=== PATIENT | male | born 1945 | race Caucasian/White ===

== ENCOUNTER → 2018-07-02 09:37 | Outpatient (CLI) | payer MEDICARE, SELFPAY | PROVIDERS: PCP Internal Medicine; Visit Provider Student in an Organized Health Care Education/Training Program | DX: M81.0 Age-related osteoporosis without current pathological fracture (principal); E21.3 Hyperparathyroidism, unspecified | CPT/HCPCS: 77080; 77081 ==

== ENCOUNTER → 2019-06-20 09:11 | Outpatient (CLI) | payer MEDICARE, SELFPAY ==
[2019-06-20 09:49] LABS: Hemoglobin A1C% w Est Avg Glu 5.9 % (4.0-6.0)
[2019-06-20 10:08] LABS: Aspartate Aminotransferase 33 IU/L (17-59); BUN Creatinine Ratio 22.5 (6-22); Blood Urea Nitrogen 18 mg/dL (9-20); Carbon Dioxide 30 mmol/L (22-32); Chloride 104 mmol/L (98-107); Cholesterol 100 mg/dL (140-199); Estimated Glomerular Filt Rate > 60.0 mL/min (>60); Glucose 160 mg/dL (80-110); HDL Cholesterol 45 mg/dL (40-60); HEMOLYSIS < 15 (0-50); LDL Cholesterol Calculated 38 mg/dL (<100); Potassium 4.4 mmol/L (3.4-5.1); Sodium 141 mmol/L (137-145); Triglycerides 86 mg/dL (35-150)
== END ==
PROVIDERS: PCP Internal Medicine; Visit Provider Internal Medicine
DX: I10 Essential (primary) hypertension (principal); E78.2 Mixed hyperlipidemia; R73.01 Impaired fasting glucose
CPT/HCPCS: 36415; 80048; 80061; 83036; 84450

== ENCOUNTER → 2019-06-25 09:39 | Outpatient (CLI) | payer MEDICARE, SELFPAY | PROVIDERS: PCP Internal Medicine; Visit Provider Student in an Organized Health Care Education/Training Program | DX: M81.0 Age-related osteoporosis without current pathological fracture (principal); E83.52 Hypercalcemia | CPT/HCPCS: 77080; 77081 ==

== ENCOUNTER → 2020-06-18 14:56 | Outpatient (CLI) | payer MEDICARE, SELFPAY | PROVIDERS: PCP Internal Medicine; Referring Provider Student in an Organized Health Care Education/Training Program; Visit Provider Student in an Organized Health Care Education/Training Program | DX: M81.0 Age-related osteoporosis without current pathological fracture (principal) | CPT/HCPCS: 77080 ==

== ENCOUNTER → 2020-08-10 19:37 | Outpatient (ROUT) | payer MEDICARE, SELFPAY ==
[2020-08-10 20:25] LABS: Hemoglobin A1C% w Est Avg Glu 7.1 % (4.0-6.0)
[2020-08-10 20:31] LABS: Aspartate Aminotransferase 33 IU/L (17-59); BUN Creatinine Ratio 34.8 (6-22); Blood Urea Nitrogen 24 mg/dL (9-20); Calcium 9.1 mg/dL (8.4-10.2); Carbon Dioxide 29 mmol/L (22-32); Chloride 104 mmol/L (98-107); Cholesterol 108 mg/dL (140-199); Estimated Glomerular Filt Rate > 60.0 mL/min (>60); Glucose 108 mg/dL (80-110); HDL Cholesterol 46 mg/dL (40-60); HEMOLYSIS < 15 (0-50); LDL Cholesterol Calculated 31 mg/dL (<100); Potassium 4.3 mmol/L (3.4-5.1); Sodium 138 mmol/L (137-145); Triglycerides 153 mg/dL (35-150)
[2020-08-12 06:39] LABS: Parathyroid Hormone Int 45 pg/mL (15-65)
== END ==
PROVIDERS: PCP Internal Medicine; Visit Provider Internal Medicine
DX: I10 Essential (primary) hypertension (principal); E78.2 Mixed hyperlipidemia; E21.3 Hyperparathyroidism, unspecified; R73.01 Impaired fasting glucose
CPT/HCPCS: 80048; 80061; 83036; 83970; 84450

== ENCOUNTER → 2020-11-11 14:55 | Outpatient (ROUT) | payer MEDICARE, SELFPAY | PROVIDERS: PCP Internal Medicine; Visit Provider Internal Medicine | DX: N41.0 Acute prostatitis (principal) | CPT/HCPCS: 87086 ==

== ENCOUNTER 2020-11-12 10:36 | Emergency (ER) | payer MEDICARE, SELFPAY ==
[2020-11-12 11:33] VITALS: BP 141/83; PULSE 64; RESP 18; TEMP 36.9; O2SAT 100; BMI 26.6
--- NOTE | 2020-11-12 13:58 | DI.RAD.S_ITS ---
PROCEDURE: XR ABDOMEN 1V INDICATIONS: Constipation TECHNIQUE: One view of the abdomen acquired. COMPARISON: None. FINDINGS: Surgical changes and devices: None. Bowel: Bowel gas pattern is normal. Moderate colonic stool. No obstruction. Soft tissues: No suspicious abdominal calcifications. Visualized solid organ contours appear normal in size. Bones: No suspicious bony lesions. IMPRESSION: Moderate colonic stool. Dictated by: Jennifer Bustos M.D. on 11/12/2020 at 13:20 Approved by: Jennifer Bustos M.D. on 11/12/2020 at 13:21
--- NOTE | 2020-11-12 13:58 | ED_ITS ---
HPI - Back Pain/Injury General Chief Complaint: Back Pain/Injury Stated Complaint: HAVEN'T SLEPT FOR 3 NIGHTS, CONSTIPATION Time Seen by Provider: 11/12/20 13:17 Source: patient Mode of arrival: Ambulatory Limitations: no limitations History of Present Illness HPI Narrative: 75-year-old male here for evaluation of constipation and back pain and difficulty sleeping at night because of the discomfort. He was recent ly put on Bactrim for prostatitis by his primary doctor. He does state that he has had some problems urinating recently. He has not had any fevers. Has not fallen. He was concerned that potentially the antibiotic was reacting to some of his other medicines. He was also placed on calcium and vitamin D because of osteoporosis. He was concerned that potentially this was causing his constipation. Related Data Home Medications Medication Instructions Recorded Confirmed lisinopril 5 mg PO QDAY #0 07/17/11 omeprazole 20 mg PO QDAY #0 07/17/11 Previous Rx's Medication Instructions Recorded sulfamethoxazole-trimethoprim 1 tab PO BID #12 tab 04/07/17 Allergies Allergy/AdvReac Type Severity Reaction Status Date / Time No Known Drug Allergies Allergy Verified 11/12/20 11:40 Review of Systems Constitutional Constitutional: Denies fever(s) and Denies headache(s) Eyes Eyes: Denies blurry vision ENT Ears, Nose, Mouth, and Throat: Denies headache(s) and Denies sore throat Cardiovascular Cardiovascular: Denies chest pain and Denies dyspnea Respiratory Respiratory: Denies dyspnea Gastrointestinal Gastrointestinal: Reports abdominal pain, Reports constipation, Denies nausea and Denies vomiting Genitourinary Comments: Decreased urine output Musculoskeletal Musculoskeletal: Reports back pain Integumentary/Breasts Skin/Breast: Denies lesions and Denies rash Neurologic Neurologic: Denies behavioral changes and Denies headache(s) Psychiatric Psychiatric: Denies behavioral changes Hematologic/Lymphatic On Anticoagulants: No Allergic/Immunologic Allergic/Immunologic: Denies urticaria Patient History Medical History Osteoporosis Prostatitis Social History Smoking Status: Never smoker Smoking Status: Never smoker alcohol intake frequency: 0-2 drinks per day Substance Use Type: does not use Exam Initial Vital Signs Initial Vital Signs: Vital Signs Temperature 98.4 F 11/12/20 11:33 Pulse Rate 64 11/12/20 11:33 Respiratory Rate 18 11/12/20 11:33 Blood Pressure 141/83 H 11/12/20 11:33 Pulse Oximetry 100 11/12/20 11:33 Const General: cooperative and comfortable Limitations: mental status not altered HENMT Head: normal to inspection and normocephalic Eyes General: appearance normal, both eyes and all related structures Resp Effort & Inspection: normal respiratory effort Cardio Rate: regular rate GI Inspection: non-distended Palpation: soft and tender (Lower abdomen) Back/Spine/Pelvis Back: No CVA tenderness Skin Lesions: no lesions Rashes: no rashes Neuro General: patient alert, patient awake and patient oriented x3 Cognition: normal cognition Speech: speech normal Extrem General: normal to inspection and capillary refill normal Psych Appearance: grossly normal and well kempt Course Orders Ordered: ED Orders 11/12/20 13:58 XR abdomen 1V Stat 11/12/20 14:20 Urinalysis and Microscopic Stat Vital Signs Vital signs: Vital Signs - 8 hr 11/12/20 11:33 Temperature 98.4 F Pulse Rate 64 Respiratory Rate 18 Blood Pressure 141/83 H Pulse Oximetry 100 MDM - Back Pain/Injury Lab Data Attestation: I reviewed the patient's lab results. Labs: Lab Results 11/12/20 Range/Units 14:20 Urine Color Yellow Urine Appearance Clear Urine pH 5.5 (4.5-8.0) Ur Specific [place] 1.025 (1.000-1.035) Urine Protein Negative (Negative) Urine Glucose (UA) Trace H (Negative) g/dL Urine Ketones Negative (NEGATIVE) Urine Occult Blood 3+ H (Negative) Urine Nitrate Negative (Negative) Urine Bilirubin Negative (NEGATIVE) Urine Urobilinogen 0.2 (0.2) E.U./dL Ur Leukocyte Esterase Negative (NEGATIVE) Urine RBC 5-10/hpf H (0-5/HPF) Urine WBC None seen (0-5/HPF) Urine Bacteria None seen (None) Ur Culture Indicated? Cult not indicated MDM Narrative Medical decision making narrative: Bladder scan showed 800 cc of urine. I suspect that this is secondary to a baseline BPH in now with inflammation secondary to the prostatitis. He is currently on antibiotics for this prostatitis. After placement of the catheter his back pain and abdominal pain resolved. Plan to be is to leave the catheter in place. He will continue with his antibiotics in the rest of his medications. He will contact his primary doctor for follow-up. He expressed understanding and agreement. Discharge Plan Departure Patient Disposition: Home Clinical Impression: Acute urinary retention Instructions: How to Care for Your Sommers Catheter -- Male, DI for Urinary Retention in Men Activity Restrictions/Additional Instructions: I recommend that you contact your primary doctor's office for follow-up. Also recommend that you continue with the antibiotics. Return to the emergency department for any new or worsening symptoms Prescriptions: No Action omeprazole 20 MG capsule,delayed release(DR/EC) 20 mg PO QDAY Qty: 0 RF: 0 lisinopril 5 MG tablet 5 mg PO QDAY Qty: 0 RF: 0 sulfamethoxazole-trimethoprim 800 MG/160 MG tablet 1 tab PO BID Qty: 12 RF: 0 Referrals: Cristi Schulz MD [Physician] - Maco Schafer MD [Primary Care Provider] -
[2020-11-12 14:27] LABS: Appearance Urine UA CLEAR; Bacteria Urine None Seen; Bilirubin Urine UA NEGATIVE (NEGATIVE); Color Urine UA YELLOW; Glucose Urine UA TRACE g/dL (Negative); Ketones Urine UA NEGATIVE (NEGATIVE); Leukocyte Esterase Urine UA NEGATIVE (NEGATIVE); Nitrite Urine UA NEGATIVE (Negative); Occult Blood Urine UA 3+ (Negative); Protein Urine UA NEGATIVE (Negative); Specific Gravity Urine UA 1.025 (1.000-1.035); Urobilinogen Urine UA 0.2 E.U./dL (0.2); WBC Urine None Seen (0-5/HPF); pH Urine UA 5.5 (4.5-8.0)
[2020-11-12 14:34] LABS: Culture Indicated Urine Cult Not Indicated; RBC Urine 5-10/HPF (0-5/HPF)
--- NOTE | 2020-11-12 15:37 | PC.NURSE ---
Teaching done for catheter, leg bag applied. I worked with the individual to teach him proper catheter care.
[2020-11-12 15:42] VITALS: BP 128/78; PULSE 68; RESP 17; O2SAT 99
== END 2020-11-12 15:45 | disposition home or self-care (01) ==
PROVIDERS: Emergency Provider Emergency Medicine; PCP Internal Medicine
DX: R33.8 Other retention of urine (principal); R10.9 Unspecified abdominal pain; M54.9 Dorsalgia, unspecified
CPT/HCPCS: 51701; 51798; 74018; 81001; 99284

== ENCOUNTER 2020-11-14 15:12 | Emergency (ER) | payer MEDICARE, SELFPAY ==
[2020-11-14 15:24] VITALS: BP 125/71; PULSE 72; RESP 18; TEMP 36.5; O2SAT 97; BMI 26.6
[2020-11-14 19:27] LABS: Bacteria Urine None Seen; WBC Urine None Seen (0-5/HPF)
[2020-11-14 19:46] LABS: Appearance Urine UA CLOUDY; Bilirubin Urine UA NEGATIVE (NEGATIVE); Color Urine UA RED; Glucose Urine UA NEGATIVE (Negative); Ketones Urine UA TRACE (NEGATIVE); Leukocyte Esterase Urine UA NEGATIVE (NEGATIVE); Nitrite Urine UA NEGATIVE (Negative); Occult Blood Urine UA 3+ (Negative); Protein Urine UA 3+ (Negative); Urobilinogen Urine UA 0.2 E.U./dL (0.2); pH Urine UA 6.5 (4.5-8.0)
[2020-11-14 19:53] LABS: Culture Indicated Urine Cult Not Indicated; RBC Urine >100/HPF (0-5/HPF)
--- NOTE | 2020-11-14 20:29 | ED.MALEGU ---
HPI - Male Genitourinary General Chief complaint: Urogenital-Male Stated complaint: catheter in, sees blood in urine now Time Seen by Provider: 11/14/20 15:24 Source: patient Mode of arrival: Family Vehicle Limitations: no limitations History of Present Illness HPI Narrative: Patient is a 75-year-old male who has indwelling Sommers catheter concerned urine. He developed urinary retention and probable prostatitis November 12. He was on Bactrim from his primary care provider for prostatitis and developed urinary retention and came to the ER at which point Sommers catheter was placed 11/12/2020. This evening he and his noticed that his urine was quite dark and there was some sediment in the toilet. He has not had any fever or chills. At no time was there gross blood in the Sommers catheter and urine is not pink. Related Data Home Medications Medication Instructions Recorded Confirmed lisinopril 5 mg PO QDAY #0 07/17/11 omeprazole 20 mg PO QDAY #0 07/17/11 Previous Rx's Medication Instructions Recorded sulfamethoxazole-trimethoprim 1 tab PO BID #12 tab 04/07/17 Allergies Allergy/AdvReac Type Severity Reaction Status Date / Time No Known Drug Allergies Allergy Verified 11/14/20 15:29 Review of Systems Review of Systems Narrative: GENERAL: Denies chills,fever HEENT: Denies throat pain RESPIRATORY: Denies dyspnea, cough, wheezing CARDIOVASCULAR: Denies chest pain, palpitations GASTROINTESTINAL: Denies nausea, vomiting : See HPI MUSCULOSKELETAL: Denies extremity pain, injury SKIN: No rash, no laceration, no pruritus NEUROLOGIC: Denies weakness, dizziness, headache, numbness 8 point review of systems is negative except for those stated above and HPI Patient History Medical History Osteoporosis Prostatitis Social History Smoking Status: Never smoker Smoking Status: Never smoker alcohol intake frequency: 0-2 drinks per day Substance Use Type: does not use Exam Initial Vital Signs Initial Vital Signs: Vital Signs Temperature 97.7 F 11/14/20 15:24 Pulse Rate 72 11/14/20 15:24 Respiratory Rate 18 11/14/20 15:24 Blood Pressure 125/71 11/14/20 15:24 Pulse Oximetry 97 11/14/20 15:24 GENERAL: Well-appearing 75-year-old male CARDIOVASCULAR: peripheral pulses in tact, cap refill <2 sec RESPIRATORY: No respiratory distress, speaks in full sentences without difficulty ABDOMEN: Soft, nontender, no guarding or rebound : Sommers catheter in place and working urine is yellow and clear EXTREMITIES: Normal range of motion, no clubbing or edema. Neurovascularly intact NEUROLOGICAL: Cranial nerves II through XII grossly intact. Normal gait and speech. SKIN: Warm, dry, no petechiae, no rashes or lesions. Course Orders Ordered: ED Orders 11/14/20 19:15 Urinalysis and Microscopic Stat Vital Signs Vital signs: Vital Signs - 8 hr 11/14/20 21:02 Pulse Rate 76 Respiratory Rate 16 Blood Pressure 130/61 Pulse Oximetry 97 MDM - Male Genitourinary Lab Data Attestation: I reviewed the patient's lab results. Labs: Lab Results 11/14/20 Range/Units 19:15 Urine Color Red Urine Appearance Cloudy Urine pH 6.5 (4.5-8.0) Ur Specific [place] 1.020 (1.000-1.035) Urine Protein 3+ H (Negative) Urine Glucose (UA) Negative (Negative) g/dL Urine Ketones Trace H (NEGATIVE) Urine Occult Blood 3+ H (Negative) Urine Nitrate Negative (Negative) Urine Bilirubin Negative (NEGATIVE) Urine Urobilinogen 0.2 (0.2) E.U./dL Ur Leukocyte Esterase Negative (NEGATIVE) Urine RBC >100/hpf H (0-5/HPF) Urine WBC None seen (0-5/HPF) Urine Bacteria None seen (None) Ur Culture Indicated? Cult not indicated MDM Narrative Medical decision making narrative: Patient is currently on Bactrim for prostatitis. No evidence of gross blood or clogged catheter. I have educated both patient id was good regards to hematuria and when to return to the emergency department along with complications of Sommers catheter. All questions have been addressed. Patient is asking for Flomax however I defer to his primary care provider for Flomax. Discharge Plan Departure Patient Disposition: Home Clinical Impression: Complication of Sommers catheter, Hematuria Instructions: DI for Urinary Retention in Men Activity Restrictions/Additional Instructions: *You have been diagnosed with Sommers catheter, blood in urine *What to do: At this time continue antibiotics. Please talk with her primary care provider about Flomax *Continue to take medications as directed *Follow up with your primary care provider in 2-3 days *Return to ER if you should have actual blood in the Sommers catheter, no urine output, increased abdominal pain or any new, worsening or concerning symptoms Prescriptions: No Action omeprazole 20 MG capsule,delayed release(DR/EC) 20 mg PO QDAY Qty: 0 RF: 0 lisinopril 5 MG tablet 5 mg PO QDAY Qty: 0 RF: 0 sulfamethoxazole-trimethoprim 800 MG/160 MG tablet 1 tab PO BID Qty: 12 RF: 0 Referrals: Maco Schafer MD [Primary Care Provider] -
--- NOTE | 2020-11-14 20:59 | PC.NURSE ---
Pt had multiple questions about his catheter. Instructed appropriate care and instructions for catheter. Answered all questions. Pt able to verbalize and demonstrate cath care.
[2020-11-14 21:02] VITALS: BP 130/61; PULSE 76; RESP 16; O2SAT 97
== END 2020-11-14 21:03 | disposition home or self-care (01) ==
PROVIDERS: Emergency Medicine; Emergency Provider Emergency Medicine; PCP Internal Medicine
DX: R31.9 Hematuria, unspecified (principal); T83.9XXA Unspecified complication of genitourinary prosthetic device, implant and graft, initial encounter
CPT/HCPCS: 81001; 99281; 99282

== ENCOUNTER 2020-12-11 14:05 | Emergency (ER) | payer MEDICARE, SELFPAY ==
[2020-12-11 14:10] VITALS: BP 119/60; PULSE 72; RESP 16; TEMP 36.4; O2SAT 100
--- NOTE | 2020-12-11 15:10 | ED.MALEGU ---
HPI - Male Genitourinary General Chief complaint: Urogenital-Male Stated complaint: catheter issues Time Seen by Provider: 12/11/20 15:00 Source: patient Mode of arrival: Ambulatory Limitations: no limitations History of Present Illness HPI Narrative: 75-year-old male nonsmoker with history of hypertension and prostate issues presents with his in the chief complaint of a Sommers catheter issue. He states that he was changing the adhesive device on his thigh and he mounted in correctly and it was pinching his skin. He was unable to fix the problem at home, try disease urologist but they were closed and came here as the result. He is otherwise well and free of complaint. The Sommers has been draining without difficulty. He has had no fever or chills. MD Complaint: other Onset (ago): minute(s) Duration: constant Location: right inguinal region Severity: mild Quality: sharp Relieving factors: none Exacerbating factors: none Related Data Home Medications Medication Instructions Recorded Confirmed lisinopril 5 mg PO QDAY #0 07/17/11 12/02/20 denosumab 60 mg/mL subcutaneous 60 mg SUBCUT [id number] 11/26/20 12/02/20 syringe rosuvastatin 10 mg tablet 10 mg PO DAILY 11/26/20 12/02/20 sildenafil 50 mg tablet 50 mg PO DAILY PRN 11/26/20 12/02/20 Previous Rx's Medication Instructions Recorded tamsulosin 0.4 mg capsule 0.4 mg PO BEDTIME #30 cap 11/18/20 ciprofloxacin HCl 250 mg tablet 250 mg PO BID #5 tab 12/01/20 Allergies Allergy/AdvReac Type Severity Reaction Status Date / Time No Known Drug Allergies Allergy Verified 12/11/20 14:14 Review of Systems Constitutional Constitutional: Denies chills, Denies fatigue, Denies fever(s), Denies frequent falls, Denies lethargy and Denies weakness Eyes Eyes: Denies change in vision, Denies eye discharge, Denies irritation and Denies loss of vision ENT Ears, Nose, Mouth, and Throat: Denies change in voice, Denies dizziness, Denies neck pain, Denies sore throat and Denies throat swelling Cardiovascular Cardiovascular: Denies chest pain, Denies irregular heart rhythm, Denies lightheadedness, Denies palpitations, Denies dyspnea, Denies dyspnea on exertion and Denies orthopnea Respiratory Respiratory: Denies cough, Denies dyspnea, Denies dyspnea on exertion and Denies wheezing Gastrointestinal Gastrointestinal: Denies abdominal pain, Denies change in bowel habits, Denies diarrhea, Denies nausea and Denies vomiting Musculoskeletal Musculoskeletal: Denies neck pain and Denies numbness Integumentary/Breasts Skin/Breast: Denies pruritus, Denies erythema, Denies rash and Denies wounds Neurologic Neurologic: Denies behavioral changes, Denies confusion, Denies dizziness, Denies frequent falls, Denies loss of vision, Denies numbness and Denies weakness Psychiatric Psychiatric: Denies anxiety, Denies behavioral changes, Denies confusion, Denies depression, Denies homicidal ideation and Denies suicidal ideation Endocrine Endocrine: Denies fatigue, Denies flushing and Denies palpitations Hematologic/Lymphatic Hematologic/Lymphatic: Denies easy bruising Allergic/Immunologic Allergic/Immunologic: Denies urticaria, Denies throat swelling and Denies wheezing Patient History Medical History Bladder calculi Diabetes Erectile dysfunction GERD (gastroesophageal reflux disease) Hypertension Osteoporosis Prostatitis Family History Grandfather Stroke CAD (coronary artery disease) Father CAD (coronary artery disease) Stroke Hyperlipidemia Hypertension Social History marital status: number of children: 2 household members: spouse occupational status: previously employed current occupational exposures/hazards: No Previous occupational history: retired sexual history: See [employer] Smoking Status: Never smoker alcohol intake: never caffeine: No Type(s) of exercise: regular exercise frequency: daily duration: 45-60 minutes/day Smoking Status: Never smoker alcohol intake frequency: 0-2 drinks per day Substance Use Type: does not use Exam Narrative Exam Narrative: GEN: AOx3 and in mild distress EYES: Pupils are equal, round, and reactive to light and accommodation. Extraoccular muscles are intact bilaterally. There is no subconjunctival hemorrhage or exudate. CHEST: Lungs are clear to auscultation bilaterally and free of wheezes, rales, or rhonchi. Heart rate is regular rhythm, there are no murmurs, clicks, rubs, or gallops. There is no chest wall tenderness. ABD: Abdomen is soft and nontender. There is no guarding or rebound. Bowel sounds are normal in all 4 quadrants. There is no mass or organomegaly. EXT: Full painless ROM of all extremities with no loss of sensation or strength. : Sommers catheter in place, draining appropriately, nursing has replaced the securing device and patient is asymptomatic and at baseline SKIN: Warm, pink, and dry. No erythema or rash Initial Vital Signs Initial Vital Signs: Vital Signs Temperature 97.6 F 12/11/20 14:10 Pulse Rate 72 12/11/20 14:10 Respiratory Rate 16 12/11/20 14:10 Blood Pressure 119/60 12/11/20 14:10 Pulse Oximetry 100 12/11/20 14:10 Course Vital Signs Vital signs: Vital Signs - 8 hr 12/11/20 14:10 Temperature 97.6 F Pulse Rate 72 Respiratory Rate 16 Blood Pressure 119/60 Pulse Oximetry 100 Discharge Plan Departure Patient Disposition: Home Clinical Impression: Problem with Sommers catheter Qualifiers: Encounter type: initial encounter Qualified Code(s): T83.9XXA - Unspecified complication of genitourinary prosthetic device, implant and graft, initial encounter Instructions: How to Care for Your Sommers Catheter -- Male Activity Restrictions/Additional Instructions: *You have been diagnosed with [Sommers catheter problem] *What to do: *Please continue to take your regular medications as directed. [ ] New medication prescriptions sent to your pharmacy: [ ] [ ] New medication written as a paper prescription [x ] No new medications given *Please follow up with your primary care provider in 2-3 days, call for an appointment. Let them know you were seen in the Emergency Department and that we ask that you be seen in follow up. We will electronically transmit a record of today's note if your PCP is in our system *If you do not have a primary care provider please contact the [facility] Resource line at [phone]. They will ask some questions about your medical history and help get you set up with a doctor in the community. *Return to Emergency Department if you should have any new, worsening or concerning symptoms, such as [fever greater than 101 F, shaking chills, worsening pain, persistent vomiting or other bothersome symptoms] Prescriptions: No Action lisinopril 5 MG tablet 5 mg PO QDAY Qty: 0 RF: 0 tamsulosin 0.4 mg capsule 0.4 mg PO BEDTIME Qty: 30 RF: 0 ciprofloxacin HCl 250 mg tablet 250 mg PO BID Qty: 5 RF: 0 rosuvastatin [Crestor] 10 mg tablet 10 mg PO DAILY RF: 0 Prolia 60 mg/mL syringe 60 mg SUBCUT [id number] RF: 0 sildenafil [Viagra] 50 mg tablet 50 mg PO DAILY PRNRF: 0 Referrals: Maco Schafer MD [Primary Care Provider] -
--- NOTE | 2020-12-11 15:23 | PC.NURSE ---
pt arrived to Er to just have his hearn secure device checked. was unsure how it went on. instructed and demonstrated to how to fix the device. hearn care done.
== END 2020-12-11 15:19 | disposition home or self-care (01) ==
PROVIDERS: Emergency Provider Emergency Medicine; PCP Internal Medicine
DX: T83.9XXA Unspecified complication of genitourinary prosthetic device, implant and graft, initial encounter (principal)
CPT/HCPCS: 99281

== ENCOUNTER 2021-03-19 16:33 | Emergency (ER) | payer MEDICARE, SELFPAY ==
[2021-03-19 16:37] VITALS: BP 154/74; PULSE 85; RESP 18; TEMP 36.7; O2SAT 95; BMI 25.7
[2021-03-19 17:31] LABS: Bilirubin Urine UA NEGATIVE (NEGATIVE); Color Urine UA YELLOW; Glucose Urine UA TRACE g/dL (Negative); Ketones Urine UA TRACE (NEGATIVE); Leukocyte Esterase Urine UA 2+ (NEGATIVE); Nitrite Urine UA NEGATIVE (Negative); Occult Blood Urine UA 3+ (Negative); Protein Urine UA 1+ (Negative); Urobilinogen Urine UA 0.2 E.U./dL (0.2)
[2021-03-19 17:44] LABS: Appearance Urine UA Slightly Cloudy
[2021-03-19 17:45] LABS: Amorphous Sediment Urine 1+; Bacteria Urine Occasional (0-1); Culture Indicated Urine Specimen Cultured; RBC Urine 1-5/HPF (0-5/HPF); Squamous Epithelial Cell Urine 0-1 /HPF (0-5/HPF); WBC Urine >100/HPF (0-5/HPF)
--- NOTE | 2021-03-19 19:09 | ED_ITS ---
HPI - Male Genitourinary General Chief complaint: Urogenital-Male Stated complaint: Can't Urinate, 3-4 Days Time Seen by Provider: 03/19/21 17:33 Source: patient and family Mode of arrival: Ambulatory Limitations: no limitations History of Present Illness HPI Narrative: 75M nonsmoker with history of erectile dysfunction and bladder calculi presents with a chief complaint of difficulty urinating for the past few days. He has suprapubic tenderness. He denies other symptoms such as dizziness, weakness or lightheadedness. He has no chest pain or shortness of breath. He denies any fever or shaking chills. He had history of with the a Sommers catheter being in place for many weeks but it has been out for the past 2 weeks. His symptoms started in the past few days. Related Data Home Medications Medication Instructions Recorded Confirmed lisinopril 5 mg tablet 5 mg PO QDAY #0 07/17/11 12/02/20 denosumab 60 mg/mL subcutaneous 60 mg SUBCUT [id number] 11/26/20 12/02/20 syringe (Prolia) rosuvastatin 10 mg tablet (Crestor) 10 mg PO DAILY 11/26/20 12/02/20 sildenafil 50 mg tablet (Viagra) 50 mg PO DAILY PRN 11/26/20 12/02/20 Previous Rx's Medication Instructions Recorded tamsulosin 0.4 mg capsule 0.4 mg PO BEDTIME #30 cap 11/18/20 ciprofloxacin HCl 250 mg tablet 250 mg PO BID #5 tab 12/01/20 cefuroxime axetil 500 mg tablet 500 mg PO BID #14 tab 03/19/21 Allergies Allergy/AdvReac Type Severity Reaction Status Date / Time No Known Drug Allergies Allergy Verified 03/19/21 16:40 Review of Systems Review of Systems Narrative: GENERAL: Denies chills, fatigue, malaise, fever, sweats. HEENT: Denies sinus pain, ear pain, sore throat, difficulty swallowing, dizziness. RESPIRATORY: Denies dyspnea, cough, wheezing, hemoptysis, sputum. CARDIOVASCULAR: Denies chest pain, palpitations, orthopnea, edema, GASTROINTESTINAL: Denies nausea, vomiting, abdominal pain, diarrhea, constipation, melena. : See HPI MUSCULOSKELETAL: denies weakness, joint pain, or bony pain SKIN: Denies rash, skin lesions, or other NEUROLOGIC: Denies weakness, headache, numbness, change in speech, confusion, seizures, incoordination. PSYCHIATRIC: No concerning psychosocial issues. 12 point review of systems is negative except for those stated above Patient History Medical History Bladder calculi Diabetes Erectile dysfunction GERD (gastroesophageal reflux disease) Hypertension Osteoporosis Prostatitis Family History Grandfather Stroke CAD (coronary artery disease) Father CAD (coronary artery disease) Stroke Hyperlipidemia Hypertension Social History marital status: number of children: 2 household members: spouse occupational status: previously employed current occupational exposures/hazards: No Previous occupational history: retired sexual history: See MANUEL Smoking Status: Never smoker alcohol intake: never caffeine: No Type(s) of exercise: regular exercise frequency: daily duration: 45-60 minutes/day Smoking Status: Never smoker alcohol intake frequency: 0-2 drinks per day Substance Use Type: does not use Exam Narrative Exam Narrative: GEN: AOx3 and in mild distress EYES: Pupils are equal, round, and reactive to light and accommodation. Extraoccular muscles are intact bilaterally. There is no subconjunctival hemorrhage or exudate. CHEST: Lungs are clear to auscultation bilaterally and free of wheezes, rales, or rhonchi. Heart rate is regular rhythm, there are no murmurs, clicks, rubs, or gallops. There is no chest wall tenderness. ABD: Abdomen is soft and nontender. There is no guarding or rebound. Bowel sounds are normal in all 4 quadrants. There is no mass or organomegaly. EXT: Full painless ROM of all extremities with no loss of sensation or strength. SKIN: Warm, pink, and dry. No erythema or rash Initial Vital Signs Initial Vital Signs: Vital Signs Temperature 98.1 F 03/19/21 16:37 Pulse Rate 85 03/19/21 16:37 Respiratory Rate 18 03/19/21 16:37 Blood Pressure 154/74 H 03/19/21 16:37 Pulse Oximetry 95 03/19/21 16:37 Course Course Course Narrative: Patient has a complete resolution of symptoms after Sommers catheter is placed. Return precautions have been discussed and questions answered to his apparent satisfaction Orders Ordered: ED Orders 03/19/21 17:18 Urinalysis and Microscopic Stat Urine Culture Stat Vital Signs Vital signs: Vital Signs - 8 hr 03/19/21 16:37 Temperature 98.1 F Pulse Rate 85 Respiratory Rate 18 Blood Pressure 154/74 H Pulse Oximetry 95 MDM - Male Genitourinary Lab Data Labs: Lab Results 03/19/21 Range/Units 17:18 Urine Color Yellow Urine Appearance Slightly cloudy Urine pH 5.0 (4.5-8.0) Ur Specific [place] 1.010 (1.000-1.035) Urine Protein 1+ H (Negative) Urine Glucose (UA) Trace H (Negative) g/dL Urine Ketones Trace H (NEGATIVE) Urine Occult Blood 3+ H (Negative) Urine Nitrate Negative (Negative) Urine Bilirubin Negative (NEGATIVE) Urine Urobilinogen 0.2 (0.2) E.U./dL Ur Leukocyte Esterase 2+ H (NEGATIVE) Urine RBC 1-5/hpf D (0-5/HPF) Urine WBC >100/hpf H (0-5/HPF) Ur Squamous Epith Cells 0-1 /hpf (0-5/HPF) Amorphous Sediment 1+ Urine Bacteria Occasional (0-1) (None) Urine Yeast 30-100/hpf H (None) Ur Culture Indicated? Specimen cultured Discharge Plan Departure Patient Disposition: Home Clinical Impression: Urinary tract infection, Acute retention of urine Instructions: DI for Urinary Tract Infection (UTI), DI for Urinary Retention in Men Activity Restrictions/Additional Instructions: *You have been diagnosed with [urinary retention, urinary tract infection *What to do: *Please continue to take your regular medications as directed. [X] New medication prescriptions sent to your pharmacy: [ [facility] [ ] New medication written as a paper prescription [ ] No new medications given *Please follow up with your primary care provider in 2-3 days, call for an appointment. Let them know you were seen in the Emergency Department and that we ask that you be seen in follow up. We will electronically transmit a record of today's note if your PCP is in our system *If you do not have a primary care provider please contact the [facility] Resource line at [phone]. They will ask some questions about your medical history and help get you set up with a doctor in the community. *Return to Emergency Department if you should have any new, worsening or concerning symptoms, such as [fever greater than 101 F, shaking chills, worsening pain, persistent vomiting or other bothersome symptoms] Prescriptions: New cefuroxime axetil 500 mg tablet 500 mg PO BID Qty: 14 RF: 0 No Action lisinopril 5 MG tablet 5 mg PO QDAY Qty: 0 RF: 0 tamsulosin 0.4 mg capsule 0.4 mg PO BEDTIME Qty: 30 RF: 0 ciprofloxacin HCl 250 mg tablet 250 mg PO BID Qty: 5 RF: 0 rosuvastatin [Crestor] 10 mg tablet 10 mg PO DAILY RF: 0 Prolia 60 mg/mL syringe 60 mg SUBCUT [id number] RF: 0 sildenafil [Viagra] 50 mg tablet 50 mg PO DAILY PRNRF: 0 Referrals: Maco Schafer MD [Primary Care Provider] -
== END 2021-03-19 19:25 | disposition home or self-care (01) ==
PROVIDERS: Emergency Medicine; Emergency Provider Emergency Medicine; PCP Internal Medicine
DX: N39.0 Urinary tract infection, site not specified (principal); R33.8 Other retention of urine
CPT/HCPCS: 51798; 81001; 87086; 99283

== ENCOUNTER → 2021-08-16 10:08 | Outpatient (CLI) | payer MEDICARE, SELFPAY ==
--- NOTE | 2021-08-16 | DI.MRI.S_ITS ---
PROCEDURE: MR HEAD/BRAIN WO/W CON INDICATIONS: HEART PALPITATIONS,DIZZINESS TECHNIQUE: Noncontrast axial T1 spin echo, axial T2 fast spin echo, sagittal and axial FLAIR, coronal T2 fast spin echo, axial gradient echo, axial diffusion and ADC through the brain. After the administration of contrast, axial and coronal T1 spin echo with fat saturation through the brain. COMPARISON: None. FINDINGS: Image quality: Loss of signal can be seen involving the anterior aspect of this study. CSF spaces: Basal cisterns are patent. No extra-axial fluid collections. Ventricles are normal in size and shape. Brain: No midline shift. No intracranial bleeds or masses. No abnormal intracranial enhancement. There is cerebral volume loss for age. There is periventricular white matter chronic small vessel ischemic change. The brainstem appears normal. Diffusion-weighted images demonstrate no acute ischemic insults. No chronic ischemic insults. Normal intravascular flow voids are present. Skull and face: Calvarial marrow is normal in signal. Orbits appear normal. Sinuses: Sinuses and mastoids appear clear. IMPRESSION: No acute intracranial process is seen. No masses or abnormal enhancement can be seen. Note is made of age-appropriate brain parenchymal volume loss and chronic small vessel ischemic changes. No findings of acute or subacute infarction can be seen. Dictated by: Charlie West M.D. on 08/16/2021 at 11:04 Approved by: Charlie West M.D. on 08/16/2021 at 11:05
--- NOTE | 2021-08-16 | DI.ECHO.S_ITS ---
[facility] +---------+ : : [address] : : : : [id number] : : : : Phone: [phone]+ Echocardiogram Report + + :Name: BIANCA MEADOWS Study Date: 08/16/2021 Height: 71.5 in: :[facility] ReadingLocation: Weight: 195 lb : : Gender: Male BSA: 2.1 m2 : :: 1945 Age: 76 yrs BP: 140/80 mmHg: :Reason For Study: Syncope, palpitations, dizziness : :Ordering Physician: : :ARSEN Performed By: Deric Hogan : :Referring: ANASTASIIA SANTOS : + + Interpretation Summary Borderline concentric left ventricular hypertrophy with ejection fraction 55- 60%. There is a mild dyssynchronous contraction pattern, consistent with a conduction abnormality. Mild mitral regurgitation. Procedure: A two-dimensional transthoracic echocardiogram with color flow and Doppler was performed. The study quality was technically adequate. The subcostal views were not obtained due to patient could not tolerate and no acoustic window. There is no prior echocardiogram noted for this patient. The patient was in normal sinus rhythm during the exam. The patient had occasional PVCs during the exam. Left Ventricle: The left ventricle is normal in size. There is borderline concentric left ventricular hypertrophy. The ejection fraction is estimated to be 55-60%. There is a mild dyssynchronous contraction pattern, consistent with a conduction abnormality. Right Ventricle: The right ventricle is normal in size and function. Atria: Both atria are normal in size. Mitral Valve: The mitral valve is normal. There is mild mitral regurgitation. Aortic Valve: The aortic valve is trileaflet. The aortic valve opens well. There is trace aortic regurgitation. Tricuspid Valve: The tricuspid valve is normal. There is trace tricuspid regurgitation. Pulmonary artery pressures cannot be estimated because of the lack of a measurable TR jet velocity. Pulmonic Valve: The pulmonic valve leaflets are thin and pliable; valve motion is normal. There is a trace or physiologic amount of pulmonic regurgitation. Great Vessels: The aortic root is normal size. The ascending aorta is normal in size. The aortic arch is normal in size. The inferior vena cava was not visualized. Pericardium/ Pleura There is no pericardial effusion. There is an anterior echo-free space consistent with a fat pad. There is no pleural effusion. MMode/2D Measurements & Calculations LVIDd: 3.8 cm LVOT diam: 2.5 cm LVIDs: 3.0 cm Ao root diam: 3.3 cm FS: 21.1 % asc Aorta Diam: 3.4 cm IVSd: 1.1 cm Ao Arch Diam (Prox Trans): 2.9 cm LVPWd: 1.2 cm LV albarado. diameter/BSA (cm/m^2): 1.8 LV sys. diameter/BSA (cm/m^2): 1.4 LA A2 area: 16.0 cm2 RA long axis: 5.7 cm LA A4 area: 18.5 cm2 LA length (vol): 5.6 cm LA vol: 44.9 ml LA vol index: 21.4 ml/m2 LVLs ap4: 6.2 cm LVLd ap2: 7.7 cm LVLs ap2: 6.5 cm TAPSE_phl: 2.2 cm Doppler Measurements & Calculations Ao V2 max: 97.6 cm/sec LVOT Max Wild: 80.3 cm/sec Ao V2 mean: 70.5 cm/sec LV V1 max P.6 mmHg Ao max P.0 mmHg LV V1 VTI: 18.6 cm Ao mean P.0 mmHg JASON(I,D): 3.8 cm2 Ao V2 VTI: 24.0 cm JASON(V,D): 4.0 cm2 sev ratio: 0.78 JASON indexed to BSA (cm^2/m^2): 1.8 MV E max wild: 64.7 cm/sec PA V2 max: 69.2 cm/sec MV A max wild: 67.3 cm/sec PA V2 mean: 53.7 cm/sec MV E/A: 0.96 PA mean P.0 mmHg Med Peak E' Wild: 5.7 cm/sec PA pr(Accel): 31.3 mmHg E/E' med: 11.3 Lat Peak E' Wild: 5.7 cm/sec E/E' lat: 11.3 E/e' average: 11.3 MV dec time: 0.29 sec SV(LVOT): 91.3 ml AV VR_phl: 0.82 JASON(VTI)/BSA_phl: 1.8 MV P1/2t-pr_phl: 86.0 msec Electronically signed by: Noam Burrows on Reading Physician:08/16/2021 11:17 AM
== END ==
PROVIDERS: PCP Internal Medicine; Referring Provider Internal Medicine; Visit Provider Internal Medicine
DX: I34.0 Nonrheumatic mitral (valve) insufficiency (principal); R42 Dizziness and giddiness; R00.2 Palpitations
CPT/HCPCS: 70553; 93306

== ENCOUNTER → 2021-11-05 12:00 | Outpatient (CLI) | payer MEDICARE, SELFPAY ==
--- NOTE | 2021-11-05 | DI.US.S_ITS ---
PROCEDURE: US CAROTID DOPPLER BI INDICATIONS: Dizziness and giddiness TECHNIQUE: Color and pulse Doppler interrogation was performed of both carotid systems, with image documentation and velocity measurements. COMPARISON: [facility], MR, MR HEAD/BRAIN WO/W CON, 08/16/2021, 10:59. FINDINGS: Stenosis calculations are based on SRU (Society of Radiologists in Ultrasound) criteria. The flow velocities and the arterial waveforms are normal within both carotid arterial systems. The estimated degree of internal carotid artery stenosis is less than 50%. Antegrade flow is confirmed within both vertebral arteries. IMPRESSION: No hemodynamically significant stenosis is seen. Dictated by: Charlie West M.D. on 11/05/2021 at 12:35 Approved by: Charlie West M.D. on 11/05/2021 at 12:36
== END ==
PROVIDERS: PCP Internal Medicine; Referring Provider Internal Medicine Cardiovascular Disease; Visit Provider Internal Medicine Cardiovascular Disease
DX: R42 Dizziness and giddiness (principal)
CPT/HCPCS: 93880

== ENCOUNTER → 2021-11-11 10:36 | Outpatient (CLI) | payer MEDICARE, SELFPAY ==
--- NOTE | 2021-11-11 | DI.NM.S_ITS ---
PROCEDURE: NM JERI PERF SPECT REST & STR Rest and exercise myocardial perfusion SPECT with gated imaging and ejection fraction RADIOPHARMACEUTICAL: 12.5 mCi Tc-99m sestamibi IV at rest and 25.7 mCi Tc-99m sestamibi IV at peak exercise. A one day-protocol was performed. INDICATIONS: Palpitations TECHNIQUE: Radiopharmaceutical was injected at peak stress test, and also at rest. SPECT images were obtained. SPECT myocardial perfusion images were displayed in short axis, horizontal long axis, and vertical long axis views. Gated images were reviewed using Creator Up software. COMPARISON: None. CARDIAC STRESS: A standard Moreno treadmill exercise tolerance test was performed by the patient under the supervision of an attending staff. The patient exercised for 6 minutes and 3 seconds; functional aerobic impairment (SANDRA) is -9%. Hemodynamic data: There is normal blood pressure and heart rate response to exercise stress. Patient achieved 89% of maximum predicted heart rate at peak exercise. Symptoms: Patient denied chest pain during exercise. EKG: No diagnostic EKG changes of ischemia; rare PVCs present. FINDINGS: Raw data: There is good myocardial labeling by radiotracer. No significant motion artifacts. Ylkk-ff-mjkya ratio is 0.29 (normal is less than 0.38 for sestamibi tracer, and less than 0.50 for thallium tracer). Left ventricle function: Gated images demonstrate normal left ventricle wall thickening. No segmental wall motion abnormality. No transient ischemic dilation; TID is 0.86 (normal less than 1.3). The left ventricle resting end-diastolic volume is 126 mL. Left ventricle stress ejection fraction is 73%; normal values are above 45%. Myocardial perfusion: There is normal distribution of activity in the left and right ventricular myocardium. No fixed or reversible perfusion defects. IMPRESSION: Low risk, normal treadmill nuclear stress test 1) No perfusion evidence of ischemia or infarction. 2) Normal left ventricular size, wall motion, and systolic function (EF post stress 73%). 3) No ECG evidence of ischemia. 4) No angina during the study. 5) Slightly above average exercise tolerance (6.9 METs, SANDRA -9%). Target heart rate achieved. Appropriate BP response to exercise. 6) No prior nuclear stress test available for comparison. Dictated by: Carina Lopez MD on 11/11/2021 at 16:28 Approved by: Carina Lopez MD on 11/11/2021 at 16:31
--- NOTE | 2021-11-11 15:17 | PM.TREADMILL ---
Cardiac Stress Test Report Referral & Results Date Patient Seen: 11/11/21 Time Patient Seen: 15:17 Requesting provider: Zbigniew Merritt Indication: Palpitations Rest ECG: Sinus rhythm Procedure Note: Standard Moreno protocol, 6:03 mis; 6.9 METS Good exercise capacity, SANDRA -9% Normal hemodynamic response to exercise No chest pain or anginal symptoms Rare PACs and PVCs Impression: Normal exercise stress test Nuclear images pending Please note: Actual ECG tracings can be found in the PACS system.
== END ==
PROVIDERS: PCP Internal Medicine; Referring Provider Internal Medicine Cardiovascular Disease; Visit Provider Internal Medicine Cardiovascular Disease
DX: R00.2 Palpitations (principal); R42 Dizziness and giddiness
CPT/HCPCS: 78452; 93017; A9502

== ENCOUNTER → 2021-12-14 12:24 | Outpatient (CLI) | payer MEDICARE, SELFPAY ==
[2021-12-14 13:54] LABS: Magnesium 1.8 mg/dL (1.6-2.3)
[2021-12-14 14:25] LABS: Thyroid Stimulating Hormone 1.85 uIU/mL (0.47-4.68)
== END ==
PROVIDERS: PCP Internal Medicine; Referring Provider Internal Medicine Cardiovascular Disease; Visit Provider Internal Medicine Cardiovascular Disease
DX: I10 Essential (primary) hypertension (principal); I47.1 Supraventricular tachycardia
CPT/HCPCS: 36415; 83735; 84443

== ENCOUNTER 2022-02-25 15:49 | Emergency (ER) | payer MEDICARE, SELFPAY ==
[2022-02-25 16:02] VITALS: BP 170/84; PULSE 52; RESP 18; TEMP 36.7; O2SAT 97; BMI 26.8
--- NOTE | 2022-02-25 16:54 | ED.MALEGU ---
HPI - Male Genitourinary <Beka Perla PA-C - Last Filed: 02/25/22 18:30> General Chief complaint: Urogenital-Male Stated complaint: Post Prostate Surg, Unable to Urinate Time Seen by Provider: 02/25/22 15:57 Source: patient and family Mode of arrival: Family Vehicle History of Present Illness HPI Narrative: Patient is a 74-year-old male who presents to the ER today with complaint of difficulty emptying his bladder. Feels like he has a urinate but can not totally empty bladder. Patient states this has been going on for about a year now. Admits that it has worsened over the last few days. Does not complain of any pain this concern is that he will not be able to empty his bladder in the near future. Admits that he will have surgery done on March 11 of this month to remove urethral polyps polyps. Genitourinary doctor is Dr. Archuleta at the [facility]. Denies any pain or bleeding with urinary discharge. Also admits to having partial prostate in February of last year. Related Data Home Medications Medication Instructions Recorded Confirmed lisinopril 5 mg tablet 5 mg PO QDAY ##0 07/17/11 04/14/21 denosumab 60 mg/mL subcutaneous 60 mg SUBCUT [id number] 11/26/20 04/14/21 syringe (Prolia) rosuvastatin 10 mg tablet (Crestor) 10 mg PO DAILY 11/26/20 04/14/21 sildenafil 50 mg tablet (Viagra) 50 mg PO DAILY PRN 11/26/20 04/14/21 Previous Rx's Medication Instructions Recorded tamsulosin 0.4 mg capsule 0.4 mg PO BEDTIME #30 caps 11/18/20 Allergies Allergy/AdvReac Type Severity Reaction Status Date / Time No Known Drug Allergies Allergy Verified 02/25/22 16:02 Review of Systems <Beka Perla PA-C - Last Filed: 02/25/22 18:30> Review of Systems Narrative: R.O.S.: General: No fever, chills, fatigue or other concerns. Cardiovascular: No chest pain, palpitations or other Cardiovascular related concerns. Respiratory: No S.O.B. or other Respiratory related concerns. HEENT: No congestion, ear pain, rhinorrhea, sore throat or tinnitus Gastrointestinal: No nausea, vomiting or other Gastrointestinal related concerns. Skin: No rash or associated abnormalities Neurological: Awake, alert and in not apparent distress. No Headaches, changes in vision or other related neurological concerns. Patient History <Beka Perla PA-C - Last Filed: 02/25/22 18:30> Medical History Bladder calculi Diabetes Erectile dysfunction GERD (gastroesophageal reflux disease) Hypertension Osteoporosis Prostatitis Family History Grandfather Stroke CAD (coronary artery disease) Father CAD (coronary artery disease) Stroke Hyperlipidemia Hypertension Social History marital status: number of children: 2 household members: spouse occupational status: previously employed current occupational exposures/hazards: No Previous occupational history: retired sexual history: See [employer] Smoking Status: Never smoker alcohol intake: never caffeine: No Type(s) of exercise: regular exercise frequency: daily duration: 45-60 minutes/day Smoking Status: Never smoker alcohol intake frequency: 0-2 drinks per day Substance Use Type: does not use Exam <Beka Perla PA-C - Last Filed: 02/25/22 18:30> Narrative Exam Narrative: Abdomen is soft nontender nondistended with positive bowel sounds in negative rebound. Initial Vital Signs Initial Vital Signs: Vital Signs Temperature 98.1 F 02/25/22 16:02 Pulse Rate 52 L 02/25/22 16:02 Respiratory Rate 18 02/25/22 16:02 Blood Pressure 170/84 H 02/25/22 16:02 Pulse Oximetry 97 02/25/22 16:02 Oxygen Delivery Method 02/25/22 16:02 Resp Effort & Inspection: normal respiratory effort Auscultation: clear to auscultation bilaterally GI Inspection: normal to inspection Palpation: soft and No tender Percussion: normal to percussion Auscultation: normal bowel sounds <Cassandra Leong DO - Last Filed: 02/26/22 08:50> Initial Vital Signs Initial Vital Signs: Vital Signs Temperature 98.1 F 02/25/22 16:02 Pulse Rate 52 L 02/25/22 16:02 Respiratory Rate 18 02/25/22 16:02 Blood Pressure 170/84 H 02/25/22 16:02 Pulse Oximetry 97 02/25/22 16:02 Oxygen Delivery Method 02/25/22 16:02 Course <Beka Perla PA-C - Last Filed: 02/25/22 18:30> Orders Ordered: Discontinued Medications Lidocaine HCl (Lidocaine 2% (Glydo) 6 Ml Gel) 6 ml TOP NOW ONE Stop: 02/25/22 16:28 Last Admin: 02/25/22 17:00 Dose: 6 ml Documented By: RLS Consultations Consultation #1: Dr Carla Lanier at [facility]. Discussed patient history of polyps and difficulty with ureteral scope with Dr. Jacques. Dr Jacques recommends moving forward with attempting to insert the urinary catheter. She suggested we use a 14. Or 16 catheter with heavy lubrication. She advised the surgical elastic knitter to attempt to maneuver the CT catheter in the urethra but to refrain from trying to move against resistance to prevent trauma of a polyp. Vital Signs Vital signs: Vital Signs - 8 hr 02/25/22 16:02 Temperature 98.1 F Pulse Rate 52 L Respiratory Rate 18 Blood Pressure 170/84 H Pulse Oximetry 97 Oxygen Delivery Method Room Air <Cassandra Leong DO - Last Filed: 02/26/22 08:50> Orders Ordered: Discontinued Medications Lidocaine HCl (Lidocaine 2% (Glydo) 6 Ml Gel) 6 ml TOP NOW ONE Stop: 02/25/22 16:28 Last Admin: 02/25/22 17:00 Dose: 6 ml Documented By: RLS Vital Signs Vital signs: Vital Signs - 8 hr 02/25/22 16:02 Temperature 98.1 F Pulse Rate 52 L Respiratory Rate 18 Blood Pressure 170/84 H Pulse Oximetry 97 Oxygen Delivery Method Room Air MDM - Male Genitourinary <Beka Perla PA-C - Last Filed: 02/25/22 18:30> Lab Data Labs: Lab Results 02/25/22 Range/Units 17:30 Urine Color Yellow Urine Appearance Clear Urine pH 5.0 (4.5-8.0) Ur Specific [place] 1.010 (1.000-1.035) Urine Protein 2+ H (Negative) Urine Glucose (UA) Negative (Negative) g/dL Urine Ketones Negative (NEGATIVE) Urine Occult Blood 1+ H (Negative) Urine Nitrate Negative (Negative) Urine Bilirubin Negative (NEGATIVE) Urine Urobilinogen 0.2 (0.2) E.U./dL Ur Leukocyte Esterase Negative (NEGATIVE) Urine RBC 1-5/hpf (0-5/HPF) Urine WBC 5-10/hpf H (0-5/HPF) Amorphous Sediment 1+ Urine Bacteria Moderate (10-30) H (None) Ur Culture Indicated? Specimen cultured MDM Narrative Medical decision making narrative: Patient is a 76-year-old male who presents to the ER today with difficulty urinating. Patient states this is a chronic issue that has been going on for multiple months fell. Patient does admit that it is gradually getting worse. His concern today is that he will leave here not be able to urinate. He admits that he has surgery scheduled for March 11 of this month to remove the urethral polyp. States that he had a scope done about 1 month ago to identify multiple polyps in his urethra. Also states the doctor had difficulty completing the scope because of a large polyp. Ultrasound revealed above 780 cc of urine in the bladder. Discussed with who recommended consulting with genitourinary in regards to the catheter insertion with multiple polyps present. This provider consulted with Dr. Carla Lanier at the [facility] who recommended moving forward with attempting to insert the catheter but attempting to use a 14. Or 16 well lubricated catheter. Nurse informed and will attempt the insertion. Urinary catheter was successfully inserted by nurse and has drained over 1200 cc of urine at this time. Urine has minimal visible blood. Patient has appointment scheduled with his provider on Monday of next week. Plan is to leave cather inserted until he follows up with his provider. He has a 6 month history of having a Urinary Catheter and feels comfortable taking care of it. Patient agrees with plan. <Cassandra Leong, DO - Last Filed: 02/26/22 08:50> Lab Data Labs: Lab Results 02/25/22 Range/Units 17:30 Urine Color Yellow Urine Appearance Clear Urine pH 5.0 (4.5-8.0) Ur Specific [place] 1.010 (1.000-1.035) Urine Protein 2+ H (Negative) Urine Glucose (UA) Negative (Negative) g/dL Urine Ketones Negative (NEGATIVE) Urine Occult Blood 1+ H (Negative) Urine Nitrate Negative (Negative) Urine Bilirubin Negative (NEGATIVE) Urine Urobilinogen 0.2 (0.2) E.U./dL Ur Leukocyte Esterase Negative (NEGATIVE) Urine RBC 1-5/hpf (0-5/HPF) Urine WBC 5-10/hpf H (0-5/HPF) Amorphous Sediment 1+ Urine Bacteria Moderate (10-30) H (None) Ur Culture Indicated? Specimen cultured Discharge Plan Departure Patient Disposition: Home Clinical Impression: Bladder retention Instructions: DI for Urinary Retention in Men Activity Restrictions/Additional Instructions: *You have been diagnosed with bladder retention. I suggest you go ahead with your plans to follow up with you provider on Monday. I also suggest you contact your provider for any future non-emergent concerns. We are awaiting your Urinary results and will contact you if you have a need for antibiotics. *What to do: *Please continue to take your regular medications as directed. [ ] New medication prescriptions sent to your pharmacy: [ ] [ ] New medication written as a paper prescription [x] No new medications given *Please follow up with your primary care provider in 2-3 days, call for an appointment. Let them know you were seen in the Emergency Department and that we ask that you be seen in follow up. We will electronically transmit a record of today's note if your PCP is in our system *If you do not have a primary care provider please contact the [facility] Resource line at [phone]. They will ask some questions about your medical history and help get you set up with a doctor in the community. *Return to Emergency Department if you should have any new, worsening or concerning symptoms, such as [fever greater than 101 F, shaking chills, worsening pain, persistent vomiting or other bothersome symptoms] Prescriptions: No Action lisinopril 5 MG tablet 5 mg PO QDAY Qty: 0 tamsulosin 0.4 mg capsule 0.4 mg PO BEDTIME Qty: 30 0RF rosuvastatin [Crestor] 10 mg tablet 10 mg PO DAILY Prolia 60 mg/mL syringe 60 mg SUBCUT [id number] sildenafil [Viagra] 50 mg tablet 50 mg PO DAILY PRN Rx Instructions: administer 30 minutes to 4 hours before activity Referrals: Gómez Bhatt MD [Primary Care Provider] - Visit Report Forms: Patient Portal/API <Cassandra Leong DO - Last Filed: 02/26/22 08:50> Cosign ED Attending Pilyature Attestation: I was immediately available in the department for consultation. Documentation has been reviewed. I agree with assessment and plan.
[2022-02-25] MEDS: LIDOCAINE 2% (GLYDO) 6 ML GEL TOP (17:00)
--- NOTE | 2022-02-25 17:52 | PC.NURSE ---
16 f coude cath passed without incident. I inserted cath. slow. no resistance. catrachita clear urine draining in large amounts. slight hematuria. Provider aware
[2022-02-25 18:27] LABS: Appearance Urine UA CLEAR; Bilirubin Urine UA NEGATIVE (NEGATIVE); Color Urine UA YELLOW; Glucose Urine UA NEGATIVE (Negative); Ketones Urine UA NEGATIVE (NEGATIVE); Leukocyte Esterase Urine UA NEGATIVE (NEGATIVE); Nitrite Urine UA NEGATIVE (Negative); Occult Blood Urine UA 1+ (Negative); Protein Urine UA 2+ (Negative); Urobilinogen Urine UA 0.2 E.U./dL (0.2)
[2022-02-25 18:50] VITALS: PULSE 72; RESP 20; O2SAT 98
--- NOTE | 2022-02-25 19:12 | PC.NURSE ---
slight hematuria. tiny clots. Pan PRADO aware. Spoke with pt.
[2022-02-25 19:16] LABS: Amorphous Sediment Urine 1+; Bacteria Urine Moderate (10-30); RBC Urine 1-5/HPF (0-5/HPF); WBC Urine 5-10/HPF (0-5/HPF)
[2022-02-25 19:17] LABS: Culture Indicated Urine Specimen Cultured
== END 2022-02-25 19:13 | disposition home or self-care (01) ==
PROVIDERS: Emergency Provider Physician Assistant; PCP Internal Medicine
DX: R33.9 Retention of urine, unspecified (principal)
CPT/HCPCS: 51798; 81001; 87086; 99283

== ENCOUNTER 2022-02-27 08:47 | Emergency (ER) | payer MEDICARE, SELFPAY ==
[2022-02-27 09:06] VITALS: BP 141/73; PULSE 76; RESP 19; TEMP 36.5; O2SAT 97
--- NOTE | 2022-02-27 09:26 | ED_ITS ---
HPI - Male Genitourinary General Chief complaint: Urogenital-Male Stated complaint: Urinary catheter issues Time Seen by Provider: 02/27/22 09:20 Source: patient and family Mode of arrival: Family Vehicle History of Present Illness HPI Narrative: Patient is a 76-year-old male history of hypertension urethral polyps presenting today with hematuria. He was seen and evaluated here 2 days ago with urinary retention. He is followed by [facility] urology Dr. Archuleta and actually has an appointment tomorrow. Sommers catheter was placed after consultation. He said that he has been doing well but started noticing some blood clots intermittently. This morning he had some patti blood but now it seems to have cleared. No abdominal pain no nausea no vomiting no fever no chills. Related Data Home Medications Medication Instructions Recorded Confirmed lisinopril 5 mg tablet 5 mg PO QDAY ##0 07/17/11 04/14/21 denosumab 60 mg/mL subcutaneous 60 mg SUBCUT [id number] 11/26/20 04/14/21 syringe (Prolia) rosuvastatin 10 mg tablet (Crestor) 10 mg PO DAILY 11/26/20 04/14/21 sildenafil 50 mg tablet (Viagra) 50 mg PO DAILY PRN 11/26/20 04/14/21 Previous Rx's Medication Instructions Recorded tamsulosin 0.4 mg capsule 0.4 mg PO BEDTIME #30 caps 11/18/20 cephalexin 500 mg capsule 500 mg PO BID 7 days #14 caps 02/27/22 Allergies Allergy/AdvReac Type Severity Reaction Status Date / Time No Known Drug Allergies Allergy Verified 02/25/22 16:02 Review of Systems Review of Systems Narrative: GENERAL: Denies chills,fever HEENT: Denies throat pain RESPIRATORY: Denies dyspnea, cough, wheezing CARDIOVASCULAR: Denies chest pain, palpitations GASTROINTESTINAL: Denies nausea, vomiting : See HPI MUSCULOSKELETAL: Denies extremity pain, injury SKIN: No rash, no laceration, no pruritus NEUROLOGIC: Denies weakness, dizziness, headache, numbness 8 point review of systems is negative except for those stated above and HPI Patient History Medical History Bladder calculi Diabetes Erectile dysfunction GERD (gastroesophageal reflux disease) Hypertension Osteoporosis Prostatitis Family History Grandfather Stroke CAD (coronary artery disease) Father CAD (coronary artery disease) Stroke Hyperlipidemia Hypertension Social History marital status: number of children: 2 household members: spouse occupational status: previously employed current occupational exposures/hazards: No Previous occupational history: retired sexual history: See MANUEL Smoking Status: Never smoker alcohol intake: never caffeine: No Type(s) of exercise: regular exercise frequency: daily duration: 45-60 minutes/day Smoking Status: Never smoker alcohol intake frequency: 0-2 drinks per day Substance Use Type: does not use Exam Initial Vital Signs Initial Vital Signs: Vital Signs Temperature 97.7 F 02/27/22 09:06 Pulse Rate 76 02/27/22 09:06 Respiratory Rate 19 02/27/22 09:06 Blood Pressure 141/73 H 02/27/22 09:06 Pulse Oximetry 97 02/27/22 09:06 Oxygen Delivery Method 02/27/22 09:06 GENERAL: Alert pleasant 76-year-old male no acute distress CARDIOVASCULAR: peripheral pulses in tact, cap refill <2 sec RESPIRATORY: No respiratory distress, speaks in full sentences without difficulty ABDOMEN: Soft, nontender, no guarding or rebound : Sommers catheter in place draining this to is clear however there is some serosanguineous fluid in the bag EXTREMITIES: Normal range of motion, no clubbing or edema. Neurovascularly intact NEUROLOGICAL: Cranial nerves II through XII grossly intact. Normal gait and speech. SKIN: Warm, dry, no petechiae, no rashes or lesions. Course Orders Ordered: ED Orders 02/27/22 09:36 UA Complete [Urinalysis and Microscopic] Stat Urine Culture Stat Vital Signs Vital signs: Vital Signs - 8 hr 02/27/22 09:06 Temperature 97.7 F Pulse Rate 76 Respiratory Rate 19 Blood Pressure 141/73 H Pulse Oximetry 97 Oxygen Delivery Method Room Air MDM - Male Genitourinary Lab Data Labs: Lab Results 02/27/22 Range/Units 09:36 Urine Color Red Urine Appearance Clear Urine pH 7.0 (4.5-8.0) Ur Specific [place] 1.015 (1.000-1.035) Urine Protein 3+ H (Negative) Urine Glucose (UA) Trace H (Negative) g/dL Urine Ketones Trace H (NEGATIVE) Urine Occult Blood 3+ H (Negative) Urine Nitrate Negative (Negative) Urine Bilirubin Negative (NEGATIVE) Urine Urobilinogen 0.2 (0.2) E.U./dL Ur Leukocyte Esterase Trace H (NEGATIVE) Urine RBC >100/hpf H (0-5/HPF) Urine WBC 5-10/hpf H (0-5/HPF) Urine Bacteria None seen (None) Ur Culture Indicated? Specimen cultured MDM Narrative Medical decision making narrative: The patient has indwelling Sommers catheter. Now in bag is serosanguineous fluid. It was flushed with 1 or 2 syringes and cleared completely. He does have some leukocytes in his urine. Culture from 2 days ago did not show any growth. His an appointment with his urologist tomorrow. A prescription for Keflex has been sent to his preferred pharmacy. He is educated on when to return back to the emergency department. Overall catheter flushes very easily without gross bleeding. Discharge Plan Departure Patient Disposition: Home Clinical Impression: Hematuria, Acute UTI Instructions: How to Care for Your Sommers Catheter -- Male, DI for Urinary Tract Infection (UTI), DI for Hematuria Activity Restrictions/Additional Instructions: *You have been diagnosed with hematuria, UTI *What to do: You may have some blood in your catheter. Be sure that it is draining. As long noted is pink tinged it is okay. If it becomes patti blood and red you need to come to the emergency department. It looks as though you may have a small bladder infection. Will start you on a course of antibiotics. *Continue to take medications as directed Keflex 500 mg twice a day for 7 days --> SENT TO [facility] *Follow up with your primary care provider in 2-3 days or call [phone] Follow-up with Dr. Archuleta as scheduled tomorrow *Return to ER if you should have patti blood fever, catheter not draining or any new, worsening or concerning symptoms Prescriptions: New cephalexin 500 mg capsule 500 mg PO BID 7 Days Qty: 14 0RF No Action lisinopril 5 MG tablet 5 mg PO QDAY Qty: 0 tamsulosin 0.4 mg capsule 0.4 mg PO BEDTIME Qty: 30 0RF rosuvastatin [Crestor] 10 mg tablet 10 mg PO DAILY Prolia 60 mg/mL syringe 60 mg SUBCUT [id number] sildenafil [Viagra] 50 mg tablet 50 mg PO DAILY PRN Rx Instructions: administer 30 minutes to 4 hours before activity Referrals: Gómez Bhatt MD [Primary Care Provider] - Visit Report Forms: Patient Portal/API
[2022-02-27 09:48] LABS: Appearance Urine UA CLEAR; Bilirubin Urine UA NEGATIVE (NEGATIVE); Color Urine UA RED; Glucose Urine UA TRACE g/dL (Negative); Ketones Urine UA TRACE (NEGATIVE); Leukocyte Esterase Urine UA TRACE (NEGATIVE); Nitrite Urine UA NEGATIVE (Negative); Occult Blood Urine UA 3+ (Negative); Protein Urine UA 3+ (Negative); Specific Gravity Urine UA 1.015 (1.000-1.035); Urobilinogen Urine UA 0.2 E.U./dL (0.2)
[2022-02-27 09:49] LABS: Bacteria Urine None Seen; Culture Indicated Urine Specimen Cultured; RBC Urine >100/HPF (0-5/HPF); WBC Urine 5-10/HPF (0-5/HPF)
--- NOTE | 2022-02-27 10:02 | PC.NURSE ---
Hearn catheter irrrigated. new leg bag applied. Pt tolerated well without complication. hearn flowing well and no clots noted.
== END 2022-02-27 10:10 | disposition home or self-care (01) ==
PROVIDERS: Emergency Provider Emergency Medicine; PCP Internal Medicine
DX: N39.0 Urinary tract infection, site not specified (principal); R31.9 Hematuria, unspecified
CPT/HCPCS: 81001; 87086; 99281; 99282

== ENCOUNTER 2022-11-02 13:45 | Outpatient (RCR) | payer MEDICARE, SELFPAY ==
--- NOTE | 2021-11-24 15:15 | PT.OPPOC ---
Physical, Occupational & Speech Therapy At [facility] Current Diagnoses Unsteadiness on feet (11/24/21) Other abnormalities of gait and mobility (11/24/21) Weakness (11/24/21) Visit Care Team Role Provider Type Gómez Bhatt MD Attending Provider Non-Staff Primary Care Provider Referring Provider Specialty: Internal Medicine Address: [address] [place] [address], [facility] Email: Plan Of Care PT-OP-T Assessment and Plan Start: 11/22/21 16:49 Freq: Status: Active Protocol: Document 11/24/21 12:00 AW (Rec: 11/25/21 15:14 AW [id number]) Physical Therapy Assessment Rehab Potential Rehabilitation Potential Good Evaluation Complexity Number of Personal Factors/Comorbidities 1-2 Number of Body Systems Impaired 3 Clinical Presentation at Evaluation Evolving Impairments Impairments Balance,Gait,Posture,Sensation ,Strength,Vestibular Other Concerns Fall Risk moderate per FGA score of 24/ 30 Goals Three Impairment balance systems integration Short Term Goal (STG) Pt will improve mCTSIB to steady 110 seconds or greater. STG Duration 12/29/21 Professor Of Engineering Goal (LTG) Pt will walk the beach in front of his house alone and without assistive device as a measure of improved balance. Two Impairment ABC score 75% Professor Of Engineering Goal (LTG) Pt will improve his ABC score to 85% or greater as a measure of improved self-efficacy LTG Duration 02/02/22 One Impairment lacks HEP Professor Of Engineering Goal (LTG) Pt will be independent with HEP to improve his balance and calibration of his movement strategies LTG Duration 02/02/22 Assessment Summary Assessment Vasile is a 76 yo man who attends outpatient physical therapy with complaints of decreased balance, intermittent diplopia, and occasional dizziness. He has atrial fibrillation and his many of his symtpoms are consistent with a possible cardiac etiology. At this encounter, pt has just returned his holter monitor to the office and awaits feedback from cardiology. Vasile presents with mild lag bilaterally on head thrust testing, abnormal ocular convergence/divergence, and impairments most obvious in the fourth condition of the mCTSIB. His gait is notable for truncal rigidity, reduced arm swing, and hypokinesia apparent in reduces step length. His Functional Gait Assessment score of 24/30 places him in a moderate falls risk category. Pt is expected to benefit from skilled physical therapy to treat his balance and improve daily function as well as to improve prospects of return to regular beach walking and boating. Physical Therapy Plan Frequency and Duration Frequency of Treatment 1-2x/week Duration of Treatment 10 weeks Plan of Care Start Date 11/24/21 Plan of Care End Date 02/02/22 Therapeutic Interventions Therapeutic Interventions Balance Training,Coordination Training,Gait Training,Home Exercise Program,Neuromuscular Re-education,Self-Care/Home Management,Therapeutic Activities,Therapeutic Exercises,Vestibular Rehabilitation Other Referrals/Consults Referrals/Consults Recommended Pt to follow up with cardiology for holter monitor results Next Visit Focus/Plan Next Note Type Treatment Note Next Visit Plan Assess orthostatic VS. Assess 6MWT. Initiate balance training on firm and uneven surfaces. Gait training with amplitude focus. Plan of Care Dates Plan of Care Start Date 11/24/21 Plan of Care End Date 02/02/22 Electronically Signed by: Magalis Lancaster, PT 11/25/21 [id number] If you are in agreement with this Plan of Care, please return a signed and dated copy. I have reviewed this Plan of Care and certify that the skilled therapy services above are required to meet the patient?s needs. Physician Signature Date Printed Name and Credentials Clinical Instructor Signature Printed Name and Credentials
--- NOTE | 2021-11-24 15:15 | PT.OIE ---
Current Diagnoses Unsteadiness on feet (11/24/21) Other abnormalities of gait and mobility (11/24/21) Weakness (11/24/21) Past Medical History (Last Reviewed 04/14/21 @ 12:35 by Carlene Trejo PA-C) Bladder calculi Diabetes Erectile dysfunction GERD (gastroesophageal reflux disease) Hypertension Osteoporosis Prostatitis Visit Care Team Role Provider Type Gómez Bhatt MD Attending Provider Non-Staff Primary Care Provider Referring Provider Specialty: Internal Medicine Address: [address] [place] [address], [facility] Email: Physical Therapy Initial Evaluation PT-OP-A Visit Information Start: 11/22/21 16:49 Freq: Status: Active Protocol: Document 11/24/21 12:00 AW (Rec: 11/24/21 09:00 AW [id number]) Out-Patient Physical Therapy Visit Information Visit Information Visit Type Initial Evaluation Visit Start Time 11:15 Visit Stop Time 12:05 Total Visit Minutes 50 Visit Number 1 Number of INVESTIGATOR WELFARE Visits 0 Evaluation Information Evaluation Date 11/24/21 PT-OP-B Current Condition Start: 11/22/21 16:49 Freq: Status: Active Protocol: Document 11/24/21 12:00 AW (Rec: 11/24/21 09:00 AW [id number]) Current Condition History of Current Condition Onset Date June 2021 Current Complaints decreased balance, falls History of Current Condition Vasile had prostatitis 10 years ago. He was treated medically and was ok. Symptoms returned last year and he had a simple open prostatectomy at last May. Since then, he reports feeling sluggish and has had dizzy spells. Recent nuc med stress test was normal . Vasile experiences heart palpitations occasionally for for 5-10 minutes at a time. He just returned a holter monitor which he wore for a month and will follow up with cardiology soon. Pt states one dizzy spell occured while driving. His was able to take the wheel. He describes it as feeling faint and disoriented and is associated with vision changes (double vision) and a build up of pressure in his head. He recently saw his eye doctor who recommended no changes to his bifocals prescription. The same sensation has caused at least two falls in the past six months. He feels a lack of confidence in his walking lately and doesn't feel comfortable walking on the beach alone. Pt also feels disoriented in crowded situations, with high levels of light, and with flashing lights. Pt lives on [address] [address] with his , Damari. He hopes to be able to get his 23' runabout boat in the water this year but feels anxious about getting on and off the boat. Prior Treatments and Tests No prior PT. Future Testing and Treatments Planned Follow up with cardiology. Treatment Goals Patient/Caregiver Goals Increase confidence to be able to walk on the beach alone. Be able to use his boat this summer. PT-OP-C Subjective Start: 11/22/21 16:49 Freq: Status: Active Protocol: Document 11/24/21 12:00 AW (Rec: 11/25/21 12:47 AW [id number]) Patient Questionnaires ABC- Activity Specific Balance Confidence Scale ABC Score 75.6 ABC Functional Impairment 20 to <40% Impaired (Score 61- 80) OP-PT Pain Assessment Pain Assessment Grid Paper Pain Assessment Grid Completed Yes: Pt reports mild right shoulder and right ankle pain. Copy scanned to EMR. PT-OP-D Balance Start: 11/22/21 16:49 Freq: Status: Active Protocol: Document 11/24/21 12:00 AW (Rec: 11/25/21 12:51 AW [id number]) Balance Tests mCTSIB mCTSIB Position 1 30 mCTSIB Position 2 30 mCTSIB Position 3 25 mCTSIB Position 4 10 PT-OP-E Functional Tests Start: 11/22/21 16:49 Freq: Status: Active Protocol: Document 11/24/21 12:00 AW (Rec: 11/25/21 12:47 AW [id number]) Functional Tests Functional Gait Assessment Score 24 Functional Gait Assessment Impairment 20 to <40% Impaired (Score 19- Rating 24) PT-OP-G Mobility & Gait Start: 11/22/21 16:49 Freq: Status: Active Protocol: Document 11/24/21 12:00 AW (Rec: 11/25/21 12:50 AW [id number]) OP Gait Assessment Comments Gait Comments Pt ambulates with shortened steps and reduced arm swing ( left more affected than right) . Mild to moderate truncal rigidity evident in gait. PT-OP-J Posture/Palpation/Skin Start: 11/22/21 16:49 Freq: Status: Active Protocol: Document 11/24/21 12:00 AW (Rec: 11/25/21 12:54 AW [id number]) Posture Evaluation Position Standing Evaluation View Lateral Comments Posture Comments Forward head, flat lumbar spine, externally rotated hips bilaterally. PT-OP-M Strength Start: 11/22/21 16:49 Freq: Status: Active Protocol: Document 11/24/21 12:00 AW (Rec: 11/25/21 12:50 AW [id number]) Hip Strength Hip Manual Muscle Testing bilat Flexion (L2) 4+ Good+ Extension (S1) 4 Good Abduction 4+ Good+ External Rotation 4+ Good+ Internal Rotation 4+ Good+ Knee Strength Knee Manual Muscle Testing bilat Flexion (S2) 4+ Good+ Extension (L3) 5 Normal Ankle/Foot Strength Ankle and Foot Manual Muscle Testing bilat Dorsiflexion (L4) 5 Normal Comments PF tested with SL heel lift. Pt able to complete no more than 4 reps with either limb. PT-OP-O Vestibular Start: 11/22/21 16:49 Freq: Status: Active Protocol: Document 11/24/21 12:00 AW (Rec: 11/25/21 13:00 AW [id number]) Vestibular Assessment Visual Testing Smooth Pursuits Horizontal WNL Smooth Pursuits Vertical WNL Saccades Horizontal WNL Saccades Vertical WNL Gaze Evoked Nystagmus With Fixation Negative Gaze Evoked Nystagmus Without Fixation Negative Thrust Head mild lag B Cover/Uncover Test WNL Convergence Test Impaired Comments Vestibular Comments Pt reports diplopia with target ~10 from face PT-OP-T Assessment and Plan Start: 11/22/21 16:49 Freq: Status: Active Protocol: Document 11/24/21 12:00 AW (Rec: 11/25/21 15:14 AW [id number]) Physical Therapy Assessment Rehab Potential Rehabilitation Potential Good Evaluation Complexity Number of Personal Factors/Comorbidities 1-2 Number of Body Systems Impaired 3 Clinical Presentation at Evaluation Evolving Impairments Impairments Balance,Gait,Posture,Sensation ,Strength,Vestibular Other Concerns Fall Risk moderate per FGA score of 24/ 30 Goals Three Impairment balance systems integration Short Term Goal (STG) Pt will improve mCTSIB to steady 110 seconds or greater. STG Duration 12/29/21 Human Resources Representative Goal (LTG) Pt will walk the beach in front of his house alone and without assistive device as a measure of improved balance. Two Impairment ABC score 75% Human Resources Representative Goal (LTG) Pt will improve his ABC score to 85% or greater as a measure of improved self-efficacy LTG Duration 02/02/22 One Impairment lacks HEP Snf Goal (LTG) Pt will be independent with HEP to improve his balance and calibration of his movement strategies LTG Duration 02/02/22 Assessment Summary Assessment Vasile is a 76 yo man who attends outpatient physical therapy with complaints of decreased balance, intermittent diplopia, and occasional dizziness. He has atrial fibrillation and his many of his symtpoms are consistent with a possible cardiac etiology. At this encounter, pt has just returned his holter monitor to the office and awaits feedback from cardiology. Vasile presents with mild lag bilaterally on head thrust testing, abnormal ocular convergence/divergence, and impairments most obvious in the fourth condition of the mCTSIB. His gait is notable for truncal rigidity, reduced arm swing, and hypokinesia apparent in reduces step length. His Functional Gait Assessment score of 24/30 places him in a moderate falls risk category. Pt is expected to benefit from skilled physical therapy to treat his balance and improve daily function as well as to improve prospects of return to regular beach walking and boating. Physical Therapy Plan Frequency and Duration Frequency of Treatment 1-2x/week Duration of Treatment 10 weeks Plan of Care Start Date 11/24/21 Plan of Care End Date 02/02/22 Therapeutic Interventions Therapeutic Interventions Balance Training,Coordination Training,Gait Training,Home Exercise Program,Neuromuscular Re-education,Self-Care/Home Management,Therapeutic Activities,Therapeutic Exercises,Vestibular Rehabilitation Other Referrals/Consults Referrals/Consults Recommended Pt to follow up with cardiology for holter monitor results Next Visit Focus/Plan Next Note Type Treatment Note Next Visit Plan Assess orthostatic VS. Assess 6MWT. Initiate balance training on firm and uneven surfaces. Gait training with amplitude focus.
--- NOTE | 2021-12-07 13:04 | PT.OTN ---
Current Diagnoses Unsteadiness on feet (12/07/21) Other abnormalities of gait and mobility (12/07/21) Weakness (12/07/21) Physical Therapy Treatment Note PT-OP-A Visit Information Start: 11/22/21 16:49 Freq: Status: Active Protocol: Document 12/07/21 12:13 SP (Rec: 12/07/21 13:07 SP [id number]) Out-Patient Physical Therapy Visit Information Visit Information Visit Type Treatment Note Visit Start Time 12:15 Visit Stop Time 13:04 Total Visit Minutes 49 Visit Number 2 Number of METAL ORGAN PIPE MAKER Visits 1 Evaluation Information Evaluation Date 11/24/21 Precautions Precautions 12/07/21: BP orthostatic, taking Lysinopril 12 1/2 mg, shar 20 mg, Metoprol Succinate 1/2 25 mg tab. PT-OP-B Current Condition Start: 11/22/21 16:49 Freq: Status: Active Protocol: Document 11/24/21 12:00 AW (Rec: 11/24/21 09:00 AW [id number]) Current Condition History of Current Condition Onset Date June 2021 Current Complaints decreased balance, falls History of Current Condition Vasile had prostatitis 10 years ago. He was treated medically and was ok. Symptoms returned last year and he had a simple open prostatectomy at last May. Since then, he reports feeling sluggish and has had dizzy spells. Recent nuc med stress test was normal . Vasile experiences heart palpitations occasionally for for 5-10 minutes at a time. He just returned a holter monitor which he wore for a month and will follow up with cardiology soon. [place] states one dizzy spell occured while driving. His was able to take the wheel. He describes it as feeling faint and disoriented and is associated with vision changes (double vision) and a build up of pressure in his head. He recently saw his eye doctor who recommended no changes to his bifocals prescription. The same sensation has caused at least two falls in the past six months. He feels a lack of confidence in his walking lately and doesn't feel comfortable walking on the beach alone. Pt also feels disoriented in crowded situations, with high levels of light, and with flashing lights. [place] lives on [facility] with his , Damari. He hopes to be able to get his 23' runabout boat in the water this year but feels anxious about getting on and off the boat. Prior Treatments and Tests No prior PT. Future Testing and Treatments Planned Follow up with cardiology. Treatment Goals Patient/Caregiver Goals Increase confidence to be able to walk on the beach alone. Be able to use his boat this summer. PT-OP-C Subjective Start: 11/22/21 16:49 Freq: Status: Active Protocol: Document 12/07/21 12:13 SP (Rec: 12/07/21 13:07 SP [id number]) OP-PT Subjective Patient Comments Patient Comments Pt stated got new BP med Metoprol since last tx but hasn't had BP rechecked for awarness. PT-OP-D Balance Start: 11/22/21 16:49 Freq: Status: Active Protocol: Document 11/24/21 12:00 AW (Rec: 11/25/21 12:51 AW [id number]) Balance Tests mCTSIB mCTSIB Position 1 30 mCTSIB Position 2 30 mCTSIB Position 3 25 mCTSIB Position 4 10 PT-OP-E Functional Tests Start: 11/22/21 16:49 Freq: Status: Active Protocol: Document 11/24/21 12:00 AW (Rec: 11/25/21 12:47 AW [id number]) Functional Tests Functional Gait Assessment Score 24 Functional Gait Assessment Impairment 20 to <40% Impaired (Score 19- Rating 24) PT-OP-G Mobility & Gait Start: 11/22/21 16:49 Freq: Status: Active Protocol: Document 11/24/21 12:00 AW (Rec: 11/25/21 12:50 AW [id number]) OP Gait Assessment Comments Gait Comments Pt ambulates with shortened steps and reduced arm swing ( left more affected than right) . Mild to moderate truncal rigidity evident in gait. PT-OP-J Posture/Palpation/Skin Start: 11/22/21 16:49 Freq: Status: Active Protocol: Document 11/24/21 12:00 AW (Rec: 11/25/21 12:54 AW [id number]) Posture Evaluation Position Standing Evaluation View Lateral Comments Posture Comments Forward head, flat lumbar spine, externally rotated hips bilaterally. PT-OP-M Strength Start: 11/22/21 16:49 Freq: Status: Active Protocol: Document 11/24/21 12:00 AW (Rec: 11/25/21 12:50 AW [id number]) Hip Strength Hip Manual Muscle Testing bilat Flexion (L2) 4+ Good+ Extension (S1) 4 Good Abduction 4+ Good+ External Rotation 4+ Good+ Internal Rotation 4+ Good+ Knee Strength Knee Manual Muscle Testing bilat Flexion (S2) 4+ Good+ Extension (L3) 5 Normal Ankle/Foot Strength Ankle and Foot Manual Muscle Testing bilat Dorsiflexion (L4) 5 Normal Comments PF tested with SL heel lift. Pt able to complete no more than 4 reps with either limb. PT-OP-O Vestibular Start: 11/22/21 16:49 Freq: Status: Active Protocol: Document 11/24/21 12:00 AW (Rec: 11/25/21 13:00 AW [id number]) Vestibular Assessment Visual Testing Smooth Pursuits Horizontal WNL Smooth Pursuits Vertical WNL Saccades Horizontal WNL Saccades Vertical WNL Gaze Evoked Nystagmus With Fixation Negative Gaze Evoked Nystagmus Without Fixation Negative Thrust Head mild lag B Cover/Uncover Test WNL Convergence Test Impaired Comments Vestibular Comments Pt reports diplopia with target ~10 from face PT-OP-Q Treatments Start: 11/22/21 16:49 Freq: Status: Active Protocol: Document 12/07/21 12:13 SP (Rec: 12/07/21 13:07 SP [id number]) Therapeutic Exercises Supine Exercises september Supine Exercise Name 1. Bridge 5 reps hold 10 sec easy 2. bridge september x3 reps Comments cued pelvic lift personal HEP Supine Exercise Name bicycle 35 reps, crunches 20- 25 reps Comments cued slow motion TA bicycle, shld lift crunch w/ UE head support Prone Exercises bird dog Prone Exercise Name trial for HEP: little hard on wrists stiffness but not pain Reps/Minutes in PT only but not have to do review HEP prone Prone Exercise Name cat/camel, child's pose Reps/Minutes x5 reps, 20 x x3 then wt shift R and L Sitting Exercises STS Sitting Exercise Name added to HEP Equipment Used mesh chair, no UE support Reps/Minutes x5 reps (next timed # in 30 s) Comments added end tx Standing Exercises band walk Standing Exercise Name added to HEP- lateral side stepping Side bilateral Resistance TB #2 loop Reps/Minutes 15 ft x3 laps Comments cued tall posture, clear trailing LE Other Exercises quadruped Other Exercise Name bird dog- LE ext only - inPT Comments hard on wrists Therapeutic Activity Therapeutic Activity orthostatics Comments supine-142/82 seated- 132/79 standing-124/80- used LEs braced on table for stability for safety during assessment- nonsymptomatic throughout. PT-OP-T Assessment and Plan Start: 11/22/21 16:49 Freq: Status: Active Protocol: Document 12/07/21 12:13 SP (Rec: 12/07/21 13:07 SP [id number]) Physical Therapy Assessment Goals Three Impairment balance systems integration Short Term Goal (STG) Pt will improve mCTSIB to steady 110 seconds or greater. STG Duration 12/29/21 Skilled Nursing Goal (LTG) Pt will walk the beach in front of his house alone and without assistive device as a measure of improved balance. Two Impairment ABC score 75% Fare Enforcement Officer Goal (LTG) Pt will improve his ABC score to 85% or greater as a measure of improved self-efficacy LTG Duration 02/02/22 One Impairment lacks HEP Skilled Nursing Goal (LTG) Pt will be independent with HEP to improve his balance and calibration of his movement strategies LTG Duration 02/02/22 Assessment Summary Assessment Pt improved BPs: decrease 20 systolic position changes sup> sit>stand and maintained 70- 80s diastolic. Nonsymptomatic throughout tx. Initiated HEP: strengthening and stability with good effort to start. Reviewed personal HEP in supine/quadruped can continue. Cues required for hip abd and postural alignment during added band walk then ableto self correct. Physical Therapy Plan Frequency and Duration Frequency of Treatment 1-2x/week Duration of Treatment 10 weeks Plan of Care Start Date 11/24/21 Plan of Care End Date 02/02/22 Therapeutic Interventions Therapeutic Interventions Balance Training,Coordination Training,Gait Training,Home Exercise Program,Neuromuscular Re-education,Self-Care/Home Management,Therapeutic Activities,Therapeutic Exercises,Vestibular Rehabilitation Other Referrals/Consults Referrals/Consults Recommended Pt to follow up with cardiology for holter monitor results Next Visit Focus/Plan Next Note Type Treatment Note Next Visit Plan Next: recheck: bandwalk, bridge september. 6MWT if able, mal gait, hurdles balance. POC: Assess orthostatic VS. Assess 6MWT. Initiate balance training on firm and uneven surfaces. Gait training with amplitude focus.
--- NOTE | 2021-12-09 18:19 | PT.OTN ---
Current Diagnoses Unsteadiness on feet (12/09/21) Other abnormalities of gait and mobility (12/09/21) Weakness (12/09/21) Physical Therapy Treatment Note PT-OP-A Visit Information Start: 11/22/21 16:49 Freq: Status: Active Protocol: Document 12/09/21 11:27 NBM (Rec: 12/09/21 18:13 NBM [id number]) Out-Patient Physical Therapy Visit Information Visit Information Visit Type Treatment Note Visit Start Time 11:20 Visit Stop Time 12:00 Total Visit Minutes 40 Visit Number 3 Number of DOMESTIC LAUNDRY WORKER Visits 2 Evaluation Information Evaluation Date 11/24/21 Precautions Precautions 12/07/21: BP orthostatic, taking Lysinopril 12 1/2 mg, shar 20 mg, Metoprol Succinate 1/2 25 mg tab. PT-OP-B Current Condition Start: 11/22/21 16:49 Freq: Status: Active Protocol: Document 11/24/21 12:00 AW (Rec: 11/24/21 09:00 AW [id number]) Current Condition History of Current Condition Onset Date June 2021 Current Complaints decreased balance, falls History of Current Condition Vasile had prostatitis 10 years ago. He was treated medically and was ok. Symptoms returned last year and he had a simple open prostatectomy at last May. Since then, he reports feeling sluggish and has had dizzy spells. Recent nuc med stress test was normal . Vasile experiences heart palpitations occasionally for for 5-10 minutes at a time. He just returned a holter monitor which he wore for a month and will follow up with cardiology soon. [place] states one dizzy spell occured while driving. His was able to take the wheel. He describes it as feeling faint and disoriented and is associated with vision changes (double vision) and a build up of pressure in his head. He recently saw his eye doctor who recommended no changes to his bifocals prescription. The same sensation has caused at least two falls in the past six months. He feels a lack of confidence in his walking lately and doesn't feel comfortable walking on the beach alone. Pt also feels disoriented in crowded situations, with high levels of light, and with flashing lights. [place] lives on [facility] with his , Damari. He hopes to be able to get his 23' runabout boat in the water this year but feels anxious about getting on and off the boat. Prior Treatments and Tests No prior PT. Future Testing and Treatments Planned Follow up with cardiology. Treatment Goals Patient/Caregiver Goals Increase confidence to be able to walk on the beach alone. Be able to use his boat this summer. PT-OP-C Subjective Start: 11/22/21 16:49 Freq: Status: Active Protocol: Document 12/09/21 11:27 [facility] (Rec: 12/09/21 18:13 [facility] [id number]) OP-PT Subjective Patient Comments Patient Comments Pt states he started Metoprolol BP medication with lisinopril and has not had issues with his BP. He said his doctors pointed out his left side is different from his right when he walks and he now notices this. He has been doing his exercises. PT-OP-D Balance Start: 11/22/21 16:49 Freq: Status: Active Protocol: Document 11/24/21 12:00 AW (Rec: 11/25/21 12:51 AW [id number]) Balance Tests mCTSIB mCTSIB Position 1 30 mCTSIB Position 2 30 mCTSIB Position 3 25 mCTSIB Position 4 10 PT-OP-E Functional Tests Start: 11/22/21 16:49 Freq: Status: Active Protocol: Document 12/09/21 11:27 [facility] (Rec: 12/09/21 18:15 [facility] [id number]) Functional Tests 6 Minute Walk Test Distance 1211 feet Device Used no Assistive Device used Dynamic Gait Index (DGI) DGI Impairment Rating 20 to <40% Impaired (Score 15- 19) PT-OP-G Mobility & Gait Start: 11/22/21 16:49 Freq: Status: Active Protocol: Document 11/24/21 12:00 AW (Rec: 11/25/21 12:50 AW [id number]) OP Gait Assessment Comments Gait Comments Pt ambulates with shortened steps and reduced arm swing ( left more affected than right) . Mild to moderate truncal rigidity evident in gait. PT-OP-J Posture/Palpation/Skin Start: 11/22/21 16:49 Freq: Status: Active Protocol: Document 11/24/21 12:00 AW (Rec: 11/25/21 12:54 AW [id number]) Posture Evaluation Position Standing Evaluation View Lateral Comments Posture Comments Forward head, flat lumbar spine, externally rotated hips bilaterally. PT-OP-M Strength Start: 11/22/21 16:49 Freq: Status: Active Protocol: Document 11/24/21 12:00 AW (Rec: 11/25/21 12:50 AW [id number]) Hip Strength Hip Manual Muscle Testing bilat Flexion (L2) 4+ Good+ Extension (S1) 4 Good Abduction 4+ Good+ External Rotation 4+ Good+ Internal Rotation 4+ Good+ Knee Strength Knee Manual Muscle Testing bilat Flexion (S2) 4+ Good+ Extension (L3) 5 Normal Ankle/Foot Strength Ankle and Foot Manual Muscle Testing bilat Dorsiflexion (L4) 5 Normal Comments PF tested with SL heel lift. Pt able to complete no more than 4 reps with either limb. PT-OP-O Vestibular Start: 11/22/21 16:49 Freq: Status: Active Protocol: Document 11/24/21 12:00 AW (Rec: 11/25/21 13:00 AW [id number]) Vestibular Assessment Visual Testing Smooth Pursuits Horizontal WNL Smooth Pursuits Vertical WNL Saccades Horizontal WNL Saccades Vertical WNL Gaze Evoked Nystagmus With Fixation Negative Gaze Evoked Nystagmus Without Fixation Negative Thrust Head mild lag B Cover/Uncover Test WNL Convergence Test Impaired Comments Vestibular Comments Pt reports diplopia with target ~10 from face PT-OP-Q Treatments Start: 11/22/21 16:49 Freq: Status: Active Protocol: Document 12/09/21 11:27 NBM (Rec: 12/09/21 18:13 [facility] [id number]) Therapeutic Exercises Supine Exercises Walking Supine Exercise Name 6MWT Reps/Minutes 6' BKFO Supine Exercise Name Bent Knee Fall Out Side bilateral Reps/Minutes 2 x 5 Comments vc for TrA activation, no breath holding. Added to HEP september Supine Exercise Name 1. 5 reps hold 10 sec easy 2. september x3 reps Comments vc TrA, no breath holding. Tactile cueing for form. Therapeutic Activity Therapeutic Activity orthostatics Comments seated- 130/80 standing-124/70- used LEs braced seat for stability for safety during assessment- nonsymptomatic throughout. Neuro Re-Education Treatment Other Activities Dynamic Gait Index Comments DGI score 17/24 PT-OP-T Assessment and Plan Start: 11/22/21 16:49 Freq: Status: Active Protocol: Document 12/09/21 11:27 [facility] (Rec: 12/09/21 18:13 [facility] [id number]) Physical Therapy Assessment Goals Three Impairment balance systems integration Short Term Goal (STG) Pt will improve mCTSIB to steady 110 seconds or greater. STG Duration 12/29/21 Correction Goal (LTG) Pt will walk the beach in front of his house alone and without assistive device as a measure of improved balance. Two Impairment ABC score 75% Correction Goal (LTG) Pt will improve his ABC score to 85% or greater as a measure of improved self-efficacy LTG Duration 02/02/22 One Impairment lacks HEP Correction Goal (LTG) Pt will be independent with HEP to improve his balance and calibration of his movement strategies LTG Duration 02/02/22 Assessment Summary Assessment Pt improved BPs from sit>stand and was nonsymptomatic throughout tx. Verbal and tactile cueing needed for form and TrA activation for bridge marching throughout exercise. Pt ambulated 1211' in the 6- minute Walk Test. He scored 17 /24 on the Dynamic Gait Index and Scores of 19 or less are related to falls in older adults. Physical Therapy Plan Next Visit Focus/Plan Next Note Type Treatment Note Next Visit Plan Next: Recheck: bandwalk, bridge march and BKFO. hurdles balance. POC: Assess orthostatic VS. Initiate balance training on firm and uneven surfaces. Gait training with amplitude focus .
--- NOTE | 2021-12-15 13:47 | PT.OTN ---
Current Diagnoses Unsteadiness on feet (12/15/21) Other abnormalities of gait and mobility (12/15/21) Weakness (12/15/21) Physical Therapy Treatment Note PT-OP-A Visit Information Start: 11/22/21 16:49 Freq: Status: Active Protocol: Document 12/15/21 13:09 SP (Rec: 12/15/21 13:50 SP [id number]) Out-Patient Physical Therapy Visit Information Visit Information Visit Type Treatment Note Visit Start Time 13:09 Visit Stop Time 13:47 Total Visit Minutes 38 Visit Number 4 Number of CONVEYOR TENDER Visits 1 Evaluation Information Evaluation Date 11/24/21 Precautions Precautions 12/07/21: BP orthostatic, taking Lysinopril 12 1/2 mg, shar 20 mg, Metoprol Succinate 1/2 25 mg tab. PT-OP-B Current Condition Start: 11/22/21 16:49 Freq: Status: Active Protocol: Document 11/24/21 12:00 AW (Rec: 11/24/21 09:00 AW [id number]) Current Condition History of Current Condition Onset Date June 2021 Current Complaints decreased balance, falls History of Current Condition Vasile had prostatitis 10 years ago. He was treated medically and was ok. Symptoms returned last year and he had a simple open prostatectomy at last May. Since then, he reports feeling sluggish and has had dizzy spells. Recent nuc med stress test was normal . Vasile experiences heart palpitations occasionally for for 5-10 minutes at a time. He just returned a holter monitor which he wore for a month and will follow up with cardiology soon. [place] states one dizzy spell occured while driving. His was able to take the wheel. He describes it as feeling faint and disoriented and is associated with vision changes (double vision) and a build up of pressure in his head. He recently saw his eye doctor who recommended no changes to his bifocals prescription. The same sensation has caused at least two falls in the past six months. He feels a lack of confidence in his walking lately and doesn't feel comfortable walking on the beach alone. Pt also feels disoriented in crowded situations, with high levels of light, and with flashing lights. [place] lives on [address] with his , Damari. He hopes to be able to get his 23' runabout boat in the water this year but feels anxious about getting on and off the boat. Prior Treatments and Tests No prior PT. Future Testing and Treatments Planned Follow up with cardiology. Treatment Goals Patient/Caregiver Goals Increase confidence to be able to walk on the beach alone. Be able to use his boat this summer. PT-OP-C Subjective Start: 11/22/21 16:49 Freq: Status: Active Protocol: Document 12/15/21 13:09 SP (Rec: 12/15/21 13:50 SP [id number]) OP-PT Subjective Patient Comments Patient Comments Pt states his BP 128/60 yesterday. 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 Patient Questionnaires ABC- Activity Specific Balance Confidence Scale ABC Score 83% ABC Functional Impairment 80 to <100% Impaired (Score 1- 20) PT-OP-D Balance Start: 11/22/21 16:49 Freq: Status: Active Protocol: Document 11/24/21 12:00 AW (Rec: 11/25/21 12:51 AW [id number]) Balance Tests mCTSIB mCTSIB Position 1 30 mCTSIB Position 2 30 mCTSIB Position 3 25 mCTSIB Position 4 10 PT-OP-E Functional Tests Start: 11/22/21 16:49 Freq: Status: Active Protocol: Document 12/09/21 11:27 NBM (Rec: 12/09/21 18:15 NBM [id number]) Functional Tests 6 Minute Walk Test Distance 1211 feet Device Used no Assistive Device used Dynamic Gait Index (DGI) DGI Impairment Rating 20 to <40% Impaired (Score 15- 19) PT-OP-G Mobility & Gait Start: 11/22/21 16:49 Freq: Status: Active Protocol: Document 11/24/21 12:00 AW (Rec: 11/25/21 12:50 AW [id number]) OP Gait Assessment Comments Gait Comments Pt ambulates with shortened steps and reduced arm swing ( left more affected than right) . Mild to moderate truncal rigidity evident in gait. PT-OP-J Posture/Palpation/Skin Start: 11/22/21 16:49 Freq: Status: Active Protocol: Document 11/24/21 12:00 AW (Rec: 05/12/22 12:54 AW [id number]) Posture Evaluation Position Standing Evaluation View Lateral Comments Posture Comments Forward head, flat lumbar spine, externally rotated hips bilaterally. PT-OP-M Strength Start: 11/22/21 16:49 Freq: Status: Active Protocol: Document 11/24/21 12:00 AW (Rec: 11/25/21 12:50 AW [id number]) Hip Strength Hip Manual Muscle Testing bilat Flexion (L2) 4+ Good+ Extension (S1) 4 Good Abduction 4+ Good+ External Rotation 4+ Good+ Internal Rotation 4+ Good+ Knee Strength Knee Manual Muscle Testing bilat Flexion (S2) 4+ Good+ Extension (L3) 5 Normal Ankle/Foot Strength Ankle and Foot Manual Muscle Testing bilat Dorsiflexion (L4) 5 Normal Comments PF tested with SL heel lift. Pt able to complete no more than 4 reps with either limb. PT-OP-O Vestibular Start: 11/22/21 16:49 Freq: Status: Active Protocol: Document 11/24/21 12:00 AW (Rec: 11/25/21 13:00 AW [id number]) Vestibular Assessment Visual Testing Smooth Pursuits Horizontal WNL Smooth Pursuits Vertical WNL Saccades Horizontal WNL Saccades Vertical WNL Gaze Evoked Nystagmus With Fixation Negative Gaze Evoked Nystagmus Without Fixation Negative Thrust Head mild lag B Cover/Uncover Test WNL Convergence Test Impaired Comments Vestibular Comments Pt reports diplopia with target ~10 from face PT-OP-Q Treatments Start: 11/22/21 16:49 Freq: Status: Active Protocol: Document 12/15/21 13:09 SP (Rec: 12/15/21 13:50 SP [id number]) Therapeutic Exercises Supine Exercises BKFO Supine Exercise Name Bent Knee Fall Out Side bilateral Resistance added TB #2 loop Reps/Minutes 2x10 Comments vc for TrA activation, no breath holding. Added to HEP bridge september Supine Exercise Name Bridge 5 reps hold 10 sec Comments vc TrA, no breath holding Prone Exercises bird dog Prone Exercise Name trial for HEP: little hard on wrists stiffness but not pain Reps/Minutes in PT only but not have to do Comments to much pain in wrists review HEP prone Prone Exercise Name cat/camel, child's pose Reps/Minutes x5 reps, 20 x x3 then wt shift R and L Comments does almost every morning. Sitting Exercises STS Sitting Exercise Name reviewed HEP Equipment Used mesh chair, no UE support Reps/Minutes x10 reps (10.5 reps in 30 s) Comments good form, arms across chest Standing Exercises band walk Standing Exercise Name added to HEP- lateral side stepping Side bilateral Resistance TB #2 loop Equipment Used rail PRN Reps/Minutes 15 ft x3 laps Comments cued tall posture, occasional clear trailing LE, like book on head Gait Training Gait Activity dynamic gait Description head turns horizontal, vertical Device Used 0 Level of Assistance SBA Surface firm hallway Distance/Duration 80 ft x3 laps Treatment Focus balance recovery during gait Comments Pt improves balance with cues for tall posture book on head cues for posture/core/ hip fac, decreased L lateral lean with L head turn, slows pacing during turn end last lap. Pt pleased with progress making and decrease blurriness during walk today. PT-OP-T Assessment and Plan Start: 11/22/21 16:49 Freq: Status: Active Protocol: Document 12/15/21 13:09 SP (Rec: 12/15/21 13:50 SP [id number]) Physical Therapy Assessment Goals Three Impairment balance systems integration Short Term Goal (STG) Pt will improve mCTSIB to steady 110 seconds or greater. STG Duration 12/29/21 Dialysis Chief Equipment Technician Goal (LTG) Pt will walk the beach in front of his house alone and without assistive device as a measure of improved balance. Two Impairment ABC score 75% Usp Goal (LTG) Pt will improve his ABC score to 85% or greater as a measure of improved self-efficacy 12/15/21: 83% confident in balance with activities listed . LTG Duration 02/02/22 progressing 12/15/21 One Impairment lacks HEP Usp Goal (LTG) Pt will be independent with HEP to improve his balance and calibration of his movement strategies 01/04/22: progressing: band walk, STS, bridge hold, TA TB KFO LTG Duration 02/02/22 progressing Assessment Summary Assessment Pt improved stability, able increase resistance BKFO and decrease trunk sway dynamic gait with cues for posturing. Physical Therapy Plan Frequency and Duration Frequency of Treatment 1-2x/week Duration of Treatment 10 weeks Plan of Care Start Date 11/24/21 Plan of Care End Date 02/02/22 Therapeutic Interventions Therapeutic Interventions Balance Training,Coordination Training,Gait Training,Home Exercise Program,Neuromuscular Re-education,Self-Care/Home Management,Therapeutic Activities,Therapeutic Exercises,Vestibular Rehabilitation Other Referrals/Consults Referrals/Consults Recommended Pt to follow up with cardiology for holter monitor results Next Visit Focus/Plan Next Note Type Treatment Note Next Visit Plan Next: Recheck: souleymane allison BKFO. Continue dynamic gait, hurdles balance, incorporate stair mgt and uneven sufaces. View updated goal progress making. POC: Assess orthostatic VS. Initiate balance training on firm and uneven surfaces. Gait training with amplitude focus .
--- NOTE | 2021-12-16 12:19 | PT.OTN ---
Current Diagnoses Unsteadiness on feet (12/16/21) Other abnormalities of gait and mobility (12/16/21) Weakness (12/16/21) Physical Therapy Treatment Note PT-OP-A Visit Information Start: 11/22/21 16:49 Freq: Status: Active Protocol: Document 12/16/21 11:16 MA (Rec: 12/16/21 12:03 MA [id number]) Out-Patient Physical Therapy Visit Information Visit Information Visit Type Treatment Note Visit Start Time 11:15 Visit Stop Time 12:00 Total Visit Minutes 45 Visit Number 5 Number of BAR SUPERVISOR Visits 2 Precautions Precautions 12/07/21: BP orthostatic, taking Lysinopril 12 1/2 mg, shar 20 mg, Metoprol Succinate 1/2 25 mg tab. PT-OP-B Current Condition Start: 11/22/21 16:49 Freq: Status: Active Protocol: Document 11/24/21 12:00 AW (Rec: 11/24/21 09:00 AW [id number]) Current Condition History of Current Condition Onset Date June 2021 Current Complaints decreased balance, falls History of Current Condition Vasile had prostatitis 10 years ago. He was treated medically and was ok. Symptoms returned last year and he had a simple open prostatectomy at last May. Since then, he reports feeling sluggish and has had dizzy spells. Recent nuc med stress test was normal . Vasile experiences heart palpitations occasionally for for 5-10 minutes at a time. He just returned a holter monitor which he wore for a month and will follow up with cardiology soon. Pt states one dizzy spell occured while driving. His was able to take the wheel. He describes it as feeling faint and disoriented and is associated with vision changes (double vision) and a build up of pressure in his head. He recently saw his eye doctor who recommended no changes to his bifocals prescription. The same sensation has caused at least two falls in the past six months. He feels a lack of confidence in his walking lately and doesn't feel comfortable walking on the beach alone. Pt also feels disoriented in crowded situations, with high levels of light, and with flashing lights. [place] lives on [facility] with his , Damari. He hopes to be able to get his 23' [employer] boat in the water this year but feels anxious about getting on and off the boat. Prior Treatments and Tests No prior PT. Future Testing and Treatments Planned Follow up with cardiology. Treatment Goals Patient/Caregiver Goals Increase confidence to be able to walk on the beach alone. Be able to use his boat this summer. PT-OP-C Subjective Start: 11/22/21 16:49 Freq: Status: Active Protocol: Document 12/16/21 11:16 MA (Rec: 12/16/21 12:03 MA [id number]) OP-PT Subjective Patient Comments Patient Comments Pt reports being a little tired from yesterday. He states his BP has been stable recently. PT-OP-D Balance Start: 11/22/21 16:49 Freq: Status: Active Protocol: Document 11/24/21 12:00 AW (Rec: 11/25/21 12:51 AW [id number]) Balance Tests mCTSIB mCTSIB Position 1 30 mCTSIB Position 2 30 mCTSIB Position 3 25 mCTSIB Position 4 10 PT-OP-E Functional Tests Start: 11/22/21 16:49 Freq: Status: Active Protocol: Document 12/09/21 11:27 NBM (Rec: 12/09/21 18:15 NBM [id number]) Functional Tests 6 Minute Walk Test Distance 1211 feet Device Used no Assistive Device used Dynamic Gait Index (DGI) DGI Impairment Rating 20 to <40% Impaired (Score 15- 19) PT-OP-G Mobility & Gait Start: 11/22/21 16:49 Freq: Status: Active Protocol: Document 11/24/21 12:00 AW (Rec: 11/25/21 12:50 AW [id number]) OP Gait Assessment Comments Gait Comments Pt ambulates with shortened steps and reduced arm swing ( left more affected than right) . Mild to moderate truncal rigidity evident in gait. PT-OP-J Posture/Palpation/Skin Start: 11/22/21 16:49 Freq: Status: Active Protocol: Document 11/24/21 12:00 AW (Rec: 11/25/21 12:54 AW [id number]) Posture Evaluation Position Standing Evaluation View Lateral Comments Posture Comments Forward head, flat lumbar spine, externally rotated hips bilaterally. PT-OP-M Strength Start: 11/22/21 16:49 Freq: Status: Active Protocol: Document 11/24/21 12:00 AW (Rec: 11/25/21 12:50 AW [id number]) Hip Strength Hip Manual Muscle Testing bilat Flexion (L2) 4+ Good+ Extension (S1) 4 Good Abduction 4+ Good+ External Rotation 4+ Good+ Internal Rotation 4+ Good+ Knee Strength Knee Manual Muscle Testing bilat Flexion (S2) 4+ Good+ Extension (L3) 5 Normal Ankle/Foot Strength Ankle and Foot Manual Muscle Testing bilat Dorsiflexion (L4) 5 Normal Comments PF tested with SL heel lift. Pt able to complete no more than 4 reps with either limb. PT-OP-O Vestibular Start: 11/22/21 16:49 Freq: Status: Active Protocol: Document 11/24/21 12:00 AW (Rec: 11/25/21 13:00 AW [id number]) Vestibular Assessment Visual Testing Smooth Pursuits Horizontal WNL Smooth Pursuits Vertical WNL Saccades Horizontal WNL Saccades Vertical WNL Gaze Evoked Nystagmus With Fixation Negative Gaze Evoked Nystagmus Without Fixation Negative Thrust Head mild lag B Cover/Uncover Test WNL Convergence Test Impaired Comments Vestibular Comments Pt reports diplopia with target ~10 from face PT-OP-Q Treatments Start: 11/22/21 16:49 Freq: Status: Active Protocol: Document 12/16/21 11:16 MA (Rec: 12/16/21 12:03 MA [id number]) Therapeutic Exercises Sitting Exercises STS Sitting Exercise Name reviewed HEP Equipment Used mesh chair, no UE support Reps/Minutes x10 reps Comments good form, arms across chest Standing Exercises Step Ups Side bilateral Equipment Used 6 block Reps/Minutes x10 ea side band walk Standing Exercise Name added to HEP- lateral side stepping Side bilateral Resistance TB #2 loop Equipment Used rail PRN Reps/Minutes 15 ft x3 laps Comments cued tall posture, occasional clear trailing LE, like book on head Gait Training Gait Activity Outdoor walking Description curbs, grass, gravel Level of Assistance SBA-CGA Surface uneven Distance/Duration 5' Treatment Focus increasing amplitude of arm swings and step height Hurdles Level of Assistance rail prn Distance/Duration 6x6 steps Treatment Focus increasing step height Comments pt has difficulty clearing hurdles with LLE Neuro Re-Education Treatment Balance Activities SLS Details SLS trials Foam Surface blue foam pads Reps/Duration 5' Comments 1. NBOS EO/EC 2. modified tandem Eo/EC trials Coordination Activities Rock and reach Reps/Duration 10x ea Comments pt with decreased L shd ext during arm swing; cues to avoid hanging off bar PT-OP-T Assessment and Plan Start: 11/22/21 16:49 Freq: Status: Active Protocol: Document 12/16/21 11:16 MA (Rec: 12/16/21 12:03 MA [id number]) Physical Therapy Assessment Goals Three Impairment balance systems integration Short Term Goal (STG) Pt will improve mCTSIB to steady 110 seconds or greater. STG Duration 12/29/21 Detention Goal (LTG) Pt will walk the beach in front of his house alone and without assistive device as a measure of improved balance. Two Impairment ABC score 75% Detention Goal (LTG) Pt will improve his ABC score to 85% or greater as a measure of improved self-efficacy 12/15/21: 83% confident in balance with activities listed . LTG Duration 02/02/22 progressing 12/15/21 One Impairment lacks HEP Bevel Mill Operator Goal (LTG) Pt will be independent with HEP to improve his balance and calibration of his movement strategies 01/04/22: progressing: band walk, STS, bridge hold, TA TB KFO LTG Duration 02/02/22 progressing Assessment Summary Assessment Vasile walks with decreased arm swing and decreased stance time on LLE. Worked on increasing kari arm swing and step height walking indoor on smooth surfaces and outdoor on uneven surfaces such as grass , gravel, and over curbs. Pt reports previously fracturing both arms and his L shoudler and has decreased ROM through all planes on L shd. He is unable to achieve full extenson during arm swings but improves arm swings within his ROM. Began balance work to improve stance time on LLE and decrease falls. Added tandem corner balance to HEP with chair infront of pt at home for safety. Physical Therapy Plan Frequency and Duration Frequency of Treatment 1-2x/week Duration of Treatment 10 weeks Plan of Care Start Date 11/24/21 Plan of Care End Date 02/02/22 Therapeutic Interventions Therapeutic Interventions Balance Training,Coordination Training,Gait Training,Home Exercise Program,Neuromuscular Re-education,Self-Care/Home Management,Therapeutic Activities,Therapeutic Exercises,Vestibular Rehabilitation Next Visit Focus/Plan Next Note Type Treatment Note Next Visit Plan review: bandwalk, bridge, BKFO . Continue dynamic gait, hurdles balance, incorporate stair mgt and uneven sufaces. View updated goal progress making. POC: Assess orthostatic VS. Initiate balance training on firm and uneven surfaces. Gait training with amplitude focus .
--- NOTE | 2021-12-21 17:30 | PT.OTN ---
Current Diagnoses Unsteadiness on feet (12/21/21) Other abnormalities of gait and mobility (12/21/21) Weakness (12/21/21) Physical Therapy Treatment Note PT-OP-A Visit Information Start: 11/22/21 16:49 Freq: Status: Active Protocol: Document 12/21/21 15:21 AW (Rec: 12/21/21 16:06 AW [id number]) Out-Patient Physical Therapy Visit Information Visit Information Visit Type Treatment Note Visit Start Time 15:20 Visit Stop Time 16:00 Total Visit Minutes 40 Visit Number 6 Number of HOOKER LASTER Visits 0 Evaluation Information Evaluation Date 11/24/21 PT-OP-B Current Condition Start: 11/22/21 16:49 Freq: Status: Active Protocol: Document 11/24/21 12:00 AW (Rec: 11/24/21 09:00 AW [id number]) Current Condition History of Current Condition Onset Date June 2021 Current Complaints decreased balance, falls History of Current Condition Vasile had prostatitis 10 years ago. He was treated medically and was ok. Symptoms returned last year and he had a simple open prostatectomy at last May. Since then, he reports feeling sluggish and has had dizzy spells. Recent nuc med stress test was normal . Vasile experiences heart palpitations occasionally for for 5-10 minutes at a time. He just returned a holter monitor which he wore for a month and will follow up with cardiology soon. Pt states one dizzy spell occured while driving. His was able to take the wheel. He describes it as feeling faint and disoriented and is associated with vision changes (double vision) and a build up of pressure in his head. He recently saw his eye doctor who recommended no changes to his bifocals prescription. The same sensation has caused at least two falls in the past six months. He feels a lack of confidence in his walking lately and doesn't feel comfortable walking on the beach alone. Pt also feels disoriented in crowded situations, with high levels of light, and with flashing lights. [place] lives on [facility] with his , Damari. He hopes to be able to get his 23' runabout boat in the water this year but feels anxious about getting on and off the boat. Prior Treatments and Tests No prior PT. Future Testing and Treatments Planned Follow up with cardiology. Treatment Goals Patient/Caregiver Goals Increase confidence to be able to walk on the beach alone. Be able to use his boat this summer. PT-OP-C Subjective Start: 11/22/21 16:49 Freq: Status: Active Protocol: Document 12/21/21 15:21 AW (Rec: 12/21/21 16:06 AW [id number]) OP-PT Subjective Patient Comments Patient Comments I think this is helping. PT-OP-D Balance Start: 11/22/21 16:49 Freq: Status: Active Protocol: Document 11/24/21 12:00 AW (Rec: 11/25/21 12:51 AW [id number]) Balance Tests mCTSIB mCTSIB Position 1 30 mCTSIB Position 2 30 mCTSIB Position 3 25 mCTSIB Position 4 10 PT-OP-E Functional Tests Start: 11/22/21 16:49 Freq: Status: Active Protocol: Document 12/09/21 11:27 NBM (Rec: 12/09/21 18:15 NBM [id number]) Functional Tests 6 Minute Walk Test Distance 1211 feet Device Used no Assistive Device used Dynamic Gait Index (DGI) DGI Impairment Rating 20 to <40% Impaired (Score 15- 19) PT-OP-G Mobility & Gait Start: 11/22/21 16:49 Freq: Status: Active Protocol: Document 11/24/21 12:00 AW (Rec: 11/25/21 12:50 AW [id number]) OP Gait Assessment Comments Gait Comments Pt ambulates with shortened steps and reduced arm swing ( left more affected than right) . Mild to moderate truncal rigidity evident in gait. PT-OP-J Posture/Palpation/Skin Start: 11/22/21 16:49 Freq: Status: Active Protocol: Document 11/24/21 12:00 AW (Rec: 11/25/21 12:54 AW [id number]) Posture Evaluation Position Standing Evaluation View Lateral Comments Posture Comments Forward head, flat lumbar spine, externally rotated hips bilaterally. PT-OP-M Strength Start: 11/22/21 16:49 Freq: Status: Active Protocol: Document 11/24/21 12:00 AW (Rec: 11/25/21 12:50 AW [id number]) Hip Strength Hip Manual Muscle Testing bilat Flexion (L2) 4+ Good+ Extension (S1) 4 Good Abduction 4+ Good+ External Rotation 4+ Good+ Internal Rotation 4+ Good+ Knee Strength Knee Manual Muscle Testing bilat Flexion (S2) 4+ Good+ Extension (L3) 5 Normal Ankle/Foot Strength Ankle and Foot Manual Muscle Testing bilat Dorsiflexion (L4) 5 Normal Comments PF tested with SL heel lift. Pt able to complete no more than 4 reps with either limb. PT-OP-O Vestibular Start: 11/22/21 16:49 Freq: Status: Active Protocol: Document 11/24/21 12:00 AW (Rec: 11/25/21 13:00 AW [id number]) Vestibular Assessment Visual Testing Smooth Pursuits Horizontal WNL Smooth Pursuits Vertical WNL Saccades Horizontal WNL Saccades Vertical WNL Gaze Evoked Nystagmus With Fixation Negative Gaze Evoked Nystagmus Without Fixation Negative Thrust Head mild lag B Cover/Uncover Test WNL Convergence Test Impaired Comments Vestibular Comments Pt reports diplopia with target ~10 from face PT-OP-Q Treatments Start: 11/22/21 16:49 Freq: Status: Active Protocol: Document 12/21/21 15:21 AW (Rec: 12/21/21 16:06 AW [id number]) Gym Equipment Shuttle Balance 1 Details WBOS blue clips Reps/Duration 5 min Comments - WBOS EO - WBOS head turns - WBOS EC Pt required full contact with rails initially, 25% contact with rails at end Therapeutic Exercises Supine Exercises BKFO Supine Exercise Name Bent Knee Fall Out Side bilateral Resistance TB #2 loop Reps/Minutes 2x10 Comments vc for TrA activation, no breath holding. HEP review bridge september Supine Exercise Name Bridge 5 reps hold 10 sec Comments vc TrA, no breath holding Therapeutic Activity Therapeutic Activity orthostatics Comments supine: 118/68 HR 62 sittin/78 HR 66 standin/77 HR 67 Gait Training Gait Activity amplitude focus Device Used none Level of Assistance SBA Surface level, indoor, tile Distance/Duration 80' x 8 Treatment Focus amplitude Comments focus on increased hip flexion , foot clearance, BUE arm swing dynamic gait Description head turns horizontal, vertical Device Used 0 Level of Assistance SBA Surface firm hallway Distance/Duration 80 ft x3 laps Treatment Focus balance recovery during gait Comments Pt improves balance with cues for exaggerated hip flexion and increased arm swing Neuro Re-Education Treatment Balance Activities tandem stance Details tandem stance Surface firm Equipment corner, chair in front Comments 1. Semi tandem EO 2. Tandem EO with chair for HEP Foam Surface blue foam pads Reps/Duration 5' Comments 1. NBOS EO/EC 2. NBOS head turns and nods PT-OP-T Assessment and Plan Start: 11/22/21 16:49 Freq: Status: Active Protocol: Document 12/21/21 15:21 AW (Rec: 12/21/21 16:06 AW [id number]) Physical Therapy Assessment Goals Three Impairment balance systems integration Short Term Goal (STG) Pt will improve mCTSIB to steady 110 seconds or greater. STG Duration 12/29/21 Motor Boss Goal (LTG) Pt will walk the beach in front of his house alone and without assistive device as a measure of improved balance. Two Impairment ABC score 75% Motor Boss Goal (LTG) Pt will improve his ABC score to 85% or greater as a measure of improved self-efficacy 12/15/21: 83% confident in balance with activities listed . LTG Duration 02/02/22 progressing 12/15/21 One Impairment lacks HEP Motor Boss Goal (LTG) Pt will be independent with HEP to improve his balance and calibration of his movement strategies 01/04/22: progressing: band walk, STS, bridge hold, TA TB KFO LTG Duration 02/02/22 progressing Assessment Summary Assessment Continued work on step height to improve LLE clearance. Pt walks slowly normally but is able to improve amplitude in response to cues. Physical Therapy Plan Frequency and Duration Frequency of Treatment 1-2x/week Duration of Treatment 10 weeks Plan of Care Start Date 11/24/21 Plan of Care End Date 02/02/22 Therapeutic Interventions Therapeutic Interventions Balance Training,Coordination Training,Gait Training,Home Exercise Program,Neuromuscular Re-education,Self-Care/Home Management,Therapeutic Activities,Therapeutic Exercises,Vestibular Rehabilitation Next Visit Focus/Plan Next Note Type Treatment Note Next Visit Plan review: bandwalk, bridge, BKFO . Continue dynamic gait, hurdles balance, incorporate stair mgt and uneven sufaces with amplitude focus.
--- NOTE | 2021-12-23 12:47 | PT.OTN ---
Current Diagnoses Unsteadiness on feet (12/23/21) Other abnormalities of gait and mobility (12/23/21) Weakness (12/23/21) Physical Therapy Treatment Note PT-OP-A Visit Information Start: 11/22/21 16:49 Freq: Status: Active Protocol: Document 12/23/21 11:25 NBM (Rec: 12/23/21 12:47 NBM [id number]) Out-Patient Physical Therapy Visit Information Visit Information Visit Type Treatment Note Visit Note Pt arrived late Visit Start Time 11:26 Visit Stop Time 12:03 Total Visit Minutes 37 Visit Number 7 Number of CLAIMS CLERK Visits 1 PT-OP-B Current Condition Start: 11/22/21 16:49 Freq: Status: Active Protocol: Document 11/24/21 12:00 AW (Rec: 11/24/21 09:00 AW [id number]) Current Condition History of Current Condition Onset Date June 2021 Current Complaints decreased balance, falls History of Current Condition Vasile had prostatitis 10 years ago. He was treated medically and was ok. Symptoms returned last year and he had a simple open prostatectomy at last May. Since then, he reports feeling sluggish and has had dizzy spells. Recent nuc med stress test was normal . Vasile experiences heart palpitations occasionally for for 5-10 minutes at a time. He just returned a holter monitor which he wore for a month and will follow up with cardiology soon. Pt states one dizzy spell occured while driving. His was able to take the wheel. He describes it as feeling faint and disoriented and is associated with vision changes (double vision) and a build up of pressure in his head. He recently saw his eye doctor who recommended no changes to his bifocals prescription. The same sensation has caused at least two falls in the past six months. He feels a lack of confidence in his walking lately and doesn't feel comfortable walking on the beach alone. Pt also feels disoriented in crowded situations, with high levels of light, and with flashing lights. [place] lives on [facility] with his , Damari. He hopes to be able to get his 23' runabout boat in the water this year but feels anxious about getting on and off the boat. Prior Treatments and Tests No prior PT. Future Testing and Treatments Planned Follow up with cardiology. Treatment Goals Patient/Caregiver Goals Increase confidence to be able to walk on the beach alone. Be able to use his boat this summer. PT-OP-C Subjective Start: 11/22/21 16:49 Freq: Status: Active Protocol: Document 12/23/21 11:25 NBM (Rec: 12/23/21 12:47 NBM [id number]) OP-PT Subjective Patient Comments Patient Comments Pt reports This helps a lot. He feels during treatments that he's not working very hard but notices when he gets home and relaxes that has worked hard. He does not like the shuttle balance but is willing to do whatever we ask of him. HEP compliant. Patient Reported Progress Improving PT-OP-D Balance Start: 11/22/21 16:49 Freq: Status: Active Protocol: Document 11/24/21 12:00 AW (Rec: 11/25/21 12:51 AW [id number]) Balance Tests mCTSIB mCTSIB Position 1 30 mCTSIB Position 2 30 mCTSIB Position 3 25 mCTSIB Position 4 10 PT-OP-E Functional Tests Start: 11/22/21 16:49 Freq: Status: Active Protocol: Document 12/09/21 11:27 NBM (Rec: 12/09/21 18:15 NBM [id number]) Functional Tests 6 Minute Walk Test Distance 1211 feet Device Used no Assistive Device used Dynamic Gait Index (DGI) DGI Impairment Rating 20 to <40% Impaired (Score 15- 19) PT-OP-G Mobility & Gait Start: 11/22/21 16:49 Freq: Status: Active Protocol: Document 11/24/21 12:00 AW (Rec: 11/25/21 12:50 AW [id number]) OP Gait Assessment Comments Gait Comments Pt ambulates with shortened steps and reduced arm swing ( left more affected than right) . Mild to moderate truncal rigidity evident in gait. PT-OP-J Posture/Palpation/Skin Start: 11/22/21 16:49 Freq: Status: Active Protocol: Document 11/24/21 12:00 AW (Rec: 11/25/21 12:54 AW [id number]) Posture Evaluation Position Standing Evaluation View Lateral Comments Posture Comments Forward head, flat lumbar spine, externally rotated hips bilaterally. PT-OP-M Strength Start: 11/22/21 16:49 Freq: Status: Active Protocol: Document 11/24/21 12:00 AW (Rec: 11/25/21 12:50 AW [id number]) Hip Strength Hip Manual Muscle Testing bilat Flexion (L2) 4+ Good+ Extension (S1) 4 Good Abduction 4+ Good+ External Rotation 4+ Good+ Internal Rotation 4+ Good+ Knee Strength Knee Manual Muscle Testing bilat Flexion (S2) 4+ Good+ Extension (L3) 5 Normal Ankle/Foot Strength Ankle and Foot Manual Muscle Testing bilat Dorsiflexion (L4) 5 Normal Comments PF tested with SL heel lift. Pt able to complete no more than 4 reps with either limb. PT-OP-O Vestibular Start: 11/22/21 16:49 Freq: Status: Active Protocol: Document 11/24/21 12:00 AW (Rec: 11/25/21 13:00 AW [id number]) Vestibular Assessment Visual Testing Smooth Pursuits Horizontal WNL Smooth Pursuits Vertical WNL Saccades Horizontal WNL Saccades Vertical WNL Gaze Evoked Nystagmus With Fixation Negative Gaze Evoked Nystagmus Without Fixation Negative Thrust Head mild lag B Cover/Uncover Test WNL Convergence Test Impaired Comments Vestibular Comments Pt reports diplopia with target ~10 from face PT-OP-Q Treatments Start: 11/22/21 16:49 Freq: Status: Active Protocol: Document 12/23/21 11:25 NBM (Rec: 12/23/21 12:47 NBM [id number]) Therapeutic Exercises Standing Exercises band walk Standing Exercise Name added to HEP- lateral side stepping Side bilateral Resistance TB #2 loop Equipment Used rail PRN Reps/Minutes 15 ft x2 laps Comments cued tall posture and slower pacing, occasional clear trailing LE Gait Training Gait Activity amplitude focus Device Used 1. washcloth in each hand 2. 5 # weight in each hand Level of Assistance SBA Surface level, indoor, tile Distance/Duration 80' x 5 Treatment Focus amplitude Comments focus on increased hip flexion , foot clearance, BUE arm swing, upright posture Hurdles Level of Assistance rail prn Distance/Duration 6x6 steps Treatment Focus increasing step height, posture Comments pt has difficulty clearing hurdles with LLE but was able to clear 6/6 once and 5/6 twice - improved. Neuro Re-Education Treatment Coordination Activities Rock and reach Details 1. Rock and Reach. 2. CLAIMS CLERK directing pt's arm swing w/ dowels bilaterally Reps/Duration 10x ea Comments pt with decreased L shd ext during arm swing; cues to increase arm swing. Pt responds to command 9 to the front, 6 to the rear to increase arm swing. PT-OP-T Assessment and Plan Start: 11/22/21 16:49 Freq: Status: Active Protocol: Document 12/23/21 11:25 NBM (Rec: 12/23/21 12:47 NBM [id number]) Physical Therapy Assessment Goals Three Impairment balance systems integration Short Term Goal (STG) Pt will improve mCTSIB to steady 110 seconds or greater. STG Duration 12/29/21 E Learning Coordinator Goal (LTG) Pt will walk the beach in front of his house alone and without assistive device as a measure of improved balance. Two Impairment ABC score 75% Correction Goal (LTG) Pt will improve his ABC score to 85% or greater as a measure of improved self-efficacy 12/15/21: 83% confident in balance with activities listed . LTG Duration 02/02/22 progressing 12/15/21 One Impairment lacks HEP E Learning Coordinator Goal (LTG) Pt will be independent with HEP to improve his balance and calibration of his movement strategies 01/04/22: progressing: band walk, STS, bridge hold, TA TB KFO LTG Duration 02/02/22 progressing Assessment Summary Assessment Vasile continues to require cueing for arm swing, step length, and posture with gait. He also requires cues for proper form and slower, controled pacing with side steps. Amplitude of arm swing improved with 5# weights bilaterally - added to HEP. Gait amplitude improves with cueing for bigger initial step . He was better able to manage hurdles today demonstrating improved foot clearance. Physical Therapy Plan Next Visit Focus/Plan Next Note Type Treatment Note Next Visit Plan review: bandwalk, bridge, BKFO . Continue dynamic gait, hurdles balance, incorporate stair mgt and uneven sufaces with amplitude focus. Check addition of 5# weights with walking
--- NOTE | 2021-12-28 12:19 | PT.OTN ---
Current Diagnoses Unsteadiness on feet (12/28/21) Other abnormalities of gait and mobility (12/28/21) Weakness (12/28/21) Physical Therapy Treatment Note PT-OP-A Visit Information Start: 11/22/21 16:49 Freq: Status: Active Protocol: Document 12/28/21 11:00 AW (Rec: 12/28/21 12:19 AW [id number]) Out-Patient Physical Therapy Visit Information Visit Information Visit Type Treatment Note Visit Start Time 11:13 Visit Stop Time 12:00 Total Visit Minutes 47 Visit Number 8 Number of RECYCLING OPERATIONS MANAGER Visits 0 Evaluation Information Evaluation Date 11/24/21 PT-OP-B Current Condition Start: 11/22/21 16:49 Freq: Status: Active Protocol: Document 11/24/21 12:00 AW (Rec: 11/24/21 09:00 AW [id number]) Current Condition History of Current Condition Onset Date June 2021 Current Complaints decreased balance, falls History of Current Condition Vasile had prostatitis 10 years ago. He was treated medically and was ok. Symptoms returned last year and he had a simple open prostatectomy at last May. Since then, he reports feeling sluggish and has had dizzy spells. Recent nuc med stress test was normal . Vasile experiences heart palpitations occasionally for for 5-10 minutes at a time. He just returned a holter monitor which he wore for a month and will follow up with cardiology soon. Pt states one dizzy spell occured while driving. His was able to take the wheel. He describes it as feeling faint and disoriented and is associated with vision changes (double vision) and a build up of pressure in his head. He recently saw his eye doctor who recommended no changes to his bifocals prescription. The same sensation has caused at least two falls in the past six months. He feels a lack of confidence in his walking lately and doesn't feel comfortable walking on the beach alone. Pt also feels disoriented in crowded situations, with high levels of light, and with flashing lights. [place] lives on [facility] with his , Damari. He hopes to be able to get his 23' runabout boat in the water this year but feels anxious about getting on and off the boat. Prior Treatments and Tests No prior PT. Future Testing and Treatments Planned Follow up with cardiology. Treatment Goals Patient/Caregiver Goals Increase confidence to be able to walk on the beach alone. Be able to use his boat this summer. PT-OP-C Subjective Start: 11/22/21 16:49 Freq: Status: Active Protocol: Document 12/28/21 11:00 AW (Rec: 12/28/21 12:19 AW [id number]) OP-PT Subjective Patient Comments Patient Comments I've been working on my arm swing. Patient Reported Progress Improving PT-OP-D Balance Start: 11/22/21 16:49 Freq: Status: Active Protocol: Document 11/24/21 12:00 AW (Rec: 11/25/21 12:51 AW [id number]) Balance Tests mCTSIB mCTSIB Position 1 30 mCTSIB Position 2 30 mCTSIB Position 3 25 mCTSIB Position 4 10 PT-OP-E Functional Tests Start: 11/22/21 16:49 Freq: Status: Active Protocol: Document 12/09/21 11:27 NBM (Rec: 12/09/21 18:15 NBM [id number]) Functional Tests 6 Minute Walk Test Distance 1211 feet Device Used no Assistive Device used Dynamic Gait Index (DGI) DGI Impairment Rating 20 to <40% Impaired (Score 15- 19) PT-OP-G Mobility & Gait Start: 11/22/21 16:49 Freq: Status: Active Protocol: Document 11/24/21 12:00 AW (Rec: 11/25/21 12:50 AW [id number]) OP Gait Assessment Comments Gait Comments Pt ambulates with shortened steps and reduced arm swing ( left more affected than right) . Mild to moderate truncal rigidity evident in gait. PT-OP-J Posture/Palpation/Skin Start: 11/22/21 16:49 Freq: Status: Active Protocol: Document 11/24/21 12:00 AW (Rec: 11/25/21 12:54 AW [id number]) Posture Evaluation Position Standing Evaluation View Lateral Comments Posture Comments Forward head, flat lumbar spine, externally rotated hips bilaterally. PT-OP-M Strength Start: 11/22/21 16:49 Freq: Status: Active Protocol: Document 11/24/21 12:00 AW (Rec: 11/25/21 12:50 AW [id number]) Hip Strength Hip Manual Muscle Testing bilat Flexion (L2) 4+ Good+ Extension (S1) 4 Good Abduction 4+ Good+ External Rotation 4+ Good+ Internal Rotation 4+ Good+ Knee Strength Knee Manual Muscle Testing bilat Flexion (S2) 4+ Good+ Extension (L3) 5 Normal Ankle/Foot Strength Ankle and Foot Manual Muscle Testing bilat Dorsiflexion (L4) 5 Normal Comments PF tested with SL heel lift. Pt able to complete no more than 4 reps with either limb. PT-OP-O Vestibular Start: 11/22/21 16:49 Freq: Status: Active Protocol: Document 11/24/21 12:00 AW (Rec: 11/25/21 13:00 AW [id number]) Vestibular Assessment Visual Testing Smooth Pursuits Horizontal WNL Smooth Pursuits Vertical WNL Saccades Horizontal WNL Saccades Vertical WNL Gaze Evoked Nystagmus With Fixation Negative Gaze Evoked Nystagmus Without Fixation Negative Thrust Head mild lag B Cover/Uncover Test WNL Convergence Test Impaired Comments Vestibular Comments Pt reports diplopia with target ~10 from face PT-OP-Q Treatments Start: 11/22/21 16:49 Freq: Status: Active Protocol: Document 12/28/21 11:00 AW (Rec: 12/28/21 12:19 AW [id number]) Gym Equipment Shuttle Balance 1 Details WBOS blue clips Reps/Duration 5 min Comments - WBOS EO - WBOS head turns - WBOS EC - NBOS EO - NBOS head turns Pt required 5-10% contact with rails throughout Therapeutic Exercises Other Exercises sit to stand Other Exercise Name sit to stand Equipment Used mesh chair, no arms Reps/Minutes 2x10 Comments cued increased fwd weight shift; consider for HEP next visit Gait Training Gait Activity amplitude focus Device Used 5# weight in each hand Level of Assistance SBA Surface level, indoor, tile Distance/Duration 80' x 12 Treatment Focus amplitude Comments - Gait with weights - Gait w/o weight to assess arm swing with no external stimulus. Good retention of amplitude - Gait with cognitive load ( counting backward by 3's from a random number). Pt loses amplitude especially LUE with increase in cog load. Hurdles Level of Assistance rail prn Distance/Duration 4 hurdles Treatment Focus increasing step height, posture Comments fwd and lateral with difficulty coordinating movement. Pt knocked down 3/4 hurdles all trials except last when he was able to clear all but 1. Neuro Re-Education Treatment Balance Activities tandem stance Details tandem stance Surface firm, foam pads Equipment rail prn Comments 1. Tandem EO 2. Tandem EO with head turns/ nods SLS Details SLS trials Surface firm Equipment rail support Reps/Duration 5 x 10 sec Comments Very unstable with ability to maintain SLS 8-10 seconds with hands on rail (faded to fingertip support) Coordination Activities Rock and reach Details fwd and sideways (netta to BIG exercise) Equipment rail prn Reps/Duration 10 minutes Comments Pt needs max cues for weight shift A/P in fwd rock/reach. Used rail on one side to improve amplitude of opposite arm swing. Sideways rock/reach very challenging. Pt has difficulty with cues to pivot on back foot, needs max cues for trunk rotation. Consider simpler trunk rotation exercise at next visit. PT-OP-T Assessment and Plan Start: 11/22/21 16:49 Freq: Status: Active Protocol: Document 12/28/21 11:00 AW (Rec: 12/28/21 12:19 AW [id number]) Physical Therapy Assessment Goals Three Impairment balance systems integration Short Term Goal (STG) Pt will improve mCTSIB to steady 110 seconds or greater. STG Duration 12/29/21 Personal Care Worker Goal (LTG) Pt will walk the beach in front of his house alone and without assistive device as a measure of improved balance. Two Impairment ABC score 75% Personal Care Worker Goal (LTG) Pt will improve his ABC score to 85% or greater as a measure of improved self-efficacy 12/15/21: 83% confident in balance with activities listed . LTG Duration 02/02/22 progressing 12/15/21 One Impairment lacks HEP Intermediate Goal (LTG) Pt will be independent with HEP to improve his balance and calibration of his movement strategies 01/04/22: progressing: band walk, STS, bridge hold, TA TB KFO LTG Duration 02/02/22 progressing Assessment Summary Assessment Pt needed max cues for sideways rock and reach but was better able to execute forward rock and reach which was added to HEP. Single leg strength deficits make hurdles difficult. Assigned SLS for HEP. Physical Therapy Plan Frequency and Duration Frequency of Treatment 1-2x/week Duration of Treatment 10 weeks Plan of Care Start Date 11/24/21 Plan of Care End Date 02/02/22 Therapeutic Interventions Therapeutic Interventions Balance Training,Coordination Training,Gait Training,Home Exercise Program,Neuromuscular Re-education,Self-Care/Home Management,Therapeutic Activities,Therapeutic Exercises,Vestibular Rehabilitation Next Visit Focus/Plan Next Note Type Treatment Note Next Visit Plan Continue dynamic gait, hurdles balance, incorporate stair mgt and uneven sufaces with amplitude focus. Add sit to stand and simple trunk rotation for HEP Check addition of 5# weights with walking
--- NOTE | 2021-12-30 17:13 | PT.OTN ---
Current Diagnoses Unsteadiness on feet (12/30/21) Other abnormalities of gait and mobility (12/30/21) Weakness (12/30/21) Physical Therapy Treatment Note PT-OP-A Visit Information Start: 11/22/21 16:49 Freq: Status: Active Protocol: Document 12/30/21 13:39 AW (Rec: 12/30/21 14:32 AW [id number]) Out-Patient Physical Therapy Visit Information Visit Information Visit Type Treatment Note Visit Start Time 13:45 Visit Stop Time 14:30 Total Visit Minutes 45 Visit Number 9 Number of CONSULTING ENGINEER Visits 0 Evaluation Information Evaluation Date 11/24/21 PT-OP-B Current Condition Start: 11/22/21 16:49 Freq: Status: Active Protocol: Document 11/24/21 12:00 AW (Rec: 11/24/21 09:00 AW [id number]) Current Condition History of Current Condition Onset Date June 2021 Current Complaints decreased balance, falls History of Current Condition Vasile had prostatitis 10 years ago. He was treated medically and was ok. Symptoms returned last year and he had a simple open prostatectomy at last May. Since then, he reports feeling sluggish and has had dizzy spells. Recent nuc med stress test was normal . Vasile experiences heart palpitations occasionally for for 5-10 minutes at a time. He just returned a holter monitor which he wore for a month and will follow up with cardiology soon. Pt states one dizzy spell occured while driving. His was able to take the wheel. He describes it as feeling faint and disoriented and is associated with vision changes (double vision) and a build up of pressure in his head. He recently saw his eye doctor who recommended no changes to his bifocals prescription. The same sensation has caused at least two falls in the past six months. He feels a lack of confidence in his walking lately and doesn't feel comfortable walking on the beach alone. Pt also feels disoriented in crowded situations, with high levels of light, and with flashing lights. [place] lives on [facility] with his , Damari. He hopes to be able to get his 23' runabout boat in the water this year but feels anxious about getting on and off the boat. Prior Treatments and Tests No prior PT. Future Testing and Treatments Planned Follow up with cardiology. Treatment Goals Patient/Caregiver Goals Increase confidence to be able to walk on the beach alone. Be able to use his boat this summer. PT-OP-C Subjective Start: 11/22/21 16:49 Freq: Status: Active Protocol: Document 12/30/21 13:39 AW (Rec: 12/30/21 14:32 AW [id number]) OP-PT Subjective Patient Comments Patient Comments Pt remembers when he fell from the roof he fractured his left scapula and wonders if that has something to do with limited left arm swing. PT-OP-D Balance Start: 11/22/21 16:49 Freq: Status: Active Protocol: Document 11/24/21 12:00 AW (Rec: 11/25/21 12:51 AW [id number]) Balance Tests mCTSIB mCTSIB Position 1 30 mCTSIB Position 2 30 mCTSIB Position 3 25 mCTSIB Position 4 10 PT-OP-E Functional Tests Start: 11/22/21 16:49 Freq: Status: Active Protocol: Document 12/09/21 11:27 NBM (Rec: 12/09/21 18:15 NBM [id number]) Functional Tests 6 Minute Walk Test Distance 1211 feet Device Used no Assistive Device used Dynamic Gait Index (DGI) DGI Impairment Rating 20 to <40% Impaired (Score 15- 19) PT-OP-G Mobility & Gait Start: 11/22/21 16:49 Freq: Status: Active Protocol: Document 11/24/21 12:00 AW (Rec: 11/25/21 12:50 AW [id number]) OP Gait Assessment Comments Gait Comments Pt ambulates with shortened steps and reduced arm swing ( left more affected than right) . Mild to moderate truncal rigidity evident in gait. PT-OP-J Posture/Palpation/Skin Start: 11/22/21 16:49 Freq: Status: Active Protocol: Document 11/24/21 12:00 AW (Rec: 11/25/21 12:54 AW [id number]) Posture Evaluation Position Standing Evaluation View Lateral Comments Posture Comments Forward head, flat lumbar spine, externally rotated hips bilaterally. PT-OP-M Strength Start: 11/22/21 16:49 Freq: Status: Active Protocol: Document 11/24/21 12:00 AW (Rec: 11/25/21 12:50 AW [id number]) Hip Strength Hip Manual Muscle Testing bilat Flexion (L2) 4+ Good+ Extension (S1) 4 Good Abduction 4+ Good+ External Rotation 4+ Good+ Internal Rotation 4+ Good+ Knee Strength Knee Manual Muscle Testing bilat Flexion (S2) 4+ Good+ Extension (L3) 5 Normal Ankle/Foot Strength Ankle and Foot Manual Muscle Testing bilat Dorsiflexion (L4) 5 Normal Comments PF tested with SL heel lift. Pt able to complete no more than 4 reps with either limb. PT-OP-O Vestibular Start: 11/22/21 16:49 Freq: Status: Active Protocol: Document 11/24/21 12:00 AW (Rec: 11/25/21 13:00 AW [id number]) Vestibular Assessment Visual Testing Smooth Pursuits Horizontal WNL Smooth Pursuits Vertical WNL Saccades Horizontal WNL Saccades Vertical WNL Gaze Evoked Nystagmus With Fixation Negative Gaze Evoked Nystagmus Without Fixation Negative Thrust Head mild lag B Cover/Uncover Test WNL Convergence Test Impaired Comments Vestibular Comments Pt reports diplopia with target ~10 from face PT-OP-Q Treatments Start: 11/22/21 16:49 Freq: Status: Active Protocol: Document 12/30/21 13:39 AW (Rec: 12/30/21 14:32 AW [id number]) Cardio Equipment Recumbent Stepper (Sci-Fit) Duration (Minutes) 5 Resistance 2 Seat Position 10 Other UE and LE Therapeutic Exercises Sitting Exercises seated trunk rotation Sitting Exercise Name seated trunk rotation Side bilateral Resistance arms x chest Comments HEP STS Sitting Exercise Name reviewed HEP Equipment Used mesh chair, no UE support Reps/Minutes 2x10 reps Comments 2nd set w/ blue foam under feet Standing Exercises paloff press Standing Exercise Name paloff press Side bilateral Resistance TB2 Step Ups Side bilateral Equipment Used 6 block, faded UE support on // Reps/Minutes x10 ea side Comments alternating Neuro Re-Education Treatment Balance Activities step taps Details step taps Surface firm Equipment 4 step, 6 step Comments faded UE support on // Foam Surface blue foam pads Reps/Duration 10' Comments 1. NBOS EO/EC 2. NBOS head turns and nods 3. NBOS EC with light fingertip support on rails Coordination Activities Rock and reach Details fwd and sideways (netta to BIG exercise) Equipment rail prn Reps/Duration 10 minutes Comments Improved A/P weight shift today. Continued cues for bigger arm swing. Opposite arm held at side near rail for prn support but barely used today. May consider BUE arm swing next visit. PT-OP-T Assessment and Plan Start: 11/22/21 16:49 Freq: Status: Active Protocol: Document 12/30/21 13:39 AW (Rec: 12/30/21 14:32 AW [id number]) Physical Therapy Assessment Goals Three Impairment balance systems integration Short Term Goal (STG) Pt will improve mCTSIB to steady 110 seconds or greater. 12/30/21: Pt scores 95/120 today (all points deducted in 4th condition) STG Duration 12/29/21 PROGRESSING Electrical Logging Operator Goal (LTG) Pt will walk the beach in front of his house alone and without assistive device as a measure of improved balance. Two Impairment ABC score 75% Electrical Logging Operator Goal (LTG) Pt will improve his ABC score to 85% or greater as a measure of improved self-efficacy 12/15/21: 83% confident in balance with activities listed . LTG Duration 02/02/22 progressing 12/15/21 One Impairment lacks HEP Electrical Logging Operator Goal (LTG) Pt will be independent with HEP to improve his balance and calibration of his movement strategies 01/04/22: progressing: band walk, STS, bridge hold, TA TB KFO LTG Duration 02/02/22 progressing Assessment Summary Assessment Reassessed mCTSIB today and pt did improve in condition 3 but no change in condition 4. Continued focus on amplitude to improve gait. Challenged SLS today with step taps, cueing slow and controlled movement with limited UE support. Will revisit SLS and possibly hurdles next visit. Physical Therapy Plan Frequency and Duration Frequency of Treatment 1-2x/week Duration of Treatment 10 weeks Plan of Care Start Date 11/24/21 Plan of Care End Date 02/02/22 Therapeutic Interventions Therapeutic Interventions Balance Training,Coordination Training,Gait Training,Home Exercise Program,Neuromuscular Re-education,Self-Care/Home Management,Therapeutic Activities,Therapeutic Exercises,Vestibular Rehabilitation Next Visit Focus/Plan Next Note Type Treatment Note Next Visit Plan Continue dynamic gait, hurdles balance, incorporate stair mgt and uneven sufaces with amplitude focus.
--- NOTE | 2022-01-04 08:34 | PT-OP ANOTE ---
Addendum entered and electronically signed by Magalis Lancaster, REHANA 01/04/22 08:35: Needs progress note next visit. Original Note: Pt had to cancel same day due to no ferry operating from [facility].
--- NOTE | 2022-01-06 12:00 | PT.OTN ---
Current Diagnoses Unsteadiness on feet (01/06/22) Other abnormalities of gait and mobility (01/06/22) Weakness (01/06/22) Physical Therapy Treatment Note PT-OP-A Visit Information Start: 11/22/21 16:49 Freq: Status: Active Protocol: Document 01/06/22 11:18 MA (Rec: 01/06/22 12:00 MA [id number]) Out-Patient Physical Therapy Visit Information Visit Information Visit Type Treatment Note Visit Start Time 11:20 Visit Stop Time 12:00 Total Visit Minutes 40 Visit Number 10 Number of COMBAT SYSTEMS OPERATOR Visits 1 PT-OP-B Current Condition Start: 11/22/21 16:49 Freq: Status: Active Protocol: Document 11/24/21 12:00 AW (Rec: 11/24/21 09:00 AW [id number]) Current Condition History of Current Condition Onset Date June 2021 Current Complaints decreased balance, falls History of Current Condition Vasile had prostatitis 10 years ago. He was treated medically and was ok. Symptoms returned last year and he had a simple open prostatectomy at last May. Since then, he reports feeling sluggish and has had dizzy spells. Recent nuc med stress test was normal . Vasile experiences heart palpitations occasionally for for 5-10 minutes at a time. He just returned a holter monitor which he wore for a month and will follow up with cardiology soon. Pt states one dizzy spell occured while driving. His was able to take the wheel. He describes it as feeling faint and disoriented and is associated with vision changes (double vision) and a build up of pressure in his head. He recently saw his eye doctor who recommended no changes to his bifocals prescription. The same sensation has caused at least two falls in the past six months. He feels a lack of confidence in his walking lately and doesn't feel comfortable walking on the beach alone. Pt also feels disoriented in crowded situations, with high levels of light, and with flashing lights. [place] lives on [facility] with his , Damari. He hopes to be able to get his 23' runabout boat in the water this year but feels anxious about getting on and off the boat. Prior Treatments and Tests No prior PT. Future Testing and Treatments Planned Follow up with cardiology. Treatment Goals Patient/Caregiver Goals Increase confidence to be able to walk on the beach alone. Be able to use his boat this summer. PT-OP-C Subjective Start: 11/22/21 16:49 Freq: Status: Active Protocol: Document 01/06/22 11:18 MA (Rec: 01/06/22 12:00 MA [id number]) OP-PT Subjective Patient Comments Patient Comments Pt states he works on his arm swings but his L ROM is always smaller than his right PT-OP-D Balance Start: 11/22/21 16:49 Freq: Status: Active Protocol: Document 11/24/21 12:00 AW (Rec: 11/25/21 12:51 AW [id number]) Balance Tests mCTSIB mCTSIB Position 1 30 mCTSIB Position 2 30 mCTSIB Position 3 25 mCTSIB Position 4 10 PT-OP-E Functional Tests Start: 11/22/21 16:49 Freq: Status: Active Protocol: Document 12/09/21 11:27 NBM (Rec: 12/09/21 18:15 NBM [id number]) Functional Tests 6 Minute Walk Test Distance 1211 feet Device Used no Assistive Device used Dynamic Gait Index (DGI) DGI Impairment Rating 20 to <40% Impaired (Score 15- 19) PT-OP-G Mobility & Gait Start: 11/22/21 16:49 Freq: Status: Active Protocol: Document 11/24/21 12:00 AW (Rec: 11/25/21 12:50 AW [id number]) OP Gait Assessment Comments Gait Comments Pt ambulates with shortened steps and reduced arm swing ( left more affected than right) . Mild to moderate truncal rigidity evident in gait. PT-OP-J Posture/Palpation/Skin Start: 11/22/21 16:49 Freq: Status: Active Protocol: Document 11/24/21 12:00 AW (Rec: 11/25/21 12:54 AW [id number]) Posture Evaluation Position Standing Evaluation View Lateral Comments Posture Comments Forward head, flat lumbar spine, externally rotated hips bilaterally. PT-OP-M Strength Start: 11/22/21 16:49 Freq: Status: Active Protocol: Document 11/24/21 12:00 AW (Rec: 11/25/21 12:50 AW [id number]) Hip Strength Hip Manual Muscle Testing bilat Flexion (L2) 4+ Good+ Extension (S1) 4 Good Abduction 4+ Good+ External Rotation 4+ Good+ Internal Rotation 4+ Good+ Knee Strength Knee Manual Muscle Testing bilat Flexion (S2) 4+ Good+ Extension (L3) 5 Normal Ankle/Foot Strength Ankle and Foot Manual Muscle Testing bilat Dorsiflexion (L4) 5 Normal Comments PF tested with SL heel lift. Pt able to complete no more than 4 reps with either limb. PT-OP-O Vestibular Start: 11/22/21 16:49 Freq: Status: Active Protocol: Document 11/24/21 12:00 AW (Rec: 11/25/21 13:00 AW [id number]) Vestibular Assessment Visual Testing Smooth Pursuits Horizontal WNL Smooth Pursuits Vertical WNL Saccades Horizontal WNL Saccades Vertical WNL Gaze Evoked Nystagmus With Fixation Negative Gaze Evoked Nystagmus Without Fixation Negative Thrust Head mild lag B Cover/Uncover Test WNL Convergence Test Impaired Comments Vestibular Comments Pt reports diplopia with target ~10 from face PT-OP-Q Treatments Start: 11/22/21 16:49 Freq: Status: Active Protocol: Document 01/06/22 11:18 MA (Rec: 01/06/22 12:00 MA [id number]) Gym Equipment Shuttle Balance 1 Details WBOS blue clips Reps/Duration 5 min Comments WBOS/NBOS fwd with balloon toss WBOS/NBOS lateral no balloon toss Therapeutic Exercises Standing Exercises Step Ups Side bilateral Equipment Used 6 stair, rail prn Reps/Minutes x10 ea side Comments alternating Gait Training Gait Activity Outdoor walking Description curbs, grass, gravel Level of Assistance SBA-CGA Surface uneven Distance/Duration 5' Treatment Focus increasing amplitude of arm swings and step height Hurdles Level of Assistance CGA- Min A Distance/Duration 6 hurdles Treatment Focus increasing step height, posture Comments 1. 3x ea fwd and lateral 2. 3x fwd with foam pads b/w each jerome Neuro Re-Education Treatment Balance Activities step taps Details step taps Surface firm Equipment 6 step Comments No UE support PT-OP-T Assessment and Plan Start: 11/22/21 16:49 Freq: Status: Active Protocol: Document 01/06/22 11:18 MA (Rec: 01/06/22 12:00 MA [id number]) Physical Therapy Assessment Goals Three Impairment balance systems integration Short Term Goal (STG) Pt will improve mCTSIB to steady 110 seconds or greater. 6/16/22: Pt scores 95/120 today (all points deducted in 4th condition) STG Duration 12/29/21 PROGRESSING Detention Goal (LTG) Pt will walk the beach in front of his house alone and without assistive device as a measure of improved balance. Two Impairment ABC score 75% Detention Goal (LTG) Pt will improve his ABC score to 85% or greater as a measure of improved self-efficacy 12/15/21: 83% confident in balance with activities listed . LTG Duration 02/02/22 progressing 12/15/21 One Impairment lacks HEP Detention Goal (LTG) Pt will be independent with HEP to improve his balance and calibration of his movement strategies 01/04/22: progressing: band walk, STS, bridge hold, TA TB KFO LTG Duration 02/02/22 progressing Assessment Summary Assessment Pt does well with hurdles this session and is able to progress to adding foam pads between hurdles for added balance challenge. He performs step taps on 6 stairs without using the rails for UE support today. Vasile has difficulty ending with shuttle balance and states my legs are getting a little tired. He feels his balance is improving overall and he likes the challenge he gets in therapy combined with the exercises he does at home. Physical Therapy Plan Frequency and Duration Frequency of Treatment 1-2x/week Duration of Treatment 10 weeks Plan of Care Start Date 11/24/21 Plan of Care End Date 02/02/22 Therapeutic Interventions Therapeutic Interventions Balance Training,Coordination Training,Gait Training,Home Exercise Program,Neuromuscular Re-education,Self-Care/Home Management,Therapeutic Activities,Therapeutic Exercises,Vestibular Rehabilitation Next Visit Focus/Plan Next Note Type Treatment Note Next Visit Plan Continue dynamic gait, hurdles balance, incorporate stair mgt and uneven sufaces with amplitude focus.
--- NOTE | 2022-01-11 11:34 | PT.OTN ---
Current Diagnoses Unsteadiness on feet (01/11/22) Other abnormalities of gait and mobility (01/11/22) Weakness (01/11/22) Physical Therapy Treatment Note PT-OP-A Visit Information Start: 11/22/21 16:49 Freq: Status: Active Protocol: Document 01/12/22 08:58 AMB (Rec: 01/12/22 09:01 AMB [id number]) Out-Patient Physical Therapy Visit Information Visit Information Visit Type Treatment Note Visit Start Time 10:30 Visit Stop Time 11:15 Total Visit Minutes 45 Visit Number 11 PT-OP-B Current Condition Start: 11/22/21 16:49 Freq: Status: Active Protocol: Document 11/24/21 12:00 AW (Rec: 11/24/21 09:00 AW [id number]) Current Condition History of Current Condition Onset Date June 2021 Current Complaints decreased balance, falls History of Current Condition Vasile had prostatitis 10 years ago. He was treated medically and was ok. Symptoms returned last year and he had a simple open prostatectomy at last May. Since then, he reports feeling sluggish and has had dizzy spells. Recent nuc med stress test was normal . Vasile experiences heart palpitations occasionally for for 5-10 minutes at a time. He just returned a holter monitor which he wore for a month and will follow up with cardiology soon. Pt states one dizzy spell occured while driving. His was able to take the wheel. He describes it as feeling faint and disoriented and is associated with vision changes (double vision) and a build up of pressure in his head. He recently saw his eye doctor who recommended no changes to his bifocals prescription. The same sensation has caused at least two falls in the past six months. He feels a lack of confidence in his walking lately and doesn't feel comfortable walking on the beach alone. Pt also feels disoriented in crowded situations, with high levels of light, and with flashing lights. [place] lives on [facility] with his , Damari. He hopes to be able to get his 23' runabout boat in the water this year but feels anxious about getting on and off the boat. Prior Treatments and Tests No prior PT. Future Testing and Treatments Planned Follow up with cardiology. Treatment Goals Patient/Caregiver Goals Increase confidence to be able to walk on the beach alone. Be able to use his boat this summer. PT-OP-C Subjective Start: 11/22/21 16:49 Freq: Status: Active Protocol: Document 01/11/22 10:30 AMB (Rec: 01/12/22 13:00 AMB [id number]) OP-PT Subjective Patient Comments Patient Comments Pt overall feeling therapy has been helpful. Hoping to be able to boat again and get on/ off of dinghy. PT-OP-D Balance Start: 11/22/21 16:49 Freq: Status: Active Protocol: Document 11/24/21 12:00 AW (Rec: 11/25/21 12:51 AW [id number]) Balance Tests mCTSIB mCTSIB Position 1 30 mCTSIB Position 2 30 mCTSIB Position 3 25 mCTSIB Position 4 10 PT-OP-E Functional Tests Start: 11/22/21 16:49 Freq: Status: Active Protocol: Document 12/09/21 11:27 NBM (Rec: 12/09/21 18:15 NBM [id number]) Functional Tests 6 Minute Walk Test Distance 1211 feet Device Used no Assistive Device used Dynamic Gait Index (DGI) DGI Impairment Rating 20 to <40% Impaired (Score 15- 19) PT-OP-G Mobility & Gait Start: 11/22/21 16:49 Freq: Status: Active Protocol: Document 11/24/21 12:00 AW (Rec: 11/25/21 12:50 AW [id number]) OP Gait Assessment Comments Gait Comments Pt ambulates with shortened steps and reduced arm swing ( left more affected than right) . Mild to moderate truncal rigidity evident in gait. PT-OP-J Posture/Palpation/Skin Start: 11/22/21 16:49 Freq: Status: Active Protocol: Document 11/24/21 12:00 AW (Rec: 11/25/21 12:54 AW [id number]) Posture Evaluation Position Standing Evaluation View Lateral Comments Posture Comments Forward head, flat lumbar spine, externally rotated hips bilaterally. PT-OP-M Strength Start: 11/22/21 16:49 Freq: Status: Active Protocol: Document 11/24/21 12:00 AW (Rec: 11/25/21 12:50 AW [id number]) Hip Strength Hip Manual Muscle Testing bilat Flexion (L2) 4+ Good+ Extension (S1) 4 Good Abduction 4+ Good+ External Rotation 4+ Good+ Internal Rotation 4+ Good+ Knee Strength Knee Manual Muscle Testing bilat Flexion (S2) 4+ Good+ Extension (L3) 5 Normal Ankle/Foot Strength Ankle and Foot Manual Muscle Testing bilat Dorsiflexion (L4) 5 Normal Comments PF tested with SL heel lift. Pt able to complete no more than 4 reps with either limb. PT-OP-O Vestibular Start: 11/22/21 16:49 Freq: Status: Active Protocol: Document 11/24/21 12:00 AW (Rec: 11/25/21 13:00 AW [id number]) Vestibular Assessment Visual Testing Smooth Pursuits Horizontal WNL Smooth Pursuits Vertical WNL Saccades Horizontal WNL Saccades Vertical WNL Gaze Evoked Nystagmus With Fixation Negative Gaze Evoked Nystagmus Without Fixation Negative Thrust Head mild lag B Cover/Uncover Test WNL Convergence Test Impaired Comments Vestibular Comments Pt reports diplopia with target ~10 from face PT-OP-Q Treatments Start: 11/22/21 16:49 Freq: Status: Active Protocol: Document 01/11/22 10:30 AMB (Rec: 01/13/22 11:34 AMB [id number]) Gym Equipment Shuttle Balance 1 Details WBOS blue clips Reps/Duration 10 min Comments WBOS/NBOS lateral no balloon toss . . . then m/l positioning more challenging Therapeutic Exercises Standing Exercises Step Ups Side bilateral Equipment Used 6 stair, rail prn Reps/Minutes x10 ea side Comments alternating band walk Standing Exercise Name added to HEP- lateral side stepping Side bilateral Resistance TB #2 loop Equipment Used rail PRN Reps/Minutes 15 ft x2 laps Comments cued tall posture and slower pacing, occasional clear trailing LE Neuro Re-Education Treatment Balance Activities hurdles Details in//bars- fwd then lateral Reps/Duration 5 min Comments light UE support intermittently step taps Details step taps Surface firm Equipment 6 step Comments No UE support tandem stance Details tandem stance Surface firm, foam pads Equipment rail prn Comments 1. Tandem EO 2. Tandem EC- challenging PT-OP-T Assessment and Plan Start: 11/22/21 16:49 Freq: Status: Active Protocol: Document 01/12/22 08:58 AMB (Rec: 01/12/22 09:01 AMB [id number]) Physical Therapy Assessment Goals Three Impairment balance systems integration Short Term Goal (STG) Pt will improve mCTSIB to steady 110 seconds or greater. 12/30/21: Pt scores 95/120 today (all points deducted in 4th condition) STG Duration 12/29/21 PROGRESSING Prison Goal (LTG) Pt will walk the beach in front of his house alone and without assistive device as a measure of improved balance. Two Impairment ABC score 75% Prison Goal (LTG) Pt will improve his ABC score to 85% or greater as a measure of improved self-efficacy 12/15/21: 83% confident in balance with activities listed . LTG Duration 02/02/22 progressing 12/15/21 One Impairment lacks HEP Prison Goal (LTG) Pt will be independent with HEP to improve his balance and calibration of his movement strategies 01/04/22: progressing: band walk, STS, bridge hold, TA TB KFO LTG Duration 02/02/22 progressing Assessment Summary Assessment Pt was challenged by hurdles today, does try to use light UE support and that significantly improves tolerance to balance challenges. Eyes closed continues to be very challenging. Physical Therapy Plan Next Visit Focus/Plan Next Note Type Treatment Note Next Visit Plan Continue dynamic gait, hurdles balance, incorporate stair mgt and uneven sufaces with amplitude focus.
--- NOTE | 2022-01-21 18:47 | PT.OTN ---
Current Diagnoses Unsteadiness on feet (01/21/22) Other abnormalities of gait and mobility (01/21/22) Weakness (01/21/22) Physical Therapy Treatment Note PT-OP-A Visit Information Start: 11/22/21 16:49 Freq: Status: Active Protocol: Document 01/21/22 11:26 NBM (Rec: 01/21/22 13:43 NBM [id number]) Out-Patient Physical Therapy Visit Information Visit Information Visit Type Treatment Note Visit Start Time 11:30 Visit Stop Time 12:10 Total Visit Minutes 40 Visit Number 12 PT-OP-B Current Condition Start: 11/22/21 16:49 Freq: Status: Active Protocol: Document 11/24/21 12:00 AW (Rec: 11/24/21 09:00 AW [id number]) Current Condition History of Current Condition Onset Date June 2021 Current Complaints decreased balance, falls History of Current Condition Vasile had prostatitis 10 years ago. He was treated medically and was ok. Symptoms returned last year and he had a simple open prostatectomy at last May. Since then, he reports feeling sluggish and has had dizzy spells. Recent nuc med stress test was normal . Vasile experiences heart palpitations occasionally for for 5-10 minutes at a time. He just returned a holter monitor which he wore for a month and will follow up with cardiology soon. Pt states one dizzy spell occured while driving. His was able to take the wheel. He describes it as feeling faint and disoriented and is associated with vision changes (double vision) and a build up of pressure in his head. He recently saw his eye doctor who recommended no changes to his bifocals prescription. The same sensation has caused at least two falls in the past six months. He feels a lack of confidence in his walking lately and doesn't feel comfortable walking on the beach alone. Pt also feels disoriented in crowded situations, with high levels of light, and with flashing lights. [place] [facility] with his , Damari. He hopes to be able to get his 23' runabout boat in the water this year but feels anxious about getting on and off the boat. Prior Treatments and Tests No prior PT. Future Testing and Treatments Planned Follow up with cardiology. Treatment Goals Patient/Caregiver Goals Increase confidence to be able to walk on the beach alone. Be able to use his boat this summer. PT-OP-C Subjective Start: 11/22/21 16:49 Freq: Status: Active Protocol: Document 01/21/22 11:26 NBM (Rec: 01/21/22 18:03 NB [id number]) OP-PT Subjective Patient Comments Patient Comments Pt reports his boat is now ready but he is still anxious about getting on it. PT-OP-D Balance Start: 11/22/21 16:49 Freq: Status: Active Protocol: Document 11/24/21 12:00 AW (Rec: 11/25/21 12:51 AW [id number]) Balance Tests mCTSIB mCTSIB Position 1 30 mCTSIB Position 2 30 mCTSIB Position 3 25 mCTSIB Position 4 10 PT-OP-E Functional Tests Start: 11/22/21 16:49 Freq: Status: Active Protocol: Document 12/09/21 11:27 NBM (Rec: 12/09/21 18:15 NB [id number]) Functional Tests 6 Minute Walk Test Distance 1211 feet Device Used no Assistive Device used Dynamic Gait Index (DGI) DGI Impairment Rating 20 to <40% Impaired (Score 15- 19) PT-OP-G Mobility & Gait Start: 11/22/21 16:49 Freq: Status: Active Protocol: Document 11/24/21 12:00 AW (Rec: 11/25/21 12:50 AW [id number]) OP Gait Assessment Comments Gait Comments Pt ambulates with shortened steps and reduced arm swing ( left more affected than right) . Mild to moderate truncal rigidity evident in gait. PT-OP-J Posture/Palpation/Skin Start: 11/22/21 16:49 Freq: Status: Active Protocol: Document 11/24/21 12:00 AW (Rec: 11/25/21 12:54 AW [id number]) Posture Evaluation Position Standing Evaluation View Lateral Comments Posture Comments Forward head, flat lumbar spine, externally rotated hips bilaterally. PT-OP-M Strength Start: 11/22/21 16:49 Freq: Status: Active Protocol: Document 11/24/21 12:00 AW (Rec: 11/25/21 12:50 AW [id number]) Hip Strength Hip Manual Muscle Testing bilat Flexion (L2) 4+ Good+ Extension (S1) 4 Good Abduction 4+ Good+ External Rotation 4+ Good+ Internal Rotation 4+ Good+ Knee Strength Knee Manual Muscle Testing bilat Flexion (S2) 4+ Good+ Extension (L3) 5 Normal Ankle/Foot Strength Ankle and Foot Manual Muscle Testing bilat Dorsiflexion (L4) 5 Normal Comments PF tested with SL heel lift. Pt able to complete no more than 4 reps with either limb. PT-OP-O Vestibular Start: 11/22/21 16:49 Freq: Status: Active Protocol: Document 11/24/21 12:00 AW (Rec: 11/25/21 13:00 AW [id number]) Vestibular Assessment Visual Testing Smooth Pursuits Horizontal WNL Smooth Pursuits Vertical WNL Saccades Horizontal WNL Saccades Vertical WNL Gaze Evoked Nystagmus With Fixation Negative Gaze Evoked Nystagmus Without Fixation Negative Thrust Head mild lag B Cover/Uncover Test WNL Convergence Test Impaired Comments Vestibular Comments Pt reports diplopia with target ~10 from face PT-OP-Q Treatments Start: 11/22/21 16:49 Freq: Status: Active Protocol: Document 01/21/22 11:26 [facility] (Rec: 01/21/22 13:43 [facility] [id number]) Gym Equipment Shuttle Balance 1 Details WBOS blue clips Reps/Duration 12 min Comments WBOS/NBOS, A/P and M/L positioning 1. EO/EC 2. M/L w/ balloon toss. M/L positioning more challenging Therapeutic Exercises Sitting Exercises STS Sitting Exercise Name HEP review Equipment Used mesh chair, no UE support Reps/Minutes 2x10 reps Comments Pt initially reported easy- challenged w/ cue for controlled descent Standing Exercises Step Ups Side bilateral Equipment Used 6 stair, rail prn Reps/Minutes x10 ea side Comments alternating vc for high knees band walk Standing Exercise Name HEP Review: lateral side stepping Side bilateral Resistance TB #2 loop Equipment Used rail PRN Reps/Minutes 15 ft x2 laps Comments cued tall posture, toes forward, controlled trailing LE Gait Training Gait Activity Hurdles Description in // bars Level of Assistance CGA- Min A Distance/Duration 6 hurdles Treatment Focus increasing step height, posture Comments 1. 4x fwd 2. 4x fwd with foam pads b/w each jerome - improved step height with each repetition. Pt completed dynamic gait Description head turns horizontal, vertical Device Used 0 Level of Assistance SBA Surface firm hallway Distance/Duration 80 ft x3 laps Treatment Focus amplitude focus and balance recovery Comments Pt improves balance with cues for increased step height and increased arm swing. Pt drifts towards direction head is turned instead of straight, L> R. Self-awareness improved w/ repetition. Neuro Re-Education Treatment Balance Activities SLS Details SLS Surface firm Equipment rail support Reps/Duration 3 x 20 sec Comments Improved to 20 sec each side with single CONTROL ROOM TECHNICIAN PT-OP-T Assessment and Plan Start: 11/22/21 16:49 Freq: Status: Active Protocol: Document 01/21/22 11:26 NB (Rec: 01/21/22 18:42 [facility] [id number]) Physical Therapy Assessment Goals Three Impairment balance systems integration Short Term Goal (STG) Pt will improve mCTSIB to steady 110 seconds or greater. 12/30/21: Pt scores 95/120 today (all points deducted in 4th condition) STG Duration 12/29/21 PROGRESSING Police Investigator Goal (LTG) Pt will walk the beach in front of his house alone and without assistive device as a measure of improved balance. Two Impairment ABC score 75% Police Investigator Goal (LTG) Pt will improve his ABC score to 85% or greater as a measure of improved self-efficacy 12/15/21: 83% confident in balance with activities listed . LTG Duration 02/02/22 progressing 12/15/21 One Impairment lacks HEP Skilled Nursing Goal (LTG) Pt will be independent with HEP to improve his balance and calibration of his movement strategies 01/04/22: progressing: band walk, STS, bridge hold, TA TB KFO LTG Duration 02/02/22 progressing Assessment Summary Assessment Pt continues to be challenged with eyes closed and medial/ lateral positioning on the shuttle balance. He struggles to maintain a straight line walking with head turns. Pt demonstrates improved balance recovery with hurdles today w/ foam pads between, clearing them two times without CONTROL ROOM TECHNICIAN. He can perform SLS w/ one CONTROL ROOM TECHNICIAN at least 20 seconds on each LE, improved from 8-10 seconds . Physical Therapy Plan Next Visit Focus/Plan Next Note Type Treatment Note Next Visit Plan Continue dynamic gait, hurdles balance, incorporate stair mgt and uneven sufaces with amplitude focus.
--- NOTE | 2022-02-16 16:27 | PT.OTN ---
Current Diagnoses Unsteadiness on feet (02/16/22) Other abnormalities of gait and mobility (02/16/22) Weakness (02/16/22) Physical Therapy Treatment Note PT-OP-A Visit Information Start: 11/22/21 16:49 Freq: Status: Active Protocol: Document 02/16/22 15:20 SAK (Rec: 02/16/22 16:26 SAK [id number]) Out-Patient Physical Therapy Visit Information Visit Information Visit Type Treatment Note Visit Start Time 15:20 Visit Stop Time 16:00 Total Visit Minutes 40 Visit Number 13 PT-OP-B Current Condition Start: 11/22/21 16:49 Freq: Status: Active Protocol: Document 11/24/21 12:00 AW (Rec: 11/24/21 09:00 AW [id number]) Current Condition History of Current Condition Onset Date June 2021 Current Complaints decreased balance, falls History of Current Condition Vasile had prostatitis 10 years ago. He was treated medically and was ok. Symptoms returned last year and he had a simple open prostatectomy at last May. Since then, he reports feeling sluggish and has had dizzy spells. Recent nuc med stress test was normal . Vasile experiences heart palpitations occasionally for for 5-10 minutes at a time. He just returned a holter monitor which he wore for a month and will follow up with cardiology soon. Pt states one dizzy spell occured while driving. His was able to take the wheel. He describes it as feeling faint and disoriented and is associated with vision changes (double vision) and a build up of pressure in his head. He recently saw his eye doctor who recommended no changes to his bifocals prescription. The same sensation has caused at least two falls in the past six months. He feels a lack of confidence in his walking lately and doesn't feel comfortable walking on the beach alone. Pt also feels disoriented in crowded situations, with high levels of light, and with flashing lights. [place] lives on [facility] with his , Damari. He hopes to be able to get his 23' runabout boat in the water this year but feels anxious about getting on and off the boat. Prior Treatments and Tests No prior PT. Future Testing and Treatments Planned Follow up with cardiology. Treatment Goals Patient/Caregiver Goals Increase confidence to be able to walk on the beach alone. Be able to use his boat this summer. PT-OP-C Subjective Start: 11/22/21 16:49 Freq: Status: Active Protocol: Document 02/16/22 15:20 SAK (Rec: 02/16/22 16:26 SAK [id number]) OP-PT Subjective Patient Comments Patient Comments Has had to cancel some PT appointments due to family reunion, doesn't feel he has made as much progress lately. Hasn't made appointment with eye doctor PT-OP-D Balance Start: 11/22/21 16:49 Freq: Status: Active Protocol: Document 11/24/21 12:00 AW (Rec: 11/25/21 12:51 AW [id number]) Balance Tests mCTSIB mCTSIB Position 1 30 mCTSIB Position 2 30 mCTSIB Position 3 25 mCTSIB Position 4 10 PT-OP-E Functional Tests Start: 11/22/21 16:49 Freq: Status: Active Protocol: Document 12/09/21 11:27 NBM (Rec: 12/09/21 18:15 NBM [id number]) Functional Tests 6 Minute Walk Test Distance 1211 feet Device Used no Assistive Device used Dynamic Gait Index (DGI) DGI Impairment Rating 20 to <40% Impaired (Score 15- 19) PT-OP-G Mobility & Gait Start: 11/22/21 16:49 Freq: Status: Active Protocol: Document 11/24/21 12:00 AW (Rec: 11/25/21 12:50 AW [id number]) OP Gait Assessment Comments Gait Comments Pt ambulates with shortened steps and reduced arm swing ( left more affected than right) . Mild to moderate truncal rigidity evident in gait. PT-OP-J Posture/Palpation/Skin Start: 11/22/21 16:49 Freq: Status: Active Protocol: Document 11/24/21 12:00 AW (Rec: 11/25/21 12:54 AW [id number]) Posture Evaluation Position Standing Evaluation View Lateral Comments Posture Comments Forward head, flat lumbar spine, externally rotated hips bilaterally. PT-OP-M Strength Start: 11/22/21 16:49 Freq: Status: Active Protocol: Document 11/24/21 12:00 AW (Rec: 11/25/21 12:50 AW [id number]) Hip Strength Hip Manual Muscle Testing bilat Flexion (L2) 4+ Good+ Extension (S1) 4 Good Abduction 4+ Good+ External Rotation 4+ Good+ Internal Rotation 4+ Good+ Knee Strength Knee Manual Muscle Testing bilat Flexion (S2) 4+ Good+ Extension (L3) 5 Normal Ankle/Foot Strength Ankle and Foot Manual Muscle Testing bilat Dorsiflexion (L4) 5 Normal Comments PF tested with SL heel lift. Pt able to complete no more than 4 reps with either limb. PT-OP-O Vestibular Start: 11/22/21 16:49 Freq: Status: Active Protocol: Document 11/24/21 12:00 AW (Rec: 11/25/21 13:00 AW [id number]) Vestibular Assessment Visual Testing Smooth Pursuits Horizontal WNL Smooth Pursuits Vertical WNL Saccades Horizontal WNL Saccades Vertical WNL Gaze Evoked Nystagmus With Fixation Negative Gaze Evoked Nystagmus Without Fixation Negative Thrust Head mild lag B Cover/Uncover Test WNL Convergence Test Impaired Comments Vestibular Comments Pt reports diplopia with target ~10 from face PT-OP-Q Treatments Start: 11/22/21 16:49 Freq: Status: Active Protocol: Document 02/16/22 15:20 SAK (Rec: 02/16/22 16:26 SAK [id number]) Gym Equipment Shuttle Balance 1 Details WBOS blue clips Reps/Duration 12 min Comments WBOS/NBOS, A/P and M/L positioning 1. EO/EC 2. M/L w/ balloon vb. M/L positioning more challenging Therapeutic Exercises Standing Exercises Step Ups Side bilateral Equipment Used 6 stair, rail prn Reps/Minutes x10 ea side Comments alternating vc for high knees band walk Standing Exercise Name HEP Review: lateral side stepping Side bilateral Resistance TB #2 loop Equipment Used rail PRN Reps/Minutes 15 ft x2 laps Comments cued tall posture, toes forward, controlled trailing LE Therapeutic Activity Therapeutic Activity boat transfers Name unstable surface to unstable surface Reps/Minutes 10 min Comments simulated transfers skiff to larger boat (shuttle recovery with no resistance, chair, Dynadisc, blue foam, therapy ball). CG to min assist with gait belt. Gait Training Gait Activity Hurdles Description in // bars Level of Assistance CGA- Min A Distance/Duration 6 hurdles Treatment Focus increasing step height, posture Comments 1. 4x fwd 2. 5x fwd with foam pads b/w each jerome - cues for increased step height, symmetrical foot placement. dynamic gait Description head turns horizontal, vertical Device Used 0 Level of Assistance SBA Surface firm hallway Distance/Duration 80 ft x3 laps Treatment Focus amplitude focus and balance recovery Comments Pt improves balance with cues for increased step height and increased arm swing. Pt drifts towards direction head is turned instead of straight, L> R. Self-awareness improved w/ repetition. PT-OP-T Assessment and Plan Start: 11/22/21 16:49 Freq: Status: Active Protocol: Document 02/16/22 15:20 [facility] (Rec: 02/16/22 16:26 [facility] [id number]) Physical Therapy Assessment Goals Three Impairment balance systems integration Short Term Goal (STG) Pt will improve mCTSIB to steady 110 seconds or greater. 12/30/21: Pt scores 95/120 today (all points deducted in 4th condition) STG Duration 12/29/21 PROGRESSING [place] Goal (LTG) Pt will walk the beach in front of his house alone and without assistive device as a measure of improved balance. Two Impairment ABC score 75% Care Home Goal (LTG) Pt will improve his ABC score to 85% or greater as a measure of improved self-efficacy 12/15/21: 83% confident in balance with activities listed . LTG Duration 02/02/22 progressing 12/15/21 One Impairment lacks HEP [place]rette Goal (LTG) Pt will be independent with HEP to improve his balance and calibration of his movement strategies 01/04/22: progressing: band walk, STS, bridge hold, TA TB KFO LTG Duration 02/02/22 progressing Assessment Summary Assessment Patient noted to have sweat pants on backward today. Difficulty with motor planning for which foot to step over jerome with first for alternating sequence without cross over step. Simulated boat transfer skiff to boat as above (unstable to unstable surface), progressing difficulty with good tolerance ; may be able to tolerate increased difficulty Physical Therapy Plan Next Visit Focus/Plan Next Note Type Treatment Note Next Visit Plan continue gait challenges, balance training, stairs, consider obstacle course. Continue with simulated boat transfer: unstable to unstable surface.
--- NOTE | 2022-02-16 16:36 | PT.OTRE ---
Current Diagnoses Unsteadiness on feet (02/16/22) Other abnormalities of gait and mobility (02/16/22) Weakness (02/16/22) Past Medical History (Last Reviewed 04/14/21 @ 12:35 by Carlene Trejo PA-C) Bladder calculi Diabetes Erectile dysfunction GERD (gastroesophageal reflux disease) Hypertension Osteoporosis Prostatitis Visit Care Team Role Provider Type Gómez Bhatt MD Attending Provider Non-Staff Primary Care Provider Referring Provider Specialty: Internal Medicine Address: [address] [place] [address], [facility] Email: Physical Therapy Re-Evaluation PT-OP-A Visit Information Start: 11/22/21 16:49 Freq: Status: Active Protocol: Document 02/16/22 15:20 SAK (Rec: 02/16/22 16:26 SAK [id number]) Out-Patient Physical Therapy Visit Information Visit Information Visit Type Treatment Note Visit Start Time 15:20 Visit Stop Time 16:00 Total Visit Minutes 40 Visit Number 13 PT-OP-B Current Condition Start: 11/22/21 16:49 Freq: Status: Active Protocol: Document 11/24/21 12:00 AW (Rec: 11/24/21 09:00 AW [id number]) Current Condition History of Current Condition Onset Date June 2021 Current Complaints decreased balance, falls History of Current Condition Vasile had prostatitis 10 years ago. He was treated medically and was ok. Symptoms returned last year and he had a simple open prostatectomy at last May. Since then, he reports feeling sluggish and has had dizzy spells. Recent nuc med stress test was normal . Vasile experiences heart palpitations occasionally for for 5-10 minutes at a time. He just returned a holter monitor which he wore for a month and will follow up with cardiology soon. Pt states one dizzy spell occured while driving. His was able to take the wheel. He describes it as feeling faint and disoriented and is associated with vision changes (double vision) and a build up of pressure in his head. He recently saw his eye doctor who recommended no changes to his bifocals prescription. The same sensation has caused at least two falls in the past six months. He feels a lack of confidence in his walking lately and doesn't feel comfortable walking on the beach alone. Pt also feels disoriented in crowded situations, with high levels of light, and with flashing lights. Pt lives on [facility] with his , Damari. He hopes to be able to get his 23' runabout boat in the water this year but feels anxious about getting on and off the boat. Prior Treatments and Tests No prior PT. Future Testing and Treatments Planned Follow up with cardiology. Treatment Goals Patient/Caregiver Goals Increase confidence to be able to walk on the beach alone. Be able to use his boat this summer. PT-OP-C Subjective Start: 11/22/21 16:49 Freq: Status: Active Protocol: Document 02/16/22 15:20 SAK (Rec: 02/16/22 16:26 SAK [id number]) OP-PT Subjective Patient Comments Patient Comments Has had to cancel some PT appointments due to family reunion, doesn't feel he has made as much progress lately. Hasn't made appointment with eye doctor PT-OP-D Balance Start: 11/22/21 16:49 Freq: Status: Active Protocol: Document 11/24/21 12:00 AW (Rec: 11/25/21 12:51 AW [id number]) Balance Tests mCTSIB mCTSIB Position 1 30 mCTSIB Position 2 30 mCTSIB Position 3 25 mCTSIB Position 4 10 PT-OP-E Functional Tests Start: 11/22/21 16:49 Freq: Status: Active Protocol: Document 12/09/21 11:27 NBM (Rec: 12/09/21 18:15 NBM [id number]) Functional Tests 6 Minute Walk Test Distance 1211 feet Device Used no Assistive Device used Dynamic Gait Index (DGI) DGI Impairment Rating 20 to <40% Impaired (Score 15- 19) PT-OP-G Mobility & Gait Start: 11/22/21 16:49 Freq: Status: Active Protocol: Document 11/24/21 12:00 AW (Rec: 11/25/21 12:50 AW [id number]) OP Gait Assessment Comments Gait Comments Pt ambulates with shortened steps and reduced arm swing ( left more affected than right) . Mild to moderate truncal rigidity evident in gait. PT-OP-J Posture/Palpation/Skin Start: 11/22/21 16:49 Freq: Status: Active Protocol: Document 11/24/21 12:00 AW (Rec: 11/25/21 12:54 AW [id number]) Posture Evaluation Position Standing Evaluation View Lateral Comments Posture Comments Forward head, flat lumbar spine, externally rotated hips bilaterally. PT-OP-M Strength Start: 11/22/21 16:49 Freq: Status: Active Protocol: Document 11/24/21 12:00 AW (Rec: 11/25/21 12:50 AW [id number]) Hip Strength Hip Manual Muscle Testing bilat Flexion (L2) 4+ Good+ Extension (S1) 4 Good Abduction 4+ Good+ External Rotation 4+ Good+ Internal Rotation 4+ Good+ Knee Strength Knee Manual Muscle Testing bilat Flexion (S2) 4+ Good+ Extension (L3) 5 Normal Ankle/Foot Strength Ankle and Foot Manual Muscle Testing bilat Dorsiflexion (L4) 5 Normal Comments PF tested with SL heel lift. Pt able to complete no more than 4 reps with either limb. PT-OP-O Vestibular Start: 11/22/21 16:49 Freq: Status: Active Protocol: Document 11/24/21 12:00 AW (Rec: 11/25/21 13:00 AW [id number]) Vestibular Assessment Visual Testing Smooth Pursuits Horizontal WNL Smooth Pursuits Vertical WNL Saccades Horizontal WNL Saccades Vertical WNL Gaze Evoked Nystagmus With Fixation Negative Gaze Evoked Nystagmus Without Fixation Negative Thrust Head mild lag B Cover/Uncover Test WNL Convergence Test Impaired Comments Vestibular Comments Pt reports diplopia with target ~10 from face PT-OP-Q Treatments Start: 11/22/21 16:49 Freq: Status: Active Protocol: Document 02/16/22 15:[address] [facility] (Rec: 02/16/22 16:[address] [facility] [id number]) Gym Equipment Shuttle Balance 1 Details WBOS blue clips Reps/Duration 12 min Comments WBOS/NBOS, A/P and M/L positioning 1. EO/EC 2. M/L w/ balloon vb. M/L positioning more challenging Therapeutic Exercises Standing Exercises Step Ups Side bilateral Equipment Used 6 stair, rail prn Reps/Minutes x10 ea side Comments alternating vc for high knees band walk Standing Exercise Name HEP Review: lateral side stepping Side bilateral Resistance TB #2 loop Equipment Used rail PRN Reps/Minutes 15 ft x2 laps Comments cued tall posture, toes forward, controlled trailing LE Therapeutic Activity Therapeutic Activity boat transfers Name unstable surface to unstable surface Reps/Minutes 10 min Comments simulated transfers skiff to larger boat (shuttle recovery with no resistance, chair, Dynadisc, blue foam, therapy ball). CG to min assist with gait belt. Gait Training Gait Activity Hurdles Description in // bars Level of Assistance CGA- Min A Distance/Duration 6 hurdles Treatment Focus increasing step height, posture Comments 1. 4x fwd 2. 5x fwd with foam pads b/w each jerome - cues for increased step height, symmetrical foot placement. dynamic gait Description head turns horizontal, vertical Device Used 0 Level of Assistance SBA Surface firm hallway Distance/Duration 80 ft x3 laps Treatment Focus amplitude focus and balance recovery Comments Pt improves balance with cues for increased step height and increased arm swing. Pt drifts towards direction head is turned instead of straight, L> R. Self-awareness improved w/ repetition. PT-OP-T Assessment and Plan Start: 11/22/21 16:49 Freq: Status: Active Protocol: Document 02/16/22 15:[address] [facility] (Rec: 02/16/22 16:[address] [facility] [id number]) Physical Therapy Assessment Goals Five Impairment functional activity limitations Impairment patient unable to get into skiff or transfer from skiff into boat Short Term Goal (STG) patient will be able to safely get into his skiff with min assist of family STG Duration 03/19/22 Fpc Goal (LTG) Patient will be able to safely transfer from his skiff into his boat with min assist from his family LTG Duration 04/18/22 Four Impairment balance dysfunction Impairment requires assistance with SLS and tandem stand to prevent fall Fpc Goal (LTG) Patient will be able to perform SLS for 10 sec without assistance or LOB and tandem stand for 20 seconds as measure of improved balance and safety LTG Duration 04/18/22 Three Impairment balance systems integration Short Term Goal (STG) Pt will improve mCTSIB to steady 110 seconds or greater. 12/30/21: Pt scores 95/120 today (all points deducted in 4th condition) 02/16/22: not tested this date STG Duration 03/19/22 Fpc Goal (LTG) Pt will walk the beach in front of his house alone and without assistive device as a measure of improved balance. 02/16/22: reports goal progress LTG Duration 04/18/22 Two Impairment ABC score 75% Street [employer] Goal (LTG) Pt will improve his ABC score to 85% or greater as a measure of improved self-efficacy 12/15/21: 83% confident in balance with activities listed . 02/16/22: 85%, goal met LTG Duration goal met One Impairment lacks HEP Fpc Goal (LTG) Pt will be independent with HEP to improve his balance and calibration of his movement strategies 01/04/22: progressing: band walk, STS, bridge hold, TA TB KFO 02/16/22: continued progression of HEP LTG Duration 04/18/22 Assessment Summary Assessment Difficulty with motor planning for which foot to step over jerome with first for alternating sequence without cross over step. Simulated boat transfer skiff to boat as above (unstable to unstable surface), progressing difficulty with good tolerance ; may be able to tolerate increased difficulty Physical Therapy Plan Frequency and Duration Frequency of Treatment 1-2x/week Duration of Treatment 8 weeks Plan of Care Start Date 02/16/22 Plan of Care End Date 04/18/22 Therapeutic Interventions Therapeutic Interventions Balance Training,Coordination Training,Gait Training,Home Exercise Program,Neuromuscular Re-education,Self-Care/Home Management,Therapeutic Activities,Therapeutic Exercises,Vestibular Rehabilitation Next Visit Focus/Plan Next Note Type Treatment Note Next Visit Plan continue gait challenges, balance training, stairs, consider obstacle course. Continue with simulated boat transfer begun today: unstable to unstable surface.
--- NOTE | 2022-02-16 16:37 | PT.OPPOC ---
Physical, Occupational & Speech Therapy At [facility] Current Diagnoses Unsteadiness on feet (02/16/22) Other abnormalities of gait and mobility (02/16/22) Weakness (02/16/22) Visit Care Team Role Provider Type Gómez Bhatt MD Attending Provider Non-Staff Primary Care Provider Referring Provider Specialty: Internal Medicine Address: [address] [place] [address], [facility] Email: Plan Of Care PT-OP-T Assessment and Plan Start: 11/22/21 16:49 Freq: Status: Active Protocol: Document 02/16/22 15:20 SAK (Rec: 02/16/22 16:26 SAK [id number]) Physical Therapy Assessment Goals Five Impairment functional activity limitations Impairment patient unable to get into skiff or transfer from skiff into boat Short Term Goal (STG) patient will be able to safely get into his skiff with min assist of family STG Duration 03/19/22 Half-Way Goal (LTG) Patient will be able to safely transfer from his skiff into his boat with min assist from his family LTG Duration 04/18/22 Four Impairment balance dysfunction Impairment requires assistance with SLS and tandem stand to prevent fall Half-Way Goal (LTG) Patient will be able to perform SLS for 10 sec without assistance or LOB and tandem stand for 20 seconds as measure of improved balance and safety LTG Duration 04/18/22 Three Impairment balance systems integration Short Term Goal (STG) Pt will improve mCTSIB to steady 110 seconds or greater. 12/30/21: Pt scores 95/120 today (all points deducted in 4th condition) 02/16/22: not tested this date STG Duration 03/19/22 Half-Way Goal (LTG) Pt will walk the beach in front of his house alone and without assistive device as a measure of improved balance. 02/16/22: reports goal progress LTG Duration 04/18/22 Two Impairment ABC score 75% Half-Way Goal (LTG) Pt will improve his ABC score to 85% or greater as a measure of improved self-efficacy 12/15/21: 83% confident in balance with activities listed . 02/16/22: 85%, goal met LTG Duration goal met One Impairment lacks HEP Half-Way Goal (LTG) Pt will be independent with HEP to improve his balance and calibration of his movement strategies 01/04/22: progressing: band walk, STS, bridge hold, TA TB KFO 02/16/22: continued progression of HEP LTG Duration 04/18/22 Assessment Summary Assessment Difficulty with motor planning for which foot to step over jerome with first for alternating sequence without cross over step. Simulated boat transfer skiff to boat as above (unstable to unstable surface), progressing difficulty with good tolerance ; may be able to tolerate increased difficulty Physical Therapy Plan Frequency and Duration Frequency of Treatment 1-2x/week Duration of Treatment 8 weeks Plan of Care Start Date 02/16/22 Plan of Care End Date 04/18/22 Therapeutic Interventions Therapeutic Interventions Balance Training,Coordination Training,Gait Training,Home Exercise Program,Neuromuscular Re-education,Self-Care/Home Management,Therapeutic Activities,Therapeutic Exercises,Vestibular Rehabilitation Next Visit Focus/Plan Next Note Type Treatment Note Next Visit Plan continue gait challenges, balance training, stairs, consider obstacle course. Continue with simulated boat transfer begun today: unstable to unstable surface. Plan of Care Dates Plan of Care Start Date 02/16/22 Plan of Care End Date 04/18/22 Electronically Signed by: Milagros Chowdhury, PT 02/16/22 7317 If you are in agreement with this Plan of Care, please return a signed and dated copy. I have reviewed this Plan of Care and certify that the skilled therapy services above are required to meet the patient?s needs. Physician Signature Date Printed Name and Credentials Clinical Instructor Signature Printed Name and Credentials
--- NOTE | 2022-02-18 11:22 | PT.OTN ---
Current Diagnoses Unsteadiness on feet (02/18/22) Other abnormalities of gait and mobility (02/18/22) Weakness (02/18/22) Physical Therapy Treatment Note PT-OP-A Visit Information Start: 11/22/21 16:49 Freq: Status: Active Protocol: Document 02/18/22 10:37 SP (Rec: 02/18/22 11:31 SP [id number]) Out-Patient Physical Therapy Visit Information Visit Information Visit Type Treatment Note Visit Note See vitals, nonsymptomatic SPTA Morelia assisted in instruction in HEP and safety trunk support during balance activities while under supervision and instruction of DIRECTOR OF OPERATIONS [employer] Shaina. Visit Start Time 10:37 Visit Stop Time 11:22 Total Visit Minutes 45 Visit Number 14 Number of [employer]OR OF O[employer] Visits 1 Evaluation Information Evaluation Date 11/24/21 Precautions Precautions 12/07/21: BP orthostatic, taking Lysinopril 12 1/2 mg, shar 20 mg, Metoprol Succinate 1/2 25 mg tab. PT-OP-B Current Condition Start: 11/22/21 16:49 Freq: Status: Active Protocol: Document 11/24/21 12:00 AW (Rec: 11/24/21 09:00 AW [id number]) Current Condition History of Current Condition Onset Date June 2021 Current Complaints decreased balance, falls History of Current Condition Vasile had prostatitis 10 years ago. He was treated medically and was ok. Symptoms returned last year and he had a simple open prostatectomy at last May. Since then, he reports feeling sluggish and has had dizzy spells. Recent nuc med stress test was normal . Vasile experiences heart palpitations occasionally for for 5-10 minutes at a time. He just returned a holter monitor which he wore for a month and will follow up with cardiology soon. Pt states one dizzy spell occured while driving. His was able to take the wheel. He describes it as feeling faint and disoriented and is associated with vision changes (double vision) and a build up of pressure in his head. He recently saw his eye doctor who recommended no changes to his bifocals prescription. The same sensation has caused at least two falls in the past six months. He feels a lack of confidence in his walking lately and doesn't feel comfortable walking on the beach alone. Pt also feels disoriented in crowded situations, with high levels of light, and with flashing lights. Pt lives on [facility] with his , Damari. He hopes to be able to get his 23' runabout boat in the water this year but feels anxious about getting on and off the boat. Prior Treatments and Tests No prior PT. Future Testing and Treatments Planned Follow up with cardiology. Treatment Goals Patient/Caregiver Goals Increase confidence to be able to walk on the beach alone. Be able to use his boat this summer. PT-OP-C Subjective Start: 11/22/21 16:49 Freq: Status: Active Protocol: Document 02/18/22 10:37 SP (Rec: 02/18/22 11:31 SP [id number]) OP-PT Subjective Patient Comments Patient Comments Pt stated felt good to try and work toward potentially being about to get back out on his boat via skiff. No adveer PT-OP-D Balance Start: 11/22/21 16:49 Freq: Status: Active Protocol: Document 11/24/21 12:00 AW (Rec: 11/25/21 12:51 AW [id number]) Balance Tests mCTSIB mCTSIB Position 1 30 mCTSIB Position 2 30 mCTSIB Position 3 25 mCTSIB Position 4 10 PT-OP-E Functional Tests Start: 11/22/21 16:49 Freq: Status: Active Protocol: Document 12/09/21 11:27 NBM (Rec: 12/09/21 18:15 NBM [id number]) Functional Tests 6 Minute Walk Test Distance 1211 feet Device Used no Assistive Device used Dynamic Gait Index (DGI) DGI Impairment Rating 20 to <40% Impaired (Score 15- 19) PT-OP-G Mobility & Gait Start: 11/22/21 16:49 Freq: Status: Active Protocol: Document 11/24/21 12:00 AW (Rec: 11/25/21 12:50 AW [id number]) OP Gait Assessment Comments Gait Comments Pt ambulates with shortened steps and reduced arm swing ( left more affected than right) . Mild to moderate truncal rigidity evident in gait. PT-OP-J Posture/Palpation/Skin Start: 11/22/21 16:49 Freq: Status: Active Protocol: Document 11/24/21 12:00 AW (Rec: 11/25/21 12:54 AW [id number]) Posture Evaluation Position Standing Evaluation View Lateral Comments Posture Comments Forward head, flat lumbar spine, externally rotated hips bilaterally. PT-OP-M Strength Start: 11/22/21 16:49 Freq: Status: Active Protocol: Document 11/24/21 12:00 AW (Rec: 11/25/21 12:50 AW [id number]) Hip Strength Hip Manual Muscle Testing bilat Flexion (L2) 4+ Good+ Extension (S1) 4 Good Abduction 4+ Good+ External Rotation 4+ Good+ Internal Rotation 4+ Good+ Knee Strength Knee Manual Muscle Testing bilat Flexion (S2) 4+ Good+ Extension (L3) 5 Normal Ankle/Foot Strength Ankle and Foot Manual Muscle Testing bilat Dorsiflexion (L4) 5 Normal Comments PF tested with SL heel lift. Pt able to complete no more than 4 reps with either limb. PT-OP-O Vestibular Start: 11/22/21 16:49 Freq: Status: Active Protocol: Document 11/24/21 12:00 AW (Rec: 11/25/21 13:00 AW [id number]) Vestibular Assessment Visual Testing Smooth Pursuits Horizontal WNL Smooth Pursuits Vertical WNL Saccades Horizontal WNL Saccades Vertical WNL Gaze Evoked Nystagmus With Fixation Negative Gaze Evoked Nystagmus Without Fixation Negative Thrust Head mild lag B Cover/Uncover Test WNL Convergence Test Impaired Comments Vestibular Comments Pt reports diplopia with target ~10 from face PT-OP-Q Treatments Start: 11/22/21 16:49 Freq: Status: Active Protocol: Document 02/18/22 10:37 SP (Rec: 02/18/22 11:31 SP [id number]) Gym Equipment Shuttle Balance 1 Details WBOS blue clips Reps/Duration 3 min Comments WBOS/NBOS, A/P and M/L positioning 1. EO/EC 2. M/L w/ balloon vb. M/L positioning more challenging ( not performed today 3. perturbations - balance recovery f/b/s/ isometric and release recovery Therapeutic Exercises Standing Exercises band walk Standing Exercise Name HEP Review: lateral side stepping Side bilateral Resistance TB #3 loop (light green) Equipment Used rail PRN Reps/Minutes 15 ft x2 laps Comments cued tall posture, toes forward, controlled trailing LE, not to close wall Other Exercises sit to stand Other Exercise Name sit to stand- uneven under BLE Equipment Used mesh chair, no arms x5 reps easy, added blue foam vs reverse red scooter Reps/Minutes x6 reps uneven surface before B knees start over irritation/ stress Comments cued increased fwd weight shift. Therapeutic Activity Therapeutic Activity boat transfers Name unstable surface to unstable surface Reps/Minutes 10 min Comments simulated transfers skiff to larger boat (shuttle recovery UE contact with no resistance , small balance beam (step over) 16 box (sit on), red flipped scooter (stand on), therapy ball (hand onto)). CG to min assist with gait belt. orthostatics Comments pre activity: seated: BP 148/79 HR 60 standing: BP 140/92 with activity: BP 132/92 nonsymptomatic throughout tx Gait Training Gait Activity dynamic gait Description head turns horizontal, vertical Device Used 0 Level of Assistance SBA Surface firm hallway Distance/Duration 40 ft x1 lap (post shuttle balance) Treatment Focus amplitude focus and balance recovery Comments Pt improves balance with cues for increased posturing. Pt drifts towards direction head is turned instead of straight, L>R improved with cues centering. Self-awareness improved w/ repetition. PT-OP-T Assessment and Plan Start: 11/22/21 16:49 Freq: Status: Active Protocol: Document 02/18/22 10:37 SP (Rec: 02/18/22 11:31 SP [id number]) Physical Therapy Assessment Goals Five Impairment functional activity limitations Impairment patient unable to get into skiff or transfer from skiff into boat Short Term Goal (STG) patient will be able to safely get into his skiff with min assist of family STG Duration 03/19/22 Pensionholder Information Clerk Goal (LTG) Patient will be able to safely transfer from his skiff into his boat with min assist from his family LTG Duration 04/18/22 Four Impairment balance dysfunction Impairment requires assistance with SLS and tandem stand to prevent fall Pensionholder Information Clerk Goal (LTG) Patient will be able to perform SLS for 10 sec without assistance or LOB and tandem stand for 20 seconds as measure of improved balance and safety LTG Duration 04/18/22 Three Impairment balance systems integration Short Term Goal (STG) Pt will improve mCTSIB to steady 110 seconds or greater. 12/30/21: Pt scores 95/120 today (all points deducted in 4th condition) 02/16/22: not tested this date STG Duration 03/19/22 Retirement Goal (LTG) Pt will walk the beach in front of his house alone and without assistive device as a measure of improved balance. 02/16/22: reports goal progress LTG Duration 04/18/22 Two Impairment ABC score 75% Pensionholder Information Clerk Goal (LTG) Pt will improve his ABC score to 85% or greater as a measure of improved self-efficacy 12/15/21: 83% confident in balance with activities listed . 02/16/22: 85%, goal met LTG Duration goal met One Impairment lacks HEP Pensionholder Information Clerk Goal (LTG) Pt will be independent with HEP to improve his balance and calibration of his movement strategies 01/04/22: progressing: band walk, STS, bridge hold, TA TB KFO 02/16/22: continued progression of HEP LTG Duration 04/18/22 Assessment Summary Assessment Pt improved with stability, continued cues for sequencing HP, foot placement and positioning during boat transfers, stated good challenge better assimulation. Good self corrections balance recovery with added perturbations on shuttle balance. Physical Therapy Plan Frequency and Duration Frequency of Treatment 1-2x/week Duration of Treatment 8 weeks Plan of Care Start Date 02/16/22 Plan of Care End Date 04/18/22 Therapeutic Interventions Therapeutic Interventions Balance Training,Coordination Training,Gait Training,Home Exercise Program,Neuromuscular Re-education,Self-Care/Home Management,Therapeutic Activities,Therapeutic Exercises,Vestibular Rehabilitation Other Referrals/Consults Referrals/Consults Recommended Pt to follow up with cardiology for holter monitor results. Has referral to neurologist. Next Visit Focus/Plan Next Note Type Treatment Note Next Visit Plan continue dynamic gait challenges, balance training, stairs, consider obstacle course. Continue with simulated boat transfer begun today: unstable to unstable surface.
--- NOTE | 2022-02-23 07:30 | PT-OP ANOTE ---
Pt cancelled appt >24 hrs, needing more recovery time post prostate procedure.
--- NOTE | 2022-03-01 10:45 | PT-OP ANOTE ---
Addendum entered and electronically signed by Shaina Corona PTA 03/01/22 10:53: Noted last admin appt cancel due to needed more recovery time post prostate procedure last week. Original Note: Pt did not show for today's appt. Chart reviewing was at ER 02/27, see notes hematuria and assist with catheter. Next tx ask about urolgy Dr Archuleta. ENERGY ANALYST called and left message regarding missed appt and when next appt. Ed for call and cancell appt >24 hrs preferred to avoid NS charge. Pt only has 2 more appts 1 ENERGY ANALYST/ 1 PT may need more appts added. Check on pt response.
--- NOTE | 2022-04-13 10:33 | PT.OTN ---
Current Diagnoses Unsteadiness on feet (04/13/22) Other abnormalities of gait and mobility (04/13/22) Weakness (04/13/22) Physical Therapy Treatment Note PT-OP-A Visit Information Start: 11/22/21 16:49 Freq: Status: Active Protocol: Document 04/13/22 09:14 AW (Rec: 04/13/22 10:31 AW [id number]) Out-Patient Physical Therapy Visit Information Visit Information Visit Type Progress Note Visit Start Time 09:40 Visit Stop Time 10:25 Total Visit Minutes 45 Visit Number 15 Number of CONTRACT CLERK Visits 0 Evaluation Information Evaluation Date 11/24/21 PT-OP-B Current Condition Start: 11/22/21 16:49 Freq: Status: Active Protocol: Document 11/24/21 12:00 AW (Rec: 11/24/21 09:00 AW [id number]) Current Condition History of Current Condition Onset Date June 2021 Current Complaints decreased balance, falls History of Current Condition Vasile had prostatitis 10 years ago. He was treated medically and was ok. Symptoms returned last year and he had a simple open prostatectomy at last May. Since then, he reports feeling sluggish and has had dizzy spells. Recent nuc med stress test was normal . Vasile experiences heart palpitations occasionally for for 5-10 minutes at a time. He just returned a holter monitor which he wore for a month and will follow up with cardiology soon. Pt states one dizzy spell occured while driving. His was able to take the wheel. He describes it as feeling faint and disoriented and is associated with vision changes (double vision) and a build up of pressure in his head. He recently saw his eye doctor who recommended no changes to his bifocals prescription. The same sensation has caused at least two falls in the past six months. He feels a lack of confidence in his walking lately and doesn't feel comfortable walking on the beach alone. Pt also feels disoriented in crowded situations, with high levels of light, and with flashing lights. [place] lives on [facility] with his , Damari. He hopes to be able to get his 23' runabout boat in the water this year but feels anxious about getting on and off the boat. Prior Treatments and Tests No prior PT. Future Testing and Treatments Planned Follow up with cardiology. Treatment Goals Patient/Caregiver Goals Increase confidence to be able to walk on the beach alone. Be able to use his boat this summer. PT-OP-C Subjective Start: 11/22/21 16:49 Freq: Status: Active Protocol: Document 04/13/22 09:14 AW (Rec: 04/13/22 10:31 AW [id number]) OP-PT Subjective Patient Comments Patient Comments Pt was referred to with suspected bladder cancer. 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 Plan is for infusion chemo. PT-OP-D Balance Start: 11/22/21 16:49 Freq: Status: Active Protocol: Document 11/24/21 12:00 AW (Rec: 11/25/21 12:51 AW [id number]) Balance Tests mCTSIB mCTSIB Position 1 30 mCTSIB Position 2 30 mCTSIB Position 3 25 mCTSIB Position 4 10 PT-OP-E Functional Tests Start: 11/22/21 16:49 Freq: Status: Active Protocol: Document 04/13/22 09:14 AW (Rec: 04/13/22 10:32 AW [id number]) Functional Tests Functional Gait Assessment Score 18 Functional Gait Assessment Impairment 40 to <60% Impaired (Score 13- Rating 18) PT-OP-G Mobility & Gait Start: 11/22/21 16:49 Freq: Status: Active Protocol: Document 11/24/21 12:00 AW (Rec: 11/25/21 12:50 AW [id number]) OP Gait Assessment Comments Gait Comments Pt ambulates with shortened steps and reduced arm swing ( left more affected than right) . Mild to moderate truncal rigidity evident in gait. PT-OP-J Posture/Palpation/Skin Start: 11/22/21 16:49 Freq: Status: Active Protocol: Document 11/24/21 12:00 AW (Rec: 11/25/21 12:54 AW [id number]) Posture Evaluation Position Standing Evaluation View Lateral Comments Posture Comments Forward head, flat lumbar spine, externally rotated hips bilaterally. PT-OP-M Strength Start: 11/22/21 16:49 Freq: Status: Active Protocol: Document 11/24/21 12:00 AW (Rec: 11/25/21 12:50 AW [id number]) Hip Strength Hip Manual Muscle Testing bilat Flexion (L2) 4+ Good+ Extension (S1) 4 Good Abduction 4+ Good+ External Rotation 4+ Good+ Internal Rotation 4+ Good+ Knee Strength Knee Manual Muscle Testing bilat Flexion (S2) 4+ Good+ Extension (L3) 5 Normal Ankle/Foot Strength Ankle and Foot Manual Muscle Testing bilat Dorsiflexion (L4) 5 Normal Comments PF tested with SL heel lift. Pt able to complete no more than 4 reps with either limb. PT-OP-O Vestibular Start: 11/22/21 16:49 Freq: Status: Active Protocol: Document 11/24/21 12:00 AW (Rec: 11/25/21 13:00 AW [id number]) Vestibular Assessment Visual Testing Smooth Pursuits Horizontal WNL Smooth Pursuits Vertical WNL Saccades Horizontal WNL Saccades Vertical WNL Gaze Evoked Nystagmus With Fixation Negative Gaze Evoked Nystagmus Without Fixation Negative Thrust Head mild lag B Cover/Uncover Test WNL Convergence Test Impaired Comments Vestibular Comments Pt reports diplopia with target ~10 from face PT-OP-Q Treatments Start: 11/22/21 16:49 Freq: Status: Active Protocol: Document 04/13/22 09:14 AW (Rec: 04/13/22 10:31 AW [id number]) Gait Training Gait Activity Hurdles Level of Assistance CGA- Min A Distance/Duration 4 hurdles Treatment Focus increasing step height, posture dynamic gait Description FGA Device Used 0 Comments Score 18/30 (decreased from 24 /30 in November 2021). See copy scanned to EMR Neuro Re-Education Treatment Balance Activities tandem stance Details tandem stance Surface firm Equipment rail prn Comments 1. Tandem EO for HEP SLS Details SLS Surface firm Equipment rail support Reps/Duration 3 x 20 sec Comments HEP PT-OP-T Assessment and Plan Start: 11/22/21 16:49 Freq: Status: Active Protocol: Document 04/13/22 09:14 AW (Rec: 04/13/22 10:31 AW [id number]) Physical Therapy Assessment Goals Five Impairment functional activity limitations Impairment patient unable to get into skiff or transfer from skiff into boat Short Term Goal (STG) patient will be able to safely get into his skiff with min assist of family STG Duration 05/25/22 Nursing Home Goal (LTG) Patient will be able to safely transfer from his skiff into his boat with min assist from his family LTG Duration 07/06/22 Four Impairment balance dysfunction Impairment requires assistance with SLS and tandem stand to prevent fall Nursing Home Goal (LTG) Patient will be able to perform SLS for 10 sec without assistance or LOB and tandem stand for 20 seconds as measure of improved balance and safety LTG Duration 07/06/22 Three Impairment balance systems integration Short Term Goal (STG) Pt will improve mCTSIB to steady 110 seconds or greater. 12/30/21: Pt scores 95/120 today (all points deducted in 4th condition) 02/16/22: not tested this date STG Duration 05/25/22 Nursing Home Goal (LTG) Pt will walk the beach in front of his house alone and without assistive device as a measure of improved balance. 02/16/22: reports goal progress LTG Duration 07/06/22 Two Impairment ABC score 75% Pollution Control Chemist Goal (LTG) Pt will improve his ABC score to 85% or greater as a measure of improved self-efficacy 12/15/21: 83% confident in balance with activities listed . 02/16/22: 85%, goal met LTG Duration goal met One Impairment lacks HEP Pollution Control Chemist Goal (LTG) Pt will be independent with HEP to improve his balance and calibration of his movement strategies 01/04/22: progressing: band walk, STS, bridge hold, TA TB KFO 02/16/22: continued progression of HEP LTG Duration 07/06/22 Progress Towards Goals Progress Towards Goals Slow Progress due to Attendance Issues,Slow Progress due to Medical Issues Progress Comments Vasile has missed several appointments due to ongoing medical concerns. His dynamic balance has worsened in the interim as evidenced by decreased FGA score of 18/30 ( compared with 24/30 on initial assessment in November. Assessment Summary Assessment Vasile has been under a great deal of stress with concern for bladder cancer which has now been ruled out. He does have recurrence of prostate cancer and will be undergoing chemo for the next few months (oral and infusion). He is highly motivated to continue PT. Vasile should benefit from ongoing PT to improve his balance, strength, and endurance to build resiliency. He will also benefit from education on fatigue monitoring and energy conservation techniques. Physical Therapy Plan Frequency and Duration Frequency of Treatment 1-2x/week Duration of treatment (weeks) 12 Plan of Care Start Date 04/13/22 Plan of Care End Date 07/06/22 Therapeutic Interventions Therapeutic Interventions Balance Training,Coordination Training,Gait Training,Home Exercise Program,Neuromuscular Re-education,Self-Care/Home Management,Therapeutic Activities,Therapeutic Exercises,Vestibular Rehabilitation Next Visit Focus/Plan Next Note Type Treatment Note Next Visit Plan continue dynamic gait challenges, balance training, stairs, consider obstacle course. Continue with simulated boat transfer begun today: unstable to unstable surface.
--- NOTE | 2022-04-13 10:33 | PT.OPPOC ---
Physical, Occupational & Speech Therapy At [facility] Current Diagnoses Unsteadiness on feet (04/13/22) Other abnormalities of gait and mobility (04/13/22) Weakness (04/13/22) Visit Care Team Role Provider Type Gómez Bhatt MD Attending Provider Physician Primary Care Provider Referring Provider Specialty: Internal Medicine Address: [address] [place] [address], [facility] Email: Plan Of Care PT-OP-T Assessment and Plan Start: 11/22/21 16:49 Freq: Status: Active Protocol: Document 04/13/22 09:14 AW (Rec: 04/13/22 10:31 AW [id number]) Physical Therapy Assessment Goals Five Impairment functional activity limitations Impairment patient unable to get into skiff or transfer from skiff into boat Short Term Goal (STG) patient will be able to safely get into his skiff with min assist of family STG Duration 05/25/22 [facility] Goal (LTG) Patient will be able to safely transfer from his skiff into his boat with min assist from his family LTG Duration 07/06/22 Four Impairment balance dysfunction Impairment requires assistance with SLS and tandem stand to prevent fall [facility] Goal (LTG) Patient will be able to perform SLS for 10 sec without assistance or LOB and tandem stand for 20 seconds as measure of improved balance and safety LTG Duration 07/06/22 Three Impairment balance systems integration Short Term Goal (STG) Pt will improve mCTSIB to steady 110 seconds or greater. 12/30/21: Pt scores 95/120 today (all points deducted in 4th condition) 02/16/22: not tested this date STG Duration 05/25/22 Industrial Gas Fitter Goal (LTG) Pt will walk the beach in front of his house alone and without assistive device as a measure of improved balance. 02/16/22: reports goal progress LTG Duration 07/06/22 Two Impairment ABC score 75% [facility] Goal (LTG) Pt will improve his ABC score to 85% or greater as a measure of improved self-efficacy 12/15/21: 83% confident in balance with activities listed . 02/16/22: 85%, goal met LTG Duration goal met One Impairment lacks HEP Industrial Gas Fitter Goal (LTG) Pt will be independent with HEP to improve his balance and calibration of his movement strategies 01/04/22: progressing: band walk, STS, bridge hold, TA TB KFO 02/16/22: continued progression of HEP LTG Duration 07/06/22 Progress Towards Goals Progress Towards Goals Slow Progress due to Attendance Issues,Slow Progress due to Medical Issues Progress Comments Vasile has missed several appointments due to ongoing medical concerns. His dynamic balance has worsened in the interim as evidenced by decreased FGA score of 18/30 ( compared with 24/30 on initial assessment in November. Assessment Summary Assessment Vasile has been under a great deal of stress with concern for bladder cancer which has now been ruled out. He does have recurrence of prostate cancer and will be undergoing chemo for the next few months (oral and infusion). He is highly motivated to continue PT. Vasile should benefit from ongoing PT to improve his balance, strength, and endurance to build resiliency. He will also benefit from education on fatigue monitoring and energy conservation techniques. Physical Therapy Plan Frequency and Duration Frequency of Treatment 1-2x/week Duration of treatment (weeks) 12 Plan of Care Start Date 04/13/22 Plan of Care End Date 07/06/22 Therapeutic Interventions Therapeutic Interventions Balance Training,Coordination Training,Gait Training,Home Exercise Program,Neuromuscular Re-education,Self-Care/Home Management,Therapeutic Activities,Therapeutic Exercises,Vestibular Rehabilitation Next Visit Focus/Plan Next Note Type Treatment Note Next Visit Plan continue dynamic gait challenges, balance training, stairs, consider obstacle course. Continue with simulated boat transfer begun today: unstable to unstable surface. Plan of Care Dates Plan of Care Start Date 04/13/22 Plan of Care End Date 07/06/22 Electronically Signed by: Magalis Lancaster, PT 04/13/22 [id number] If you are in agreement with this Plan of Care, please return a signed and dated copy. I have reviewed this Plan of Care and certify that the skilled therapy services above are required to meet the patient?s needs. Physician Signature Date Printed Name and Credentials Clinical Instructor Signature Printed Name and Credentials
--- NOTE | 2022-04-15 12:00 | PT.OTN ---
Current Diagnoses Unsteadiness on feet (04/15/22) Other abnormalities of gait and mobility (04/15/22) Weakness (04/15/22) Physical Therapy Treatment Note PT-OP-A Visit Information Start: 11/22/21 16:49 Freq: Status: Active Protocol: Document 04/15/22 11:13 AMB (Rec: 04/15/22 11:58 AMB [id number]) Out-Patient Physical Therapy Visit Information Visit Information Visit Type Treatment Note Visit Start Time 11:25 Visit Stop Time 12:00 Total Visit Minutes 35 Visit Number 16 PT-OP-B Current Condition Start: 11/22/21 16:49 Freq: Status: Active Protocol: Document 11/24/21 12:00 AW (Rec: 11/24/21 09:00 AW [id number]) Current Condition History of Current Condition Onset Date June 2021 Current Complaints decreased balance, falls History of Current Condition Vasile had prostatitis 10 years ago. He was treated medically and was ok. Symptoms returned last year and he had a simple open prostatectomy at last May. Since then, he reports feeling sluggish and has had dizzy spells. Recent nuc med stress test was normal . Vasile experiences heart palpitations occasionally for for 5-10 minutes at a time. He just returned a holter monitor which he wore for a month and will follow up with cardiology soon. Pt states one dizzy spell occured while driving. His was able to take the wheel. He describes it as feeling faint and disoriented and is associated with vision changes (double vision) and a build up of pressure in his head. He recently saw his eye doctor who recommended no changes to his bifocals prescription. The same sensation has caused at least two falls in the past six months. He feels a lack of confidence in his walking lately and doesn't feel comfortable walking on the beach alone. Pt also feels disoriented in crowded situations, with high levels of light, and with flashing lights. [place] lives on [facility] with his , Damari. He hopes to be able to get his 23' runabout boat in the water this year but feels anxious about getting on and off the boat. Prior Treatments and Tests No prior PT. Future Testing and Treatments Planned Follow up with cardiology. Treatment Goals Patient/Caregiver Goals Increase confidence to be able to walk on the beach alone. Be able to use his boat this summer. PT-OP-C Subjective Start: 11/22/21 16:49 Freq: Status: Active Protocol: Document 04/15/22 11:15 AMB (Rec: 04/18/22 10:12 AMB [id number]) OP-PT Subjective Patient Comments Patient Comments Pt states his is getting a detal treatment and is hoping to leave a little early . He did attend late due to being confused about the start time. PT-OP-D Balance Start: 11/22/21 16:49 Freq: Status: Active Protocol: Document 11/24/21 12:00 AW (Rec: 11/25/21 12:51 AW [id number]) Balance Tests mCTSIB mCTSIB Position 1 30 mCTSIB Position 2 30 mCTSIB Position 3 25 mCTSIB Position 4 10 PT-OP-E Functional Tests Start: 11/22/21 16:49 Freq: Status: Active Protocol: Document 04/13/22 09:14 AW (Rec: 04/13/22 10:32 AW [id number]) Functional Tests Functional Gait Assessment Score 18 Functional Gait Assessment Impairment 40 to <60% Impaired (Score 13- Rating 18) PT-OP-G Mobility & Gait Start: 11/22/21 16:49 Freq: Status: Active Protocol: Document 11/24/21 12:00 AW (Rec: 11/25/21 12:50 AW [id number]) OP Gait Assessment Comments Gait Comments Pt ambulates with shortened steps and reduced arm swing ( left more affected than right) . Mild to moderate truncal rigidity evident in gait. PT-OP-J Posture/Palpation/Skin Start: 11/22/21 16:49 Freq: Status: Active Protocol: Document 11/24/21 12:00 AW (Rec: 11/25/21 12:54 AW [id number]) Posture Evaluation Position Standing Evaluation View Lateral Comments Posture Comments Forward head, flat lumbar spine, externally rotated hips bilaterally. PT-OP-M Strength Start: 11/22/21 16:49 Freq: Status: Active Protocol: Document 11/24/21 12:00 AW (Rec: 11/25/21 12:50 AW [id number]) Hip Strength Hip Manual Muscle Testing bilat Flexion (L2) 4+ Good+ Extension (S1) 4 Good Abduction 4+ Good+ External Rotation 4+ Good+ Internal Rotation 4+ Good+ Knee Strength Knee Manual Muscle Testing bilat Flexion (S2) 4+ Good+ Extension (L3) 5 Normal Ankle/Foot Strength Ankle and Foot Manual Muscle Testing bilat Dorsiflexion (L4) 5 Normal Comments PF tested with SL heel lift. Pt able to complete no more than 4 reps with either limb. PT-OP-O Vestibular Start: 11/22/21 16:49 Freq: Status: Active Protocol: Document 11/24/21 12:00 AW (Rec: 11/25/21 13:00 AW [id number]) Vestibular Assessment Visual Testing Smooth Pursuits Horizontal WNL Smooth Pursuits Vertical WNL Saccades Horizontal WNL Saccades Vertical WNL Gaze Evoked Nystagmus With Fixation Negative Gaze Evoked Nystagmus Without Fixation Negative Thrust Head mild lag B Cover/Uncover Test WNL Convergence Test Impaired Comments Vestibular Comments Pt reports diplopia with target ~10 from face PT-OP-Q Treatments Start: 11/22/21 16:49 Freq: Status: Active Protocol: Document 04/15/22 11:15 AMB (Rec: 04/18/22 10:12 AMB [id number]) Neuro Re-Education Treatment Balance Activities hurdles Details in//bars- fwd then lateral Reps/Duration 5 min Comments light UE support intermittently Foam Surface blue foam pads Reps/Duration 10' Comments 1. NBOS EO/EC 2. NBOS head turns and nods 3. NBOS EC with light fingertip support on rails Coordination Activities Rock and reach Details fwd and sideways (netta to BIG exercise) Equipment rail prn Reps/Duration 10 minutes Comments Challenging- pt with old shoulder injury that makes B UE swing challenging PT-OP-T Assessment and Plan Start: 11/22/21 16:49 Freq: Status: Active Protocol: Document 04/15/22 11:15 AMB (Rec: 04/18/22 10:12 AMB [id number]) Physical Therapy Assessment Goals Five Impairment functional activity limitations Impairment patient unable to get into skiff or transfer from skiff into boat Short Term Goal (STG) patient will be able to safely get into his skiff with min assist of family STG Duration 05/25/22 Nursing Home Goal (LTG) Patient will be able to safely transfer from his skiff into his boat with min assist from his family LTG Duration 07/06/22 Four Impairment balance dysfunction Impairment requires assistance with SLS and tandem stand to prevent fall Nursing Home Goal (LTG) Patient will be able to perform SLS for 10 sec without assistance or LOB and tandem stand for 20 seconds as measure of improved balance and safety LTG Duration 07/06/22 Three Impairment balance systems integration Short Term Goal (STG) Pt will improve mCTSIB to steady 110 seconds or greater. 12/30/21: Pt scores 95/120 today (all points deducted in 4th condition) 02/16/22: not tested this date STG Duration 05/25/22 Strainer Mill Operator Goal (LTG) Pt will walk the beach in front of his house alone and without assistive device as a measure of improved balance. 02/16/22: reports goal progress LTG Duration 07/06/22 Two Impairment ABC score 75% Strainer Mill Operator Goal (LTG) Pt will improve his ABC score to 85% or greater as a measure of improved self-efficacy 12/15/21: 83% confident in balance with activities listed . 02/16/22: 85%, goal met LTG Duration goal met One Impairment lacks HEP Strainer Mill Operator Goal (LTG) Pt will be independent with HEP to improve his balance and calibration of his movement strategies 01/04/22: progressing: band walk, STS, bridge hold, TA TB KFO 02/16/22: continued progression of HEP LTG Duration 07/06/22 Assessment Summary Assessment Vasile is starting to feel better as he noticed the hurdles were easier today than they were last time. He knows he has more strengthening and balance work to do. Physical Therapy Plan Frequency and Duration Frequency of Treatment 1-2x/week Duration of treatment (weeks) 12 Plan of Care Start Date 04/13/22 Plan of Care End Date 07/06/22 Therapeutic Interventions Therapeutic Interventions Balance Training,Coordination Training,Gait Training,Home Exercise Program,Neuromuscular Re-education,Self-Care/Home Management,Therapeutic Activities,Therapeutic Exercises,Vestibular Rehabilitation Next Visit Focus/Plan Next Note Type Treatment Note Next Visit Plan continue dynamic gait challenges, balance training, stairs, consider obstacle course. Continue with simulated boat transfer begun today: unstable to unstable surface.
--- NOTE | 2022-04-21 12:24 | PT.OTN ---
Current Diagnoses Unsteadiness on feet (04/21/22) Other abnormalities of gait and mobility (04/21/22) Weakness (04/21/22) Physical Therapy Treatment Note PT-OP-A Visit Information Start: 11/22/21 16:49 Freq: Status: Active Protocol: Document 04/21/22 09:28 AW (Rec: 04/21/22 11:18 AW [id number]) Out-Patient Physical Therapy Visit Information Visit Information Visit Type Treatment Note Visit Start Time 10:30 Visit Stop Time 11:10 Total Visit Minutes 40 Visit Number 17 PT-OP-B Current Condition Start: 11/22/21 16:49 Freq: Status: Active Protocol: Document 11/24/21 12:00 AW (Rec: 11/24/21 09:00 AW [id number]) Current Condition History of Current Condition Onset Date June 2021 Current Complaints decreased balance, falls History of Current Condition Vasile had prostatitis 10 years ago. He was treated medically and was ok. Symptoms returned last year and he had a simple open prostatectomy at last May. Since then, he reports feeling sluggish and has had dizzy spells. Recent nuc med stress test was normal . Vasile experiences heart palpitations occasionally for for 5-10 minutes at a time. He just returned a holter monitor which he wore for a month and will follow up with cardiology soon. Pt states one dizzy spell occured while driving. His was able to take the wheel. He describes it as feeling faint and disoriented and is associated with vision changes (double vision) and a build up of pressure in his head. He recently saw his eye doctor who recommended no changes to his bifocals prescription. The same sensation has caused at least two falls in the past six months. He feels a lack of confidence in his walking lately and doesn't feel comfortable walking on the beach alone. Pt also feels disoriented in crowded situations, with high levels of light, and with flashing lights. [place] [facility] with his , Damari. He hopes to be able to get his 23' runabout boat in the water this year but feels anxious about getting on and off the boat. Prior Treatments and Tests No prior PT. Future Testing and Treatments Planned Follow up with cardiology. Treatment Goals Patient/Caregiver Goals Increase confidence to be able to walk on the beach alone. Be able to use his boat this summer. PT-OP-C Subjective Start: 11/22/21 16:49 Freq: Status: Active Protocol: Document 04/21/22 09:28 AW (Rec: 04/21/22 11:18 AW [id number]) OP-PT Subjective Patient Comments Patient Comments Meeting with oncologist next Monday to develop a plan for treatment. PT-OP-D Balance Start: 11/22/21 16:49 Freq: Status: Active Protocol: Document 11/24/21 12:00 AW (Rec: 11/25/21 12:51 AW [id number]) Balance Tests mCTSIB mCTSIB Position 1 30 mCTSIB Position 2 30 mCTSIB Position 3 25 mCTSIB Position 4 10 PT-OP-E Functional Tests Start: 11/22/21 16:49 Freq: Status: Active Protocol: Document 04/13/22 09:14 AW (Rec: 04/13/22 10:32 AW [id number]) Functional Tests Functional Gait Assessment Score 18 Functional Gait Assessment Impairment 40 to <60% Impaired (Score 13- Rating 18) PT-OP-G Mobility & Gait Start: 11/22/21 16:49 Freq: Status: Active Protocol: Document 11/24/21 12:00 AW (Rec: 11/25/21 12:50 AW [id number]) OP Gait Assessment Comments Gait Comments Pt ambulates with shortened steps and reduced arm swing ( left more affected than right) . Mild to moderate truncal rigidity evident in gait. PT-OP-J Posture/Palpation/Skin Start: 11/22/21 16:49 Freq: Status: Active Protocol: Document 11/24/21 12:00 AW (Rec: 11/25/21 12:54 AW [id number]) Posture Evaluation Position Standing Evaluation View Lateral Comments Posture Comments Forward head, flat lumbar spine, externally rotated hips bilaterally. PT-OP-M Strength Start: 11/22/21 16:49 Freq: Status: Active Protocol: Document 11/24/21 12:00 AW (Rec: 11/25/21 12:50 AW [id number]) Hip Strength Hip Manual Muscle Testing bilat Flexion (L2) 4+ Good+ Extension (S1) 4 Good Abduction 4+ Good+ External Rotation 4+ Good+ Internal Rotation 4+ Good+ Knee Strength Knee Manual Muscle Testing bilat Flexion (S2) 4+ Good+ Extension (L3) 5 Normal Ankle/Foot Strength Ankle and Foot Manual Muscle Testing bilat Dorsiflexion (L4) 5 Normal Comments PF tested with SL heel lift. Pt able to complete no more than 4 reps with either limb. PT-OP-O Vestibular Start: 11/22/21 16:49 Freq: Status: Active Protocol: Document 11/24/21 12:00 AW (Rec: 11/25/21 13:00 AW [id number]) Vestibular Assessment Visual Testing Smooth Pursuits Horizontal WNL Smooth Pursuits Vertical WNL Saccades Horizontal WNL Saccades Vertical WNL Gaze Evoked Nystagmus With Fixation Negative Gaze Evoked Nystagmus Without Fixation Negative Thrust Head mild lag B Cover/Uncover Test WNL Convergence Test Impaired Comments Vestibular Comments Pt reports diplopia with target ~10 from face PT-OP-Q Treatments Start: 11/22/21 16:49 Freq: Status: Active Protocol: Document 04/21/22 09:28 AW (Rec: 04/21/22 11:18 AW [id number]) Therapeutic Exercises Other Exercises sit to stand Other Exercise Name sit to stand- uneven under BLE Equipment Used foam pads under feet Reps/Minutes 2x10 Comments cued increased fwd weight shift Gait Training Gait Activity amplitude focus Level of Assistance SBA Surface level, indoor, tile Distance/Duration 80' x 12 Treatment Focus amplitude, increased step length Comments Pt able to drive better step length with external cueing but amplitude decreases with any distraction or cognitive load. Neuro Re-Education Treatment Balance Activities hurdles Details in//bars- fwd then lateral Reps/Duration 5 min Comments light UE support intermittently; pt drifts toward left side while walking forward; needs cues for foot clearance going laterally step taps Details step taps Surface firm Equipment 2 pods/river stones Comments 1. fwd tap 2. cross body tap (needs uni rail light touch) 3. alternating fwd tap 4. alternating cross-body tap (requires max cues and pt has great difficulty coordinating) Foam Surface blue foam pads Reps/Duration 10' Comments 1. NBOS EO/EC 2. NBOS head turns and nods 3. NBOS EC with light fingertip support on rails PT-OP-T Assessment and Plan Start: 11/22/21 16:49 Freq: Status: Active Protocol: Document 04/21/22 09:28 AW (Rec: 04/21/22 11:18 AW [id number]) Physical Therapy Assessment Goals Five Impairment functional activity limitations Impairment patient unable to get into skiff or transfer from skiff into boat Short Term Goal (STG) patient will be able to safely get into his skiff with min assist of family STG Duration 05/25/22 Shelter Goal (LTG) Patient will be able to safely transfer from his skiff into his boat with min assist from his family LTG Duration 07/06/22 Four Impairment balance dysfunction Impairment requires assistance with SLS and tandem stand to prevent fall Buffing Wheel Operator Goal (LTG) Patient will be able to perform SLS for 10 sec without assistance or LOB and tandem stand for 20 seconds as measure of improved balance and safety LTG Duration 07/06/22 Three Impairment balance systems integration Short Term Goal (STG) Pt will improve mCTSIB to steady 110 seconds or greater. 12/30/21: Pt scores 95/120 today (all points deducted in 4th condition) 02/16/22: not tested this date STG Duration 05/25/22 Buffing Wheel Operator Goal (LTG) Pt will walk the beach in front of his house alone and without assistive device as a measure of improved balance. 02/16/22: reports goal progress LTG Duration 07/06/22 Two Impairment ABC score 75% Buffing Wheel Operator Goal (LTG) Pt will improve his ABC score to 85% or greater as a measure of improved self-efficacy 12/15/21: 83% confident in balance with activities listed . 02/16/22: 85%, goal met LTG Duration goal met One Impairment lacks HEP Buffing Wheel Operator Goal (LTG) Pt will be independent with HEP to improve his balance and calibration of his movement strategies 01/04/22: progressing: band walk, STS, bridge hold, TA TB KFO 02/16/22: continued progression of HEP LTG Duration 07/06/22 Assessment Summary Assessment Vasile fatigued easily today with balance activities. He was able to continue but needed increased UE support. Pt appears struggled today when given instructions to alternate foot taps in a cross -body movement. Physical Therapy Plan Frequency and Duration Frequency of Treatment 1-2x/week Duration of treatment (weeks) 12 Plan of Care Start Date 04/13/22 Plan of Care End Date 07/06/22 Therapeutic Interventions Therapeutic Interventions Balance Training,Coordination Training,Gait Training,Home Exercise Program,Neuromuscular Re-education,Self-Care/Home Management,Therapeutic Activities,Therapeutic Exercises,Vestibular Rehabilitation Next Visit Focus/Plan Next Note Type Treatment Note Next Visit Plan continue dynamic gait challenges, balance training, stairs, consider obstacle course. Continue with simulated boat transfer begun today: unstable to unstable surface.
--- NOTE | 2022-05-18 15:15 | PT-OP ANOTE ---
Pt had hoped to attend today so did not cancel yesterday. However, he just started chemo and feels too ill to attend. Will monitor upcoming appointments and call ahead as able.
--- NOTE | 2022-05-24 21:55 | PT.OTN ---
Current Diagnoses Unsteadiness on feet (05/24/22) Other abnormalities of gait and mobility (05/24/22) Weakness (05/24/22) Physical Therapy Treatment Note PT-OP-A Visit Information Start: 11/22/21 16:49 Freq: Status: Active Protocol: Document 05/24/22 11:21 AMB (Rec: 05/24/22 12:11 AMB [id number]) Out-Patient Physical Therapy Visit Information Visit Information Visit Type Treatment Note Visit Start Time 11:15 Visit Stop Time 12:00 Total Visit Minutes 45 Visit Number 18 PT-OP-B Current Condition Start: 11/22/21 16:49 Freq: Status: Active Protocol: Document 11/24/21 12:00 AW (Rec: 11/24/21 09:00 AW [id number]) Current Condition History of Current Condition Onset Date June 2021 Current Complaints decreased balance, falls History of Current Condition Vasile had prostatitis 10 years ago. He was treated medically and was ok. Symptoms returned last year and he had a simple open prostatectomy at last May. Since then, he reports feeling sluggish and has had dizzy spells. Recent nuc med stress test was normal . Vasile experiences heart palpitations occasionally for for 5-10 minutes at a time. He just returned a holter monitor which he wore for a month and will follow up with cardiology soon. Pt states one dizzy spell occured while driving. His was able to take the wheel. He describes it as feeling faint and disoriented and is associated with vision changes (double vision) and a build up of pressure in his head. He recently saw his eye doctor who recommended no changes to his bifocals prescription. The same sensation has caused at least two falls in the past six months. He feels a lack of confidence in his walking lately and doesn't feel comfortable walking on the beach alone. Pt also feels disoriented in crowded situations, with high levels of light, and with flashing lights. [place] lives on [facility] with his , Damari. He hopes to be able to get his 23' runabout boat in the water this year but feels anxious about getting on and off the boat. Prior Treatments and Tests No prior PT. Future Testing and Treatments Planned Follow up with cardiology. Treatment Goals Patient/Caregiver Goals Increase confidence to be able to walk on the beach alone. Be able to use his boat this summer. PT-OP-C Subjective Start: 11/22/21 16:49 Freq: Status: Active Protocol: Document 05/24/22 11:21 AMB (Rec: 05/24/22 12:11 AMB [id number]) OP-PT Subjective Patient Comments Patient Comments Has double vision, getting prism glasses. Getting treatment at [facility] getting a shot once a month and pills every day. PT-OP-D Balance Start: 11/22/21 16:49 Freq: Status: Active Protocol: Document 11/24/21 12:00 AW (Rec: 11/25/21 12:51 AW [id number]) Balance Tests mCTSIB mCTSIB Position 1 30 mCTSIB Position 2 30 mCTSIB Position 3 25 mCTSIB Position 4 10 PT-OP-E Functional Tests Start: 11/22/21 16:49 Freq: Status: Active Protocol: Document 04/13/22 09:14 AW (Rec: 04/13/22 10:32 AW [id number]) Functional Tests Functional Gait Assessment Score 18 Functional Gait Assessment Impairment 40 to <60% Impaired (Score 13- Rating 18) PT-OP-G Mobility & Gait Start: 11/22/21 16:49 Freq: Status: Active Protocol: Document 11/24/21 12:00 AW (Rec: 11/25/21 12:50 AW [id number]) OP Gait Assessment Comments Gait Comments Pt ambulates with shortened steps and reduced arm swing ( left more affected than right) . Mild to moderate truncal rigidity evident in gait. PT-OP-J Posture/Palpation/Skin Start: 11/22/21 16:49 Freq: Status: Active Protocol: Document 11/24/21 12:00 AW (Rec: 11/25/21 12:54 AW [id number]) Posture Evaluation Position Standing Evaluation View Lateral Comments Posture Comments Forward head, flat lumbar spine, externally rotated hips bilaterally. PT-OP-M Strength Start: 11/22/21 16:49 Freq: Status: Active Protocol: Document 11/24/21 12:00 AW (Rec: 11/25/21 12:50 AW [id number]) Hip Strength Hip Manual Muscle Testing bilat Flexion (L2) 4+ Good+ Extension (S1) 4 Good Abduction 4+ Good+ External Rotation 4+ Good+ Internal Rotation 4+ Good+ Knee Strength Knee Manual Muscle Testing bilat Flexion (S2) 4+ Good+ Extension (L3) 5 Normal Ankle/Foot Strength Ankle and Foot Manual Muscle Testing bilat Dorsiflexion (L4) 5 Normal Comments PF tested with SL heel lift. Pt able to complete no more than 4 reps with either limb. PT-OP-O Vestibular Start: 11/22/21 16:49 Freq: Status: Active Protocol: Document 11/24/21 12:00 AW (Rec: 11/25/21 13:00 AW [id number]) Vestibular Assessment Visual Testing Smooth Pursuits Horizontal WNL Smooth Pursuits Vertical WNL Saccades Horizontal WNL Saccades Vertical WNL Gaze Evoked Nystagmus With Fixation Negative Gaze Evoked Nystagmus Without Fixation Negative Thrust Head mild lag B Cover/Uncover Test WNL Convergence Test Impaired Comments Vestibular Comments Pt reports diplopia with target ~10 from face PT-OP-Q Treatments Start: 11/22/21 16:49 Freq: Status: Active Protocol: Document 05/24/22 11:21 AMB (Rec: 05/24/22 21:50 AMB [id number]) Gym Equipment Shuttle Balance 1 Details WBOS blue clips Reps/Duration 10 min Comments WBOS/NBOS, A/P and M/L positioning 1. EO m/l very challenging today-- challenged taking hands away from railing even for a moment Therapeutic Exercises Standing Exercises Step Ups Side bilateral Equipment Used 6 stair, rail prn Reps/Minutes x10 ea side Comments alternating vc for high knees Other Exercises sit to stand Other Exercise Name sit to stand- uneven under BLE Equipment Used foam pads under feet Reps/Minutes 2x5 Comments cued increased fwd weight shift Neuro Re-Education Treatment Balance Activities Bosu ball Details with hands on railing at all times Comments Cued posture, soft knees Foam Surface blue foam pads Reps/Duration 10' Comments 1. NBOS EO/EC 2. NBOS head turns and nods 3. NBOS EC with light fingertip support on rails 4. Tandem EO PT-OP-T Assessment and Plan Start: 11/22/21 16:49 Freq: Status: Active Protocol: Document 05/24/22 11:21 AMB (Rec: 05/24/22 12:11 AMB [id number]) Physical Therapy Assessment Goals Five Impairment functional activity limitations Impairment patient unable to get into skiff or transfer from skiff into boat Short Term Goal (STG) patient will be able to safely get into his skiff with min assist of family STG Duration 05/25/22 Mcc Goal (LTG) Patient will be able to safely transfer from his skiff into his boat with min assist from his family LTG Duration 07/06/22 Four Impairment balance dysfunction Impairment requires assistance with SLS and tandem stand to prevent fall Mcc Goal (LTG) Patient will be able to perform SLS for 10 sec without assistance or LOB and tandem stand for 20 seconds as measure of improved balance and safety LTG Duration 07/06/22 Three Impairment balance systems integration Short Term Goal (STG) Pt will improve mCTSIB to steady 110 seconds or greater. 12/30/21: Pt scores 95/120 today (all points deducted in 4th condition) 02/16/22: not tested this date STG Duration 05/25/22 Mcc Goal (LTG) Pt will walk the beach in front of his house alone and without assistive device as a measure of improved balance. 02/16/22: reports goal progress LTG Duration 07/06/22 Two Impairment ABC score 75% Network Contract Manager Goal (LTG) Pt will improve his ABC score to 85% or greater as a measure of improved self-efficacy 12/15/21: 83% confident in balance with activities listed . 02/16/22: 85%, goal met LTG Duration goal met One Impairment lacks HEP Network Contract Manager Goal (LTG) Pt will be independent with HEP to improve his balance and calibration of his movement strategies 01/04/22: progressing: band walk, STS, bridge hold, TA TB KFO 02/16/22: continued progression of HEP LTG Duration 07/06/22 Assessment Summary Assessment Vasile returns to Pt after a 1 month break. Balance and strength appear to be reduced as he struggled with balance exercises more today. Reports continued anxiety related to cancer diagnosis and fear of falling. Will need to follow up on HEP more. Physical Therapy Plan Frequency and Duration Frequency of Treatment 1-2x/week Duration of treatment (weeks) 12 Plan of Care Start Date 04/13/22 Plan of Care End Date 07/06/22 Next Visit Focus/Plan Next Note Type Treatment Note Next Visit Plan Follow up on HEP at home for balance. continue dynamic gait challenges, balance training, stairs, consider obstacle course. Continue with simulated boat transfer begun today: unstable to unstable surface.
--- NOTE | 2022-05-27 11:11 | PT.OTN ---
Current Diagnoses Unsteadiness on feet (05/27/22) Other abnormalities of gait and mobility (05/27/22) Weakness (05/27/22) Physical Therapy Treatment Note PT-OP-A Visit Information Start: 11/22/21 16:49 Freq: Status: Active Protocol: Document 05/27/22 09:50 AMB (Rec: 05/27/22 11:11 AMB [id number]) Out-Patient Physical Therapy Visit Information Visit Information Visit Type Treatment Note Visit Start Time 09:45 Visit Stop Time 10:30 Total Visit Minutes 45 Visit Number 19 PT-OP-B Current Condition Start: 11/22/21 16:49 Freq: Status: Active Protocol: Document 11/24/21 12:00 AW (Rec: 11/24/21 09:00 AW [id number]) Current Condition History of Current Condition Onset Date June 2021 Current Complaints decreased balance, falls History of Current Condition Vasile had prostatitis 10 years ago. He was treated medically and was ok. Symptoms returned last year and he had a simple open prostatectomy at last May. Since then, he reports feeling sluggish and has had dizzy spells. Recent nuc med stress test was normal . Vasile experiences heart palpitations occasionally for for 5-10 minutes at a time. He just returned a holter monitor which he wore for a month and will follow up with cardiology soon. Pt states one dizzy spell occured while driving. His was able to take the wheel. He describes it as feeling faint and disoriented and is associated with vision changes (double vision) and a build up of pressure in his head. He recently saw his eye doctor who recommended no changes to his bifocals prescription. The same sensation has caused at least two falls in the past six months. He feels a lack of confidence in his walking lately and doesn't feel comfortable walking on the beach alone. Pt also feels disoriented in crowded situations, with high levels of light, and with flashing lights. [place] lives on [facility] with his , Damari. He hopes to be able to get his 23' runabout boat in the water this year but feels anxious about getting on and off the boat. Prior Treatments and Tests No prior PT. Future Testing and Treatments Planned Follow up with cardiology. Treatment Goals Patient/Caregiver Goals Increase confidence to be able to walk on the beach alone. Be able to use his boat this summer. PT-OP-C Subjective Start: 11/22/21 16:49 Freq: Status: Active Protocol: Document 05/27/22 09:50 AMB (Rec: 05/27/22 11:11 AMB [id number]) OP-PT Subjective Patient Comments Patient Comments [place] it after Monday, just like working his muscles. Getting prism glasses today. PT-OP-D Balance Start: 11/22/21 16:49 Freq: Status: Active Protocol: Document 11/24/21 12:00 AW (Rec: 11/25/21 12:51 AW [id number]) Balance Tests mCTSIB mCTSIB Position 1 30 mCTSIB Position 2 30 mCTSIB Position 3 25 mCTSIB Position 4 10 PT-OP-E Functional Tests Start: 11/22/21 16:49 Freq: Status: Active Protocol: Document 04/13/22 09:14 AW (Rec: 04/13/22 10:32 AW [id number]) Functional Tests Functional Gait Assessment Score 18 Functional Gait Assessment Impairment 40 to <60% Impaired (Score 13- Rating 18) PT-OP-G Mobility & Gait Start: 11/22/21 16:49 Freq: Status: Active Protocol: Document 11/24/21 12:00 AW (Rec: 11/25/21 12:50 AW [id number]) OP Gait Assessment Comments Gait Comments Pt ambulates with shortened steps and reduced arm swing ( left more affected than right) . Mild to moderate truncal rigidity evident in gait. PT-OP-J Posture/Palpation/Skin Start: 11/22/21 16:49 Freq: Status: Active Protocol: Document 11/24/21 12:00 AW (Rec: 11/25/21 12:54 AW [id number]) Posture Evaluation Position Standing Evaluation View Lateral Comments Posture Comments Forward head, flat lumbar spine, externally rotated hips bilaterally. PT-OP-M Strength Start: 11/22/21 16:49 Freq: Status: Active Protocol: Document 11/24/21 12:00 AW (Rec: 11/25/21 12:50 AW [id number]) Hip Strength Hip Manual Muscle Testing bilat Flexion (L2) 4+ Good+ Extension (S1) 4 Good Abduction 4+ Good+ External Rotation 4+ Good+ Internal Rotation 4+ Good+ Knee Strength Knee Manual Muscle Testing bilat Flexion (S2) 4+ Good+ Extension (L3) 5 Normal Ankle/Foot Strength Ankle and Foot Manual Muscle Testing bilat Dorsiflexion (L4) 5 Normal Comments PF tested with SL heel lift. Pt able to complete no more than 4 reps with either limb. PT-OP-O Vestibular Start: 11/22/21 16:49 Freq: Status: Active Protocol: Document 11/24/21 12:00 AW (Rec: 11/25/21 13:00 AW [id number]) Vestibular Assessment Visual Testing Smooth Pursuits Horizontal WNL Smooth Pursuits Vertical WNL Saccades Horizontal WNL Saccades Vertical WNL Gaze Evoked Nystagmus With Fixation Negative Gaze Evoked Nystagmus Without Fixation Negative Thrust Head mild lag B Cover/Uncover Test WNL Convergence Test Impaired Comments Vestibular Comments Pt reports diplopia with target ~10 from face PT-OP-Q Treatments Start: 11/22/21 16:49 Freq: Status: Active Protocol: Document 05/27/22 09:50 AMB (Rec: 05/27/22 11:11 AMB [id number]) Cardio Equipment Recumbent Stepper (Sci-Fit) Duration (Minutes) 5 Resistance 2 Seat Position 11 Gym Equipment Shuttle Balance 1 Details WBOS blue clips Reps/Duration 10 min Comments WBOS/NBOS, A/P and M/L positioning 1. EO WBOS 2. EO WBOS with mini squats Therapeutic Exercises Other Exercises sit to stand Other Exercise Name sit to stand- uneven under BLE Equipment Used foam pads under feet Reps/Minutes 2x5 Comments cued increased fwd weight shift Neuro Re-Education Treatment Balance Activities Bosu ball Details with hands on railing at all times Comments Cued posture, soft knees hurdles Details in//bars- fwd then lateral Reps/Duration 5 min Comments light UE support intermittently; pt drifts toward left side while walking forward; needs cues for foot clearance going laterally step taps Details step taps Surface firm Equipment 2 pods/river stones Comments 1. fwd tap 2. cross body tap (needs uni rail light touch) 3. alternating fwd tap 4. alternating cross-body tap (requires max cues and pt has great difficulty coordinating) Coordination Activities Rock and reach Details fwd and sideways (netta to BIG exercise) Equipment rail prn Reps/Duration 10 minutes Comments Challenging- pt with old shoulder injury that makes B UE swing challenging PT-OP-T Assessment and Plan Start: 11/22/21 16:49 Freq: Status: Active Protocol: Document 05/27/22 09:50 AMB (Rec: 05/27/22 11:11 AMB [id number]) Physical Therapy Assessment Goals Five Impairment functional activity limitations Impairment patient unable to get into skiff or transfer from skiff into boat Short Term Goal (STG) patient will be able to safely get into his skiff with min assist of family STG Duration 05/25/22 Stoneworking Sander Goal (LTG) Patient will be able to safely transfer from his skiff into his boat with min assist from his family LTG Duration 07/06/22 Four Impairment balance dysfunction Impairment requires assistance with SLS and tandem stand to prevent fall Stoneworking Sander Goal (LTG) Patient will be able to perform SLS for 10 sec without assistance or LOB and tandem stand for 20 seconds as measure of improved balance and safety LTG Duration 07/06/22 Three Impairment balance systems integration Short Term Goal (STG) Pt will improve mCTSIB to steady 110 seconds or greater. 12/30/21: Pt scores 95/120 today (all points deducted in 4th condition) 02/16/22: not tested this date STG Duration 05/25/22 Stoneworking Sander Goal (LTG) Pt will walk the beach in front of his house alone and without assistive device as a measure of improved balance. 02/16/22: reports goal progress LTG Duration 07/06/22 Two Impairment ABC score 75% Snf Goal (LTG) Pt will improve his ABC score to 85% or greater as a measure of improved self-efficacy 12/15/21: 83% confident in balance with activities listed . 02/16/22: 85%, goal met LTG Duration goal met One Impairment lacks HEP Stoneworking Sander Goal (LTG) Pt will be independent with HEP to improve his balance and calibration of his movement strategies 01/04/22: progressing: band walk, STS, bridge hold, TA TB KFO 02/16/22: continued progression of HEP LTG Duration 07/06/22 Assessment Summary Assessment Vasiel did better with balance exercises at this visit than earlier in the week, struggled with balance exercises requiring vision (pods and hurdles) but is getting prisms today. Will need to continue to reassess HEP. Physical Therapy Plan Frequency and Duration Frequency of Treatment 1-2x/week Duration of treatment (weeks) 12 Plan of Care Start Date 04/13/22 Plan of Care End Date 07/06/22 Therapeutic Interventions Therapeutic Interventions Balance Training,Coordination Training,Gait Training,Home Exercise Program,Neuromuscular Re-education,Self-Care/Home Management,Therapeutic Activities,Therapeutic Exercises,Vestibular Rehabilitation Next Visit Focus/Plan Next Note Type Treatment Note Next Visit Plan Follow up on HEP at home for balance. continue dynamic gait challenges, balance training, stairs, consider obstacle course. Continue with simulated boat transfer begun today: unstable to unstable surface.
--- NOTE | 2022-05-31 10:31 | PT.OTN ---
Current Diagnoses Unsteadiness on feet (05/31/22) Other abnormalities of gait and mobility (05/31/22) Weakness (05/31/22) Physical Therapy Treatment Note PT-OP-A Visit Information Start: 11/22/21 16:49 Freq: Status: Active Protocol: Document 05/31/22 08:56 AW (Rec: 05/31/22 10:31 AW [id number]) Out-Patient Physical Therapy Visit Information Visit Information Visit Type Treatment Note Visit Note 6 since last PN Visit Start Time 09:45 Visit Stop Time 10:30 Total Visit Minutes 45 Visit Number 20 PT-OP-B Current Condition Start: 11/22/21 16:49 Freq: Status: Active Protocol: Document 11/24/21 12:00 AW (Rec: 11/24/21 09:00 AW [id number]) Current Condition History of Current Condition Onset Date June 2021 Current Complaints decreased balance, falls History of Current Condition Vasile had prostatitis 10 years ago. He was treated medically and was ok. Symptoms returned last year and he had a simple open prostatectomy at last May. Since then, he reports feeling sluggish and has had dizzy spells. Recent nuc med stress test was normal . Vasile experiences heart palpitations occasionally for for 5-10 minutes at a time. He just returned a holter monitor which he wore for a month and will follow up with cardiology soon. Pt states one dizzy spell occured while driving. His was able to take the wheel. He describes it as feeling faint and disoriented and is associated with vision changes (double vision) and a build up of pressure in his head. He recently saw his eye doctor who recommended no changes to his bifocals prescription. The same sensation has caused at least two falls in the past six months. He feels a lack of confidence in his walking lately and doesn't feel comfortable walking on the beach alone. Pt also feels disoriented in crowded situations, with high levels of light, and with flashing lights. [place] on [address] with his , Damari. He hopes to be able to get his 23' runabout boat in the water this year but feels anxious about getting on and off the boat. Prior Treatments and Tests No prior PT. Future Testing and Treatments Planned Follow up with cardiology. Treatment Goals Patient/Caregiver Goals Increase confidence to be able to walk on the beach alone. Be able to use his boat this summer. PT-OP-C Subjective Start: 11/22/21 16:49 Freq: Status: Active Protocol: Document 05/31/22 08:56 AW (Rec: 05/31/22 10:31 AW [id number]) OP-PT Subjective Patient Comments Patient Comments [place] stiff day after last treatment and is still recovering but doing ok. Has new prism glasses. Is not wearing them today but notices good correction when looking at the buoys outside of his house. PT-OP-D Balance Start: 11/22/21 16:49 Freq: Status: Active Protocol: Document 11/24/21 12:00 AW (Rec: 11/25/21 12:51 AW [id number]) Balance Tests mCTSIB mCTSIB Position 1 30 mCTSIB Position 2 30 mCTSIB Position 3 25 mCTSIB Position 4 10 PT-OP-E Functional Tests Start: 11/22/21 16:49 Freq: Status: Active Protocol: Document 04/13/22 09:14 AW (Rec: 04/13/22 10:32 AW [id number]) Functional Tests Functional Gait Assessment Score 18 Functional Gait Assessment Impairment 40 to <60% Impaired (Score 13- Rating 18) PT-OP-G Mobility & Gait Start: 11/22/21 16:49 Freq: Status: Active Protocol: Document 11/24/21 12:00 AW (Rec: 11/25/21 12:50 AW [id number]) OP Gait Assessment Comments Gait Comments Pt ambulates with shortened steps and reduced arm swing ( left more affected than right) . Mild to moderate truncal rigidity evident in gait. PT-OP-J Posture/Palpation/Skin Start: 11/22/21 16:49 Freq: Status: Active Protocol: Document 11/24/21 12:00 AW (Rec: 11/25/21 12:54 AW [id number]) Posture Evaluation Position Standing Evaluation View Lateral Comments Posture Comments Forward head, flat lumbar spine, externally rotated hips bilaterally. PT-OP-M Strength Start: 11/22/21 16:49 Freq: Status: Active Protocol: Document 11/24/21 12:00 AW (Rec: 11/25/21 12:50 AW [id number]) Hip Strength Hip Manual Muscle Testing bilat Flexion (L2) 4+ Good+ Extension (S1) 4 Good Abduction 4+ Good+ External Rotation 4+ Good+ Internal Rotation 4+ Good+ Knee Strength Knee Manual Muscle Testing bilat Flexion (S2) 4+ Good+ Extension (L3) 5 Normal Ankle/Foot Strength Ankle and Foot Manual Muscle Testing bilat Dorsiflexion (L4) 5 Normal Comments PF tested with SL heel lift. Pt able to complete no more than 4 reps with either limb. PT-OP-O Vestibular Start: 11/22/21 16:49 Freq: Status: Active Protocol: Document 11/24/21 12:00 AW (Rec: 11/25/21 13:00 AW [id number]) Vestibular Assessment Visual Testing Smooth Pursuits Horizontal WNL Smooth Pursuits Vertical WNL Saccades Horizontal WNL Saccades Vertical WNL Gaze Evoked Nystagmus With Fixation Negative Gaze Evoked Nystagmus Without Fixation Negative Thrust Head mild lag B Cover/Uncover Test WNL Convergence Test Impaired Comments Vestibular Comments Pt reports diplopia with target ~10 from face PT-OP-Q Treatments Start: 11/22/21 16:49 Freq: Status: Active Protocol: Document 05/31/22 08:56 AW (Rec: 05/31/22 10:31 AW [id number]) Cardio Equipment Recumbent Stepper (Sci-Fit) Duration (Minutes) 5 Resistance 2 Seat Position 11 Gym Equipment Shuttle Balance 1 Details WBOS blue clips Reps/Duration 10 min Comments WBOS/NBOS, A/P and M/L positioning 1. EO WBOS 2. EO WBOS with mini squats Therapeutic Exercises Other Exercises sit to stand Other Exercise Name sit to stand- uneven under BLE Equipment Used foam pads under feet Reps/Minutes x10 Comments cued increased fwd weight shift Neuro Re-Education Treatment Balance Activities step taps Details step taps Surface firm Equipment 2 pods/river stones Comments 1. fwd tap 2. cross body tap (needs uni rail light touch) 3. alternating fwd tap Foam Surface blue foam pads Reps/Duration 10' Comments 1. NBOS EO/EC 2. stride stance EO 3. stride stance with arm swings PT-OP-T Assessment and Plan Start: 11/22/21 16:49 Freq: Status: Active Protocol: Document 05/31/22 08:56 AW (Rec: 05/31/22 10:31 AW [id number]) Physical Therapy Assessment Goals Five Impairment functional activity limitations Impairment patient unable to get into skiff or transfer from skiff into boat Short Term Goal (STG) patient will be able to safely get into his skiff with min assist of family STG Duration 05/25/22 Live In Caregiver Goal (LTG) Patient will be able to safely transfer from his skiff into his boat with min assist from his family LTG Duration 07/06/22 Four Impairment balance dysfunction Impairment requires assistance with SLS and tandem stand to prevent fall Live In Caregiver Goal (LTG) Patient will be able to perform SLS for 10 sec without assistance or LOB and tandem stand for 20 seconds as measure of improved balance and safety LTG Duration 07/06/22 Three Impairment balance systems integration Short Term Goal (STG) Pt will improve mCTSIB to steady 110 seconds or greater. 12/30/21: Pt scores 95/120 today (all points deducted in 4th condition) 02/16/22: not tested this date STG Duration 05/25/22 Live In Caregiver Goal (LTG) Pt will walk the beach in front of his house alone and without assistive device as a measure of improved balance. 02/16/22: reports goal progress LTG Duration 07/06/22 Two Impairment ABC score 75% Live In Caregiver Goal (LTG) Pt will improve his ABC score to 85% or greater as a measure of improved self-efficacy 12/15/21: 83% confident in balance with activities listed . 02/16/22: 85%, goal met LTG Duration goal met One Impairment lacks HEP Live In Caregiver Goal (LTG) Pt will be independent with HEP to improve his balance and calibration of his movement strategies 01/04/22: progressing: band walk, STS, bridge hold, TA TB KFO 02/16/22: continued progression of HEP LTG Duration 07/06/22 Assessment Summary Assessment Pt is not wearing prism lenses today but reports improvement on stairs while wearing. He agrees to bring them next visit. He has most difficulty coordinating more complex movements such as step up. Physical Therapy Plan Frequency and Duration Frequency of Treatment 1-2x/week Duration of treatment (weeks) 12 Plan of Care Start Date 04/13/22 Plan of Care End Date 07/06/22 Therapeutic Interventions Therapeutic Interventions Balance Training,Coordination Training,Gait Training,Home Exercise Program,Neuromuscular Re-education,Self-Care/Home Management,Therapeutic Activities,Therapeutic Exercises,Vestibular Rehabilitation Next Visit Focus/Plan Next Note Type Treatment Note Next Visit Plan Follow up on HEP at home for balance. continue dynamic gait challenges, balance training, stairs, consider obstacle course. Continue with simulated boat transfer begun today: unstable to unstable surface.
--- NOTE | 2022-06-02 10:32 | PT.OTN ---
Current Diagnoses Unsteadiness on feet (06/02/22) Other abnormalities of gait and mobility (06/02/22) Weakness (06/02/22) Physical Therapy Treatment Note PT-OP-A Visit Information Start: 11/22/21 16:49 Freq: Status: Active Protocol: Document 06/02/22 08:51 AW (Rec: 06/02/22 10:32 AW [id number]) Out-Patient Physical Therapy Visit Information Visit Information Visit Type Treatment Note Visit Note 7 since last PN Visit Start Time 09:45 Visit Stop Time 10:30 Total Visit Minutes 45 Visit Number 21 Evaluation Information Evaluation Date 11/24/21 PT-OP-B Current Condition Start: 11/22/21 16:49 Freq: Status: Active Protocol: Document 11/24/21 12:00 AW (Rec: 11/24/21 09:00 AW [id number]) Current Condition History of Current Condition Onset Date June 2021 Current Complaints decreased balance, falls History of Current Condition Vasile had prostatitis 10 years ago. He was treated medically and was ok. Symptoms returned last year and he had a simple open prostatectomy at last May. Since then, he reports feeling sluggish and has had dizzy spells. Recent nuc med stress test was normal . Vasile experiences heart palpitations occasionally for for 5-10 minutes at a time. He just returned a holter monitor which he wore for a month and will follow up with cardiology soon. Pt states one dizzy spell occured while driving. His was able to take the wheel. He describes it as feeling faint and disoriented and is associated with vision changes (double vision) and a build up of pressure in his head. He recently saw his eye doctor who recommended no changes to his bifocals prescription. The same sensation has caused at least two falls in the past six months. He feels a lack of confidence in his walking lately and doesn't feel comfortable walking on the beach alone. Pt also feels disoriented in crowded situations, with high levels of light, and with flashing lights. [place] lives on [address] with his , Damari. He hopes to be able to get his 23' runabout boat in the water this year but feels anxious about getting on and off the boat. Prior Treatments and Tests No prior PT. Future Testing and Treatments Planned Follow up with cardiology. Treatment Goals Patient/Caregiver Goals Increase confidence to be able to walk on the beach alone. Be able to use his boat this summer. PT-OP-C Subjective Start: 11/22/21 16:49 Freq: Status: Active Protocol: Document 06/02/22 08:51 AW (Rec: 06/02/22 10:32 AW [id number]) OP-PT Subjective Patient Comments Patient Comments Pearl stiff again after treatment two days ago. Is wearing new prism glasses today. He drove with them for the first time today and notices good difference. PT-OP-D Balance Start: 11/22/21 16:49 Freq: Status: Active Protocol: Document 11/24/21 12:00 AW (Rec: 11/25/21 12:51 AW [id number]) Balance Tests mCTSIB mCTSIB Position 1 30 mCTSIB Position 2 30 mCTSIB Position 3 25 mCTSIB Position 4 10 PT-OP-E Functional Tests Start: 11/22/21 16:49 Freq: Status: Active Protocol: Document 04/13/22 09:14 AW (Rec: 04/13/22 10:32 AW [id number]) Functional Tests Functional Gait Assessment Score 18 Functional Gait Assessment Impairment 40 to <60% Impaired (Score 13- Rating 18) PT-OP-G Mobility & Gait Start: 11/22/21 16:49 Freq: Status: Active Protocol: Document 11/24/21 12:00 AW (Rec: 11/25/21 12:50 AW [id number]) OP Gait Assessment Comments Gait Comments Pt ambulates with shortened steps and reduced arm swing ( left more affected than right) . Mild to moderate truncal rigidity evident in gait. PT-OP-J Posture/Palpation/Skin Start: 11/22/21 16:49 Freq: Status: Active Protocol: Document 11/24/21 12:00 AW (Rec: 11/25/21 12:54 AW [id number]) Posture Evaluation Position Standing Evaluation View Lateral Comments Posture Comments Forward head, flat lumbar spine, externally rotated hips bilaterally. PT-OP-M Strength Start: 11/22/21 16:49 Freq: Status: Active Protocol: Document 11/24/21 12:00 AW (Rec: 11/25/21 12:50 AW [id number]) Hip Strength Hip Manual Muscle Testing bilat Flexion (L2) 4+ Good+ Extension (S1) 4 Good Abduction 4+ Good+ External Rotation 4+ Good+ Internal Rotation 4+ Good+ Knee Strength Knee Manual Muscle Testing bilat Flexion (S2) 4+ Good+ Extension (L3) 5 Normal Ankle/Foot Strength Ankle and Foot Manual Muscle Testing bilat Dorsiflexion (L4) 5 Normal Comments PF tested with SL heel lift. Pt able to complete no more than 4 reps with either limb. PT-OP-O Vestibular Start: 11/22/21 16:49 Freq: Status: Active Protocol: Document 11/24/21 12:00 AW (Rec: 11/25/21 13:00 AW [id number]) Vestibular Assessment Visual Testing Smooth Pursuits Horizontal WNL Smooth Pursuits Vertical WNL Saccades Horizontal WNL Saccades Vertical WNL Gaze Evoked Nystagmus With Fixation Negative Gaze Evoked Nystagmus Without Fixation Negative Thrust Head mild lag B Cover/Uncover Test WNL Convergence Test Impaired Comments Vestibular Comments Pt reports diplopia with target ~10 from face PT-OP-Q Treatments Start: 11/22/21 16:49 Freq: Status: Active Protocol: Document 06/02/22 08:51 AW (Rec: 06/02/22 10:32 AW [id number]) Cardio Equipment Recumbent Bicycle Duration (Minutes) 5 Resistance 4 Seat Position 7 Therapeutic Exercises Other Exercises sit to stand Other Exercise Name sit to stand- uneven under BLE Equipment Used foam pads under feet Reps/Minutes 2x10 Comments cued increased fwd weight shift Gait Training Gait Activity stairs Description stairs Device Used uni rail Level of Assistance SBA Surface 4 steps, 6 steps Distance/Duration 5 reps each height Comments Pt tends to tap down with leading foot descending before fully shifting weight forward . He reports improving confidence with prism glasses. Neuro Re-Education Treatment Balance Activities Bosu ball Details with hands on railing at all times Comments Cued posture, soft knees hurdles Details in//bars- fwd Reps/Duration 5 min Comments multiple passes with light touch //; last two passes without touching down tandem stance Details tandem stance Surface firm Equipment rail prn Comments 1. Tandem EO for HEP 2. Tandem walking in // clinic only Coordination Activities Rock and reach Details fwd and sideways (netta to BIG exercise) Equipment rail prn Reps/Duration 10 minutes Comments improved weight shifting PT-OP-T Assessment and Plan Start: 11/22/21 16:49 Freq: Status: Active Protocol: Document 06/02/22 08:51 AW (Rec: 06/02/22 10:32 AW [id number]) Physical Therapy Assessment Goals Five Impairment functional activity limitations Impairment patient unable to get into skiff or transfer from skiff into boat Short Term Goal (STG) patient will be able to safely get into his skiff with min assist of family STG Duration 05/25/22 Mathematical Technician Goal (LTG) Patient will be able to safely transfer from his skiff into his boat with min assist from his family LTG Duration 07/06/22 Four Impairment balance dysfunction Impairment requires assistance with SLS and tandem stand to prevent fall Mathematical Technician Goal (LTG) Patient will be able to perform SLS for 10 sec without assistance or LOB and tandem stand for 20 seconds as measure of improved balance and safety LTG Duration 07/06/22 Three Impairment balance systems integration Short Term Goal (STG) Pt will improve mCTSIB to steady 110 seconds or greater. 12/30/21: Pt scores 95/120 today (all points deducted in 4th condition) 02/16/22: not tested this date STG Duration 05/25/22 Detention Goal (LTG) Pt will walk the beach in front of his house alone and without assistive device as a measure of improved balance. 02/16/22: reports goal progress LTG Duration 07/06/22 Two Impairment ABC score 75% Detention Goal (LTG) Pt will improve his ABC score to 85% or greater as a measure of improved self-efficacy 12/15/21: 83% confident in balance with activities listed . 02/16/22: 85%, goal met LTG Duration goal met One Impairment lacks HEP Mathematical Technician Goal (LTG) Pt will be independent with HEP to improve his balance and calibration of his movement strategies 01/04/22: progressing: band walk, STS, bridge hold, TA TB KFO 02/16/22: continued progression of HEP LTG Duration 07/06/22 Assessment Summary Assessment Pt wearing prism lenses today and reporting improving confidence with them. On stairs, he tends to tap down with his foot first before fully shifting weight forward but less dependent on foot tap with further repetition. Physical Therapy Plan Frequency and Duration Frequency of Treatment 1-2x/week Duration of treatment (weeks) 12 Plan of Care Start Date 04/13/22 Plan of Care End Date 07/06/22 Therapeutic Interventions Therapeutic Interventions Balance Training,Coordination Training,Gait Training,Home Exercise Program,Neuromuscular Re-education,Self-Care/Home Management,Therapeutic Activities,Therapeutic Exercises,Vestibular Rehabilitation Next Visit Focus/Plan Next Note Type Treatment Note Next Visit Plan continue dynamic gait challenges, balance training, stairs, consider obstacle course. Continue with simulated boat transfer begun today: unstable to unstable surface.
--- NOTE | 2022-06-07 13:21 | PT-OP ANOTE ---
Called and spoke with pt regarding missed 1:00pm appointment today. Pt confirmed appointment time and had not realized he was missing it. Confirmed next appointment is Monday, 06/13 at 11:15am.
--- NOTE | 2022-06-13 12:24 | PT.OTN ---
Current Diagnoses Unsteadiness on feet (06/13/22) Other abnormalities of gait and mobility (06/13/22) Weakness (06/13/22) Physical Therapy Treatment Note PT-OP-A Visit Information Start: 11/22/21 16:49 Freq: Status: Active Protocol: Document 06/13/22 11:06 NBM (Rec: 06/13/22 12:21 NBM [id number]) Out-Patient Physical Therapy Visit Information Visit Information Visit Type Treatment Note Visit Note 8 since last PN Visit Start Time 11:15 Visit Stop Time 12:00 Total Visit Minutes 45 Visit Number 22 Number of PAPER REELER Visits 1 Evaluation Information Evaluation Date 11/24/21 PT-OP-B Current Condition Start: 11/22/21 16:49 Freq: Status: Active Protocol: Document 11/24/21 12:00 AW (Rec: 11/24/21 09:00 AW [id number]) Current Condition History of Current Condition Onset Date June 2021 Current Complaints decreased balance, falls History of Current Condition Vasile had prostatitis 10 years ago. He was treated medically and was ok. Symptoms returned last year and he had a simple open prostatectomy at last May. Since then, he reports feeling sluggish and has had dizzy spells. Recent nuc med stress test was normal . Vasile experiences heart palpitations occasionally for for 5-10 minutes at a time. He just returned a holter monitor which he wore for a month and will follow up with cardiology soon. Pt states one dizzy spell occured while driving. His was able to take the wheel. He describes it as feeling faint and disoriented and is associated with vision changes (double vision) and a build up of pressure in his head. He recently saw his eye doctor who recommended no changes to his bifocals prescription. The same sensation has caused at least two falls in the past six months. He feels a lack of confidence in his walking lately and doesn't feel comfortable walking on the beach alone. Pt also feels disoriented in crowded situations, with high levels of light, and with flashing lights. [place] [facility] with his , Damari. He hopes to be able to get his [employer]' [employer] boat in the water this year but feels anxious about getting on and off the boat. Prior Treatments and Tests No prior PT. Future Testing and Treatments Planned Follow up with cardiology. Treatment Goals Patient/Caregiver Goals Increase confidence to be able to walk on the beach alone. Be able to use his boat this summer. PT-OP-C Subjective Start: 11/22/21 16:49 Freq: Status: Active Protocol: Document 06/13/22 11:06 NBM (Rec: 06/13/22 12:21 NBM [id number]) OP-PT Subjective Patient Comments Patient Comments Pt reports he got a cane from someone and is considering using it. He lost his prism glasses and reports no recent falls. PT-OP-D Balance Start: 11/22/21 16:49 Freq: Status: Active Protocol: Document 11/24/21 12:00 AW (Rec: 11/25/21 12:51 AW [id number]) Balance Tests mCTSIB mCTSIB Position 1 30 mCTSIB Position 2 30 mCTSIB Position 3 25 mCTSIB Position 4 10 PT-OP-E Functional Tests Start: 11/22/21 16:49 Freq: Status: Active Protocol: Document 04/13/22 09:14 AW (Rec: 04/13/22 10:32 AW [id number]) Functional Tests Functional Gait Assessment Score 18 Functional Gait Assessment Impairment 40 to <60% Impaired (Score 13- Rating 18) PT-OP-G Mobility & Gait Start: 11/22/21 16:49 Freq: Status: Active Protocol: Document 11/24/21 12:00 AW (Rec: 11/25/21 12:50 AW [id number]) OP Gait Assessment Comments Gait Comments Pt ambulates with shortened steps and reduced arm swing ( left more affected than right) . Mild to moderate truncal rigidity evident in gait. PT-OP-J Posture/Palpation/Skin Start: 11/22/21 16:49 Freq: Status: Active Protocol: Document 11/24/21 12:00 AW (Rec: 11/25/21 12:54 AW [id number]) Posture Evaluation Position Standing Evaluation View Lateral Comments Posture Comments Forward head, flat lumbar spine, externally rotated hips bilaterally. PT-OP-M Strength Start: 11/22/21 16:49 Freq: Status: Active Protocol: Document 11/24/21 12:00 AW (Rec: 11/25/21 12:50 AW [id number]) Hip Strength Hip Manual Muscle Testing bilat Flexion (L2) 4+ Good+ Extension (S1) 4 Good Abduction 4+ Good+ External Rotation 4+ Good+ Internal Rotation 4+ Good+ Knee Strength Knee Manual Muscle Testing bilat Flexion (S2) 4+ Good+ Extension (L3) 5 Normal Ankle/Foot Strength Ankle and Foot Manual Muscle Testing bilat Dorsiflexion (L4) 5 Normal Comments PF tested with SL heel lift. Pt able to complete no more than 4 reps with either limb. PT-OP-O Vestibular Start: 11/22/21 16:49 Freq: Status: Active Protocol: Document 11/24/21 12:00 AW (Rec: 11/25/21 13:00 AW [id number]) Vestibular Assessment Visual Testing Smooth Pursuits Horizontal WNL Smooth Pursuits Vertical WNL Saccades Horizontal WNL Saccades Vertical WNL Gaze Evoked Nystagmus With Fixation Negative Gaze Evoked Nystagmus Without Fixation Negative Thrust Head mild lag B Cover/Uncover Test WNL Convergence Test Impaired Comments Vestibular Comments Pt reports diplopia with target ~10 from face PT-OP-Q Treatments Start: 11/22/21 16:49 Freq: Status: Active Protocol: Document 06/13/22 11:06 [facility] (Rec: 06/13/22 12:21 [facility] [id number]) Cardio Equipment Recumbent Bicycle Duration (Minutes) 5 Resistance 4 Seat Position 7 Therapeutic Exercises Supine Exercises Hip flexor stretch Supine Exercise Name Brooks position - added to HEP Side bilateral Reps/Minutes x60s ea Comments good feedback response Other Exercises sit to stand Other Exercise Name sit to stand- uneven under BLE Equipment Used foam pads under feet Reps/Minutes 2x10 Comments cued increased fwd weight shift Gait Training Gait Activity amplitude focus Level of Assistance SBA Surface level, indoor, tile Distance/Duration 40' Treatment Focus amplitude, increased step length Comments Pt able to drive better step length with external cueing but amplitude decreases with any distraction or cognitive load. Neuro Re-Education Treatment Balance Activities tandem stance Details tandem stance Surface firm Equipment rail prn Comments 1. Tandem EO for HEP 2. Tandem walking in // clinic only, improves w/ mirror and cueing SLS Details SLS Surface firm Equipment rail support Coordination Activities Rock and reach Details fwd (netta to BIG exercise) Equipment rail prn Reps/Duration 10 minutes Comments improved weight shifting PT-OP-T Assessment and Plan Start: 11/22/21 16:49 Freq: Status: Active Protocol: Document 06/13/22 11:06 [facility] (Rec: 06/13/22 12:21 [facility] [id number]) Physical Therapy Assessment Goals Five Impairment functional activity limitations Impairment patient unable to get into skiff or transfer from skiff into boat Short Term Goal (STG) patient will be able to safely get into his skiff with min assist of family STG Duration 05/25/22 Nursing Home Goal (LTG) Patient will be able to safely transfer from his skiff into his boat with min assist from his family LTG Duration 07/06/22 Four Impairment balance dysfunction Impairment requires assistance with SLS and tandem stand to prevent fall Nursing Home Goal (LTG) Patient will be able to perform SLS for 10 sec without assistance or LOB and tandem stand for 20 seconds as measure of improved balance and safety (06/13/22: Tandem: RLE back: 20+ sec occ finger touch RUE, LLE back: 13s. LLE 11s, RLE 0s ) LTG Duration 07/06/22 Three Impairment balance systems integration Short Term Goal (STG) Pt will improve mCTSIB to steady 110 seconds or greater. 12/30/21: Pt scores 95/120 today (all points deducted in 4th condition) 02/16/22: not tested this date STG Duration 05/25/22 Truck Driving Instructor Goal (LTG) Pt will walk the beach in front of his house alone and without assistive device as a measure of improved balance. 02/16/22: reports goal progress (06/13/22: Pt reports he walks in front of his house alone without an AD except when it is a crummy day and he uses a PVC pipe.) LTG Duration 07/06/22 (Progressing) Two Impairment ABC score 75% Nursing Home Goal (LTG) Pt will improve his ABC score to 85% or greater as a measure of improved self-efficacy 12/15/21: 83% confident in balance with activities listed . 02/16/22: 85%, goal met LTG Duration goal met One Impairment lacks HEP Nursing Home Goal (LTG) Pt will be independent with HEP to improve his balance and calibration of his movement strategies 01/04/22: progressing: band walk, STS, bridge hold, TA TB KFO 02/16/22: continued progression of HEP (06/13/22: Pt enjoys doing his ex at home and does them every morning. Reviewed tandem balance, SLS, and weightshifting - added supine hip flexor stretch) LTG Duration 07/06/22 Assessment Summary Assessment Pt is challenged with reciprocal arm swing in weightshifting and requires cues for amplitude with gait and arm swing. Reviewed for HEP: tandem stance, SLS, and weightshifting. Added supine hip flexor stretch (Brooks) to HEP - HO given. Pt encouraged to bring SPC to PT for gait training. Physical Therapy Plan Frequency and Duration Frequency of Treatment 1-2x/week Duration of treatment (weeks) 12 Plan of Care Start Date 04/13/22 Plan of Care End Date 07/06/22 Therapeutic Interventions Therapeutic Interventions Balance Training,Coordination Training,Gait Training,Home Exercise Program,Neuromuscular Re-education,Self-Care/Home Management,Therapeutic Activities,Therapeutic Exercises,Vestibular Rehabilitation Next Visit Focus/Plan Next Note Type Treatment Note Next Visit Plan continue dynamic gait challenges, balance training, stairs, consider obstacle course. Continue with simulated boat transfer begun today: unstable to unstable surface.
--- NOTE | 2022-06-17 17:23 | PT.OTN ---
Current Diagnoses Unsteadiness on feet (06/17/22) Other abnormalities of gait and mobility (06/17/22) Weakness (06/17/22) Physical Therapy Treatment Note PT-OP-A Visit Information Start: 11/22/21 16:49 Freq: Status: Active Protocol: Document 06/17/22 13:59 NBM (Rec: 06/17/22 14:33 NBM [id number]) Out-Patient Physical Therapy Visit Information Visit Information Visit Type Treatment Note Visit Note 9 since last PN Visit Start Time 13:50 Visit Stop Time 14:30 Total Visit Minutes 40 Visit Number 23 Number of BACK ORDER CLERK Visits 2 Evaluation Information Evaluation Date 11/24/21 PT-OP-B Current Condition Start: 11/22/21 16:49 Freq: Status: Active Protocol: Document 11/24/21 12:00 AW (Rec: 11/24/21 09:00 AW [id number]) Current Condition History of Current Condition Onset Date June 2021 Current Complaints decreased balance, falls History of Current Condition Vasile had prostatitis 10 years ago. He was treated medically and was ok. Symptoms returned last year and he had a simple open prostatectomy at last May. Since then, he reports feeling sluggish and has had dizzy spells. Recent nuc med stress test was normal . Vasile experiences heart palpitations occasionally for for 5-10 minutes at a time. He just returned a holter monitor which he wore for a month and will follow up with cardiology soon. Pt states one dizzy spell occured while driving. His was able to take the wheel. He describes it as feeling faint and disoriented and is associated with vision changes (double vision) and a build up of pressure in his head. He recently saw his eye doctor who recommended no changes to his bifocals prescription. The same sensation has caused at least two falls in the past six months. He feels a lack of confidence in his walking lately and doesn't feel comfortable walking on the beach alone. Pt also feels disoriented in crowded situations, with high levels of light, and with flashing lights. [place] on [address] [address] [place] with his , Damari. He hopes to be able to get his 23' [place] boat in the water this year but feels anxious about getting on and off the boat. Prior Treatments and Tests No prior PT. Future Testing and Treatments Planned Follow up with cardiology. Treatment Goals Patient/Caregiver Goals Increase confidence to be able to walk on the beach alone. Be able to use his boat this summer. PT-OP-C Subjective Start: 11/22/21 16:49 Freq: Status: Active Protocol: Document 06/17/22 13:59 NBM (Rec: 06/17/22 14:33 NBM [id number]) OP-PT Subjective Patient Comments Patient Comments Pt states he has been doing the hip flexor stretch and it feels really good. He has ordered a replacement pair of Prism glasses. He forgot to bring his cane in to practice walking with - he had a full house of visitors. PT-OP-D Balance Start: 11/22/21 16:49 Freq: Status: Active Protocol: Document 11/24/21 12:00 AW (Rec: 11/25/21 12:51 AW [id number]) Balance Tests mCTSIB mCTSIB Position 1 30 mCTSIB Position 2 30 mCTSIB Position 3 25 mCTSIB Position 4 10 PT-OP-E Functional Tests Start: 11/22/21 16:49 Freq: Status: Active Protocol: Document 04/13/22 09:14 AW (Rec: 04/13/22 10:32 AW [id number]) Functional Tests Functional Gait Assessment Score 18 Functional Gait Assessment Impairment 40 to <60% Impaired (Score 13- Rating 18) PT-OP-G Mobility & Gait Start: 11/22/21 16:49 Freq: Status: Active Protocol: Document 11/24/21 12:00 AW (Rec: 11/25/21 12:50 AW [id number]) OP Gait Assessment Comments Gait Comments Pt ambulates with shortened steps and reduced arm swing ( left more affected than right) . Mild to moderate truncal rigidity evident in gait. PT-OP-J Posture/Palpation/Skin Start: 11/22/21 16:49 Freq: Status: Active Protocol: Document 11/24/21 12:00 AW (Rec: 11/25/21 12:54 AW [id number]) Posture Evaluation Position Standing Evaluation View Lateral Comments Posture Comments Forward head, flat lumbar spine, externally rotated hips bilaterally. PT-OP-M Strength Start: 11/22/21 16:49 Freq: Status: Active Protocol: Document 11/24/21 12:00 AW (Rec: 11/25/21 12:50 AW [id number]) Hip Strength Hip Manual Muscle Testing bilat Flexion (L2) 4+ Good+ Extension (S1) 4 Good Abduction 4+ Good+ External Rotation 4+ Good+ Internal Rotation 4+ Good+ Knee Strength Knee Manual Muscle Testing bilat Flexion (S2) 4+ Good+ Extension (L3) 5 Normal Ankle/Foot Strength Ankle and Foot Manual Muscle Testing bilat Dorsiflexion (L4) 5 Normal Comments PF tested with SL heel lift. Pt able to complete no more than 4 reps with either limb. PT-OP-O Vestibular Start: 11/22/21 16:49 Freq: Status: Active Protocol: Document 11/24/21 12:00 AW (Rec: 11/25/21 13:00 AW [id number]) Vestibular Assessment Visual Testing Smooth Pursuits Horizontal WNL Smooth Pursuits Vertical WNL Saccades Horizontal WNL Saccades Vertical WNL Gaze Evoked Nystagmus With Fixation Negative Gaze Evoked Nystagmus Without Fixation Negative Thrust Head mild lag B Cover/Uncover Test WNL Convergence Test Impaired Comments Vestibular Comments Pt reports diplopia with target ~10 from face PT-OP-Q Treatments Start: 11/22/21 16:49 Freq: Status: Active Protocol: Document 06/17/22 13:59 NBM (Rec: 06/17/22 14:33 [facility] [id number]) Cardio Equipment Recumbent Bicycle Duration (Minutes) 6 Resistance 4>5 Seat Position 7 Other 2 mi; vc to push through heels that feels more comfortable Therapeutic Exercises Standing Exercises calf stretch Standing Exercise Name lunge position at wall Side bilateral Reps/Minutes 30s ea Comments good feedback response Other Exercises sit to stand Other Exercise Name sit to stand- uneven under BLE Equipment Used foam pads under feet Reps/Minutes x10 Comments weightshift bias towards the R in sitting. Gait Training Gait Activity amplitude focus Description w/ 5# in ea hand Level of Assistance SBA>CGA Surface level, indoor, tile Distance/Duration 40', 80' Treatment Focus amplitude, increased step length Comments Pt able to drive better step length with external cueing but amplitude decreases with any distraction or cognitive load. Neuro Re-Education Treatment Coordination Activities Rock and reach Details fwd and sideways (netta to BIG exercise) Equipment rail prn Reps/Duration 10 minutes Comments very challenging for pt to perform even when broken into part practice. 5# added to each UE w/ fwd for improved reciprocal arm swing w/ weight shifting PT-OP-T Assessment and Plan Start: 11/22/21 16:49 Freq: Status: Active Protocol: Document 06/17/22 13:59 [facility] (Rec: 06/17/22 14:33 [facility] [id number]) Physical Therapy Assessment Goals Five Impairment functional activity limitations Impairment patient unable to get into skiff or transfer from skiff into boat Short Term Goal (STG) patient will be able to safely get into his skiff with min assist of family STG Duration 05/25/22 Cosmetology Teacher Goal (LTG) Patient will be able to safely transfer from his skiff into his boat with min assist from his family LTG Duration 07/06/22 Four Impairment balance dysfunction Impairment requires assistance with SLS and tandem stand to prevent fall Cosmetology Teacher Goal (LTG) Patient will be able to perform SLS for 10 sec without assistance or LOB and tandem stand for 20 seconds as measure of improved balance and safety (06/13/22: Tandem: RLE back: 20+ sec occ finger touch RUE, LLE back: 13s. LLE 11s, RLE 0s ) LTG Duration 07/06/22 Three Impairment balance systems integration Short Term Goal (STG) Pt will improve mCTSIB to steady 110 seconds or greater. 12/30/21: Pt scores 95/120 today (all points deducted in 4th condition) 02/16/22: not tested this date STG Duration 05/25/22 Cosmetology Teacher Goal (LTG) Pt will walk the beach in front of his house alone and without assistive device as a measure of improved balance. 02/16/22: reports goal progress (06/13/22: Pt reports he walks in front of his house alone without an AD except when it is a crummy day and he uses a PVC pipe.) LTG Duration 07/06/22 (Progressing) Two Impairment ABC score 75% Cosmetology Teacher Goal (LTG) Pt will improve his ABC score to 85% or greater as a measure of improved self-efficacy 12/15/21: 83% confident in balance with activities listed . 02/16/22: 85%, goal met LTG Duration goal met One Impairment lacks HEP Cosmetology Teacher Goal (LTG) Pt will be independent with HEP to improve his balance and calibration of his movement strategies 01/04/22: progressing: band walk, STS, bridge hold, TA TB KFO 02/16/22: continued progression of HEP (06/13/22: Pt enjoys doing his ex at home and does them every morning. Reviewed tandem balance, SLS, and weightshifting - added supine hip flexor stretch) LTG Duration 07/06/22 Assessment Summary Assessment Pt's recip arm swing amplitude improves w/ 5# DB in each hand - pt plans to resume using them at home with walking. Gait improves w/ cues for bigmovements and reaching with hands and feet. Weightshifting rock and reach ex very challenging for pt to coordinate with reciprocal arm swing even when broken into parts practice and given visual and tactile cues. Pt will benefit from continud skilled therapeutic intervention to improve gait and balance for functional activity. Physical Therapy Plan Frequency and Duration Frequency of Treatment 1-2x/week Duration of treatment (weeks) 12 Plan of Care Start Date 04/13/22 Plan of Care End Date 07/06/22 Next Visit Focus/Plan Next Note Type Treatment Note Next Visit Plan continue dynamic gait challenges, balance training, stairs, consider obstacle course. Continue with simulated boat transfer begun 02/16/22: unstable to unstable surface.
--- NOTE | 2022-06-20 16:22 | PT-OP ANOTE ---
Called [phone] and left voicemail for patient regarding missed 4:00pm appointment. Offered availability with me tomorrow and to call welcome desk agent if wanting to schedule. Advised next scheduled appointment is 06/23.
--- NOTE | 2022-06-23 15:46 | PT.OTN ---
Current Diagnoses Unsteadiness on feet (06/23/22) Other abnormalities of gait and mobility (06/23/22) Weakness (06/23/22) Physical Therapy Treatment Note PT-OP-A Visit Information Start: 11/22/21 16:49 Freq: Status: Active Protocol: Document 06/23/22 12:54 AW (Rec: 06/23/22 15:46 AW [id number]) Out-Patient Physical Therapy Visit Information Visit Information Visit Type Progress Note Visit Start Time 13:45 Visit Stop Time 14:30 Total Visit Minutes 45 Visit Number 24 Number of UTILIZATION MANAGER Visits 0 Evaluation Information Evaluation Date 11/24/21 PT-OP-B Current Condition Start: 11/22/21 16:49 Freq: Status: Active Protocol: Document 11/24/21 12:00 AW (Rec: 11/24/21 09:00 AW [id number]) Current Condition History of Current Condition Onset Date June 2021 Current Complaints decreased balance, falls History of Current Condition Vasile had prostatitis 10 years ago. He was treated medically and was ok. Symptoms returned last year and he had a simple open prostatectomy at last May. Since then, he reports feeling sluggish and has had dizzy spells. Recent nuc med stress test was normal . Vasile experiences heart palpitations occasionally for for 5-10 minutes at a time. He just returned a holter monitor which he wore for a month and will follow up with cardiology soon. Pt states one dizzy spell occured while driving. His was able to take the wheel. He describes it as feeling faint and disoriented and is associated with vision changes (double vision) and a build up of pressure in his head. He recently saw his eye doctor who recommended no changes to his bifocals prescription. The same sensation has caused at least two falls in the past six months. He feels a lack of confidence in his walking lately and doesn't feel comfortable walking on the beach alone. Pt also feels disoriented in crowded situations, with high levels of light, and with flashing lights. [place] lives [place] [facility] with his , Damari. He hopes to be able to get his 23' runabout boat in the water this year but feels anxious about getting on and off the boat. Prior Treatments and Tests No prior PT. Future Testing and Treatments Planned Follow up with cardiology. Treatment Goals Patient/Caregiver Goals Increase confidence to be able to walk on the beach alone. Be able to use his boat this summer. PT-OP-C Subjective Start: 11/22/21 16:49 Freq: Status: Active Protocol: Document 06/23/22 12:54 AW (Rec: 06/23/22 15:46 AW [id number]) OP-PT Subjective Patient Comments Patient Comments Having some back pain today after lifting water bottles awkwardly yesterday. Still waiting on replacement prism glasses. PT-OP-D Balance Start: 11/22/21 16:49 Freq: Status: Active Protocol: Document 11/24/21 12:00 AW (Rec: 11/25/21 12:51 AW [id number]) Balance Tests mCTSIB mCTSIB Position 1 30 mCTSIB Position 2 30 mCTSIB Position 3 25 mCTSIB Position 4 10 PT-OP-E Functional Tests Start: 11/22/21 16:49 Freq: Status: Active Protocol: Document 04/13/22 09:14 AW (Rec: 04/13/22 10:32 AW [id number]) Functional Tests Functional Gait Assessment Score 18 Functional Gait Assessment Impairment 40 to <60% Impaired (Score 13- Rating 18) PT-OP-G Mobility & Gait Start: 11/22/21 16:49 Freq: Status: Active Protocol: Document 11/24/21 12:00 AW (Rec: 11/25/21 12:50 AW [id number]) OP Gait Assessment Comments Gait Comments Pt ambulates with shortened steps and reduced arm swing ( left more affected than right) . Mild to moderate truncal rigidity evident in gait. PT-OP-J Posture/Palpation/Skin Start: 11/22/21 16:49 Freq: Status: Active Protocol: Document 11/24/21 12:00 AW (Rec: 11/25/21 12:54 AW [id number]) Posture Evaluation Position Standing Evaluation View Lateral Comments Posture Comments Forward head, flat lumbar spine, externally rotated hips bilaterally. PT-OP-M Strength Start: 11/22/21 16:49 Freq: Status: Active Protocol: Document 11/24/21 12:00 AW (Rec: 11/25/21 12:50 AW [id number]) Hip Strength Hip Manual Muscle Testing bilat Flexion (L2) 4+ Good+ Extension (S1) 4 Good Abduction 4+ Good+ External Rotation 4+ Good+ Internal Rotation 4+ Good+ Knee Strength Knee Manual Muscle Testing bilat Flexion (S2) 4+ Good+ Extension (L3) 5 Normal Ankle/Foot Strength Ankle and Foot Manual Muscle Testing bilat Dorsiflexion (L4) 5 Normal Comments PF tested with SL heel lift. Pt able to complete no more than 4 reps with either limb. PT-OP-O Vestibular Start: 11/22/21 16:49 Freq: Status: Active Protocol: Document 11/24/21 12:00 AW (Rec: 11/25/21 13:00 AW [id number]) Vestibular Assessment Visual Testing Smooth Pursuits Horizontal WNL Smooth Pursuits Vertical WNL Saccades Horizontal WNL Saccades Vertical WNL Gaze Evoked Nystagmus With Fixation Negative Gaze Evoked Nystagmus Without Fixation Negative Thrust Head mild lag B Cover/Uncover Test WNL Convergence Test Impaired Comments Vestibular Comments Pt reports diplopia with target ~10 from face PT-OP-Q Treatments Start: 11/22/21 16:49 Freq: Status: Active Protocol: Document 06/23/22 12:54 AW (Rec: 06/23/22 15:46 AW [id number]) Cardio Equipment Recumbent Bicycle Duration (Minutes) 6 Resistance 5 Seat Position 7 Therapeutic Exercises Standing Exercises calf stretch Standing Exercise Name lunge position at wall Side bilateral Reps/Minutes 30s ea Comments good feedback response Other Exercises sit to stand Other Exercise Name sit to stand- uneven under BLE Equipment Used foam pads under feet Reps/Minutes x10 Comments focused on maintaining midline Gait Training Gait Activity SPC Description gait with SPC Level of Assistance SBA/CGA Surface firm Treatment Focus patterning Comments Pt needs max cues and visual demonstration to coordinate with great difficulty. Amplitude decreases with added task of cane management. amplitude focus Description w/ 5# in ea hand Level of Assistance SBA>CGA Surface level, indoor, tile Distance/Duration hallway x 8 Treatment Focus amplitude, increased step length Comments Added head turns and nods. Amplitude decreases with added task. Neuro Re-Education Treatment Balance Activities mCTSIB Details mCTSIB Comments 1- 30 2- 30 3- 25 4- 15 tandem stance Details tandem stance Surface firm Equipment rail prn Comments 1. Tandem EO for HEP 2. Tandem walking in // clinic only, improves w/ mirror and cueing SLS Details SLS Surface firm Equipment rail support Comments moderate dependence on rails. difficult to get into position PT-OP-T Assessment and Plan Start: 11/22/21 16:49 Freq: Status: Active Protocol: Document 06/23/22 12:54 AW (Rec: 06/23/22 15:46 AW [id number]) Physical Therapy Assessment Goals Five Impairment functional activity limitations Impairment patient unable to get into skiff or transfer from skiff into boat Short Term Goal (STG) patient will be able to safely get into his skiff with min assist of family STG Duration 05/25/22 Quilt Sewer Goal (LTG) Patient will be able to safely transfer from his skiff into his boat with min assist from his family LTG Duration 09/06/22 Four Impairment balance dysfunction Impairment requires assistance with SLS and tandem stand to prevent fall Half-Way Goal (LTG) Patient will be able to perform SLS for 10 sec without assistance or LOB and tandem stand for 20 seconds as measure of improved balance and safety (06/13/22: Tandem: RLE back: 20+ sec occ finger touch RUE, LLE back: 13s. LLE 11s, RLE 0s ) 06/23/22 - SLS still requires assist to get into position and support to maintain LTG Duration 09/06/22 Three Impairment balance systems integration Short Term Goal (STG) Pt will improve mCTSIB to steady 110 seconds or greater. 12/30/21: Pt scores 95/120 today (all points deducted in 4th condition) 02/16/22: not tested this date 06/23/22 Pt scores 100/120 today. STG Duration 05/25/22 PROGRESSING Half-Way Goal (LTG) Pt will walk the beach in front of his house alone and without assistive device as a measure of improved balance. 02/16/22: reports goal progress (06/13/22: Pt reports he walks in front of his house alone without an AD except when it is a crummy day and he uses a PVC pipe.) 06/23/22 - Pt states uses B trekking poles when walking the beach. LTG Duration 09/06/22 (Progressing) Two Impairment ABC score 75% Half-Way Goal (LTG) Pt will improve his ABC score to 85% or greater as a measure of improved self-efficacy 12/15/21: 83% confident in balance with activities listed . 02/16/22: 85%, goal met LTG Duration goal met One Impairment lacks HEP Half-Way Goal (LTG) Pt will be independent with HEP to improve his balance and calibration of his movement strategies 01/04/22: progressing: band walk, STS, bridge hold, TA TB KFO 02/16/22: continued progression of HEP (06/13/22: Pt enjoys doing his ex at home and does them every morning. Reviewed tandem balance, SLS, and weightshifting - added supine hip flexor stretch) LTG Duration 09/06/22 Progress Towards Goals Progress Towards Goals Slow Progress due to Attendance Issues,Slow Progress - Other Progress Comments Vasile is progressing but slowly. He has improved his mCTSIB score to 100/120 from 75/120 at initial evaluation. He is showing increased signs of hypokinesia and bradykinesia. He admits to increasing difficulty with attention and memory. Assessment Summary Assessment Vasile loses amplitude in gait with SPC and with added task of head turns. He has an appointment scheduled with a neurologist in late July to address his movement concerns . He does appear to have increased signs of hypokinesia and bradykinesia since initial evaluation. Decided to extend plan of care today but this may be complicated by referral for pelvic floor PT. Will continue to discuss pt's priorities for therapy and adjust accordingly. Physical Therapy Plan Frequency and Duration Frequency of Treatment 1-2x/week Plan of Care Start Date 07/06/22 Plan of Care End Date 09/06/22 Next Visit Focus/Plan Next Note Type Treatment Note Next Visit Plan continue dynamic gait challenges, balance training, stairs, consider obstacle course. Continue with simulated boat transfer begun 02/16/22: unstable to unstable surface.
--- NOTE | 2022-06-28 19:48 | PT.OTN ---
Current Diagnoses Unsteadiness on feet (06/28/22) Other abnormalities of gait and mobility (06/28/22) Weakness (06/28/22) Physical Therapy Treatment Note PT-OP-A Visit Information Start: 11/22/21 16:49 Freq: Status: Active Protocol: Document 06/28/22 14:02 NBM (Rec: 06/28/22 19:46 NBM [id number]) Out-Patient Physical Therapy Visit Information Visit Information Visit Type Treatment Note Visit Note PRINT LINE TAILER got pt late Visit Start Time 13:59 Visit Stop Time 14:37 Total Visit Minutes 38 Visit Number 25 Number of PRINT LINE TAILER Visits 1 PT-OP-B Current Condition Start: 11/22/21 16:49 Freq: Status: Active Protocol: Document 11/24/21 12:00 AW (Rec: 11/24/21 09:00 AW [id number]) Current Condition History of Current Condition Onset Date June 2021 Current Complaints decreased balance, falls History of Current Condition Vasile had prostatitis 10 years ago. He was treated medically and was ok. Symptoms returned last year and he had a simple open prostatectomy at last May. Since then, he reports feeling sluggish and has had dizzy spells. Recent nuc med stress test was normal . Vasile experiences heart palpitations occasionally for for 5-10 minutes at a time. He just returned a holter monitor which he wore for a month and will follow up with cardiology soon. Pt states one dizzy spell occured while driving. His was able to take the wheel. He describes it as feeling faint and disoriented and is associated with vision changes (double vision) and a build up of pressure in his head. He recently saw his eye doctor who recommended no changes to his bifocals prescription. The same sensation has caused at least two falls in the past six months. He feels a lack of confidence in his walking lately and doesn't feel comfortable walking on the beach alone. Pt also feels disoriented in crowded situations, with high levels of light, and with flashing lights. [place] lives [place] [facility] with his , Damari. He hopes to be able to get his 23' runabout boat in the water this year but feels anxious about getting on and off the boat. Prior Treatments and Tests No prior PT. Future Testing and Treatments Planned Follow up with cardiology. Treatment Goals Patient/Caregiver Goals Increase confidence to be able to walk on the beach alone. Be able to use his boat this summer. PT-OP-C Subjective Start: 11/22/21 16:49 Freq: Status: Active Protocol: Document 06/28/22 14:02 NBM (Rec: 06/28/22 19:46 NBM [id number]) OP-PT Subjective Patient Comments Patient Comments What you've been doing here is helping me a lot. Pt states he had an episode yesterday that was in front of friends and his is worried and trying to get a sooner neuro appt. My short- term memory isn't what it used to be and he reports confusion keeping up with social interactions. His digital asset manager suggested making sure he's hydrated. Pt left cane at home on bed, and found one of the weights at home and is looking for the other. PT-OP-D Balance Start: 11/22/21 16:49 Freq: Status: Active Protocol: Document 11/24/21 12:00 AW (Rec: 11/25/21 12:51 AW [id number]) Balance Tests mCTSIB mCTSIB Position 1 30 mCTSIB Position 2 30 mCTSIB Position 3 25 mCTSIB Position 4 10 PT-OP-E Functional Tests Start: 11/22/21 16:49 Freq: Status: Active Protocol: Document 04/13/22 09:14 AW (Rec: 04/13/22 10:32 AW [id number]) Functional Tests Functional Gait Assessment Score 18 Functional Gait Assessment Impairment 40 to <60% Impaired (Score 13- Rating 18) PT-OP-G Mobility & Gait Start: 11/22/21 16:49 Freq: Status: Active Protocol: Document 11/24/21 12:00 AW (Rec: 11/25/21 12:50 AW [id number]) OP Gait Assessment Comments Gait Comments Pt ambulates with shortened steps and reduced arm swing ( left more affected than right) . Mild to moderate truncal rigidity evident in gait. PT-OP-J Posture/Palpation/Skin Start: 11/22/21 16:49 Freq: Status: Active Protocol: Document 11/24/21 12:00 AW (Rec: 11/25/21 12:54 AW [id number]) Posture Evaluation Position Standing Evaluation View Lateral Comments Posture Comments Forward head, flat lumbar spine, externally rotated hips bilaterally. PT-OP-M Strength Start: 11/22/21 16:49 Freq: Status: Active Protocol: Document 11/24/21 12:00 AW (Rec: 11/25/21 12:50 AW [id number]) Hip Strength Hip Manual Muscle Testing bilat Flexion (L2) 4+ Good+ Extension (S1) 4 Good Abduction 4+ Good+ External Rotation 4+ Good+ Internal Rotation 4+ Good+ Knee Strength Knee Manual Muscle Testing bilat Flexion (S2) 4+ Good+ Extension (L3) 5 Normal Ankle/Foot Strength Ankle and Foot Manual Muscle Testing bilat Dorsiflexion (L4) 5 Normal Comments PF tested with SL heel lift. Pt able to complete no more than 4 reps with either limb. PT-OP-O Vestibular Start: 11/22/21 16:49 Freq: Status: Active Protocol: Document 11/24/21 12:00 AW (Rec: 11/25/21 13:00 AW [id number]) Vestibular Assessment Visual Testing Smooth Pursuits Horizontal WNL Smooth Pursuits Vertical WNL Saccades Horizontal WNL Saccades Vertical WNL Gaze Evoked Nystagmus With Fixation Negative Gaze Evoked Nystagmus Without Fixation Negative Thrust Head mild lag B Cover/Uncover Test WNL Convergence Test Impaired Comments Vestibular Comments Pt reports diplopia with target ~10 from face PT-OP-Q Treatments Start: 11/22/21 16:49 Freq: Status: Active Protocol: Document 06/28/22 14:02 NBM (Rec: 06/28/22 19:46 NB [id number]) Cardio Equipment Recumbent Bicycle Duration (Minutes) 6 Resistance 5 Seat Position 7 Therapeutic Exercises Standing Exercises Biceps Curls Side bilateral Resistance 7# ea Reps/Minutes x8 Comments max cues, challenged w/ coordination but + feedback response Gait Training Gait Activity amplitude focus Description w/ 7# in ea hand Level of Assistance SBA>CGA Surface level, indoor, tile Distance/Duration hallway x 8 Treatment Focus amplitude, arm swing, step length, upright posture w/ distant focal point Comments Added head turns. Amplitude decreases with added task, LUE >RUE/ Pt requires physical orientation to direction at times. Neuro Re-Education Treatment Balance Activities Foam Surface blue foam pad Equipment // bars, gait belt Reps/Duration 8' Comments 1. static balance - cues for standing completely on pad 2. balloon volleyball w/ PT aide, 1HHA> no LANGUAGE ASST. PT-OP-T Assessment and Plan Start: 11/22/21 16:49 Freq: Status: Active Protocol: Document 06/28/22 14:02 [facility] (Rec: 06/28/22 19:46 [facility] [id number]) Physical Therapy Assessment Goals Five Impairment functional activity limitations Impairment patient unable to get into skiff or transfer from skiff into boat Short Term Goal (STG) patient will be able to safely get into his skiff with min assist of family STG Duration 05/25/22 Specialist Employee Labor Relations Goal (LTG) Patient will be able to safely transfer from his skiff into his boat with min assist from his family LTG Duration 09/06/22 Four Impairment balance dysfunction Impairment requires assistance with SLS and tandem stand to prevent fall Specialist Employee Labor Relations Goal (LTG) Patient will be able to perform SLS for 10 sec without assistance or LOB and tandem stand for 20 seconds as measure of improved balance and safety (06/13/22: Tandem: RLE back: 20+ sec occ finger touch RUE, LLE back: 13s. LLE 11s, RLE 0s ) 06/23/22 - SLS still requires assist to get into position and support to maintain LTG Duration 09/06/22 Three Impairment balance systems integration Short Term Goal (STG) Pt will improve mCTSIB to steady 110 seconds or greater. 12/30/21: Pt scores 95/120 today (all points deducted in 4th condition) 02/16/22: not tested this date 06/23/22 Pt scores 100/120 today. STG Duration 05/25/22 PROGRESSING Specialist Employee Labor Relations Goal (LTG) Pt will walk the beach in front of his house alone and without assistive device as a measure of improved balance. 02/16/22: reports goal progress (06/13/22: Pt reports he walks in front of his house alone without an AD except when it is a crummy day and he uses a PVC pipe.) 06/23/22 - Pt states uses B trekking poles when walking the beach. LTG Duration 09/06/22 (Progressing) Two Impairment ABC score 75% Specialist Employee Labor Relations Goal (LTG) Pt will improve his ABC score to 85% or greater as a measure of improved self-efficacy 12/15/21: 83% confident in balance with activities listed . 02/16/22: 85%, goal met LTG Duration goal met One Impairment lacks HEP Specialist Employee Labor Relations Goal (LTG) Pt will be independent with HEP to improve his balance and calibration of his movement strategies 01/04/22: progressing: band walk, STS, bridge hold, TA TB KFO 02/16/22: continued progression of HEP (06/13/22: Pt enjoys doing his ex at home and does them every morning. Reviewed tandem balance, SLS, and weightshifting - added supine hip flexor stretch) LTG Duration 09/06/22 Assessment Summary Assessment Vasile is wearing glasses today - PRINT [employer] TAILER unsure if they are prism replacements. Vasile continues to demonstrate challenge with dual-task activities such as talking while walking - pt requires cues for arm swing with gait which improves w/ 7# dumbbells ; he loses amplitude with addition of head turns LUE>RUE (LUE reduces to no arm swing and pt veers R>L). Impulsivity noted w/ stepping off of blue foam pad and stepping up from recumbant bicycle. Vasile also requires extra time today for re-orienting to task and for navigating gym without walking into objects on his Right side with one independent balance recovery using stepping strategy. He performs shoulder extension appropriately after hand on hand cues then verbal cues for straight arm. He struggles with coordination with biceps curls which improves with max tactile and visual cues but is unable to maintain coordination with repetition. He has a good feedback response to all activities and has an appt with the neurologist in July. Physical Therapy Plan Frequency and Duration Frequency of Treatment 1-2x/week Plan of Care Start Date 07/06/22 Plan of Care End Date 09/06/22 Therapeutic Interventions Therapeutic Interventions Balance Training,Coordination Training,Gait Training,Home Exercise Program,Neuromuscular Re-education,Self-Care/Home Management,Therapeutic Activities,Therapeutic Exercises,Vestibular Rehabilitation Next Visit Focus/Plan Next Note Type Treatment Note Next Visit Plan continue dynamic gait challenges, balance training, stairs, consider obstacle course.
--- NOTE | 2022-07-15 13:22 | PT.OTN ---
Current Diagnoses Unsteadiness on feet (07/15/22) Other abnormalities of gait and mobility (07/15/22) Weakness (07/15/22) Physical Therapy Treatment Note PT-OP-A Visit Information Start: 11/22/21 16:49 Freq: Status: Active Protocol: Document 07/15/22 12:30 NBM (Rec: 07/15/22 13:22 NBM [id number]) Out-Patient Physical Therapy Visit Information Visit Information Visit Type Treatment Note Visit Start Time 12:23 Visit Stop Time 13:01 Total Visit Minutes 38 Visit Number 26 Number of SECURITY FLEX OFFICER Visits 2 Evaluation Information Evaluation Date 11/24/21 PT-OP-B Current Condition Start: 11/22/21 16:49 Freq: Status: Active Protocol: Document 11/24/21 12:00 AW (Rec: 11/24/21 09:00 AW [id number]) Current Condition History of Current Condition Onset Date June 2021 Current Complaints decreased balance, falls History of Current Condition Vasile had prostatitis 10 years ago. He was treated medically and was ok. Symptoms returned last year and he had a simple open prostatectomy at last May. Since then, he reports feeling sluggish and has had dizzy spells. Recent nuc med stress test was normal . Vasile experiences heart palpitations occasionally for for 5-10 minutes at a time. He just returned a holter monitor which he wore for a month and will follow up with cardiology soon. Pt states one dizzy spell occured while driving. His was able to take the wheel. He describes it as feeling faint and disoriented and is associated with vision changes (double vision) and a build up of pressure in his head. He recently saw his eye doctor who recommended no changes to his bifocals prescription. The same sensation has caused at least two falls in the past six months. He feels a lack of confidence in his walking lately and doesn't feel comfortable walking on the beach alone. Pt also feels disoriented in crowded situations, with high levels of light, and with flashing lights. [place] [facility] with his , Damari. He hopes to be able to get his 23' runabout boat in the water this year but feels anxious about getting on and off the boat. Prior Treatments and Tests No prior PT. Future Testing and Treatments Planned Follow up with cardiology. Treatment Goals Patient/Caregiver Goals Increase confidence to be able to walk on the beach alone. Be able to use his boat this summer. PT-OP-C Subjective Start: 11/22/21 16:49 Freq: Status: Active Protocol: Document 07/15/22 12:30 NBM (Rec: 07/15/22 13:22 NBM [id number]) OP-PT Subjective Patient Comments Patient Comments Pt states he is bumping into things a bit when he is walking. He states he has prism glasses again but thinks something is still wrong with them. He states his is concerned about him as well as his son and his daughter, and he is worried too. He had a first pass visit with the neurologist and could not pass everything, but does not know what's next. Pt reports he caught his left foot and fell on 07/11 getting in the back door. He did not pass out and was with , and reports his head was ringing. Cx treatment is going well. PT-OP-D Balance Start: 11/22/21 16:49 Freq: Status: Active Protocol: Document 11/24/21 12:00 AW (Rec: 11/25/21 12:51 AW [id number]) Balance Tests mCTSIB mCTSIB Position 1 30 mCTSIB Position 2 30 mCTSIB Position 3 25 mCTSIB Position 4 10 PT-OP-E Functional Tests Start: 11/22/21 16:49 Freq: Status: Active Protocol: Document 04/13/22 09:14 AW (Rec: 04/13/22 10:32 AW [id number]) Functional Tests Functional Gait Assessment Score 18 Functional Gait Assessment Impairment 40 to <60% Impaired (Score 13- Rating 18) PT-OP-G Mobility & Gait Start: 11/22/21 16:49 Freq: Status: Active Protocol: Document 11/24/21 12:00 AW (Rec: 11/25/21 12:50 AW [id number]) OP Gait Assessment Comments Gait Comments Pt ambulates with shortened steps and reduced arm swing ( left more affected than right) . Mild to moderate truncal rigidity evident in gait. PT-OP-J Posture/Palpation/Skin Start: 11/22/21 16:49 Freq: Status: Active Protocol: Document 11/24/21 12:00 AW (Rec: 11/25/21 12:54 AW [id number]) Posture Evaluation Position Standing Evaluation View Lateral Comments Posture Comments Forward head, flat lumbar spine, externally rotated hips bilaterally. PT-OP-M Strength Start: 11/22/21 16:49 Freq: Status: Active Protocol: Document 11/24/21 12:00 AW (Rec: 11/25/21 12:50 AW [id number]) Hip Strength Hip Manual Muscle Testing bilat Flexion (L2) 4+ Good+ Extension (S1) 4 Good Abduction 4+ Good+ External Rotation 4+ Good+ Internal Rotation 4+ Good+ Knee Strength Knee Manual Muscle Testing bilat Flexion (S2) 4+ Good+ Extension (L3) 5 Normal Ankle/Foot Strength Ankle and Foot Manual Muscle Testing bilat Dorsiflexion (L4) 5 Normal Comments PF tested with SL heel lift. Pt able to complete no more than 4 reps with either limb. PT-OP-O Vestibular Start: 11/22/21 16:49 Freq: Status: Active Protocol: Document 11/24/21 12:00 AW (Rec: 11/25/21 13:00 AW [id number]) Vestibular Assessment Visual Testing Smooth Pursuits Horizontal WNL Smooth Pursuits Vertical WNL Saccades Horizontal WNL Saccades Vertical WNL Gaze Evoked Nystagmus With Fixation Negative Gaze Evoked Nystagmus Without Fixation Negative Thrust Head mild lag B Cover/Uncover Test WNL Convergence Test Impaired Comments Vestibular Comments Pt reports diplopia with target ~10 from face PT-OP-Q Treatments Start: 11/22/21 16:49 Freq: Status: Active Protocol: Document 07/15/22 12:30 NB (Rec: 07/15/22 13:22 NB [id number]) Cardio Equipment Recumbent Bicycle Duration (Minutes) 6 Resistance 5 Seat Position 7 Therapeutic Exercises Sitting Exercises Ankle strengthening Sitting Exercise Name DF/PF - added to HEP Side bilateral Resistance Lvl 2 Tb Reps/Minutes x10 Comments L more challenged than R Gait Training Gait Activity amplitude focus Description w/ 5# in ea hand Level of Assistance SBA>CGA Surface level, indoor, tile Distance/Duration laps in clinic CW, CCW Treatment Focus amplitude, arm swing, step length, upright posture w/ distant focal point Comments Amplitude decreases without added task, LUE>RUE/ Pt requires physical orientation to direction at times. Neuro Re-Education Treatment Coordination Activities Rock and reach Details fwd (netta to BIG exercise) Equipment // bars Reps/Duration 10 minutes Comments UE reciprocation challenging 5# added to each LUE w/ fwd for improved reciprocal arm swing w/ weight shifting Self-Care/Home Management Treatment Education Patient Education Home Exercise Program,Safety Caregiver Education Demonstrated to Damari how to hold TB for pt's DF/PF ex's. Added to HEP: resisted DF/PF - HO and Lvl2 Tb given. PT-OP-T Assessment and Plan Start: 11/22/21 16:49 Freq: Status: Active Protocol: Document 07/15/22 12:30 [facility] (Rec: 07/15/22 13:22 [facility] [id number]) Physical Therapy Assessment Impairments Impairments Balance,Gait,Posture,Sensation ,Strength,Vestibular Goals Five Impairment functional activity limitations Impairment patient unable to get into skiff or transfer from skiff into boat Short Term Goal (STG) patient will be able to safely get into his skiff with min assist of family STG Duration 05/25/22 Procurement Services Manager Goal (LTG) Patient will be able to safely transfer from his skiff into his boat with min assist from his family LTG Duration 09/06/22 Four Impairment balance dysfunction Impairment requires assistance with SLS and tandem stand to prevent fall Group Home Goal (LTG) Patient will be able to perform SLS for 10 sec without assistance or LOB and tandem stand for 20 seconds as measure of improved balance and safety (06/13/22: Tandem: RLE back: 20+ sec occ finger touch RUE, LLE back: 13s. LLE 11s, RLE 0s ) 06/23/22 - SLS still requires assist to get into position and support to maintain LTG Duration 09/06/22 Three Impairment balance systems integration Short Term Goal (STG) Pt will improve mCTSIB to steady 110 seconds or greater. 12/30/21: Pt scores 95/120 today (all points deducted in 4th condition) 02/16/22: not tested this date 06/23/22 Pt scores 100/120 today. STG Duration 05/25/22 PROGRESSING Group Home Goal (LTG) Pt will walk the beach in front of his house alone and without assistive device as a measure of improved balance. 02/16/22: reports goal progress (06/13/22: Pt reports he walks in front of his house alone without an AD except when it is a crummy day and he uses a PVC pipe.) 06/23/22 - Pt states uses B trekking poles when walking the beach. LTG Duration 09/06/22 (Progressing) Two Impairment ABC score 75% Group Home Goal (LTG) Pt will improve his ABC score to 85% or greater as a measure of improved self-efficacy 12/15/21: 83% confident in balance with activities listed . 02/16/22: 85%, goal met LTG Duration goal met One Impairment lacks HEP Procurement Services Manager Goal (LTG) Pt will be independent with HEP to improve his balance and calibration of his movement strategies 01/04/22: progressing: band walk, STS, bridge hold, TA TB KFO 02/16/22: continued progression of HEP (06/13/22: Pt enjoys doing his ex at home and does them every morning. Reviewed tandem balance, SLS, and weightshifting - added supine hip flexor stretch) LTG Duration 09/06/22 Assessment Summary Assessment Amplitude decreases without added task, LUE>RUE/ Pt requires physical orientation to direction at times. UE reciprocation is challenging with Rock and Reach. Demonstrated to Damari how to hold TB for pt's DF/PF ex's. Added to HEP: resisted DF/PF - HO and Lvl2 Tb given. Physical Therapy Plan Frequency and Duration Frequency of Treatment 1-2x/week Plan of Care Start Date 07/06/22 Plan of Care End Date 09/06/22 Therapeutic Interventions Therapeutic Interventions Balance Training,Coordination Training,Gait Training,Home Exercise Program,Neuromuscular Re-education,Self-Care/Home Management,Therapeutic Activities,Therapeutic Exercises,Vestibular Rehabilitation Other Referrals/Consults Referrals/Consults Recommended Pt to follow up with cardiology for holter monitor results. Has referral to neurologist. Next Visit Focus/Plan Next Note Type Treatment Note Next Visit Plan continue dynamic gait challenges, balance training, stairs, consider obstacle course.
--- NOTE | 2022-08-03 12:28 | PT.OTN ---
Current Diagnoses Unsteadiness on feet (08/03/22) Other abnormalities of gait and mobility (08/03/22) Weakness (08/03/22) Physical Therapy Treatment Note PT-OP-A Visit Information Start: 11/22/21 16:49 Freq: Status: Active Protocol: Document 08/03/22 08:58 AW (Rec: 08/03/22 12:28 AW [id number]) Out-Patient Physical Therapy Visit Information Visit Information Visit Type Treatment Note Visit Start Time 11:15 Visit Stop Time 12:00 Total Visit Minutes 45 Visit Number 27 Number of EPIC DIRECTOR Visits 0 Evaluation Information Evaluation Date 11/24/21 PT-OP-B Current Condition Start: 11/22/21 16:49 Freq: Status: Active Protocol: Document 11/24/21 12:00 AW (Rec: 11/24/21 09:00 AW [id number]) Current Condition History of Current Condition Onset Date June 2021 Current Complaints decreased balance, falls History of Current Condition Vasile had prostatitis 10 years ago. He was treated medically and was ok. Symptoms returned last year and he had a simple open prostatectomy at last May. Since then, he reports feeling sluggish and has had dizzy spells. Recent nuc med stress test was normal . Vasile experiences heart palpitations occasionally for for 5-10 minutes at a time. He just returned a holter monitor which he wore for a month and will follow up with cardiology soon. Pt states one dizzy spell occured while driving. His was able to take the wheel. He describes it as feeling faint and disoriented and is associated with vision changes (double vision) and a build up of pressure in his head. He recently saw his eye doctor who recommended no changes to his bifocals prescription. The same sensation has caused at least two falls in the past six months. He feels a lack of confidence in his walking lately and doesn't feel comfortable walking on the beach alone. Pt also feels disoriented in crowded situations, with high levels of light, and with flashing lights. [place] lives on [facility] with his , Damari. He hopes to be able to get his 23' runabout boat in the water this year but feels anxious about getting on and off the boat. Prior Treatments and Tests No prior PT. Future Testing and Treatments Planned Follow up with cardiology. Treatment Goals Patient/Caregiver Goals Increase confidence to be able to walk on the beach alone. Be able to use his boat this summer. PT-OP-C Subjective Start: 11/22/21 16:49 Freq: Status: Active Protocol: Document 08/03/22 08:58 AW (Rec: 08/03/22 12:28 AW [id number]) OP-PT Subjective Patient Comments Patient Comments Pt is undergoing chemo via infusion and oral. It's going well but pt notices decreased energy and strength. He thinks he has a follow up appointment with neurology tomorrow to discuss EEG and MRI results. PT-OP-D Balance Start: 11/22/21 16:49 Freq: Status: Active Protocol: Document 11/24/21 12:00 AW (Rec: 11/25/21 12:51 AW [id number]) Balance Tests mCTSIB mCTSIB Position 1 30 mCTSIB Position 2 30 mCTSIB Position 3 25 mCTSIB Position 4 10 PT-OP-E Functional Tests Start: 11/22/21 16:49 Freq: Status: Active Protocol: Document 04/13/22 09:14 AW (Rec: 04/13/22 10:32 AW [id number]) Functional Tests Functional Gait Assessment Score 18 Functional Gait Assessment Impairment 40 to <60% Impaired (Score 13- Rating 18) PT-OP-G Mobility & Gait Start: 11/22/21 16:49 Freq: Status: Active Protocol: Document 11/24/21 12:00 AW (Rec: 11/25/21 12:50 AW [id number]) OP Gait Assessment Comments Gait Comments Pt ambulates with shortened steps and reduced arm swing ( left more affected than right) . Mild to moderate truncal rigidity evident in gait. PT-OP-J Posture/Palpation/Skin Start: 11/22/21 16:49 Freq: Status: Active Protocol: Document 11/24/21 12:00 AW (Rec: 11/25/21 12:54 AW [id number]) Posture Evaluation Position Standing Evaluation View Lateral Comments Posture Comments Forward head, flat lumbar spine, externally rotated hips bilaterally. PT-OP-M Strength Start: 11/22/21 16:49 Freq: Status: Active Protocol: Document 11/24/21 12:00 AW (Rec: 11/25/21 12:50 AW [id number]) Hip Strength Hip Manual Muscle Testing bilat Flexion (L2) 4+ Good+ Extension (S1) 4 Good Abduction 4+ Good+ External Rotation 4+ Good+ Internal Rotation 4+ Good+ Knee Strength Knee Manual Muscle Testing bilat Flexion (S2) 4+ Good+ Extension (L3) 5 Normal Ankle/Foot Strength Ankle and Foot Manual Muscle Testing bilat Dorsiflexion (L4) 5 Normal Comments PF tested with SL heel lift. Pt able to complete no more than 4 reps with either limb. PT-OP-O Vestibular Start: 11/22/21 16:49 Freq: Status: Active Protocol: Document 11/24/21 12:00 AW (Rec: 11/25/21 13:00 AW [id number]) Vestibular Assessment Visual Testing Smooth Pursuits Horizontal WNL Smooth Pursuits Vertical WNL Saccades Horizontal WNL Saccades Vertical WNL Gaze Evoked Nystagmus With Fixation Negative Gaze Evoked Nystagmus Without Fixation Negative Thrust Head mild lag B Cover/Uncover Test WNL Convergence Test Impaired Comments Vestibular Comments Pt reports diplopia with target ~10 from face PT-OP-Q Treatments Start: 11/22/21 16:49 Freq: Status: Active Protocol: Document 08/03/22 08:58 AW (Rec: 08/03/22 12:28 AW [id number]) Cardio Equipment Recumbent Elliptical (Biodex) Duration (Minutes) 6 Resistance 4 Seat Position 10 seen Therapeutic Exercises Sitting Exercises STS Sitting Exercise Name HEP review Equipment Used mesh chair, no UE support Reps/Minutes 2x10 reps Gait Training Gait Activity SPC Device Used SPC, 4WW, B trek poles, single trek pole Level of Assistance SBA/CGA Surface firm Treatment Focus assessment, patterning Comments Pt has great difficulty coordinating pattern with SPC and he tends to place cane too close on the side and ends up kicking it. He looks good with 4WW but states he will not use one. Bilateral trekking poles required too much mental effort. Single trekking pole was manageable and pt did not trip himself with it. Patterning was inconsistent but he did look steadier with the support. amplitude focus Description w/ 5# in ea hand Level of Assistance SBA>CGA Surface level, indoor, tile Distance/Duration laps in clinic CW, CCW Treatment Focus amplitude, arm swing, step length, upright posture w/ distant focal point Comments Amplitude decreases with added task (cog especially), LUE> RUE/ Pt requires physical orientation to direction at times. Neuro Re-Education Treatment Balance Activities tandem stance Details semi-tandem, stride stance Surface firm Equipment rail prn Comments Pt has difficulty getting into position and requires intermittent rail support to maintain Other Activities stepping exercises Details stepping exercises Comments Fwd and sideways as in BIG protocol. Used chair for UE support. Requires max cues and demonstration to coordinate movement. Self-Care/Home Management Treatment Education Caregiver Education Discussed assistive device options with , Damari, who stated they do have a trekking pole at home. PT-OP-T Assessment and Plan Start: 11/22/21 16:49 Freq: Status: Active Protocol: Document 08/03/22 08:58 AW (Rec: 08/03/22 12:28 AW [id number]) Physical Therapy Assessment Impairments Impairments Balance,Gait,Posture,Sensation ,Strength,Vestibular Goals Five Impairment functional activity limitations Impairment patient unable to get into skiff or transfer from skiff into boat Short Term Goal (STG) patient will be able to safely get into his skiff with min assist of family STG Duration 05/25/22 Senior Living Goal (LTG) Patient will be able to safely transfer from his skiff into his boat with min assist from his family LTG Duration 09/06/22 Four Impairment balance dysfunction Impairment requires assistance with SLS and tandem stand to prevent fall Senior Living Goal (LTG) Patient will be able to perform SLS for 10 sec without assistance or LOB and tandem stand for 20 seconds as measure of improved balance and safety (06/13/22: Tandem: RLE back: 20+ sec occ finger touch RUE, LLE back: 13s. LLE 11s, RLE 0s ) 06/23/22 - SLS still requires assist to get into position and support to maintain LTG Duration 09/06/22 Three Impairment balance systems integration Short Term Goal (STG) Pt will improve mCTSIB to steady 110 seconds or greater. 12/30/21: Pt scores 95/120 today (all points deducted in 4th condition) 02/16/22: not tested this date 06/23/22 Pt scores 100/120 today. STG Duration 05/25/22 PROGRESSING Senior Living Goal (LTG) Pt will walk the beach in front of his house alone and without assistive device as a measure of improved balance. 02/16/22: reports goal progress (06/13/22: Pt reports he walks in front of his house alone without an AD except when it is a crummy day and he uses a PVC pipe.) 06/23/22 - Pt states uses B trekking poles when walking the beach. LTG Duration 09/06/22 (Progressing) Two Impairment ABC score 75% [employer] Filler Goal (LTG) Pt will improve his ABC score to 85% or greater as a measure of improved self-efficacy 12/15/21: 83% confident in balance with activities listed . 02/16/22: 85%, goal met LTG Duration goal met One Impairment lacks HEP [employer] Filler Goal (LTG) Pt will be independent with HEP to improve his balance and calibration of his movement strategies 01/04/22: progressing: band walk, STS, bridge hold, TA TB KFO 02/16/22: continued progression of HEP (06/13/22: Pt enjoys doing his ex at home and does them every morning. Reviewed tandem balance, SLS, and weightshifting - added supine hip flexor stretch) LTG Duration 09/06/22 Assessment Summary Assessment Spent considerable time today trialing assistive devices. SPC was too challenging to coordinate and pt tended to trip himself. Pt looked best with 4WW but clearly stated he would not use one. He did reasonably well with single trekking pole although patterning was inconsistent. Discussed rationale for use of an assistive device to include reduced falls risk and energy conservation. Pt has follow up with neurology tomorrow to discuss MRI and EEG results. Physical Therapy Plan Frequency and Duration Frequency of Treatment 1-2x/week Plan of Care Start Date 07/06/22 Plan of Care End Date 09/06/22 Therapeutic Interventions Therapeutic Interventions Balance Training,Coordination Training,Gait Training,Home Exercise Program,Neuromuscular Re-education,Self-Care/Home Management,Therapeutic Activities,Therapeutic Exercises,Vestibular Rehabilitation Other Referrals/Consults Referrals/Consults Recommended Follow up with neurologist scheduled 08/04/22 Next Visit Focus/Plan Next Note Type Treatment Note Next Visit Plan Revisit assistive device conversation. Continue dynamic gait challenges, balance training, stairs, consider obstacle course.
--- NOTE | 2022-08-05 14:31 | PT.OTN ---
Current Diagnoses Unsteadiness on feet (08/05/22) Other abnormalities of gait and mobility (08/05/22) Weakness (08/05/22) Physical Therapy Treatment Note PT-OP-A Visit Information Start: 11/22/21 16:49 Freq: Status: Active Protocol: Document 08/05/22 11:38 NBM (Rec: 08/05/22 12:21 NBM [id number]) Out-Patient Physical Therapy Visit Information Visit Information Visit Type Treatment Note Visit Start Time 11:38 Visit Stop Time 12:18 Total Visit Minutes 50 Visit Number 28 Number of TRUST MANAGER Visits 1 PT-OP-B Current Condition Start: 11/22/21 16:49 Freq: Status: Active Protocol: Document 11/24/21 12:00 AW (Rec: 11/24/21 09:00 AW [id number]) Current Condition History of Current Condition Onset Date June 2021 Current Complaints decreased balance, falls History of Current Condition Vasile had prostatitis 10 years ago. He was treated medically and was ok. Symptoms returned last year and he had a simple open prostatectomy at last May. Since then, he reports feeling sluggish and has had dizzy spells. Recent nuc med stress test was normal . Vasile experiences heart palpitations occasionally for for 5-10 minutes at a time. He just returned a holter monitor which he wore for a month and will follow up with cardiology soon. Pt states one dizzy spell occured while driving. His was able to take the wheel. He describes it as feeling faint and disoriented and is associated with vision changes (double vision) and a build up of pressure in his head. He recently saw his eye doctor who recommended no changes to his bifocals prescription. The same sensation has caused at least two falls in the past six months. He feels a lack of confidence in his walking lately and doesn't feel comfortable walking on the beach alone. Pt also feels disoriented in crowded situations, with high levels of light, and with flashing lights. [place] lives on [facility] with his , Damari. He hopes to be able to get his ' runabout boat in the water this year but feels anxious about getting on and off the boat. Prior Treatments and Tests No prior PT. Future Testing and Treatments Planned Follow up with cardiology. Treatment Goals Patient/Caregiver Goals Increase confidence to be able to walk on the beach alone. Be able to use his boat this summer. PT-OP-C Subjective Start: 11/22/21 16:49 Freq: Status: Active Protocol: Document 08/05/22 11:38 NBM (Rec: 08/05/22 12:21 NBM [id number]) OP-PT Subjective Patient Comments Patient Comments Pt arrives with spouse Damari and they advise neurologist diagnosed w/ dementia yesterday and was advised to be physically and socially active and HR goal of ~120bpm. Spouse and children are looking into support services: on [place] they are meeting with a licensed caregiver, and they are looking into [facility] in [place] for pt to visit while spouse does errands/self-care. PT-OP-D Balance Start: 11/22/21 16:49 Freq: Status: Active Protocol: Document 11/24/21 12:00 AW (Rec: 11/25/21 12:51 AW [id number]) Balance Tests mCTSIB mCTSIB Position 1 30 mCTSIB Position 2 30 mCTSIB Position 3 25 mCTSIB Position 4 10 PT-OP-E Functional Tests Start: 11/22/21 16:49 Freq: Status: Active Protocol: Document 04/13/22 09:14 AW (Rec: 04/13/22 10:32 AW [id number]) Functional Tests Functional Gait Assessment Score 18 Functional Gait Assessment Impairment 40 to <60% Impaired (Score 13- Rating 18) PT-OP-G Mobility & Gait Start: 11/22/21 16:49 Freq: Status: Active Protocol: Document 11/24/21 12:00 AW (Rec: 11/25/21 12:50 AW [id number]) OP Gait Assessment Comments Gait Comments Pt ambulates with shortened steps and reduced arm swing ( left more affected than right) . Mild to moderate truncal rigidity evident in gait. PT-OP-J Posture/Palpation/Skin Start: 11/22/21 16:49 Freq: Status: Active Protocol: Document 11/24/21 12:00 AW (Rec: 11/25/21 12:54 AW [id number]) Posture Evaluation Position Standing Evaluation View Lateral Comments Posture Comments Forward head, flat lumbar spine, externally rotated hips bilaterally. PT-OP-M Strength Start: 11/22/21 16:49 Freq: Status: Active Protocol: Document 11/24/21 12:00 AW (Rec: 11/25/21 12:50 AW [id number]) Hip Strength Hip Manual Muscle Testing bilat Flexion (L2) 4+ Good+ Extension (S1) 4 Good Abduction 4+ Good+ External Rotation 4+ Good+ Internal Rotation 4+ Good+ Knee Strength Knee Manual Muscle Testing bilat Flexion (S2) 4+ Good+ Extension (L3) 5 Normal Ankle/Foot Strength Ankle and Foot Manual Muscle Testing bilat Dorsiflexion (L4) 5 Normal Comments PF tested with SL heel lift. Pt able to complete no more than 4 reps with either limb. PT-OP-O Vestibular Start: 11/22/21 16:49 Freq: Status: Active Protocol: Document 11/24/21 12:00 AW (Rec: 11/25/21 13:00 AW [id number]) Vestibular Assessment Visual Testing Smooth Pursuits Horizontal WNL Smooth Pursuits Vertical WNL Saccades Horizontal WNL Saccades Vertical WNL Gaze Evoked Nystagmus With Fixation Negative Gaze Evoked Nystagmus Without Fixation Negative Thrust Head mild lag B Cover/Uncover Test WNL Convergence Test Impaired Comments Vestibular Comments Pt reports diplopia with target ~10 from face PT-OP-Q Treatments Start: 11/22/21 16:49 Freq: Status: Active Protocol: Document 08/05/22 11:38 NBM (Rec: 08/05/22 12:21 NBM [id number]) Cardio Equipment Recumbent Bicycle Duration (Minutes) 6 Resistance 5 Seat Position 7>8 Other HR: 3' 96bpm, 4' 98, 6' 94bpm Gait Training Gait Activity Outdoor walking Description curbs, grass, gravel Device Used trekking pole RUE Level of Assistance CGA Surface uneven Distance/Duration 8' Treatment Focus sequencing, increasing amplitude of arm swings, stride length and hip flexi Self-Care/Home Management Treatment Education Patient Education Fall Risk,Home Exercise Program,Posture,Safety Other Education Discussed pt's new diagnosis of Dementia 08/04/21. Adjusted pt's trekking pole height to 1150, and discussed safety and fall prevention w/ 4WW versus trekking pole or SPC due to inconsistent sequencing. PT-OP-T Assessment and Plan Start: 11/22/21 16:49 Freq: Status: Active Protocol: Document 08/05/22 11:38 NBM (Rec: 08/05/22 12:21 [facility] [id number]) Physical Therapy Assessment Goals Five Impairment functional activity limitations Impairment patient unable to get into skiff or transfer from skiff into boat Short Term Goal (STG) patient will be able to safely get into his skiff with min assist of family STG Duration 05/25/22 Sales [employer] Support Center Agent Goal (LTG) Patient will be able to safely transfer from his skiff into his boat with min assist from his family LTG Duration 09/06/22 Four Impairment balance dysfunction Impairment requires assistance with SLS and tandem stand to prevent fall Senior Care Goal (LTG) Patient will be able to perform SLS for 10 sec without assistance or LOB and tandem stand for 20 seconds as measure of improved balance and safety (06/13/22: Tandem: RLE back: 20+ sec occ finger touch RUE, LLE back: 13s. LLE 11s, RLE 0s ) 06/23/22 - SLS still requires assist to get into position and support to maintain LTG Duration 09/06/22 Three Impairment balance systems integration Short Term Goal (STG) Pt will improve mCTSIB to steady 110 seconds or greater. 12/30/21: Pt scores 95/120 today (all points deducted in 4th condition) 02/16/22: not tested this date 06/23/22 Pt scores 100/120 today. STG Duration 05/25/22 PROGRESSING Sales And Support Center Agent Goal (LTG) Pt will walk the beach in front of his house alone and without assistive device as a measure of improved balance. 02/16/22: reports goal progress (06/13/22: Pt reports he walks in front of his house alone without an AD except when it is a crummy day and he uses a PVC pipe.) 06/23/22 - Pt states uses B trekking poles when walking the beach. LTG Duration 09/06/22 (Progressing) Two Impairment ABC score 75% Senior Care Goal (LTG) Pt will improve his ABC score to 85% or greater as a measure of improved self-efficacy 12/15/21: 83% confident in balance with activities listed . 02/16/22: 85%, goal met LTG Duration goal met One Impairment lacks HEP Sales And Support Center Agent Goal (LTG) Pt will be independent with HEP to improve his balance and calibration of his movement strategies 01/04/22: progressing: band walk, STS, bridge hold, TA TB KFO 02/16/22: continued progression of HEP (06/13/22: Pt enjoys doing his ex at home and does them every morning. Reviewed tandem balance, SLS, and weightshifting - added supine hip flexor stretch) LTG Duration 09/06/22 Assessment Summary Assessment Pt arrives with [employer] pole. Significant time discussing pt's new diagnosis of Dementia 08/04/21 with pt and spouse - they are in the process of hiring a caregiver for pt. Discussed safety and fall prevention w/ 4WW versus trekking pole or SPC due to inconsistent sequencing. Adjusted pt's trekking pole height to 1150 and walked outside w/ trekking pole in RUE with focus and cues for sequencing and amplitude of arm swing, stride length, hip flexion, and upright posture. Physical Therapy Plan Frequency and Duration Frequency of Treatment 1-2x/week Plan of Care Start Date 07/06/22 Plan of Care End Date 09/06/22 Therapeutic Interventions Therapeutic Interventions Balance Training,Coordination Training,Gait Training,Home Exercise Program,Neuromuscular Re-education,Self-Care/Home Management,Therapeutic Activities,Therapeutic Exercises,Vestibular Rehabilitation Next Visit Focus/Plan Next Note Type Treatment Note Next Visit Plan Revisit assistive device conversation. Continue dynamic gait challenges, balance training, stairs, consider obstacle course.
--- NOTE | 2022-08-10 16:02 | PT.OTN ---
Current Diagnoses Unsteadiness on feet (08/10/22) Other abnormalities of gait and mobility (08/10/22) Weakness (08/10/22) Physical Therapy Treatment Note PT-OP-A Visit Information Start: 11/22/21 16:49 Freq: Status: Active Protocol: Document 08/10/22 15:26 AMB (Rec: 08/10/22 16:02 AMB [id number]) Out-Patient Physical Therapy Visit Information Visit Information Visit Type Treatment Note Visit Start Time 14:30 Visit Stop Time 15:15 Total Visit Minutes 40 Visit Number 30 Number of MANAGER BILLING Visits 0 PT-OP-B Current Condition Start: 11/22/21 16:49 Freq: Status: Active Protocol: Document 11/24/21 12:00 AW (Rec: 11/24/21 09:00 AW [id number]) Current Condition History of Current Condition Onset Date June 2021 Current Complaints decreased balance, falls History of Current Condition Vasile had prostatitis 10 years ago. He was treated medically and was ok. Symptoms returned last year and he had a simple open prostatectomy at last May. Since then, he reports feeling sluggish and has had dizzy spells. Recent nuc med stress test was normal . Vasile experiences heart palpitations occasionally for for 5-10 minutes at a time. He just returned a holter monitor which he wore for a month and will follow up with cardiology soon. Pt states one dizzy spell occured while driving. His was able to take the wheel. He describes it as feeling faint and disoriented and is associated with vision changes (double vision) and a build up of pressure in his head. He recently saw his eye doctor who recommended no changes to his bifocals prescription. The same sensation has caused at least two falls in the past six months. He feels a lack of confidence in his walking lately and doesn't feel comfortable walking on the beach alone. Pt also feels disoriented in crowded situations, with high levels of light, and with flashing lights. [place] lives on [facility] with his , Damari. He hopes to be able to get his 23' runabout boat in the water this year but feels anxious about getting on and off the boat. Prior Treatments and Tests No prior PT. Future Testing and Treatments Planned Follow up with cardiology. Treatment Goals Patient/Caregiver Goals Increase confidence to be able to walk on the beach alone. Be able to use his boat this summer. PT-OP-C Subjective Start: 11/22/21 16:49 Freq: Status: Active Protocol: Document 08/10/22 15:26 AMB (Rec: 08/10/22 16:02 AMB [id number]) OP-PT Subjective Patient Comments Patient Comments Pt arrives with and brings trekking poles and 2 #3 weights. PT-OP-D Balance Start: 11/22/21 16:49 Freq: Status: Active Protocol: Document 11/24/21 12:00 AW (Rec: 11/25/21 12:51 AW [id number]) Balance Tests mCTSIB mCTSIB Position 1 30 mCTSIB Position 2 30 mCTSIB Position 3 25 mCTSIB Position 4 10 PT-OP-E Functional Tests Start: 11/22/21 16:49 Freq: Status: Active Protocol: Document 04/13/22 09:14 AW (Rec: 04/13/22 10:32 AW [id number]) Functional Tests Functional Gait Assessment Score 18 Functional Gait Assessment Impairment 40 to <60% Impaired (Score 13- Rating 18) PT-OP-G Mobility & Gait Start: 11/22/21 16:49 Freq: Status: Active Protocol: Document 11/24/21 12:00 AW (Rec: 11/25/21 12:50 AW [id number]) OP Gait Assessment Comments Gait Comments Pt ambulates with shortened steps and reduced arm swing ( left more affected than right) . Mild to moderate truncal rigidity evident in gait. PT-OP-J Posture/Palpation/Skin Start: 11/22/21 16:49 Freq: Status: Active Protocol: Document 11/24/21 12:00 AW (Rec: 11/25/21 12:54 AW [id number]) Posture Evaluation Position Standing Evaluation View Lateral Comments Posture Comments Forward head, flat lumbar spine, externally rotated hips bilaterally. PT-OP-M Strength Start: 11/22/21 16:49 Freq: Status: Active Protocol: Document 11/24/21 12:00 AW (Rec: 11/25/21 12:50 AW [id number]) Hip Strength Hip Manual Muscle Testing bilat Flexion (L2) 4+ Good+ Extension (S1) 4 Good Abduction 4+ Good+ External Rotation 4+ Good+ Internal Rotation 4+ Good+ Knee Strength Knee Manual Muscle Testing bilat Flexion (S2) 4+ Good+ Extension (L3) 5 Normal Ankle/Foot Strength Ankle and Foot Manual Muscle Testing bilat Dorsiflexion (L4) 5 Normal Comments PF tested with SL heel lift. Pt able to complete no more than 4 reps with either limb. PT-OP-O Vestibular Start: 11/22/21 16:49 Freq: Status: Active Protocol: Document 11/24/21 12:00 AW (Rec: 11/25/21 13:00 AW [id number]) Vestibular Assessment Visual Testing Smooth Pursuits Horizontal WNL Smooth Pursuits Vertical WNL Saccades Horizontal WNL Saccades Vertical WNL Gaze Evoked Nystagmus With Fixation Negative Gaze Evoked Nystagmus Without Fixation Negative Thrust Head mild lag B Cover/Uncover Test WNL Convergence Test Impaired Comments Vestibular Comments Pt reports diplopia with target ~10 from face PT-OP-Q Treatments Start: 11/22/21 16:49 Freq: Status: Active Protocol: Document 08/10/22 15:26 AMB (Rec: 08/10/22 16:02 AMB [id number]) Gait Training Gait Activity stairs Description stairs Device Used uni rail Level of Assistance SBA Surface 4 steps, Distance/Duration 5 reps each height Comments Pt tends to tap down with leading foot descending before fully shifting weight forward . He reports improving confidence with prism glasses. amplitude focus Device Used Bilateral trekking poles Level of Assistance SBA>CGA Surface level, indoor, tile Distance/Duration laps in clinic Treatment Focus sequencing and amplitude, arm swing, step length Comments Pt requires verbal instruction for pathfinding. Challenged by reciprocal arm movement when using bilateral trekking poles..Adjusted height of poles Hurdles Level of Assistance CGA- Min A Distance/Duration 6 hurdles Treatment Focus increasing step height, posture, focal point Comments pt did have one LOB that he was able to independly recover from Neuro Re-Education Treatment Balance Activities tandem stance Details semi-tandem, stride stance Surface firm Equipment rail prn Comments Pt has difficulty getting into position and requires intermittent rail support to maintain Coordination Activities Rock and reach Details fwd (netta to BIG exercise) Equipment // bars Reps/Duration 10 minutes Comments UE reciprocation challenging 3# added to each LUE w/ fwd for improved reciprocal arm swing w/ weight shifting PT-OP-T Assessment and Plan Start: 11/22/21 16:49 Freq: Status: Active Protocol: Document 08/10/22 15:26 AMB (Rec: 08/10/22 16:02 AMB [id number]) Physical Therapy Assessment Goals Five Impairment functional activity limitations Impairment patient unable to get into skiff or transfer from skiff into boat Short Term Goal (STG) patient will be able to safely get into his skiff with min assist of family STG Duration 05/25/22 Longterm Goal (LTG) Patient will be able to safely transfer from his skiff into his boat with min assist from his family LTG Duration 09/06/22 Four Impairment balance dysfunction Impairment requires assistance with SLS and tandem stand to prevent fall Longterm Goal (LTG) Patient will be able to perform SLS for 10 sec without assistance or LOB and tandem stand for 20 seconds as measure of improved balance and safety (06/13/22: Tandem: RLE back: 20+ sec occ finger touch RUE, LLE back: 13s. LLE 11s, RLE 0s ) 06/23/22 - SLS still requires assist to get into position and support to maintain LTG Duration 09/06/22 Three Impairment balance systems integration Short Term Goal (STG) Pt will improve mCTSIB to steady 110 seconds or greater. 12/30/21: Pt scores 95/120 today (all points deducted in 4th condition) 02/16/22: not tested this date 06/23/22 Pt scores 100/120 today. STG Duration 05/25/22 PROGRESSING Neon Tube Bender Goal (LTG) Pt will walk the beach in front of his house alone and without assistive device as a measure of improved balance. 02/16/22: reports goal progress (06/13/22: Pt reports he walks in front of his house alone without an AD except when it is a crummy day and he uses a PVC pipe.) 06/23/22 - Pt states uses B trekking poles when walking the beach. LTG Duration 09/06/22 (Progressing) Two Impairment ABC score 75% Neon Tube Bender Goal (LTG) Pt will improve his ABC score to 85% or greater as a measure of improved self-efficacy 12/15/21: 83% confident in balance with activities listed . 02/16/22: 85%, goal met LTG Duration goal met One Impairment lacks HEP Longterm Goal (LTG) Pt will be independent with HEP to improve his balance and calibration of his movement strategies 01/04/22: progressing: band walk, STS, bridge hold, TA TB KFO 02/16/22: continued progression of HEP (06/13/22: Pt enjoys doing his ex at home and does them every morning. Reviewed tandem balance, SLS, and weightshifting - added supine hip flexor stretch) LTG Duration 09/06/22 Assessment Summary Assessment Treatment focused on trekking pole gait (pt struggled with recipriocal arm movement, better with weights). Pt felt like he is having a good day today. when asked more about recent dementia diagnosis pt says moderate but does not offer type. Stairs and jerome were difficult. Pt did ask if he could leave trekking poles here, so question if pt fully understands point of trekking poles. Physical Therapy Plan Frequency and Duration Frequency of Treatment 1-2x/week Plan of Care Start Date 07/06/22 Plan of Care End Date 09/06/22 Therapeutic Interventions Therapeutic Interventions Balance Training,Coordination Training,Gait Training,Home Exercise Program,Neuromuscular Re-education,Self-Care/Home Management,Therapeutic Activities,Therapeutic Exercises,Vestibular Rehabilitation Next Visit Focus/Plan Next Note Type Treatment Note Next Visit Plan Revisit assistive device conversation. Continue dynamic gait challenges, balance training, stairs, consider obstacle course.
--- NOTE | 2022-08-22 12:34 | PT.OTN ---
Current Diagnoses Unsteadiness on feet (08/22/22) Other abnormalities of gait and mobility (08/22/22) Weakness (08/22/22) Physical Therapy Treatment Note PT-OP-A Visit Information Start: 11/22/21 16:49 Freq: Status: Active Protocol: Document 08/22/22 10:38 NBM (Rec: 08/22/22 12:33 NBM [id number]) Out-Patient Physical Therapy Visit Information Visit Information Visit Type Treatment Note Visit Start Time 10:31 Visit Stop Time 11:17 Total Visit Minutes 47 Visit Number 31 Number of EDGING MACHINE OPERATOR Visits 1 PT-OP-B Current Condition Start: 11/22/21 16:49 Freq: Status: Active Protocol: Document 11/24/21 12:00 AW (Rec: 11/24/21 09:00 AW [id number]) Current Condition History of Current Condition Onset Date June 2021 Current Complaints decreased balance, falls History of Current Condition Vasile had prostatitis 10 years ago. He was treated medically and was ok. Symptoms returned last year and he had a simple open prostatectomy at last May. Since then, he reports feeling sluggish and has had dizzy spells. Recent nuc med stress test was normal . Vasile experiences heart palpitations occasionally for for 5-10 minutes at a time. He just returned a holter monitor which he wore for a month and will follow up with cardiology soon. Pt states one dizzy spell occured while driving. His was able to take the wheel. He describes it as feeling faint and disoriented and is associated with vision changes (double vision) and a build up of pressure in his head. He recently saw his eye doctor who recommended no changes to his bifocals prescription. The same sensation has caused at least two falls in the past six months. He feels a lack of confidence in his walking lately and doesn't feel comfortable walking on the beach alone. Pt also feels disoriented in crowded situations, with high levels of light, and with flashing lights. [place] lives on [facility] with his , Damari. He hopes to be able to get his 23' runabout boat in the water this year but feels anxious about getting on and off the boat. Prior Treatments and Tests No prior PT. Future Testing and Treatments Planned Follow up with cardiology. Treatment Goals Patient/Caregiver Goals Increase confidence to be able to walk on the beach alone. Be able to use his boat this summer. PT-OP-C Subjective Start: 11/22/21 16:49 Freq: Status: Active Protocol: Document 08/22/22 10:38 NBM (Rec: 08/22/22 12:33 NBM [id number]) OP-PT Subjective Patient Comments Patient Comments Pt arrives with Damari and brings trekking poles and 2 #3 weights. Spouse reports they have a caregiver certified in dementia care. not present for session. Pt reports he had made an indoor and out route to practice with trekking poles. He reports he struggles to coordinate them. I was fooling around with my trekking poles so much the other day I got a cramp in my hamstring. Pt states in [employer] was cue for big arm swing in [employer]. PT-OP-D Balance Start: 11/22/21 16:49 Freq: Status: Active Protocol: Document 11/24/21 12:00 AW (Rec: 11/25/21 12:51 AW [id number]) Balance Tests mCTSIB mCTSIB Position 1 30 mCTSIB Position 2 30 mCTSIB Position 3 25 mCTSIB Position 4 10 PT-OP-E Functional Tests Start: 11/22/21 16:49 Freq: Status: Active Protocol: Document 04/13/22 09:14 AW (Rec: 04/13/22 10:32 AW [id number]) Functional Tests Functional Gait Assessment Score 18 Functional Gait Assessment Impairment 40 to <60% Impaired (Score 13- Rating 18) PT-OP-G Mobility & Gait Start: 11/22/21 16:49 Freq: Status: Active Protocol: Document 11/24/21 12:00 AW (Rec: 11/25/21 12:50 AW [id number]) OP Gait Assessment Comments Gait Comments Pt ambulates with shortened steps and reduced arm swing ( left more affected than right) . Mild to moderate truncal rigidity evident in gait. PT-OP-J Posture/Palpation/Skin Start: 11/22/21 16:49 Freq: Status: Active Protocol: Document 11/24/21 12:00 AW (Rec: 11/25/21 12:54 AW [id number]) Posture Evaluation Position Standing Evaluation View Lateral Comments Posture Comments Forward head, flat lumbar spine, externally rotated hips bilaterally. PT-OP-M Strength Start: 11/22/21 16:49 Freq: Status: Active Protocol: Document 11/24/21 12:00 AW (Rec: 11/25/21 12:50 AW [id number]) Hip Strength Hip Manual Muscle Testing bilat Flexion (L2) 4+ Good+ Extension (S1) 4 Good Abduction 4+ Good+ External Rotation 4+ Good+ Internal Rotation 4+ Good+ Knee Strength Knee Manual Muscle Testing bilat Flexion (S2) 4+ Good+ Extension (L3) 5 Normal Ankle/Foot Strength Ankle and Foot Manual Muscle Testing bilat Dorsiflexion (L4) 5 Normal Comments PF tested with SL heel lift. Pt able to complete no more than 4 reps with either limb. PT-OP-O Vestibular Start: 11/22/21 16:49 Freq: Status: Active Protocol: Document 11/24/21 12:00 AW (Rec: 11/25/21 13:00 AW [id number]) Vestibular Assessment Visual Testing Smooth Pursuits Horizontal WNL Smooth Pursuits Vertical WNL Saccades Horizontal WNL Saccades Vertical WNL Gaze Evoked Nystagmus With Fixation Negative Gaze Evoked Nystagmus Without Fixation Negative Thrust Head mild lag B Cover/Uncover Test WNL Convergence Test Impaired Comments Vestibular Comments Pt reports diplopia with target ~10 from face PT-OP-Q Treatments Start: 11/22/21 16:49 Freq: Status: Active Protocol: Document 08/22/22 10:38 NBM (Rec: 08/22/22 12:33 NBM [id number]) Cardio Equipment Recumbent Bicycle Duration (Minutes) 8 Resistance 5 Seat Position 8 Other HR: 7' 92 bpm Therapeutic Exercises Supine Exercises Bug Supine Exercise Name ipsi and contralateral UE/LE sequencing Side bilateral Reps/Minutes 2 min Comments max>mod cues for sequencing Hamstring stretch Side bilateral Equipment Used w/ strap Reps/Minutes 30s ea Comments cues for form Hip flexor stretch Supine Exercise Name Brooks position Side bilateral Equipment Used hi-lo table Reps/Minutes x60s ea Comments vc for PPT w/ stretch - resolves low back discomfort Prone Exercises review HEP prone Prone Exercise Name cat/camel, child's pose Reps/Minutes x8 reps, cues for rounded back /tuck tailbone w/ each rep. Other Exercises sit to stand Other Exercise Name sit to stand Reps/Minutes x10 Comments focused on slow eccentric w/ 5s countdown Gait Training Gait Activity amplitude focus Device Used Bilateral trekking poles; 3# weights Level of Assistance SBA>CGA Surface level, indoor, tile Distance/Duration laps in clinic Treatment Focus sequencing and amplitude, arm swing, step length Comments Pt requires verbal instruction for pathfinding. Challenged by reciprocal arm movement when using bilateral trekking poles. Improved reciprocal arm swing w/ 3# weights w/ improved amplitude - verbal [employer] cues of 9 to the front, 6 to the rear and BIG to help w/ arm swing amplitude and step length. PT-OP-T Assessment and Plan Start: 11/22/21 16:49 Freq: Status: Active Protocol: Document 08/22/22 10:38 [facility] (Rec: 08/22/22 12:33 [facility] [id number]) Physical Therapy Assessment Impairments Impairments Balance,Gait,Posture,Sensation ,Strength,Vestibular Goals Five Impairment functional activity limitations Impairment patient unable to get into skiff or transfer from skiff into boat Short Term Goal (STG) patient will be able to safely get into his skiff with min assist of family STG Duration 05/25/22 Cattle Rancher Goal (LTG) Patient will be able to safely transfer from his skiff into his boat with min assist from his family LTG Duration 09/06/22 Four Impairment balance dysfunction Impairment requires assistance with SLS and tandem stand to prevent fall Cattle Rancher Goal (LTG) Patient will be able to perform SLS for 10 sec without assistance or LOB and tandem stand for 20 seconds as measure of improved balance and safety (06/13/22: Tandem: RLE back: 20+ sec occ finger touch RUE, LLE back: 13s. LLE 11s, RLE 0s ) 06/23/22 - SLS still requires assist to get into position and support to maintain LTG Duration 09/06/22 Three Impairment balance systems integration Short Term Goal (STG) Pt will improve mCTSIB to steady 110 seconds or greater. 12/30/21: Pt scores 95/120 today (all points deducted in 4th condition) 02/16/22: not tested this date 06/23/22 Pt scores 100/120 today. STG Duration 05/25/22 PROGRESSING Cattle Rancher Goal (LTG) Pt will walk the beach in front of his house alone and without assistive device as a measure of improved balance. 02/16/22: reports goal progress (06/13/22: Pt reports he walks in front of his house alone without an AD except when it is a crummy day and he uses a PVC pipe.) 06/23/22 - Pt states uses B trekking poles when walking the beach. LTG Duration 09/06/22 (Progressing) Two Impairment ABC score 75% Jail Goal (LTG) Pt will improve his ABC score to 85% or greater as a measure of improved self-efficacy 12/15/21: 83% confident in balance with activities listed . 02/16/22: 85%, goal met LTG Duration goal met One Impairment lacks HEP Jail Goal (LTG) Pt will be independent with HEP to improve his balance and calibration of his movement strategies 01/04/22: progressing: band walk, STS, bridge hold, TA TB KFO 02/16/22: continued progression of HEP (06/13/22: Pt enjoys doing his ex at home and does them every morning. Reviewed tandem balance, SLS, and weightshifting - added supine hip flexor stretch) LTG Duration 09/06/22 Assessment Summary Assessment Treatment focus on stretching HEP and reciprocal movement w/ gait. Pt requires verbal instruction for pathfinding. Challenged by reciprocal arm movement when using bilateral trekking poles. Improved reciprocal arm swing w/ 3# weights w/ improved amplitude - verbal [employer] cues of 9 to the front, 6 to the rear and BIG to help w/ arm swing amplitude and step length. Good feedback response to HS and hip flexor stretching. With Sit to Stand pt needs cues for slow eccentric motion w/ 5s countdown. Physical Therapy Plan Frequency and Duration Frequency of Treatment 1-2x/week Plan of Care Start Date 07/06/22 Plan of Care End Date 09/06/22 Therapeutic Interventions Therapeutic Interventions Balance Training,Coordination Training,Gait Training,Home Exercise Program,Neuromuscular Re-education,Self-Care/Home Management,Therapeutic Activities,Therapeutic Exercises,Vestibular Rehabilitation Other Referrals/Consults Referrals/Consults Recommended Follow up with neurologist scheduled 08/04/22 Next Visit Focus/Plan Next Note Type Treatment Note Next Visit Plan Revisit assistive device conversation. Continue dynamic gait challenges, balance training, stairs, consider obstacle course.
--- NOTE | 2022-08-26 16:42 | PT.OTN ---
Current Diagnoses Unsteadiness on feet (08/25/22) Other abnormalities of gait and mobility (08/25/22) Weakness (08/25/22) Physical Therapy Treatment Note PT-OP-A Visit Information Start: 11/22/21 16:49 Freq: Status: Active Protocol: Document 08/25/22 13:00 TH (Rec: 08/26/22 16:40 TH [id number]) Out-Patient Physical Therapy Visit Information Visit Information Visit Type Treatment Note Visit Start Time 13:00 Visit Stop Time 14:15 Total Visit Minutes 45 Visit Number 31 Number of WETLANDS TECHNICIAN Visits 0 Precautions Precautions Fall risk PT-OP-B Current Condition Start: 11/22/21 16:49 Freq: Status: Active Protocol: Document 11/24/21 12:00 AW (Rec: 11/24/21 09:00 AW [id number]) Current Condition History of Current Condition Onset Date June 2021 Current Complaints decreased balance, falls History of Current Condition Vasile had prostatitis 10 years ago. He was treated medically and was ok. Symptoms returned last year and he had a simple open prostatectomy at last May. Since then, he reports feeling sluggish and has had dizzy spells. Recent nuc med stress test was normal . Vasile experiences heart palpitations occasionally for for 5-10 minutes at a time. He just returned a holter monitor which he wore for a month and will follow up with cardiology soon. Pt states one dizzy spell occured while driving. His was able to take the wheel. He describes it as feeling faint and disoriented and is associated with vision changes (double vision) and a build up of pressure in his head. He recently saw his eye doctor who recommended no changes to his bifocals prescription. The same sensation has caused at least two falls in the past six months. He feels a lack of confidence in his walking lately and doesn't feel comfortable walking on the beach alone. Pt also feels disoriented in crowded situations, with high levels of light, and with flashing lights. [place] lives on [facility] with his , Damari. He hopes to be able to get his 23' runabout boat in the water this year but feels anxious about getting on and off the boat. Prior Treatments and Tests No prior PT. Future Testing and Treatments Planned Follow up with cardiology. Treatment Goals Patient/Caregiver Goals Increase confidence to be able to walk on the beach alone. Be able to use his boat this summer. PT-OP-C Subjective Start: 11/22/21 16:49 Freq: Status: Active Protocol: Document 08/25/22 13:00 TH (Rec: 08/26/22 16:40 TH [id number]) OP-PT Subjective Patient Comments Patient Comments Pt states that his left LE was pretty sore and cramped up after last Rx. Stating he felt he over did it. Patient Reported Progress Improving PT-OP-D Balance Start: 11/22/21 16:49 Freq: Status: Active Protocol: Document 11/24/21 12:00 AW (Rec: 11/25/21 12:51 AW [id number]) Balance Tests mCTSIB mCTSIB Position 1 30 mCTSIB Position 2 30 mCTSIB Position 3 25 mCTSIB Position 4 10 PT-OP-E Functional Tests Start: 11/22/21 16:49 Freq: Status: Active Protocol: Document 04/13/22 09:14 AW (Rec: 04/13/22 10:32 AW [id number]) Functional Tests Functional Gait Assessment Score 18 Functional Gait Assessment Impairment 40 to <60% Impaired (Score 13- Rating 18) PT-OP-G Mobility & Gait Start: 11/22/21 16:49 Freq: Status: Active Protocol: Document 11/24/21 12:00 AW (Rec: 11/25/21 12:50 AW [id number]) OP Gait Assessment Comments Gait Comments Pt ambulates with shortened steps and reduced arm swing ( left more affected than right) . Mild to moderate truncal rigidity evident in gait. PT-OP-J Posture/Palpation/Skin Start: 11/22/21 16:49 Freq: Status: Active Protocol: Document 11/24/21 12:00 AW (Rec: 11/25/21 12:54 AW [id number]) Posture Evaluation Position Standing Evaluation View Lateral Comments Posture Comments Forward head, flat lumbar spine, externally rotated hips bilaterally. PT-OP-M Strength Start: 11/22/21 16:49 Freq: Status: Active Protocol: Document 11/24/21 12:00 AW (Rec: 11/25/21 12:50 AW [id number]) Hip Strength Hip Manual Muscle Testing bilat Flexion (L2) 4+ Good+ Extension (S1) 4 Good Abduction 4+ Good+ External Rotation 4+ Good+ Internal Rotation 4+ Good+ Knee Strength Knee Manual Muscle Testing bilat Flexion (S2) 4+ Good+ Extension (L3) 5 Normal Ankle/Foot Strength Ankle and Foot Manual Muscle Testing bilat Dorsiflexion (L4) 5 Normal Comments PF tested with SL heel lift. Pt able to complete no more than 4 reps with either limb. PT-OP-O Vestibular Start: 11/22/21 16:49 Freq: Status: Active Protocol: Document 11/24/21 12:00 AW (Rec: 11/25/21 13:00 AW [id number]) Vestibular Assessment Visual Testing Smooth Pursuits Horizontal WNL Smooth Pursuits Vertical WNL Saccades Horizontal WNL Saccades Vertical WNL Gaze Evoked Nystagmus With Fixation Negative Gaze Evoked Nystagmus Without Fixation Negative Thrust Head mild lag B Cover/Uncover Test WNL Convergence Test Impaired Comments Vestibular Comments Pt reports diplopia with target ~10 from face PT-OP-Q Treatments Start: 11/22/21 16:49 Freq: Status: Active Protocol: Document 08/25/22 13:00 TH (Rec: 08/26/22 16:40 TH [id number]) Gait Training Gait Activity Parallel bars Comments Focus on step length and equal weight shift Manual Therapy Treatment Manual Techniques Manual Body Position Supine Comments Manual stretches: -left hamstring -left hip flexor with massage roller to quads/tfl -left piriformis Neuro Re-Education Treatment Balance Activities Foam Comments Weight shifting r/l LE to improve weight shifting onto left LE PT-OP-T Assessment and Plan Start: 11/22/21 16:49 Freq: Status: Active Protocol: Document 08/25/22 13:00 TH (Rec: 08/26/22 16:40 TH [id number]) Physical Therapy Assessment Goals Five Impairment functional activity limitations Impairment patient unable to get into skiff or transfer from skiff into boat Short Term Goal (STG) patient will be able to safely get into his skiff with min assist of family STG Duration 05/25/22 Electrical Intern Goal (LTG) Patient will be able to safely transfer from his skiff into his boat with min assist from his family LTG Duration 09/06/22 Four Impairment balance dysfunction Impairment requires assistance with SLS and tandem stand to prevent fall Prison Goal (LTG) Patient will be able to perform SLS for 10 sec without assistance or LOB and tandem stand for 20 seconds as measure of improved balance and safety (06/13/22: Tandem: RLE back: 20+ sec occ finger touch RUE, LLE back: 13s. LLE 11s, RLE 0s ) 06/23/22 - SLS still requires assist to get into position and support to maintain LTG Duration 09/06/22 Three Impairment balance systems integration Short Term Goal (STG) Pt will improve mCTSIB to steady 110 seconds or greater. 12/30/21: Pt scores 95/120 today (all points deducted in 4th condition) 02/16/22: not tested this date 06/23/22 Pt scores 100/120 today. STG Duration 05/25/22 PROGRESSING Prison Goal (LTG) Pt will walk the beach in front of his house alone and without assistive device as a measure of improved balance. 02/16/22: reports goal progress (06/13/22: Pt reports he walks in front of his house alone without an AD except when it is a crummy day and he uses a PVC pipe.) 06/23/22 - Pt states uses B trekking poles when walking the beach. LTG Duration 09/06/22 (Progressing) Two Impairment ABC score 75% Prison Goal (LTG) Pt will improve his ABC score to 85% or greater as a measure of improved self-efficacy 12/15/21: 83% confident in balance with activities listed . 02/16/22: 85%, goal met LTG Duration goal met One Impairment lacks HEP Prison Goal (LTG) Pt will be independent with HEP to improve his balance and calibration of his movement strategies 01/04/22: progressing: band walk, STS, bridge hold, TA TB KFO 02/16/22: continued progression of HEP (06/13/22: Pt enjoys doing his ex at home and does them every morning. Reviewed tandem balance, SLS, and weightshifting - added supine hip flexor stretch) LTG Duration 09/06/22 Assessment Summary Assessment Noted L LE hamstrings, ir rotators and hip flexor tight leading to posterior rotation of left hip and trunk especially when ambulating. Pt responded well to stretching and noted imrpovement in spinal alignment. Physical Therapy Plan Frequency and Duration Frequency of Treatment 1-2x/week Plan of Care Start Date 07/06/22 Plan of Care End Date 09/06/22 Therapeutic Interventions Therapeutic Interventions Balance Training,Coordination Training,Gait Training,Home Exercise Program,Neuromuscular Re-education,Self-Care/Home Management,Therapeutic Activities,Therapeutic Exercises,Vestibular Rehabilitation Next Visit Focus/Plan Next Note Type Treatment Note Next Visit Plan Revisit assistive device conversation. Continue dynamic gait challenges, balance training, stairs, consider obstacle course.
--- NOTE | 2022-08-31 15:58 | PT.OPPN ---
Current Diagnoses Unsteadiness on feet (08/31/22) Other abnormalities of gait and mobility (08/31/22) Weakness (08/31/22) Physical Therapy Progress Note PT-OP-A Visit Information Start: 11/22/21 16:49 Freq: Status: Active Protocol: Document 08/31/22 13:53 TH (Rec: 08/31/22 15:58 TH [id number]) Out-Patient Physical Therapy Visit Information Visit Information Visit Type Progress Note Visit Start Time 13:00 Visit Stop Time 13:45 Total Visit Minutes 45 Visit Number 32 Number of ENVIRONMENTAL REMEDIATION SPECIALIST Visits 1 PT-OP-B Current Condition Start: 11/22/21 16:49 Freq: Status: Active Protocol: Document 11/24/21 12:00 AW (Rec: 11/24/21 09:00 AW [id number]) Current Condition History of Current Condition Onset Date June 2021 Current Complaints decreased balance, falls History of Current Condition Vasile had prostatitis 10 years ago. He was treated medically and was ok. Symptoms returned last year and he had a simple open prostatectomy at last May. Since then, he reports feeling sluggish and has had dizzy spells. Recent nuc med stress test was normal . Vasile experiences heart palpitations occasionally for for 5-10 minutes at a time. He just returned a holter monitor which he wore for a month and will follow up with cardiology soon. Pt states one dizzy spell occured while driving. His was able to take the wheel. He describes it as feeling faint and disoriented and is associated with vision changes (double vision) and a build up of pressure in his head. He recently saw his eye doctor who recommended no changes to his bifocals prescription. The same sensation has caused at least two falls in the past six months. He feels a lack of confidence in his walking lately and doesn't feel comfortable walking on the beach alone. Pt also feels disoriented in crowded situations, with high levels of light, and with flashing lights. [place] lives on [facility] with his , Damari. He hopes to be able to get his 23' runabout boat in the water this year but feels anxious about getting on and off the boat. Prior Treatments and Tests No prior PT. Future Testing and Treatments Planned Follow up with cardiology. Treatment Goals Patient/Caregiver Goals Increase confidence to be able to walk on the beach alone. Be able to use his boat this summer. PT-OP-C Subjective Start: 11/22/21 16:49 Freq: Status: Active Protocol: Document 08/25/22 13:00 TH (Rec: 08/26/22 16:40 TH [id number]) OP-PT Subjective Patient Comments Patient Comments Pt states that his left LE was pretty sore and cramped up after last Rx. Stating he felt he over did it. Patient Reported Progress Improving PT-OP-D Balance Start: 11/22/21 16:49 Freq: Status: Active Protocol: Document 08/31/22 13:53 TH (Rec: 08/31/22 15:58 TH [id number]) Balance Tests mCTSIB mCTSIB Position 1 30 mCTSIB Position 2 30 mCTSIB Position 3 25 mCTSIB Position 4 20 PT-OP-E Functional Tests Start: 11/22/21 16:49 Freq: Status: Active Protocol: Document 04/13/22 09:14 AW (Rec: 04/13/22 10:32 AW [id number]) Functional Tests Functional Gait Assessment Score 18 Functional Gait Assessment Impairment 40 to <60% Impaired (Score 13- Rating 18) PT-OP-G Mobility & Gait Start: 11/22/21 16:49 Freq: Status: Active Protocol: Document 11/24/21 12:00 AW (Rec: 11/25/21 12:50 AW [id number]) OP Gait Assessment Comments Gait Comments Pt ambulates with shortened steps and reduced arm swing ( left more affected than right) . Mild to moderate truncal rigidity evident in gait. PT-OP-J Posture/Palpation/Skin Start: 11/22/21 16:49 Freq: Status: Active Protocol: Document 11/24/21 12:00 AW (Rec: 11/25/21 12:54 AW [id number]) Posture Evaluation Position Standing Evaluation View Lateral Comments Posture Comments Forward head, flat lumbar spine, externally rotated hips bilaterally. PT-OP-M Strength Start: 11/22/21 16:49 Freq: Status: Active Protocol: Document 11/24/21 12:00 AW (Rec: 11/25/21 12:50 AW [id number]) Hip Strength Hip Manual Muscle Testing bilat Flexion (L2) 4+ Good+ Extension (S1) 4 Good Abduction 4+ Good+ External Rotation 4+ Good+ Internal Rotation 4+ Good+ Knee Strength Knee Manual Muscle Testing bilat Flexion (S2) 4+ Good+ Extension (L3) 5 Normal Ankle/Foot Strength Ankle and Foot Manual Muscle Testing bilat Dorsiflexion (L4) 5 Normal Comments PF tested with SL heel lift. Pt able to complete no more than 4 reps with either limb. PT-OP-O Vestibular Start: 11/22/21 16:49 Freq: Status: Active Protocol: Document 11/24/21 12:00 AW (Rec: 11/25/21 13:00 AW [id number]) Vestibular Assessment Visual Testing Smooth Pursuits Horizontal WNL Smooth Pursuits Vertical WNL Saccades Horizontal WNL Saccades Vertical WNL Gaze Evoked Nystagmus With Fixation Negative Gaze Evoked Nystagmus Without Fixation Negative Thrust Head mild lag B Cover/Uncover Test WNL Convergence Test Impaired Comments Vestibular Comments Pt reports diplopia with target ~10 from face PT-OP-T Assessment and Plan Start: 11/22/21 16:49 Freq: Status: Active Protocol: Document 08/31/22 13:53 TH (Rec: 08/31/22 15:58 TH [id number]) Physical Therapy Assessment Goals Five Impairment functional activity limitations Impairment patient unable to get into skiff or transfer from skiff into boat Short Term Goal (STG) patient will be able to safely get into his skiff with min assist of family Not Met STG Duration 10/12/22 Penitentiary Goal (LTG) Patient will be able to safely transfer from his skiff into his boat with min assist from his family Not Met LTG Duration 11/17/22 Four Impairment balance dysfunction Impairment requires assistance with SLS and tandem stand to prevent fall Penitentiary Goal (LTG) Patient will be able to perform SLS for 10 sec without assistance or LOB and tandem stand for 20 seconds as measure of improved balance and safety (06/13/22: Tandem: RLE back: 20+ sec occ finger touch RUE, LLE back: 13s. LLE 11s, RLE 0s ) 06/23/22 - SLS still requires assist to get into position and support to maintain Progressing LTG Duration 11/17/22 Three Impairment balance systems integration Short Term Goal (STG) Pt will improve mCTSIB to steady 110 seconds or greater. 12/30/21: Pt scores 95/120 today (all points deducted in 4th condition) 02/16/22: not tested this date 06/23/22 Pt scores 100/120 today. STG Duration 10/12/22 PROGRESSING Hardware Technician Goal (LTG) Pt will walk the beach in front of his house alone and without assistive device as a measure of improved balance. 08/31/22 reports goal progress on even terrain with one trekking pole (06/13/22: Pt reports he walks in front of his house alone without an AD except when it is a crummy day and he uses a PVC pipe.) 06/23/22 - Pt states uses B trekking poles when walking the beach. LTG Duration 11/17/22 (Progressing) Two Impairment ABC score 75% Hardware Technician Goal (LTG) Pt will improve his ABC score to 85% or greater as a measure of improved self-efficacy 12/15/21: 83% confident in balance with activities listed . 02/16/22: 85%, goal met LTG Duration goal met One Impairment lacks HEP Hardware Technician Goal (LTG) Pt will be independent with HEP to improve his balance and calibration of his movement strategies 01/04/22: progressing: band walk, STS, bridge hold, TA TB KFO 02/16/22: continued progression of HEP ( per pt) Pt has been practicing all gait and strength ex. at home as instructed. Noted pt has good and bad days with ability to execute ex. due to dementia. LTG Duration 11/17/22 Assessment Summary Assessment Pt has been making steady progress towards gait/ balance goals. Quality of gait has improved with improved step length with practice. Pt will continue to benefit from further PT to further improve his balance/ quality of gait to decrease risk of fall. Physical Therapy Plan Frequency and Duration Frequency of Treatment 1-2x/week Plan of Care Start Date 07/06/22 Plan of Care End Date 12/12/22 Therapeutic Interventions Therapeutic Interventions Balance Training,Coordination Training,Gait Training,Home Exercise Program,Neuromuscular Re-education,Self-Care/Home Management,Therapeutic Activities,Therapeutic Exercises,Vestibular Rehabilitation Other Referrals/Consults Referrals/Consults Recommended Per pt he has consulted with Neurologist. note available in EMR. Next Visit Focus/Plan Next Note Type Treatment Note Next Visit Plan Revisit assistive device conversation. Continue dynamic gait challenges, balance training, stairs, consider obstacle course. Toe taps to low step with UE support Trajectory ex. for LEs Tandem walking
--- NOTE | 2022-08-31 15:58 | PT.OPPOC ---
Physical, Occupational & Speech Therapy At [facility] Current Diagnoses Unsteadiness on feet (08/31/22) Other abnormalities of gait and mobility (08/31/22) Weakness (08/31/22) Visit Care Team Role Provider Type Gómez Bhatt MD Attending Provider Physician Primary Care Provider Referring Provider Specialty: Internal Medicine Address: [address] [place] [address], [facility] Email: Plan Of Care PT-OP-T Assessment and Plan Start: 11/22/21 16:49 Freq: Status: Active Protocol: Document 08/31/22 13:53 TH (Rec: 08/31/22 15:58 TH [id number]) Physical Therapy Assessment Goals Five Impairment functional activity limitations Impairment patient unable to get into skiff or transfer from skiff into boat Short Term Goal (STG) patient will be able to safely get into his skiff with min assist of family Not Met STG Duration 10/12/22 Wholesale And Retail Merchant Goal (LTG) Patient will be able to safely transfer from his skiff into his boat with min assist from his family Not Met LTG Duration 11/17/22 Four Impairment balance dysfunction Impairment requires assistance with SLS and tandem stand to prevent fall Wholesale And Retail Merchant Goal (LTG) Patient will be able to perform SLS for 10 sec without assistance or LOB and tandem stand for 20 seconds as measure of improved balance and safety (06/13/22: Tandem: RLE back: 20+ sec occ finger touch RUE, LLE back: 13s. LLE 11s, RLE 0s ) 06/23/22 - SLS still requires assist to get into position and support to maintain Progressing LTG Duration 11/17/22 Three Impairment balance systems integration Short Term Goal (STG) Pt will improve mCTSIB to steady 110 seconds or greater. 12/30/21: Pt scores 95/120 today (all points deducted in 4th condition) 02/16/22: not tested this date 06/23/22 Pt scores 100/120 today. STG Duration 10/12/22 PROGRESSING Wholesale And Retail Merchant Goal (LTG) Pt will walk the beach in front of his house alone and without assistive device as a measure of improved balance. 08/31/22 reports goal progress on even terrain with one trekking pole (06/13/22: Pt reports he walks in front of his house alone without an AD except when it is a crummy day and he uses a PVC pipe.) 06/23/22 - Pt states uses B trekking poles when walking the beach. LTG Duration 11/17/22 (Progressing) Two Impairment ABC score 75% Wholesale And Retail Merchant Goal (LTG) Pt will improve his ABC score to 85% or greater as a measure of improved self-efficacy 12/15/21: 83% confident in balance with activities listed . 02/16/22: 85%, goal met LTG Duration goal met One Impairment lacks HEP Wholesale And Retail Merchant Goal (LTG) Pt will be independent with HEP to improve his balance and calibration of his movement strategies 01/04/22: progressing: band walk, STS, bridge hold, TA TB KFO 02/16/22: continued progression of HEP ( per pt) Pt has been practicing all gait and strength ex. at home as instructed. Noted pt has good and bad days with ability to execute ex. due to dementia. LTG Duration 11/17/22 Assessment Summary Assessment Pt has been making steady progress towards gait/ balance goals. Quality of gait has improved with improved step length with practice. Pt will continue to benefit from further PT to further improve his balance/ quality of gait to decrease risk of fall. Physical Therapy Plan Frequency and Duration Frequency of Treatment 1-2x/week Plan of Care Start Date 07/06/22 Plan of Care End Date 12/12/22 Therapeutic Interventions Therapeutic Interventions Balance Training,Coordination Training,Gait Training,Home Exercise Program,Neuromuscular Re-education,Self-Care/Home Management,Therapeutic Activities,Therapeutic Exercises,Vestibular Rehabilitation Other Referrals/Consults Referrals/Consults Recommended Per pt he has consulted with Neurologist. MD note available in EMR. Next Visit Focus/Plan Next Note Type Treatment Note Next Visit Plan Revisit assistive device conversation. Continue dynamic gait challenges, balance training, stairs, consider obstacle course. Toe taps to low step with UE support Trajectory ex. for LEs Tandem walking Plan of Care Dates Plan of Care Start Date 07/06/22 Plan of Care End Date 12/12/22 Electronically Signed by: Luanne Sosa, PT 08/31/22 2360 If you are in agreement with this Plan of Care, please return a signed and dated copy. I have reviewed this Plan of Care and certify that the skilled therapy services above are required to meet the patient?s needs. Physician Signature Date Printed Name and Credentials Clinical Instructor Signature Printed Name and Credentials
--- NOTE | 2022-09-07 12:17 | PT.OTN ---
Current Diagnoses Unsteadiness on feet (09/07/22) Other abnormalities of gait and mobility (09/07/22) Weakness (09/07/22) Physical Therapy Treatment Note PT-OP-A Visit Information Start: 11/22/21 16:49 Freq: Status: Active Protocol: Document 09/07/22 11:15 TH (Rec: 09/07/22 12:16 TH [id number]) Out-Patient Physical Therapy Visit Information Visit Information Visit Type Treatment Note Visit Start Time 11:15 Visit Stop Time 12:00 Total Visit Minutes 45 Visit Number 33 Number of CERTIFIED CONTROL SYSTEMS TECHNICIAN Visits 0 Precautions Precautions Fall risk Pt has difficulty sequencing LE movements PT-OP-B Current Condition Start: 11/22/21 16:49 Freq: Status: Active Protocol: Document 11/24/21 12:00 AW (Rec: 11/24/21 09:00 AW [id number]) Current Condition History of Current Condition Onset Date June 2021 Current Complaints decreased balance, falls History of Current Condition Vasile had prostatitis 10 years ago. He was treated medically and was ok. Symptoms returned last year and he had a simple open prostatectomy at last May. Since then, he reports feeling sluggish and has had dizzy spells. Recent nuc med stress test was normal . Vasile experiences heart palpitations occasionally for for 5-10 minutes at a time. He just returned a holter monitor which he wore for a month and will follow up with cardiology soon. Pt states one dizzy spell occured while driving. His was able to take the wheel. He describes it as feeling faint and disoriented and is associated with vision changes (double vision) and a build up of pressure in his head. He recently saw his eye doctor who recommended no changes to his bifocals prescription. The same sensation has caused at least two falls in the past six months. He feels a lack of confidence in his walking lately and doesn't feel comfortable walking on the beach alone. Pt also feels disoriented in crowded situations, with high levels of light, and with flashing lights. [place] [address] [address] [place] with his , Damari. He hopes to be able to get his 23' runabout boat in the water this year but feels anxious about getting on and off the boat. Prior Treatments and Tests No prior PT. Future Testing and Treatments Planned Follow up with cardiology. Treatment Goals Patient/Caregiver Goals Increase confidence to be able to walk on the beach alone. Be able to use his boat this summer. PT-OP-C Subjective Start: 11/22/21 16:49 Freq: Status: Active Protocol: Document 09/07/22 11:15 TH (Rec: 09/07/22 12:16 TH [id number]) OP-PT Subjective Patient Comments Patient Comments Pt reports he has been feeling more confident walking short distances in home. PT-OP-D Balance Start: 11/22/21 16:49 Freq: Status: Active Protocol: Document 08/31/22 13:53 TH (Rec: 08/31/22 15:58 TH [id number]) Balance Tests mCTSIB mCTSIB Position 1 30 mCTSIB Position 2 30 mCTSIB Position 3 25 mCTSIB Position 4 20 PT-OP-E Functional Tests Start: 11/22/21 16:49 Freq: Status: Active Protocol: Document 04/13/22 09:14 AW (Rec: 04/13/22 10:32 AW [id number]) Functional Tests Functional Gait Assessment Score 18 Functional Gait Assessment Impairment 40 to <60% Impaired (Score 13- Rating 18) PT-OP-G Mobility & Gait Start: 11/22/21 16:49 Freq: Status: Active Protocol: Document 09/07/22 11:15 TH (Rec: 09/07/22 12:16 TH [id number]) OP Gait Assessment Comments Gait Comments Gait assessment without AD and SBA to CG ( gait belt). Noted pt continues to improve with weight shifting. Needs work on arm swing and increasing step length. PT-OP-J Posture/Palpation/Skin Start: 11/22/21 16:49 Freq: Status: Active Protocol: Document 11/24/21 12:00 AW (Rec: 11/25/21 12:54 AW [id number]) Posture Evaluation Position Standing Evaluation View Lateral Comments Posture Comments Forward head, flat lumbar spine, externally rotated hips bilaterally. PT-OP-M Strength Start: 11/22/21 16:49 Freq: Status: Active Protocol: Document 11/24/21 12:00 AW (Rec: 11/25/21 12:50 AW [id number]) Hip Strength Hip Manual Muscle Testing bilat Flexion (L2) 4+ Good+ Extension (S1) 4 Good Abduction 4+ Good+ External Rotation 4+ Good+ Internal Rotation 4+ Good+ Knee Strength Knee Manual Muscle Testing bilat Flexion (S2) 4+ Good+ Extension (L3) 5 Normal Ankle/Foot Strength Ankle and Foot Manual Muscle Testing bilat Dorsiflexion (L4) 5 Normal Comments PF tested with SL heel lift. Pt able to complete no more than 4 reps with either limb. PT-OP-O Vestibular Start: 11/22/21 16:49 Freq: Status: Active Protocol: Document 11/24/21 12:00 AW (Rec: 11/25/21 13:00 AW [id number]) Vestibular Assessment Visual Testing Smooth Pursuits Horizontal WNL Smooth Pursuits Vertical WNL Saccades Horizontal WNL Saccades Vertical WNL Gaze Evoked Nystagmus With Fixation Negative Gaze Evoked Nystagmus Without Fixation Negative Thrust Head mild lag B Cover/Uncover Test WNL Convergence Test Impaired Comments Vestibular Comments Pt reports diplopia with target ~10 from face PT-OP-Q Treatments Start: 11/22/21 16:49 Freq: Status: Active Protocol: Document 09/07/22 11:15 TH (Rec: 09/07/22 12:16 TH [id number]) Neuro Re-Education Treatment Balance Activities wobble board Comments shifting weight fwd/back/ l/r with UE support in parallel bars hurdles Comments step to pattern over hurdles using parallel bars for support. Alternating step pattern over hurdles. Pt requires tactile, visual cues to help sequence movements. Left LE decreased proprioception. Foam Comments staggered walking in parallel bars onto foam cushions. Both hands and then one hand. Standing staggered balance on foam cushions with uE / and no UE support CG. PT-OP-T Assessment and Plan Start: 11/22/21 16:49 Freq: Status: Active Protocol: Document 09/07/22 11:15 TH (Rec: 09/07/22 12:16 TH [id number]) Physical Therapy Assessment Goals Five Impairment functional activity limitations Impairment patient unable to get into skiff or transfer from skiff into boat Short Term Goal (STG) patient will be able to safely get into his skiff with min assist of family Not Met STG Duration 10/12/22 [facility] Goal (LTG) Patient will be able to safely transfer from his skiff into his boat with min assist from his family Not Met LTG Duration 11/17/22 Four Impairment balance dysfunction Impairment requires assistance with SLS and tandem stand to prevent fall Center Machine Operator Goal (LTG) Patient will be able to perform SLS for 10 sec without assistance or LOB and tandem stand for 20 seconds as measure of improved balance and safety (06/13/22: Tandem: RLE back: 20+ sec occ finger touch RUE, LLE back: 13s. LLE 11s, RLE 0s ) 06/23/22 - SLS still requires assist to get into position and support to maintain Progressing LTG Duration 11/17/22 Three Impairment balance systems integration Short Term Goal (STG) Pt will improve mCTSIB to steady 110 seconds or greater. 12/30/21: Pt scores 95/120 today (all points deducted in 4th condition) 02/16/22: not tested this date 06/23/22 Pt scores 100/120 today. STG Duration 10/12/22 PROGRESSING Center Machine Operator Goal (LTG) Pt will walk the beach in front of his house alone and without assistive device as a measure of improved balance. 08/31/22 reports goal progress on even terrain with one trekking pole (06/13/22: Pt reports he walks in front of his house alone without an AD except when it is a crummy day and he uses a PVC pipe.) 06/23/22 - Pt states uses B trekking poles when walking the beach. LTG Duration 11/17/22 (Progressing) Two Impairment ABC score 75% [facility] Goal (LTG) Pt will improve his ABC score to 85% or greater as a measure of improved self-efficacy 12/15/21: 83% confident in balance with activities listed . 02/16/22: 85%, goal met LTG Duration goal met One Impairment lacks HEP Center Machine Operator Goal (LTG) Pt will be independent with HEP to improve his balance and calibration of his movement strategies 01/04/22: progressing: band walk, STS, bridge hold, TA TB KFO 02/16/22: continued progression of HEP ( per pt) Pt has been practicing all gait and strength ex. at home as instructed. Noted pt has good and bad days with ability to execute ex. due to dementia. LTG Duration 11/17/22 Physical Therapy Plan Frequency and Duration Frequency of Treatment 1-2x/week Plan of Care Start Date 07/06/22 Plan of Care End Date 12/12/22 Therapeutic Interventions Therapeutic Interventions Balance Training,Coordination Training,Gait Training,Home Exercise Program,Neuromuscular Re-education,Self-Care/Home Management,Therapeutic Activities,Therapeutic Exercises,Vestibular Rehabilitation
--- NOTE | 2022-09-14 16:15 | PT.OTN ---
Current Diagnoses Unsteadiness on feet (09/14/22) Other abnormalities of gait and mobility (09/14/22) Weakness (09/14/22) Physical Therapy Treatment Note PT-OP-A Visit Information Start: 11/22/21 16:49 Freq: Status: Active Protocol: Document 09/14/22 13:03 TH (Rec: 09/14/22 16:15 TH [id number]) Out-Patient Physical Therapy Visit Information Visit Information Visit Type Treatment Note Visit Start Time 13:00 Visit Stop Time 13:45 Total Visit Minutes 45 Visit Number 34 Number of ENDS BREAKAGE CLERK Visits 0 PT-OP-B Current Condition Start: 11/22/21 16:49 Freq: Status: Active Protocol: Document 11/24/21 12:00 AW (Rec: 11/24/21 09:00 AW [id number]) Current Condition History of Current Condition Onset Date June 2021 Current Complaints decreased balance, falls History of Current Condition Vasile had prostatitis 10 years ago. He was treated medically and was ok. Symptoms returned last year and he had a simple open prostatectomy at last May. Since then, he reports feeling sluggish and has had dizzy spells. Recent nuc med stress test was normal . Vasile experiences heart palpitations occasionally for for 5-10 minutes at a time. He just returned a holter monitor which he wore for a month and will follow up with cardiology soon. Pt states one dizzy spell occured while driving. His was able to take the wheel. He describes it as feeling faint and disoriented and is associated with vision changes (double vision) and a build up of pressure in his head. He recently saw his eye doctor who recommended no changes to his bifocals prescription. The same sensation has caused at least two falls in the past six months. He feels a lack of confidence in his walking lately and doesn't feel comfortable walking on the beach alone. Pt also feels disoriented in crowded situations, with high levels of light, and with flashing lights. [place] [facility] with his , Damari. He hopes to be able to get his 23' runabout boat in the water this year but feels anxious about getting on and off the boat. Prior Treatments and Tests No prior PT. Future Testing and Treatments Planned Follow up with cardiology. Treatment Goals Patient/Caregiver Goals Increase confidence to be able to walk on the beach alone. Be able to use his boat this summer. PT-OP-C Subjective Start: 11/22/21 16:49 Freq: Status: Active Protocol: Document 09/14/22 13:03 TH (Rec: 09/14/22 16:15 TH [id number]) OP-PT Subjective Patient Comments Patient Comments I've been feeling pretty stiff over the last few days I caught my right big toe on a couple of times PT-OP-D Balance Start: 11/22/21 16:49 Freq: Status: Active Protocol: Document 08/31/22 13:53 TH (Rec: 08/31/22 15:58 TH [id number]) Balance Tests mCTSIB mCTSIB Position 1 30 mCTSIB Position 2 30 mCTSIB Position 3 25 mCTSIB Position 4 20 PT-OP-E Functional Tests Start: 11/22/21 16:49 Freq: Status: Active Protocol: Document 04/13/22 09:14 AW (Rec: 04/13/22 10:32 AW [id number]) Functional Tests Functional Gait Assessment Score 18 Functional Gait Assessment Impairment 40 to <60% Impaired (Score 13- Rating 18) PT-OP-G Mobility & Gait Start: 11/22/21 16:49 Freq: Status: Active Protocol: Document 09/07/22 11:15 TH (Rec: 09/07/22 12:16 TH [id number]) OP Gait Assessment Comments Gait Comments Gait assessment without AD and SBA to CG ( gait belt). Noted pt continues to improve with weight shifting. Needs work on arm swing and increasing step length. PT-OP-J Posture/Palpation/Skin Start: 11/22/21 16:49 Freq: Status: Active Protocol: Document 11/24/21 12:00 AW (Rec: 11/25/21 12:54 AW [id number]) Posture Evaluation Position Standing Evaluation View Lateral Comments Posture Comments Forward head, flat lumbar spine, externally rotated hips bilaterally. PT-OP-M Strength Start: 11/22/21 16:49 Freq: Status: Active Protocol: Document 11/24/21 12:00 AW (Rec: 11/25/21 12:50 AW [id number]) Hip Strength Hip Manual Muscle Testing bilat Flexion (L2) 4+ Good+ Extension (S1) 4 Good Abduction 4+ Good+ External Rotation 4+ Good+ Internal Rotation 4+ Good+ Knee Strength Knee Manual Muscle Testing bilat Flexion (S2) 4+ Good+ Extension (L3) 5 Normal Ankle/Foot Strength Ankle and Foot Manual Muscle Testing bilat Dorsiflexion (L4) 5 Normal Comments PF tested with SL heel lift. Pt able to complete no more than 4 reps with either limb. PT-OP-O Vestibular Start: 11/22/21 16:49 Freq: Status: Active Protocol: Document 11/24/21 12:00 AW (Rec: 11/25/21 13:00 AW [id number]) Vestibular Assessment Visual Testing Smooth Pursuits Horizontal WNL Smooth Pursuits Vertical WNL Saccades Horizontal WNL Saccades Vertical WNL Gaze Evoked Nystagmus With Fixation Negative Gaze Evoked Nystagmus Without Fixation Negative Thrust Head mild lag B Cover/Uncover Test WNL Convergence Test Impaired Comments Vestibular Comments Pt reports diplopia with target ~10 from face PT-OP-Q Treatments Start: 11/22/21 16:49 Freq: Status: Active Protocol: Document 09/14/22 13:03 TH (Rec: 09/14/22 16:15 TH [id number]) Therapeutic Exercises Supine Exercises Recum. bike Comments 8 min Neuro Re-Education Treatment Balance Activities UE/LE step coordination Comments 2 x 10 each side side stepping Comments In parallel bars 6 x Tandem walking Comments in parallel bars using dowels to coordinate UE movement with LEs. PT-OP-T Assessment and Plan Start: 11/22/21 16:49 Freq: Status: Active Protocol: Document 09/14/22 13:03 TH (Rec: 09/14/22 16:15 TH [id number]) Physical Therapy Assessment Goals Five Impairment functional activity limitations Impairment patient unable to get into skiff or transfer from skiff into boat Short Term Goal (STG) patient will be able to safely get into his skiff with min assist of family Not Met STG Duration 10/12/22 [facility] Goal (LTG) Patient will be able to safely transfer from his skiff into his boat with min assist from his family Not Met LTG Duration 11/17/22 Four Impairment balance dysfunction Impairment requires assistance with SLS and tandem stand to prevent fall Summer Associate Goal (LTG) Patient will be able to perform SLS for 10 sec without assistance or LOB and tandem stand for 20 seconds as measure of improved balance and safety (06/13/22: Tandem: RLE back: 20+ sec occ finger touch RUE, LLE back: 13s. LLE 11s, RLE 0s ) 06/23/22 - SLS still requires assist to get into position and support to maintain Progressing LTG Duration 11/17/22 Three Impairment balance systems integration Short Term Goal (STG) Pt will improve mCTSIB to steady 110 seconds or greater. 12/30/21: Pt scores 95/120 today (all points deducted in 4th condition) 02/16/22: not tested this date 06/23/22 Pt scores 100/120 today. STG Duration 10/12/22 PROGRESSING Summer Associate Goal (LTG) Pt will walk the beach in front of his house alone and without assistive device as a measure of improved balance. 08/31/22 reports goal progress on even terrain with one trekking pole (06/13/22: Pt reports he walks in front of his house alone without an AD except when it is a crummy day and he uses a PVC pipe.) 06/23/22 - Pt states uses B trekking poles when walking the beach. LTG Duration 11/17/22 (Progressing) Two Impairment ABC score 75% [facility] Goal (LTG) Pt will improve his ABC score to 85% or greater as a measure of improved self-efficacy 12/15/21: 83% confident in balance with activities listed . 02/16/22: 85%, goal met LTG Duration goal met One Impairment lacks HEP Summer Associate Goal (LTG) Pt will be independent with HEP to improve his balance and calibration of his movement strategies 01/04/22: progressing: band walk, STS, bridge hold, TA TB KFO 02/16/22: continued progression of HEP ( per pt) Pt has been practicing all gait and strength ex. at home as instructed. Noted pt has good and bad days with ability to execute ex. due to dementia. LTG Duration 11/17/22 Assessment Summary Assessment Dementia appears to be progressing. Pt has difficulty sequencing despite verbal, tactile and visual cues. His posture has imprpved and he has been ambulating better since the start of PT. However, complex movements are challenging. Physical Therapy Plan Frequency and Duration Frequency of Treatment 1-2x/week Plan of Care Start Date 07/06/22 Plan of Care End Date 12/12/22 Therapeutic Interventions Therapeutic Interventions Balance Training,Coordination Training,Gait Training,Home Exercise Program,Neuromuscular Re-education,Self-Care/Home Management,Therapeutic Activities,Therapeutic Exercises,Vestibular Rehabilitation Next Visit Focus/Plan Next Visit Plan Foam cushion balance training / stepping arm swing Therex
--- NOTE | 2022-09-20 17:15 | PT.OTN ---
Current Diagnoses Unsteadiness on feet (09/20/22) Other abnormalities of gait and mobility (09/20/22) Weakness (09/20/22) Physical Therapy Treatment Note PT-OP-A Visit Information Start: 11/22/21 16:49 Freq: Status: Active Protocol: Document 09/20/22 13:09 NBM (Rec: 09/20/22 13:51 NBM [id number]) Out-Patient Physical Therapy Visit Information Visit Information Visit Type Treatment Note Visit Start Time 13:05 Visit Stop Time 13:49 Total Visit Minutes 44 Visit Number 35 Number of BENCH SHEAR OPERATOR Visits 1 Precautions Precautions Fall risk Pt has difficulty sequencing LE movements PT-OP-B Current Condition Start: 11/22/21 16:49 Freq: Status: Active Protocol: Document 11/24/21 12:00 AW (Rec: 11/24/21 09:00 AW [id number]) Current Condition History of Current Condition Onset Date June 2021 Current Complaints decreased balance, falls History of Current Condition Vasile had prostatitis 10 years ago. He was treated medically and was ok. Symptoms returned last year and he had a simple open prostatectomy at last May. Since then, he reports feeling sluggish and has had dizzy spells. Recent nuc med stress test was normal . Vasile experiences heart palpitations occasionally for for 5-10 minutes at a time. He just returned a holter monitor which he wore for a month and will follow up with cardiology soon. Pt states one dizzy spell occured while driving. His was able to take the wheel. He describes it as feeling faint and disoriented and is associated with vision changes (double vision) and a build up of pressure in his head. He recently saw his eye doctor who recommended no changes to his bifocals prescription. The same sensation has caused at least two falls in the past six months. He feels a lack of confidence in his walking lately and doesn't feel comfortable walking on the beach alone. Pt also feels disoriented in crowded situations, with high levels of light, and with flashing lights. [place] lives on [facility] with his , Damari. He hopes to be able to get his 23' runabout boat in the water this year but feels anxious about getting on and off the boat. Prior Treatments and Tests No prior PT. Future Testing and Treatments Planned Follow up with cardiology. Treatment Goals Patient/Caregiver Goals Increase confidence to be able to walk on the beach alone. Be able to use his boat this summer. PT-OP-C Subjective Start: 11/22/21 16:49 Freq: Status: Active Protocol: Document 09/20/22 13:09 NBM (Rec: 09/20/22 13:51 NBM [id number]) OP-PT Subjective Patient Comments Patient Comments Pt states he took a long walk yesterday with on a paved road with hiking poles. He scuffed L toe once but was able to catch himself and reports no falls. PT-OP-D Balance Start: 11/22/21 16:49 Freq: Status: Active Protocol: Document 08/31/22 13:53 TH (Rec: 08/31/22 15:58 TH [id number]) Balance Tests mCTSIB mCTSIB Position 1 30 mCTSIB Position 2 30 mCTSIB Position 3 25 mCTSIB Position 4 20 PT-OP-E Functional Tests Start: 11/22/21 16:49 Freq: Status: Active Protocol: Document 04/13/22 09:14 AW (Rec: 04/13/22 10:32 AW [id number]) Functional Tests Functional Gait Assessment Score 18 Functional Gait Assessment Impairment 40 to <60% Impaired (Score 13- Rating 18) PT-OP-G Mobility & Gait Start: 11/22/21 16:49 Freq: Status: Active Protocol: Document 09/07/22 11:15 TH (Rec: 09/07/22 12:16 TH [id number]) OP Gait Assessment Comments Gait Comments Gait assessment without AD and SBA to CG ( gait belt). Noted pt continues to improve with weight shifting. Needs work on arm swing and increasing step length. PT-OP-J Posture/Palpation/Skin Start: 11/22/21 16:49 Freq: Status: Active Protocol: Document 11/24/21 12:00 AW (Rec: 11/25/21 12:54 AW [id number]) Posture Evaluation Position Standing Evaluation View Lateral Comments Posture Comments Forward head, flat lumbar spine, externally rotated hips bilaterally. PT-OP-M Strength Start: 11/22/21 16:49 Freq: Status: Active Protocol: Document 11/24/21 12:00 AW (Rec: 11/25/21 12:50 AW [id number]) Hip Strength Hip Manual Muscle Testing bilat Flexion (L2) 4+ Good+ Extension (S1) 4 Good Abduction 4+ Good+ External Rotation 4+ Good+ Internal Rotation 4+ Good+ Knee Strength Knee Manual Muscle Testing bilat Flexion (S2) 4+ Good+ Extension (L3) 5 Normal Ankle/Foot Strength Ankle and Foot Manual Muscle Testing bilat Dorsiflexion (L4) 5 Normal Comments PF tested with SL heel lift. Pt able to complete no more than 4 reps with either limb. PT-OP-O Vestibular Start: 11/22/21 16:49 Freq: Status: Active Protocol: Document 11/24/21 12:00 AW (Rec: 11/25/21 13:00 AW [id number]) Vestibular Assessment Visual Testing Smooth Pursuits Horizontal WNL Smooth Pursuits Vertical WNL Saccades Horizontal WNL Saccades Vertical WNL Gaze Evoked Nystagmus With Fixation Negative Gaze Evoked Nystagmus Without Fixation Negative Thrust Head mild lag B Cover/Uncover Test WNL Convergence Test Impaired Comments Vestibular Comments Pt reports diplopia with target ~10 from face PT-OP-Q Treatments Start: 11/22/21 16:49 Freq: Status: Active Protocol: Document 09/20/22 13:09 NB (Rec: 09/20/22 13:51 [facility] [id number]) Cardio Equipment Recumbent Bicycle Duration (Minutes) 8 Resistance 5>6 Seat Position 8 Therapeutic Exercises Supine Exercises Hip flexor stretch Supine Exercise Name Brooks position Side bilateral Equipment Used hi-lo table Reps/Minutes x60s ea Comments vc for PPT w/ stretch bridge september Supine Exercise Name 1. Bridge 5 reps hold 10 sec 2 .Bridge september Reps/Minutes x10 Comments good eccentric control Sitting Exercises Ankle strengthening Sitting Exercise Name DF/PF - HEP review Side bilateral Resistance Lvl 2 Tb Reps/Minutes x15 ea Comments L more challenged than R - HO given again STS Sitting Exercise Name HEP review Equipment Used mesh chair, no UE support Reps/Minutes x10 reps Standing Exercises calf stretch Standing Exercise Name lunge position at wall Side bilateral Reps/Minutes 30s ea Comments good feedback response Gait Training Gait Activity 1 Description walking with kari trekking poles Device Used b trekking poles Level of Assistance CGA Surface carpet, tile Treatment Focus sequencing, arm swing Self-Care/Home Management Treatment Education Patient Education Home Exercise Program Other Education Pt given Handout of DF/PF ex's again. PT-OP-T Assessment and Plan Start: 11/22/21 16:49 Freq: Status: Active Protocol: Document 09/20/22 13:09 ELIANA (Rec: 09/20/22 13:51 [facility] [id number]) Physical Therapy Assessment Impairments Impairments Balance,Gait,Posture,Sensation ,Strength,Vestibular Goals Five Impairment functional activity limitations Impairment patient unable to get into skiff or transfer from skiff into boat Short Term Goal (STG) patient will be able to safely get into his skiff with min assist of family Not Met STG Duration 10/12/22 Longterm Goal (LTG) Patient will be able to safely transfer from his skiff into his boat with min assist from his family Not Met LTG Duration 11/17/22 Four Impairment balance dysfunction Impairment requires assistance with SLS and tandem stand to prevent fall Longterm Goal (LTG) Patient will be able to perform SLS for 10 sec without assistance or LOB and tandem stand for 20 seconds as measure of improved balance and safety (06/13/22: Tandem: RLE back: 20+ sec occ finger touch RUE, LLE back: 13s. LLE 11s, RLE 0s ) 06/23/22 - SLS still requires assist to get into position and support to maintain Progressing LTG Duration 11/17/22 Three Impairment balance systems integration Short Term Goal (STG) Pt will improve mCTSIB to steady 110 seconds or greater. 12/30/21: Pt scores 95/120 today (all points deducted in 4th condition) 02/16/22: not tested this date 06/23/22 Pt scores 100/120 today. STG Duration 10/12/22 PROGRESSING Furnace Charger Goal (LTG) Pt will walk the beach in front of his house alone and without assistive device as a measure of improved balance. 08/31/22 reports goal progress on even terrain with one trekking pole (06/13/22: Pt reports he walks in front of his house alone without an AD except when it is a crummy day and he uses a PVC pipe.) 06/23/22 - Pt states uses B trekking poles when walking the beach. LTG Duration 11/17/22 (Progressing) Two Impairment ABC score 75% Furnace Charger Goal (LTG) Pt will improve his ABC score to 85% or greater as a measure of improved self-efficacy 12/15/21: 83% confident in balance with activities listed . 02/16/22: 85%, goal met LTG Duration goal met One Impairment lacks HEP Longterm Goal (LTG) Pt will be independent with HEP to improve his balance and calibration of his movement strategies 01/04/22: progressing: band walk, STS, bridge hold, TA TB KFO 02/16/22: continued progression of HEP ( per pt) Pt has been practicing all gait and strength ex. at home as instructed. Noted pt has good and bad days with ability to execute ex. due to dementia. LTG Duration 11/17/22 Assessment Summary Assessment Pt continues to be challenged with sequencing and needs occ cues for navigating around obstacles. Pt given Handout of DF/PF ex's again as part of HEP. Good feedback response to hip flexor stretch with decreased palpable tension. PT Aide escorted pt out to car. Physical Therapy Plan Frequency and Duration Frequency of Treatment 1-2x/week Plan of Care Start Date 07/06/22 Plan of Care End Date 12/12/22 Therapeutic Interventions Therapeutic Interventions Balance Training,Coordination Training,Gait Training,Home Exercise Program,Neuromuscular Re-education,Self-Care/Home Management,Therapeutic Activities,Therapeutic Exercises,Vestibular Rehabilitation Next Visit Focus/Plan Next Visit Plan Foam cushion balance training / stepping arm swing Therex
--- NOTE | 2022-09-22 14:53 | PT.OTN ---
Current Diagnoses Unsteadiness on feet (09/22/22) Other abnormalities of gait and mobility (09/22/22) Weakness (09/22/22) Physical Therapy Treatment Note PT-OP-A Visit Information Start: 11/22/21 16:49 Freq: Status: Active Protocol: Document 09/22/22 13:50 TH (Rec: 09/22/22 14:53 TH [id number]) Out-Patient Physical Therapy Visit Information Visit Information Visit Type Treatment Note Visit Start Time 13:45 Visit Stop Time 14:30 Total Visit Minutes 45 Visit Number 36 Number of LAP CUTTER Visits 0 PT-OP-B Current Condition Start: 11/22/21 16:49 Freq: Status: Active Protocol: Document 11/24/21 12:00 AW (Rec: 11/24/21 09:00 AW [id number]) Current Condition History of Current Condition Onset Date June 2021 Current Complaints decreased balance, falls History of Current Condition Vasile had prostatitis 10 years ago. He was treated medically and was ok. Symptoms returned last year and he had a simple open prostatectomy at last May. Since then, he reports feeling sluggish and has had dizzy spells. Recent nuc med stress test was normal . Vasile experiences heart palpitations occasionally for for 5-10 minutes at a time. He just returned a holter monitor which he wore for a month and will follow up with cardiology soon. Pt states one dizzy spell occured while driving. His was able to take the wheel. He describes it as feeling faint and disoriented and is associated with vision changes (double vision) and a build up of pressure in his head. He recently saw his eye doctor who recommended no changes to his bifocals prescription. The same sensation has caused at least two falls in the past six months. He feels a lack of confidence in his walking lately and doesn't feel comfortable walking on the beach alone. Pt also feels disoriented in crowded situations, with high levels of light, and with flashing lights. [place] [facility] with his , Damari. He hopes to be able to get his 23' runabout boat in the water this year but feels anxious about getting on and off the boat. Prior Treatments and Tests No prior PT. Future Testing and Treatments Planned Follow up with cardiology. Treatment Goals Patient/Caregiver Goals Increase confidence to be able to walk on the beach alone. Be able to use his boat this summer. PT-OP-C Subjective Start: 11/22/21 16:49 Freq: Status: Active Protocol: Document 09/22/22 13:50 TH (Rec: 09/22/22 14:53 TH [id number]) OP-PT Subjective Patient Comments Patient Comments Pt states he felt like he had a good work out last visit. Muscles were sore but then pain went away and he has been feeling stronger. PT-OP-D Balance Start: 11/22/21 16:49 Freq: Status: Active Protocol: Document 08/31/22 13:53 TH (Rec: 08/31/22 15:58 TH [id number]) Balance Tests mCTSIB mCTSIB Position 1 30 mCTSIB Position 2 30 mCTSIB Position 3 25 mCTSIB Position 4 20 PT-OP-E Functional Tests Start: 11/22/21 16:49 Freq: Status: Active Protocol: Document 04/13/22 09:14 AW (Rec: 04/13/22 10:32 AW [id number]) Functional Tests Functional Gait Assessment Score 18 Functional Gait Assessment Impairment 40 to <60% Impaired (Score 13- Rating 18) PT-OP-G Mobility & Gait Start: 11/22/21 16:49 Freq: Status: Active Protocol: Document 09/07/22 11:15 TH (Rec: 09/07/22 12:16 TH [id number]) OP Gait Assessment Comments Gait Comments Gait assessment without AD and SBA to CG ( gait belt). Noted pt continues to improve with weight shifting. Needs work on arm swing and increasing step length. PT-OP-J Posture/Palpation/Skin Start: 11/22/21 16:49 Freq: Status: Active Protocol: Document 11/24/21 12:00 AW (Rec: 11/25/21 12:54 AW [id number]) Posture Evaluation Position Standing Evaluation View Lateral Comments Posture Comments Forward head, flat lumbar spine, externally rotated hips bilaterally. PT-OP-M Strength Start: 11/22/21 16:49 Freq: Status: Active Protocol: Document 11/24/21 12:00 AW (Rec: 11/25/21 12:50 AW [id number]) Hip Strength Hip Manual Muscle Testing bilat Flexion (L2) 4+ Good+ Extension (S1) 4 Good Abduction 4+ Good+ External Rotation 4+ Good+ Internal Rotation 4+ Good+ Knee Strength Knee Manual Muscle Testing bilat Flexion (S2) 4+ Good+ Extension (L3) 5 Normal Ankle/Foot Strength Ankle and Foot Manual Muscle Testing bilat Dorsiflexion (L4) 5 Normal Comments PF tested with SL heel lift. Pt able to complete no more than 4 reps with either limb. PT-OP-O Vestibular Start: 11/22/21 16:49 Freq: Status: Active Protocol: Document 11/24/21 12:00 AW (Rec: 11/25/21 13:00 AW [id number]) Vestibular Assessment Visual Testing Smooth Pursuits Horizontal WNL Smooth Pursuits Vertical WNL Saccades Horizontal WNL Saccades Vertical WNL Gaze Evoked Nystagmus With Fixation Negative Gaze Evoked Nystagmus Without Fixation Negative Thrust Head mild lag B Cover/Uncover Test WNL Convergence Test Impaired Comments Vestibular Comments Pt reports diplopia with target ~10 from face PT-OP-Q Treatments Start: 11/22/21 16:49 Freq: Status: Active Protocol: Document 09/22/22 13:50 TH (Rec: 09/22/22 14:53 TH [id number]) Therapeutic Exercises Other Exercises hip abd. Comments in standing 4 lb weights 2 x 10 each side standing marches Comments 2 x 20 with 4 lb weights Gait Training Gait Activity Hurdles Comments with foam cushions and air rocks in between. Using two, one and then no hands CG in parallel bars dynamic gait Comments Gait training with arm swing ( with proper corresponding LE) Cues for upright posture and increased step length. PT-OP-T Assessment and Plan Start: 11/22/21 16:49 Freq: Status: Active Protocol: Document 09/22/22 13:50 TH (Rec: 09/22/22 14:53 TH [id number]) Physical Therapy Assessment Goals Five Impairment functional activity limitations Impairment patient unable to get into skiff or transfer from skiff into boat Short Term Goal (STG) patient will be able to safely get into his skiff with min assist of family Not Met STG Duration 10/12/22 [facility] Goal (LTG) Patient will be able to safely transfer from his skiff into his boat with min assist from his family Not Met LTG Duration 11/17/22 Four Impairment balance dysfunction Impairment requires assistance with SLS and tandem stand to prevent fall [facility] Goal (LTG) Patient will be able to perform SLS for 10 sec without assistance or LOB and tandem stand for 20 seconds as measure of improved balance and safety (06/13/22: Tandem: RLE back: 20+ sec occ finger touch RUE, LLE back: 13s. LLE 11s, RLE 0s ) 06/23/22 - SLS still requires assist to get into position and support to maintain Progressing LTG Duration 11/17/22 Three Impairment balance systems integration Short Term Goal (STG) Pt will improve mCTSIB to steady 110 seconds or greater. 12/30/21: Pt scores 95/120 today (all points deducted in 4th condition) 02/16/22: not tested this date 06/23/22 Pt scores 100/120 today. STG Duration 10/12/22 PROGRESSING Business Coordinator Goal (LTG) Pt will walk the beach in front of his house alone and without assistive device as a measure of improved balance. 08/31/22 reports goal progress on even terrain with one trekking pole (06/13/22: Pt reports he walks in front of his house alone without an AD except when it is a crummy day and he uses a PVC pipe.) 06/23/22 - Pt states uses B trekking poles when walking the beach. LTG Duration 11/17/22 (Progressing) Two Impairment ABC score 75% Business Coordinator Goal (LTG) Pt will improve his ABC score to 85% or greater as a measure of improved self-efficacy 12/15/21: 83% confident in balance with activities listed . 02/16/22: 85%, goal met LTG Duration goal met One Impairment lacks HEP Business Coordinator Goal (LTG) Pt will be independent with HEP to improve his balance and calibration of his movement strategies 01/04/22: progressing: band walk, STS, bridge hold, TA TB KFO 02/16/22: continued progression of HEP ( per pt) Pt has been practicing all gait and strength ex. at home as instructed. Noted pt has good and bad days with ability to execute ex. due to dementia. LTG Duration 11/17/22 Assessment Summary Assessment Pt had a good day. Noted he was able to recall how to properly ambulate with improved armswing without cueing. He states he has been practicing at home. Provided hand out for senior resources in the community and recommended silver sneakers / chair ex. class for general strengthening.( Pt's daughter present). Physical Therapy Plan Frequency and Duration Frequency of Treatment 1-2x/week Plan of Care Start Date 07/06/22 Plan of Care End Date 12/12/22 Therapeutic Interventions Therapeutic Interventions Balance Training,Coordination Training,Gait Training,Home Exercise Program,Neuromuscular Re-education,Self-Care/Home Management,Therapeutic Activities,Therapeutic Exercises,Vestibular Rehabilitation Other Referrals/Consults Referrals/Consults Recommended Per pt he has consulted with Neurologist. MD note available in EMR. Next Visit Focus/Plan Next Visit Plan Foam cushion balance training / stepping arm swing Therex
--- NOTE | 2022-09-26 17:54 | PT.OTN ---
Current Diagnoses Unsteadiness on feet (09/26/22) Other abnormalities of gait and mobility (09/26/22) Weakness (09/26/22) Physical Therapy Treatment Note PT-OP-A Visit Information Start: 11/22/21 16:49 Freq: Status: Active Protocol: Document 09/26/22 13:13 NBM (Rec: 09/26/22 13:50 NB [id number]) Out-Patient Physical Therapy Visit Information Visit Information Visit Type Treatment Note Visit Note 15 min start of treatment for clothing change d/t incontinence from prostate cancer treatment. Visit Start Time 13:15 Visit Stop Time 13:50 Total Visit Minutes 35 Visit Number 37 Number of TRANSFORMER STOCK CLERK Visits 1 Precautions Precautions Fall risk Pt has difficulty sequencing LE movements PT-OP-B Current Condition Start: 11/22/21 16:49 Freq: Status: Active Protocol: Document 11/24/21 12:00 AW (Rec: 11/24/21 09:00 AW [id number]) Current Condition History of Current Condition Onset Date June 2021 Current Complaints decreased balance, falls History of Current Condition Vasile had prostatitis 10 years ago. He was treated medically and was ok. Symptoms returned last year and he had a simple open prostatectomy at last May. Since then, he reports feeling sluggish and has had dizzy spells. Recent nuc med stress test was normal . Vasile experiences heart palpitations occasionally for for 5-10 minutes at a time. He just returned a holter monitor which he wore for a month and will follow up with cardiology soon. Pt states one dizzy spell occured while driving. His was able to take the wheel. He describes it as feeling faint and disoriented and is associated with vision changes (double vision) and a build up of pressure in his head. He recently saw his eye doctor who recommended no changes to his bifocals prescription. The same sensation has caused at least two falls in the past six months. He feels a lack of confidence in his walking lately and doesn't feel comfortable walking on the beach alone. Pt also feels disoriented in crowded situations, with high levels of light, and with flashing lights. [place] lives on [facility] with his , Damari. He hopes to be able to get his ' [employer] boat in the water this year but feels anxious about getting on and off the boat. Prior Treatments and Tests No prior PT. Future Testing and Treatments Planned Follow up with cardiology. Treatment Goals Patient/Caregiver Goals Increase confidence to be able to walk on the beach alone. Be able to use his boat this summer. PT-OP-C Subjective Start: 11/22/21 16:49 Freq: Status: Active Protocol: Document 09/26/22 13:13 NBM (Rec: 09/26/22 13:50 NBM [id number]) OP-PT Subjective Patient Comments Patient Comments Pt presents w/ and states doing well. Pt presents w/ incontinence due to prostate cancer treatment but pt and agree to proceed w/ PT. Per , He needs the PT to get his legs stronger. PT-OP-D Balance Start: 11/22/21 16:49 Freq: Status: Active Protocol: Document 08/31/22 13:53 TH (Rec: 08/31/22 15:58 TH [id number]) Balance Tests mCTSIB mCTSIB Position 1 30 mCTSIB Position 2 30 mCTSIB Position 3 25 mCTSIB Position 4 20 PT-OP-E Functional Tests Start: 11/22/21 16:49 Freq: Status: Active Protocol: Document 04/13/22 09:14 AW (Rec: 04/13/22 10:32 AW [id number]) Functional Tests Functional Gait Assessment Score 18 Functional Gait Assessment Impairment 40 to <60% Impaired (Score 13- Rating 18) PT-OP-G Mobility & Gait Start: 11/22/21 16:49 Freq: Status: Active Protocol: Document 09/07/22 11:15 TH (Rec: 09/07/22 12:16 TH [id number]) OP Gait Assessment Comments Gait Comments Gait assessment without AD and SBA to CG ( gait belt). Noted pt continues to improve with weight shifting. Needs work on arm swing and increasing step length. PT-OP-J Posture/Palpation/Skin Start: 11/22/21 16:49 Freq: Status: Active Protocol: Document 11/24/21 12:00 AW (Rec: 11/25/21 12:54 AW [id number]) Posture Evaluation Position Standing Evaluation View Lateral Comments Posture Comments Forward head, flat lumbar spine, externally rotated hips bilaterally. PT-OP-M Strength Start: 11/22/21 16:49 Freq: Status: Active Protocol: Document 11/24/21 12:00 AW (Rec: 11/25/21 12:50 AW [id number]) Hip Strength Hip Manual Muscle Testing bilat Flexion (L2) 4+ Good+ Extension (S1) 4 Good Abduction 4+ Good+ External Rotation 4+ Good+ Internal Rotation 4+ Good+ Knee Strength Knee Manual Muscle Testing bilat Flexion (S2) 4+ Good+ Extension (L3) 5 Normal Ankle/Foot Strength Ankle and Foot Manual Muscle Testing bilat Dorsiflexion (L4) 5 Normal Comments PF tested with SL heel lift. Pt able to complete no more than 4 reps with either limb. PT-OP-O Vestibular Start: 11/22/21 16:49 Freq: Status: Active Protocol: Document 11/24/21 12:00 AW (Rec: 11/25/21 13:00 AW [id number]) Vestibular Assessment Visual Testing Smooth Pursuits Horizontal WNL Smooth Pursuits Vertical WNL Saccades Horizontal WNL Saccades Vertical WNL Gaze Evoked Nystagmus With Fixation Negative Gaze Evoked Nystagmus Without Fixation Negative Thrust Head mild lag B Cover/Uncover Test WNL Convergence Test Impaired Comments Vestibular Comments Pt reports diplopia with target ~10 from face PT-OP-Q Treatments Start: 11/22/21 16:49 Freq: Status: Active Protocol: Document 09/26/22 13:13 [facility] (Rec: 09/26/22 13:50 [facility] [id number]) Cardio Equipment Recumbent Bicycle Duration (Minutes) 6 Resistance 5>6 Seat Position 8 Therapeutic Exercises Sitting Exercises Ankle strengthening Sitting Exercise Name DF/PF - HEP review Side bilateral Resistance Lvl 2 Tb Reps/Minutes x15 ea Comments L more challenged than R STS Sitting Exercise Name HEP Review Equipment Used blue foam therapads, mesh chair Reps/Minutes x10 reps Comments no UE support Gait Training Gait Activity 1 Description walking with uni Equigerminalkking pole RUE Device Used RUE [employer] pole Level of Assistance CGA Surface carpet, tile Treatment Focus sequencing, arm swing dynamic gait Comments Gait training with arm swing ( with proper corresponding LE) Cues for upright posture and increased step length. Neuro Re-Education Treatment Balance Activities Tandem walking Comments in parallel bars fwd/bwd w/ mod cueing. Foam Comments staggered walking in parallel bars onto foam cushions. Both hands and then one hand. Self-Care/Home Management Treatment Education Other Education Pt inquires as to alternative to Depends due to leakage this past week as they find pads to be inconsistently available at drug stores - per conversation w/ pelvic floor therapist advised will try to find information for alternatives. Also advised pt their urologist may have this information. PT-OP-T Assessment and Plan Start: 11/22/21 16:49 Freq: Status: Active Protocol: Document 09/26/22 13:13 NBM (Rec: 09/26/22 13:50 NBM [id number]) Physical Therapy Assessment Impairments Impairments Balance,Gait,Posture,Sensation ,Strength,Vestibular Goals Five Impairment functional activity limitations Impairment patient unable to get into skiff or transfer from skiff into boat Short Term Goal (STG) patient will be able to safely get into his skiff with min assist of family Not Met STG Duration 10/12/22 Custodial Goal (LTG) Patient will be able to safely transfer from his skiff into his boat with min assist from his family Not Met LTG Duration 11/17/22 Four Impairment balance dysfunction Impairment requires assistance with SLS and tandem stand to prevent fall Custodial Goal (LTG) Patient will be able to perform SLS for 10 sec without assistance or LOB and tandem stand for 20 seconds as measure of improved balance and safety (06/13/22: Tandem: RLE back: 20+ sec occ finger touch RUE, LLE back: 13s. LLE 11s, RLE 0s ) 06/23/22 - SLS still requires assist to get into position and support to maintain Progressing LTG Duration 11/17/22 Three Impairment balance systems integration Short Term Goal (STG) Pt will improve mCTSIB to steady 110 seconds or greater. 12/30/21: Pt scores 95/120 today (all points deducted in 4th condition) 02/16/22: not tested this date 06/23/22 Pt scores 100/120 today. STG Duration 10/12/22 PROGRESSING Custodial Goal (LTG) Pt will walk the beach in front of his house alone and without assistive device as a measure of improved balance. 08/31/22 reports goal progress on even terrain with one trekking pole (06/13/22: Pt reports he walks in front of his house alone without an AD except when it is a crummy day and he uses a PVC pipe.) 06/23/22 - Pt states uses B trekking poles when walking the beach. LTG Duration 11/17/22 (Progressing) Two Impairment ABC score 75% Rental Agent Goal (LTG) Pt will improve his ABC score to 85% or greater as a measure of improved self-efficacy 12/15/21: 83% confident in balance with activities listed . 02/16/22: 85%, goal met LTG Duration goal met One Impairment lacks HEP Custodial Goal (LTG) Pt will be independent with HEP to improve his balance and calibration of his movement strategies 01/04/22: progressing: band walk, STS, bridge hold, TA TB KFO 02/16/22: continued progression of HEP ( per pt) Pt has been practicing all gait and strength ex. at home as instructed. Noted pt has good and bad days with ability to execute ex. due to dementia. LTG Duration 11/17/22 Assessment Summary Assessment Shortened session today (see Visit Note). Pt tolerates LE strengthening well today and improved gait sequencing w/ slightly increased arm swing using RUE trekking pole. Pt requires cues for increased step length with stepping on foam pads and self-awareness improves with repetition. Physical Therapy Plan Frequency and Duration Frequency of Treatment 1-2x/week Plan of Care Start Date 07/06/22 Plan of Care End Date 12/12/22 Therapeutic Interventions Therapeutic Interventions Balance Training,Coordination Training,Gait Training,Home Exercise Program,Neuromuscular Re-education,Self-Care/Home Management,Therapeutic Activities,Therapeutic Exercises,Vestibular Rehabilitation Other Referrals/Consults Referrals/Consults Recommended Per pt he has consulted with Neurologist. MD note available in EMR. Next Visit Focus/Plan Next Visit Plan Foam cushion balance training / stepping arm swing Therex
--- NOTE | 2022-09-28 14:00 | PT.OTN ---
Current Diagnoses Unsteadiness on feet (09/28/22) Other abnormalities of gait and mobility (09/28/22) Weakness (09/28/22) Physical Therapy Treatment Note PT-OP-A Visit Information Start: 11/22/21 16:49 Freq: Status: Active Protocol: Document 09/28/22 13:10 TH (Rec: 09/28/22 14:00 TH [id number]) Out-Patient Physical Therapy Visit Information Visit Information Visit Type Treatment Note Visit Start Time 13:00 Visit Stop Time 13:45 Total Visit Minutes 45 Visit Number 38 Number of ICE CREAM TRUCK DRIVER Visits 0 PT-OP-B Current Condition Start: 11/22/21 16:49 Freq: Status: Active Protocol: Document 11/24/21 12:00 AW (Rec: 11/24/21 09:00 AW [id number]) Current Condition History of Current Condition Onset Date June 2021 Current Complaints decreased balance, falls History of Current Condition Vasile had prostatitis 10 years ago. He was treated medically and was ok. Symptoms returned last year and he had a simple open prostatectomy at last May. Since then, he reports feeling sluggish and has had dizzy spells. Recent nuc med stress test was normal . Vasile experiences heart palpitations occasionally for for 5-10 minutes at a time. He just returned a holter monitor which he wore for a month and will follow up with cardiology soon. Pt states one dizzy spell occured while driving. His was able to take the wheel. He describes it as feeling faint and disoriented and is associated with vision changes (double vision) and a build up of pressure in his head. He recently saw his eye doctor who recommended no changes to his bifocals prescription. The same sensation has caused at least two falls in the past six months. He feels a lack of confidence in his walking lately and doesn't feel comfortable walking on the beach alone. Pt also feels disoriented in crowded situations, with high levels of light, and with flashing lights. [place] on [address] [place] with his , Damari. He hopes to be able to get his 23' runabout boat in the water this year but feels anxious about getting on and off the boat. Prior Treatments and Tests No prior PT. Future Testing and Treatments Planned Follow up with cardiology. Treatment Goals Patient/Caregiver Goals Increase confidence to be able to walk on the beach alone. Be able to use his boat this summer. PT-OP-C Subjective Start: 11/22/21 16:49 Freq: Status: Active Protocol: Document 09/26/22 13:13 NBM (Rec: 09/26/22 13:50 NBM [id number]) OP-PT Subjective Patient Comments Patient Comments Pt presents w/ and states doing well. Pt presents w/ incontinence due to prostate cancer treatment but pt and agree to proceed w/ PT. Per , He needs the PT to get his legs stronger. PT-OP-D Balance Start: 11/22/21 16:49 Freq: Status: Active Protocol: Document 08/31/22 13:53 TH (Rec: 08/31/22 15:58 TH [id number]) Balance Tests mCTSIB mCTSIB Position 1 30 mCTSIB Position 2 30 mCTSIB Position 3 25 mCTSIB Position 4 20 PT-OP-E Functional Tests Start: 11/22/21 16:49 Freq: Status: Active Protocol: Document 04/13/22 09:14 AW (Rec: 04/13/22 10:32 AW [id number]) Functional Tests Functional Gait Assessment Score 18 Functional Gait Assessment Impairment 40 to <60% Impaired (Score 13- Rating 18) PT-OP-G Mobility & Gait Start: 11/22/21 16:49 Freq: Status: Active Protocol: Document 09/07/22 11:15 TH (Rec: 09/07/22 12:16 TH [id number]) OP Gait Assessment Comments Gait Comments Gait assessment without AD and SBA to CG ( gait belt). Noted pt continues to improve with weight shifting. Needs work on arm swing and increasing step length. PT-OP-J Posture/Palpation/Skin Start: 11/22/21 16:49 Freq: Status: Active Protocol: Document 11/24/21 12:00 AW (Rec: 11/25/21 12:54 AW [id number]) Posture Evaluation Position Standing Evaluation View Lateral Comments Posture Comments Forward head, flat lumbar spine, externally rotated hips bilaterally. PT-OP-M Strength Start: 11/22/21 16:49 Freq: Status: Active Protocol: Document 11/24/21 12:00 AW (Rec: 11/25/21 12:50 AW [id number]) Hip Strength Hip Manual Muscle Testing bilat Flexion (L2) 4+ Good+ Extension (S1) 4 Good Abduction 4+ Good+ External Rotation 4+ Good+ Internal Rotation 4+ Good+ Knee Strength Knee Manual Muscle Testing bilat Flexion (S2) 4+ Good+ Extension (L3) 5 Normal Ankle/Foot Strength Ankle and Foot Manual Muscle Testing bilat Dorsiflexion (L4) 5 Normal Comments PF tested with SL heel lift. Pt able to complete no more than 4 reps with either limb. PT-OP-O Vestibular Start: 11/22/21 16:49 Freq: Status: Active Protocol: Document 11/24/21 12:00 AW (Rec: 11/25/21 13:00 AW [id number]) Vestibular Assessment Visual Testing Smooth Pursuits Horizontal WNL Smooth Pursuits Vertical WNL Saccades Horizontal WNL Saccades Vertical WNL Gaze Evoked Nystagmus With Fixation Negative Gaze Evoked Nystagmus Without Fixation Negative Thrust Head mild lag B Cover/Uncover Test WNL Convergence Test Impaired Comments Vestibular Comments Pt reports diplopia with target ~10 from face PT-OP-Q Treatments Start: 11/22/21 16:49 Freq: Status: Active Protocol: Document 09/28/22 13:10 TH (Rec: 09/28/22 14:00 TH [id number]) Therapeutic Exercises Supine Exercises hip ex Comments abd/ext 2 x 10 r and l/ standing Recum. bike Comments 5 min Other Exercises leg press Comments 3 x 10 both legs/ left leg only Gait Training Gait Activity dynamic gait Comments Gait training with focus on - -equal weight shift left / right -step length especialliy on left -arm swing Neuro Re-Education Treatment Other Activities proprioceptive ex. Comments toe taps with eyes open then closed 6 x 30 taps ( 3 sets eyes open , 3 sets eyes closed ) stepping forward /back r then l eyes open/closed PT-OP-T Assessment and Plan Start: 11/22/21 16:49 Freq: Status: Active Protocol: Document 09/28/22 13:10 TH (Rec: 09/28/22 14:00 TH [id number]) Physical Therapy Assessment Goals Five Impairment functional activity limitations Impairment patient unable to get into skiff or transfer from skiff into boat Short Term Goal (STG) patient will be able to safely get into his skiff with min assist of family Not Met STG Duration 10/12/22 Mobile Plant Operators Goal (LTG) Patient will be able to safely transfer from his skiff into his boat with min assist from his family Not Met LTG Duration 11/17/22 Four Impairment balance dysfunction Impairment requires assistance with SLS and tandem stand to prevent fall [facility] Goal (LTG) Patient will be able to perform SLS for 10 sec without assistance or LOB and tandem stand for 20 seconds as measure of improved balance and safety (06/13/22: Tandem: RLE back: 20+ sec occ finger touch RUE, LLE back: 13s. LLE 11s, RLE 0s ) 06/23/22 - SLS still requires assist to get into position and support to maintain Progressing LTG Duration 11/17/22 Three Impairment balance systems integration Short Term Goal (STG) Pt will improve mCTSIB to steady 110 seconds or greater. 12/30/21: Pt scores 95/120 today (all points deducted in 4th condition) 02/16/22: not tested this date 06/23/22 Pt scores 100/120 today. STG Duration 10/12/22 PROGRESSING [facility] Goal (LTG) Pt will walk the beach in front of his house alone and without assistive device as a measure of improved balance. 08/31/22 reports goal progress on even terrain with one trekking pole (06/13/22: Pt reports he walks in front of his house alone without an AD except when it is a crummy day and he uses a PVC pipe.) 06/23/22 - Pt states uses B trekking poles when walking the beach. LTG Duration 11/17/22 (Progressing) Two Impairment ABC score 75% Mobile Plant Operators Goal (LTG) Pt will improve his ABC score to 85% or greater as a measure of improved self-efficacy 12/15/21: 83% confident in balance with activities listed . 02/16/22: 85%, goal met LTG Duration goal met One Impairment lacks HEP Mobile Plant Operators Goal (LTG) Pt will be independent with HEP to improve his balance and calibration of his movement strategies 01/04/22: progressing: band walk, STS, bridge hold, TA TB KFO 02/16/22: continued progression of HEP ( per pt) Pt has been practicing all gait and strength ex. at home as instructed. Noted pt has good and bad days with ability to execute ex. due to dementia. LTG Duration 11/17/22 Assessment Summary Assessment Pt doing well with armswing while walking requiring fewer cues. Pt had more difficulty with sequencing LE movements today though Left LE responded well to proprioceptive ex. Will see pt for 3-4 more visits and will likely dc from PT. Will provide community ex.mprogram info to pt and family for bridge from PT to home. Physical Therapy Plan Frequency and Duration Frequency of Treatment 1-2x/week Plan of Care Start Date 07/06/22 Plan of Care End Date 12/12/22 Therapeutic Interventions Therapeutic Interventions Balance Training,Coordination Training,Gait Training,Home Exercise Program,Neuromuscular Re-education,Self-Care/Home Management,Therapeutic Activities,Therapeutic Exercises,Vestibular Rehabilitation
--- NOTE | 2022-10-05 14:11 | PT.OTN ---
Current Diagnoses Unsteadiness on feet (10/05/22) Other abnormalities of gait and mobility (10/05/22) Weakness (10/05/22) Physical Therapy Treatment Note PT-OP-A Visit Information Start: 11/22/21 16:49 Freq: Status: Active Protocol: Document 10/05/22 13:03 TH (Rec: 10/05/22 14:11 TH [id number]) Out-Patient Physical Therapy Visit Information Visit Information Visit Type Treatment Note Visit Start Time 13:00 Visit Stop Time 02:15 Total Visit Minutes 45 Visit Number 39 Number of AIR SAMPLING AND MONITORING Visits 0 PT-OP-B Current Condition Start: 11/22/21 16:49 Freq: Status: Active Protocol: Document 11/24/21 12:00 AW (Rec: 11/24/21 09:00 AW [id number]) Current Condition History of Current Condition Onset Date June 2021 Current Complaints decreased balance, falls History of Current Condition Vasile had prostatitis 10 years ago. He was treated medically and was ok. Symptoms returned last year and he had a simple open prostatectomy at last May. Since then, he reports feeling sluggish and has had dizzy spells. Recent nuc med stress test was normal . Vasile experiences heart palpitations occasionally for for 5-10 minutes at a time. He just returned a holter monitor which he wore for a month and will follow up with cardiology soon. Pt states one dizzy spell occured while driving. His was able to take the wheel. He describes it as feeling faint and disoriented and is associated with vision changes (double vision) and a build up of pressure in his head. He recently saw his eye doctor who recommended no changes to his bifocals prescription. The same sensation has caused at least two falls in the past six months. He feels a lack of confidence in his walking lately and doesn't feel comfortable walking on the beach alone. Pt also feels disoriented in crowded situations, with high levels of light, and with flashing lights. [place] lives on [facility] with his , Damari. He hopes to be able to get his 23' runabout boat in the water this year but feels anxious about getting on and off the boat. Prior Treatments and Tests No prior PT. Future Testing and Treatments Planned Follow up with cardiology. Treatment Goals Patient/Caregiver Goals Increase confidence to be able to walk on the beach alone. Be able to use his boat this summer. PT-OP-C Subjective Start: 11/22/21 16:49 Freq: Status: Active Protocol: Document 10/05/22 13:03 TH (Rec: 10/05/22 14:11 TH [id number]) OP-PT Subjective Patient Comments Patient Comments Met with pt and pt's to discuss what they have found out regarding prognosis with dementia and what expectations with PT are at this time. Per pt's , pt has been dx with moderate dementia and is currently taking meds that may help slow the process. Pt. and pt's are aware that dementia will likely progress leading to more difficulties with coordination and mentation. Pt would like to finish therapy with focus on balance and improved ability to ambulate without feet catching the ground. PT-OP-D Balance Start: 11/22/21 16:49 Freq: Status: Active Protocol: Document 08/31/22 13:53 TH (Rec: 08/31/22 15:58 TH [id number]) Balance Tests mCTSIB mCTSIB Position 1 30 mCTSIB Position 2 30 mCTSIB Position 3 25 mCTSIB Position 4 20 PT-OP-E Functional Tests Start: 11/22/21 16:49 Freq: Status: Active Protocol: Document 04/13/22 09:14 AW (Rec: 04/13/22 10:32 AW [id number]) Functional Tests Functional Gait Assessment Score 18 Functional Gait Assessment Impairment 40 to <60% Impaired (Score 13- Rating 18) PT-OP-G Mobility & Gait Start: 11/22/21 16:49 Freq: Status: Active Protocol: Document 09/07/22 11:15 TH (Rec: 09/07/22 12:16 TH [id number]) OP Gait Assessment Comments Gait Comments Gait assessment without AD and SBA to CG ( gait belt). Noted pt continues to improve with weight shifting. Needs work on arm swing and increasing step length. PT-OP-J Posture/Palpation/Skin Start: 11/22/21 16:49 Freq: Status: Active Protocol: Document 11/24/21 12:00 AW (Rec: 11/25/21 12:54 AW [id number]) Posture Evaluation Position Standing Evaluation View Lateral Comments Posture Comments Forward head, flat lumbar spine, externally rotated hips bilaterally. PT-OP-M Strength Start: 11/22/21 16:49 Freq: Status: Active Protocol: Document 11/24/21 12:00 AW (Rec: 11/25/21 12:50 AW [id number]) Hip Strength Hip Manual Muscle Testing bilat Flexion (L2) 4+ Good+ Extension (S1) 4 Good Abduction 4+ Good+ External Rotation 4+ Good+ Internal Rotation 4+ Good+ Knee Strength Knee Manual Muscle Testing bilat Flexion (S2) 4+ Good+ Extension (L3) 5 Normal Ankle/Foot Strength Ankle and Foot Manual Muscle Testing bilat Dorsiflexion (L4) 5 Normal Comments PF tested with SL heel lift. Pt able to complete no more than 4 reps with either limb. PT-OP-O Vestibular Start: 11/22/21 16:49 Freq: Status: Active Protocol: Document 11/24/21 12:00 AW (Rec: 11/25/21 13:00 AW [id number]) Vestibular Assessment Visual Testing Smooth Pursuits Horizontal WNL Smooth Pursuits Vertical WNL Saccades Horizontal WNL Saccades Vertical WNL Gaze Evoked Nystagmus With Fixation Negative Gaze Evoked Nystagmus Without Fixation Negative Thrust Head mild lag B Cover/Uncover Test WNL Convergence Test Impaired Comments Vestibular Comments Pt reports diplopia with target ~10 from face PT-OP-Q Treatments Start: 11/22/21 16:49 Freq: Status: Active Protocol: Document 10/05/22 13:03 TH (Rec: 10/05/22 14:11 TH [id number]) Neuro Re-Education Treatment Balance Activities step taps Comments 2 x 10 Other Activities balloon bat on foam cushion Comments out of reach, reaching forward , side to side steps to foam cushions Comments alternating step to pattern with one hand no no UE support air rocks Comments with one hand support Self-Care/Home Management Treatment Education Other Education Discussion with pt and pt's to reassess expectation with PT and prepare for dc with ideas for community ex. programs. Handout provided for chair ex program. PT-OP-T Assessment and Plan Start: 11/22/21 16:49 Freq: Status: Active Protocol: Document 10/05/22 13:03 TH (Rec: 10/05/22 14:11 TH [id number]) Physical Therapy Assessment Goals Five Impairment functional activity limitations Impairment patient unable to get into skiff or transfer from skiff into boat Short Term Goal (STG) patient will be able to safely get into his skiff with min assist of family Not Met STG Duration 10/12/22 Digital Marketing Associate Goal (LTG) Patient will be able to safely transfer from his skiff into his boat with min assist from his family Not Met LTG Duration 11/17/22 Four Impairment balance dysfunction Impairment requires assistance with SLS and tandem stand to prevent fall Digital Marketing Associate Goal (LTG) Patient will be able to perform SLS for 10 sec without assistance or LOB and tandem stand for 20 seconds as measure of improved balance and safety (06/13/22: Tandem: RLE back: 20+ sec occ finger touch RUE, LLE back: 13s. LLE 11s, RLE 0s ) 06/23/22 - SLS still requires assist to get into position and support to maintain Progressing LTG Duration 11/17/22 Three Impairment balance systems integration Short Term Goal (STG) Pt will improve mCTSIB to steady 110 seconds or greater. 12/30/21: Pt scores 95/120 today (all points deducted in 4th condition) 02/16/22: not tested this date 06/23/22 Pt scores 100/120 today. STG Duration 10/12/22 PROGRESSING Digital Marketing Associate Goal (LTG) Pt will walk the beach in front of his house alone and without assistive device as a measure of improved balance. 08/31/22 reports goal progress on even terrain with one trekking pole (06/13/22: Pt reports he walks in front of his house alone without an AD except when it is a crummy day and he uses a PVC pipe.) 06/23/22 - Pt states uses B trekking poles when walking the beach. LTG Duration 11/17/22 (Progressing) Two Impairment ABC score 75% Digital Marketing Associate Goal (LTG) Pt will improve his ABC score to 85% or greater as a measure of improved self-efficacy 12/15/21: 83% confident in balance with activities listed . 02/16/22: 85%, goal met LTG Duration goal met One Impairment lacks HEP Digital Marketing Associate Goal (LTG) Pt will be independent with HEP to improve his balance and calibration of his movement strategies 01/04/22: progressing: band walk, STS, bridge hold, TA TB KFO 02/16/22: continued progression of HEP ( per pt) Pt has been practicing all gait and strength ex. at home as instructed. Noted pt has good and bad days with ability to execute ex. due to dementia. LTG Duration 11/17/22 Assessment Summary Assessment Pt shows signs of retainng information from one appt to the next. His balance strategies have improved and LE strength is progressing. Physical Therapy Plan Frequency and Duration Frequency of Treatment 1-2x/week Plan of Care Start Date 07/06/22 Plan of Care End Date 12/12/22
--- NOTE | 2022-10-19 14:41 | PT.OTN ---
Current Diagnoses Unsteadiness on feet (10/19/22) Other abnormalities of gait and mobility (10/19/22) Weakness (10/19/22) Physical Therapy Treatment Note PT-OP-A Visit Information Start: 11/22/21 16:49 Freq: Status: Active Protocol: Document 10/19/22 13:41 TH (Rec: 10/19/22 14:41 TH [id number]) Out-Patient Physical Therapy Visit Information Visit Information Visit Type Treatment Note Visit Start Time 01:45 Visit Stop Time 02:30 Total Visit Minutes 45 Visit Number [address] Visits 0 PT-OP-B Current Condition Start: 11/22/21 16:49 Freq: Status: Active Protocol: Document 11/24/21 12:00 AW (Rec: 11/24/21 09:00 AW [id number]) Current Condition History of Current Condition Onset Date June 2021 Current Complaints decreased balance, falls History of Current Condition Vasile had prostatitis 10 years ago. He was treated medically and was ok. Symptoms returned last year and he had a simple open prostatectomy at last May. Since then, he reports feeling sluggish and has had dizzy spells. Recent nuc med stress test was normal . Vasile experiences heart palpitations occasionally for for 5-10 minutes at a time. He just returned a holter monitor which he wore for a month and will follow up with cardiology soon. Pt states one dizzy spell occured while driving. His was able to take the wheel. He describes it as feeling faint and disoriented and is associated with vision changes (double vision) and a build up of pressure in his head. He recently saw his eye doctor who recommended no changes to his bifocals prescription. The same sensation has caused at least two falls in the past six months. He feels a lack of confidence in his walking lately and doesn't feel comfortable walking on the beach alone. Pt also feels disoriented in crowded situations, with high levels of light, and with flashing lights. [place] [facility] with his , Damari. He hopes to be able to get his 23' runabout boat in the water this year but feels anxious about getting on and off the boat. Prior Treatments and Tests No prior PT. Future Testing and Treatments Planned Follow up with cardiology. Treatment Goals Patient/Caregiver Goals Increase confidence to be able to walk on the beach alone. Be able to use his boat this summer. PT-OP-C Subjective Start: 11/22/21 16:49 Freq: Status: Active Protocol: Document 10/19/22 13:41 TH (Rec: 10/19/22 14:41 TH [id number]) OP-PT Subjective Patient Comments Patient Comments Pt reports having to miss last vist due to cancer rx appt in [place]. He states he feels weak since the treatment. PT-OP-D Balance Start: 11/22/21 16:49 Freq: Status: Active Protocol: Document 08/31/22 13:53 TH (Rec: 08/31/22 15:58 TH [id number]) Balance Tests mCTSIB mCTSIB Position 1 30 mCTSIB Position 2 30 mCTSIB Position 3 25 mCTSIB Position 4 20 PT-OP-E Functional Tests Start: 11/22/21 16:49 Freq: Status: Active Protocol: Document 04/13/22 09:14 AW (Rec: 04/13/22 10:32 AW [id number]) Functional Tests Functional Gait Assessment Score 18 Functional Gait Assessment Impairment 40 to <60% Impaired (Score 13- Rating 18) PT-OP-G Mobility & Gait Start: 11/22/21 16:49 Freq: Status: Active Protocol: Document 09/07/22 11:15 TH (Rec: 09/07/22 12:16 TH [id number]) OP Gait Assessment Comments Gait Comments Gait assessment without AD and SBA to CG ( gait belt). Noted pt continues to improve with weight shifting. Needs work on arm swing and increasing step length. PT-OP-J Posture/Palpation/Skin Start: 11/22/21 16:49 Freq: Status: Active Protocol: Document 11/24/21 12:00 AW (Rec: 11/25/21 12:54 AW [id number]) Posture Evaluation Position Standing Evaluation View Lateral Comments Posture Comments Forward head, flat lumbar spine, externally rotated hips bilaterally. PT-OP-M Strength Start: 11/22/21 16:49 Freq: Status: Active Protocol: Document 11/24/21 12:00 AW (Rec: 11/25/21 12:50 AW [id number]) Hip Strength Hip Manual Muscle Testing bilat Flexion (L2) 4+ Good+ Extension (S1) 4 Good Abduction 4+ Good+ External Rotation 4+ Good+ Internal Rotation 4+ Good+ Knee Strength Knee Manual Muscle Testing bilat Flexion (S2) 4+ Good+ Extension (L3) 5 Normal Ankle/Foot Strength Ankle and Foot Manual Muscle Testing bilat Dorsiflexion (L4) 5 Normal Comments PF tested with SL heel lift. Pt able to complete no more than 4 reps with either limb. PT-OP-O Vestibular Start: 11/22/21 16:49 Freq: Status: Active Protocol: Document 11/24/21 12:00 AW (Rec: 11/25/21 13:00 AW [id number]) Vestibular Assessment Visual Testing Smooth Pursuits Horizontal WNL Smooth Pursuits Vertical WNL Saccades Horizontal WNL Saccades Vertical WNL Gaze Evoked Nystagmus With Fixation Negative Gaze Evoked Nystagmus Without Fixation Negative Thrust Head mild lag B Cover/Uncover Test WNL Convergence Test Impaired Comments Vestibular Comments Pt reports diplopia with target ~10 from face PT-OP-Q Treatments Start: 11/22/21 16:49 Freq: Status: Active Protocol: Document 10/19/22 13:41 TH (Rec: 10/19/22 14:41 TH [id number]) Therapeutic Exercises Supine Exercises Recum. bike Comments 6 min warm up Neuro Re-Education Treatment Other Activities Obstacle course Comments one rail support / one hand to finger tips air pods and foam cushions Cues for sequencing. Focus on regaining balance before next step. CG ( gait belt) ladder training Comments Braid walking with focus on sequencing. Cues to assist with correct LE . Stickers placed on R/L foot to help with sequencing movement. Walking fwd both feet in one box and alternating step in boxes ( switching back and forth between patterns to help with sequencing / mind focus ) PT-OP-T Assessment and Plan Start: 11/22/21 16:49 Freq: Status: Active Protocol: Document 10/05/22 13:03 TH (Rec: 10/05/22 14:11 TH [id number]) Physical Therapy Assessment Goals Five Impairment functional activity limitations Impairment patient unable to get into skiff or transfer from skiff into boat Short Term Goal (STG) patient will be able to safely get into his skiff with min assist of family Not Met STG Duration 10/12/22 Hazardous Waste Remover Goal (LTG) Patient will be able to safely transfer from his skiff into his boat with min assist from his family Not Met LTG Duration 11/17/22 Four Impairment balance dysfunction Impairment requires assistance with SLS and tandem stand to prevent fall Hazardous Waste Remover Goal (LTG) Patient will be able to perform SLS for 10 sec without assistance or LOB and tandem stand for 20 seconds as measure of improved balance and safety (06/13/22: Tandem: RLE back: 20+ sec occ finger touch RUE, LLE back: 13s. LLE 11s, RLE 0s ) 06/23/22 - SLS still requires assist to get into position and support to maintain Progressing LTG Duration 11/17/22 Three Impairment balance systems integration Short Term Goal (STG) Pt will improve mCTSIB to steady 110 seconds or greater. 12/30/21: Pt scores 95/120 today (all points deducted in 4th condition) 02/16/22: not tested this date 06/23/22 Pt scores 100/120 today. STG Duration 10/12/22 PROGRESSING Hazardous Waste Remover Goal (LTG) Pt will walk the beach in front of his house alone and without assistive device as a measure of improved balance. 08/31/22 reports goal progress on even terrain with one trekking pole (06/13/22: Pt reports he walks in front of his house alone without an AD except when it is a crummy day and he uses a PVC pipe.) 06/23/22 - Pt states uses B trekking poles when walking the beach. LTG Duration 11/17/22 (Progressing) Two Impairment ABC score 75% Shelter Goal (LTG) Pt will improve his ABC score to 85% or greater as a measure of improved self-efficacy 12/15/21: 83% confident in balance with activities listed . 02/16/22: 85%, goal met LTG Duration goal met One Impairment lacks HEP Hazardous Waste Remover Goal (LTG) Pt will be independent with HEP to improve his balance and calibration of his movement strategies 01/04/22: progressing: band walk, STS, bridge hold, TA TB KFO 02/16/22: continued progression of HEP ( per pt) Pt has been practicing all gait and strength ex. at home as instructed. Noted pt has good and bad days with ability to execute ex. due to dementia. LTG Duration 11/17/22 Assessment Summary Assessment Pt shows signs of retainng information from one appt to the next. His balance strategies have improved and LE strength is progressing. Physical Therapy Plan Frequency and Duration Frequency of Treatment 1-2x/week Plan of Care Start Date 07/06/22 Plan of Care End Date 12/12/22
--- NOTE | 2022-10-26 16:12 | PT.OTN ---
Current Diagnoses Unsteadiness on feet (10/26/22) Other abnormalities of gait and mobility (10/26/22) Weakness (10/26/22) Physical Therapy Treatment Note PT-OP-A Visit Information Start: 11/22/21 16:49 Freq: Status: Active Protocol: Document 10/26/22 13:58 TH (Rec: 10/26/22 16:12 TH [id number]) Out-Patient Physical Therapy Visit Information Visit Information Visit Type Treatment Note Visit Start Time 13:45 Visit Stop Time 14:30 Total Visit Minutes 45 Visit Number 41 Number of MARKETING PROGRAM MANAGER Visits 0 PT-OP-B Current Condition Start: 11/22/21 16:49 Freq: Status: Active Protocol: Document 11/24/21 12:00 AW (Rec: 11/24/21 09:00 AW [id number]) Current Condition History of Current Condition Onset Date June 2021 Current Complaints decreased balance, falls History of Current Condition Vasile had prostatitis 10 years ago. He was treated medically and was ok. Symptoms returned last year and he had a simple open prostatectomy at last May. Since then, he reports feeling sluggish and has had dizzy spells. Recent nuc med stress test was normal . Vasile experiences heart palpitations occasionally for for 5-10 minutes at a time. He just returned a holter monitor which he wore for a month and will follow up with cardiology soon. Pt states one dizzy spell occured while driving. His was able to take the wheel. He describes it as feeling faint and disoriented and is associated with vision changes (double vision) and a build up of pressure in his head. He recently saw his eye doctor who recommended no changes to his bifocals prescription. The same sensation has caused at least two falls in the past six months. He feels a lack of confidence in his walking lately and doesn't feel comfortable walking on the beach alone. Pt also feels disoriented in crowded situations, with high levels of light, and with flashing lights. [place] lives on [facility] with his , Damari. He hopes to be able to get his 23' runabout boat in the water this year but feels anxious about getting on and off the boat. Prior Treatments and Tests No prior PT. Future Testing and Treatments Planned Follow up with cardiology. Treatment Goals Patient/Caregiver Goals Increase confidence to be able to walk on the beach alone. Be able to use his boat this summer. PT-OP-C Subjective Start: 11/22/21 16:49 Freq: Status: Active Protocol: Document 10/26/22 13:58 TH (Rec: 10/26/22 16:12 TH [id number]) OP-PT Subjective Patient Comments Patient Comments Pt states his legs are a little tired. He has been doing laps in his home trying to get more exercise. PT-OP-D Balance Start: 11/22/21 16:49 Freq: Status: Active Protocol: Document 08/31/22 13:53 TH (Rec: 08/31/22 15:58 TH [id number]) Balance Tests mCTSIB mCTSIB Position 1 30 mCTSIB Position 2 30 mCTSIB Position 3 25 mCTSIB Position 4 20 PT-OP-E Functional Tests Start: 11/22/21 16:49 Freq: Status: Active Protocol: Document 04/13/22 09:14 AW (Rec: 04/13/22 10:32 AW [id number]) Functional Tests Functional Gait Assessment Score 18 Functional Gait Assessment Impairment 40 to <60% Impaired (Score 13- Rating 18) PT-OP-G Mobility & Gait Start: 11/22/21 16:49 Freq: Status: Active Protocol: Document 09/07/22 11:15 TH (Rec: 09/07/22 12:16 TH [id number]) OP Gait Assessment Comments Gait Comments Gait assessment without AD and SBA to CG ( gait belt). Noted pt continues to improve with weight shifting. Needs work on arm swing and increasing step length. PT-OP-J Posture/Palpation/Skin Start: 11/22/21 16:49 Freq: Status: Active Protocol: Document 11/24/21 12:00 AW (Rec: 11/25/21 12:54 AW [id number]) Posture Evaluation Position Standing Evaluation View Lateral Comments Posture Comments Forward head, flat lumbar spine, externally rotated hips bilaterally. PT-OP-M Strength Start: 11/22/21 16:49 Freq: Status: Active Protocol: Document 11/24/21 12:00 AW (Rec: 11/25/21 12:50 AW [id number]) Hip Strength Hip Manual Muscle Testing bilat Flexion (L2) 4+ Good+ Extension (S1) 4 Good Abduction 4+ Good+ External Rotation 4+ Good+ Internal Rotation 4+ Good+ Knee Strength Knee Manual Muscle Testing bilat Flexion (S2) 4+ Good+ Extension (L3) 5 Normal Ankle/Foot Strength Ankle and Foot Manual Muscle Testing bilat Dorsiflexion (L4) 5 Normal Comments PF tested with SL heel lift. Pt able to complete no more than 4 reps with either limb. PT-OP-O Vestibular Start: 11/22/21 16:49 Freq: Status: Active Protocol: Document 11/24/21 12:00 AW (Rec: 11/25/21 13:00 AW [id number]) Vestibular Assessment Visual Testing Smooth Pursuits Horizontal WNL Smooth Pursuits Vertical WNL Saccades Horizontal WNL Saccades Vertical WNL Gaze Evoked Nystagmus With Fixation Negative Gaze Evoked Nystagmus Without Fixation Negative Thrust Head mild lag B Cover/Uncover Test WNL Convergence Test Impaired Comments Vestibular Comments Pt reports diplopia with target ~10 from face PT-OP-Q Treatments Start: 11/22/21 16:49 Freq: Status: Active Protocol: Document 10/26/22 13:58 TH (Rec: 10/26/22 16:12 TH [id number]) Therapeutic Exercises Supine Exercises Recum. bike Comments 8min level 7 Other Exercises standing marches Comments 2 x 20 Neuro Re-Education Treatment Balance Activities Bosu ball Comments standing weight shift on bosu ball walking in place on bosu Both with UE support Other Activities ladder training Comments Side stepping into squares with focus on sequencing. Cues to assist with correct LE . Walking fwd both feet in one box and alternating step in boxes ( switching back and forth between patterns to help with sequencing / mind focus ) Focus also placed on talking sequence of movements out before actually taking steps to help bring thought and movement patterns together. PT-OP-T Assessment and Plan Start: 11/22/21 16:49 Freq: Status: Active Protocol: Document 10/26/22 13:58 TH (Rec: 10/26/22 16:12 TH [id number]) Physical Therapy Assessment Goals Five Impairment functional activity limitations Impairment patient unable to get into skiff or transfer from skiff into boat Short Term Goal (STG) patient will be able to safely get into his skiff with min assist of family Not Met STG Duration 10/12/22 Shelter Goal (LTG) Patient will be able to safely transfer from his skiff into his boat with min assist from his family Not Met LTG Duration 11/17/22 Four Impairment balance dysfunction Impairment requires assistance with SLS and tandem stand to prevent fall Shelter Goal (LTG) Patient will be able to perform SLS for 10 sec without assistance or LOB and tandem stand for 20 seconds as measure of improved balance and safety (06/13/22: Tandem: RLE back: 20+ sec occ finger touch RUE, LLE back: 13s. LLE 11s, RLE 0s ) 06/23/22 - SLS still requires assist to get into position and support to maintain Progressing LTG Duration 11/17/22 Three Impairment balance systems integration Short Term Goal (STG) Pt will improve mCTSIB to steady 110 seconds or greater. 12/30/21: Pt scores 95/120 today (all points deducted in 4th condition) 02/16/22: not tested this date 06/23/22 Pt scores 100/120 today. STG Duration 10/12/22 PROGRESSING Shelter Goal (LTG) Pt will walk the beach in front of his house alone and without assistive device as a measure of improved balance. 08/31/22 reports goal progress on even terrain with one trekking pole (06/13/22: Pt reports he walks in front of his house alone without an AD except when it is a crummy day and he uses a PVC pipe.) 06/23/22 - Pt states uses B trekking poles when walking the beach. LTG Duration 11/17/22 (Progressing) Two Impairment ABC score 75% Shelter Goal (LTG) Pt will improve his ABC score to 85% or greater as a measure of improved self-efficacy 12/15/21: 83% confident in balance with activities listed . 02/16/22: 85%, goal met LTG Duration goal met One Impairment lacks HEP Navigation Teacher Goal (LTG) Pt will be independent with HEP to improve his balance and calibration of his movement strategies 01/04/22: progressing: band walk, STS, bridge hold, TA TB KFO 02/16/22: continued progression of HEP ( per pt) Pt has been practicing all gait and strength ex. at home as instructed. Noted pt has good and bad days with ability to execute ex. due to dementia. LTG Duration 11/17/22 Assessment Summary Assessment Pt appears more fatigued over the last two treatments. he attributes this to CA rx and increased ex. He is able to recall focus points from orior treatments and has been working on some of these things at home. However, neuromotor coordinatiuon is still a challenge. Plan to focus more on this in the last few visits to see if coordination and movement patterns improve. Physical Therapy Plan Frequency and Duration Frequency of Treatment 1-2x/week Plan of Care Start Date 07/06/22 Plan of Care End Date 12/12/22 Therapeutic Interventions Therapeutic Interventions Balance Training,Coordination Training,Gait Training,Home Exercise Program,Neuromuscular Re-education,Self-Care/Home Management,Therapeutic Activities,Therapeutic Exercises,Vestibular Rehabilitation Other Referrals/Consults Referrals/Consults Recommended Per pt he has consulted with Neurologist. MD note available in EMR. Next Visit Focus/Plan Next Visit Plan Foam cushion balance training / stepping arm swing Therex
--- NOTE | 2022-11-02 14:40 | PT.OTN ---
Current Diagnoses Unsteadiness on feet (11/02/22) Other abnormalities of gait and mobility (11/02/22) Weakness (11/02/22) Physical Therapy Treatment Note PT-OP-A Visit Information Start: 11/22/21 16:49 Freq: Status: Active Protocol: Document 11/02/22 14:40 DLM (Rec: 11/02/22 16:48 DLM [id number]) Out-Patient Physical Therapy Visit Information Visit Information Visit Type Treatment Note Visit Start Time 13:54 Visit Stop Time 14:40 Total Visit Minutes 46 Visit Number 42 Number of LADLE LINER HELPER Visits 0 Evaluation Information Evaluation Date 11/24/21 Precautions Precautions Fall risk Impaired memory PT-OP-B Current Condition Start: 11/22/21 16:49 Freq: Status: Active Protocol: Document 11/24/21 12:00 AW (Rec: 11/24/21 09:00 AW [id number]) Current Condition History of Current Condition Onset Date June 2021 Current Complaints decreased balance, falls History of Current Condition Vasile had prostatitis 10 years ago. He was treated medically and was ok. Symptoms returned last year and he had a simple open prostatectomy at last May. Since then, he reports feeling sluggish and has had dizzy spells. Recent nuc med stress test was normal . Vasile experiences heart palpitations occasionally for for 5-10 minutes at a time. He just returned a holter monitor which he wore for a month and will follow up with cardiology soon. Pt states one dizzy spell occured while driving. His was able to take the wheel. He describes it as feeling faint and disoriented and is associated with vision changes (double vision) and a build up of pressure in his head. He recently saw his eye doctor who recommended no changes to his bifocals prescription. The same sensation has caused at least two falls in the past six months. He feels a lack of confidence in his walking lately and doesn't feel comfortable walking on the beach alone. Pt also feels disoriented in crowded situations, with high levels of light, and with flashing lights. [place] lives on [facility] with his , Damari. He hopes to be able to get his 23' runabout boat in the water this year but feels anxious about getting on and off the boat. Prior Treatments and Tests No prior PT. Future Testing and Treatments Planned Follow up with cardiology. Treatment Goals Patient/Caregiver Goals Increase confidence to be able to walk on the beach alone. Be able to use his boat this summer. PT-OP-C Subjective Start: 11/22/21 16:49 Freq: Status: Active Protocol: Document 11/02/22 14:40 DLM (Rec: 11/02/22 16:48 DLM [id number]) OP-PT Subjective Patient Comments Patient Comments He thinks using the walking stick has helped him a lot. He feels safer walking with it than without. He continues to have double vision with his distance vision. He wants to continue out-pt physical therapy Patient Reported Progress Improving PT-OP-D Balance Start: 11/22/21 16:49 Freq: Status: Active Protocol: Document 08/31/22 13:53 TH (Rec: 08/31/22 15:58 TH [id number]) Balance Tests mCTSIB mCTSIB Position 1 30 mCTSIB Position 2 30 mCTSIB Position 3 25 mCTSIB Position 4 20 PT-OP-E Functional Tests Start: 11/22/21 16:49 Freq: Status: Active Protocol: Document 04/13/22 09:14 AW (Rec: 04/13/22 10:32 AW [id number]) Functional Tests Functional Gait Assessment Score 18 Functional Gait Assessment Impairment 40 to <60% Impaired (Score 13- Rating 18) PT-OP-G Mobility & Gait Start: 11/22/21 16:49 Freq: Status: Active Protocol: Document 09/07/22 11:15 TH (Rec: 09/07/22 12:16 TH [id number]) OP Gait Assessment Comments Gait Comments Gait assessment without AD and SBA to CG ( gait belt). Noted pt continues to improve with weight shifting. Needs work on arm swing and increasing step length. PT-OP-J Posture/Palpation/Skin Start: 11/22/21 16:49 Freq: Status: Active Protocol: Document 11/24/21 12:00 AW (Rec: 11/25/21 12:54 AW [id number]) Posture Evaluation Position Standing Evaluation View Lateral Comments Posture Comments Forward head, flat lumbar spine, externally rotated hips bilaterally. PT-OP-M Strength Start: 11/22/21 16:49 Freq: Status: Active Protocol: Document 11/24/21 12:00 AW (Rec: 11/25/21 12:50 AW [id number]) Hip Strength Hip Manual Muscle Testing bilat Flexion (L2) 4+ Good+ Extension (S1) 4 Good Abduction 4+ Good+ External Rotation 4+ Good+ Internal Rotation 4+ Good+ Knee Strength Knee Manual Muscle Testing bilat Flexion (S2) 4+ Good+ Extension (L3) 5 Normal Ankle/Foot Strength Ankle and Foot Manual Muscle Testing bilat Dorsiflexion (L4) 5 Normal Comments PF tested with SL heel lift. Pt able to complete no more than 4 reps with either limb. PT-OP-O Vestibular Start: 11/22/21 16:49 Freq: Status: Active Protocol: Document 11/24/21 12:00 AW (Rec: 11/25/21 13:00 AW [id number]) Vestibular Assessment Visual Testing Smooth Pursuits Horizontal WNL Smooth Pursuits Vertical WNL Saccades Horizontal WNL Saccades Vertical WNL Gaze Evoked Nystagmus With Fixation Negative Gaze Evoked Nystagmus Without Fixation Negative Thrust Head mild lag B Cover/Uncover Test WNL Convergence Test Impaired Comments Vestibular Comments Pt reports diplopia with target ~10 from face PT-OP-Q Treatments Start: 11/22/21 16:49 Freq: Status: Active Protocol: Document 11/02/22 14:40 DLM (Rec: 11/02/22 16:48 DLM [id number]) Cardio Equipment Recumbent Bicycle Duration (Minutes) 8 Resistance level 7 Therapeutic Exercises Standing Exercises Hip Extension Side bilateral Resistance active Equipment Used parallel bars Reps/Minutes 10 reps each LE Comments lot of cuing needed for technique and upright posture Other Exercises standing marches Side bilateral Reps/Minutes 2 x20 reps sit to stand Other Exercise Name no UE support Equipment Used chair with armrests Reps/Minutes 3 x 5 reps Comments one set with his perferred wide ALMAZ, 2 sets with narrower bases of support Neuro Re-Education Treatment Balance Activities Backwards Gait Surface level Equipment parallel bars Reps/Duration 2 laps side stepping Details no UE support Surface level Equipment parallel bars Comments harder for him to left than right Bosu ball Details Standing weight shifts Surface BOSU ball Comments UE support step taps Details single LE and alternating Equipment 6 in step Reps/Duration 3 x 10 reps Comments in parallel bars but no UE support SLS Details each LE Surface level Equipment in parallel bars Reps/Duration 5 reps each LE Comments decreasing level of UE support Other Activities ladder training Reps/Duration 6 laps Comments stepping into squares with focus on sequencing. Cues to assist with correct LE . box and alternating step in boxes ( switching back and forth between patterns to help with sequencing / mind focus ) Focus also placed on talking sequence of movements out before actually taking steps to help bring thought and movement patterns together. PT-OP-T Assessment and Plan Start: 11/22/21 16:49 Freq: Status: Active Protocol: Document 11/02/22 14:40 DLM (Rec: 11/02/22 16:48 DLM [id number]) Physical Therapy Assessment Goals Five Impairment functional activity limitations Impairment patient unable to get into skiff or transfer from skiff into boat Short Term Goal (STG) patient will be able to safely get into his skiff with min assist of family Not Met STG Duration 10/12/22 Student Financial Aid Manager Goal (LTG) Patient will be able to safely transfer from his skiff into his boat with min assist from his family Not Met LTG Duration 11/17/22 Four Impairment balance dysfunction Impairment requires assistance with SLS and tandem stand to prevent fall Student Financial Aid Manager Goal (LTG) Patient will be able to perform SLS for 10 sec without assistance or LOB and tandem stand for 20 seconds as measure of improved balance and safety (06/13/22: Tandem: RLE back: 20+ sec occ finger touch RUE, LLE back: 13s. LLE 11s, RLE 0s ) 06/23/22 - SLS still requires assist to get into position and support to maintain Progressing LTG Duration 11/17/22 Three Impairment balance systems integration Short Term Goal (STG) Pt will improve mCTSIB to steady 110 seconds or greater. 12/30/21: Pt scores 95/120 today (all points deducted in 4th condition) 02/16/22: not tested this date 06/23/22 Pt scores 100/120 today. STG Duration 10/12/22 PROGRESSING Student Financial Aid Manager Goal (LTG) Pt will walk the beach in front of his house alone and without assistive device as a measure of improved balance. 08/31/22 reports goal progress on even terrain with one trekking pole (06/13/22: Pt reports he walks in front of his house alone without an AD except when it is a crummy day and he uses a PVC pipe.) 06/23/22 - Pt states uses B trekking poles when walking the beach. LTG Duration 11/17/22 (Progressing) Two Impairment ABC score 75% Student Financial Aid Manager Goal (LTG) Pt will improve his ABC score to 85% or greater as a measure of improved self-efficacy 12/15/21: 83% confident in balance with activities listed . 02/16/22: 85%, goal met LTG Duration goal met One Impairment lacks HEP Student Financial Aid Manager Goal (LTG) Pt will be independent with HEP to improve his balance and calibration of his movement strategies 01/04/22: progressing: band walk, STS, bridge hold, TA TB KFO 02/16/22: continued progression of HEP ( per pt) Pt has been practicing all gait and strength ex. at home as instructed. Noted pt has good and bad days with ability to execute ex. due to dementia. LTG Duration 11/17/22 Progress Towards Goals Progress Towards Goals Progressing Toward Goals Progress Comments his rate of progress has been complicated by his complex medical status including his chemo treatments Assessment Summary Assessment Vasile is very motivated during physical therapy. He needs intermittent short seated rest breaks to complete his therapy session. Safety education to decreased his fall risks was done during seated rest breaks. He reports improved balance during gait with use of his walking stick. He reports LE fatigue with treatment activities. Physical Therapy Plan Frequency and Duration Frequency of Treatment 1x/Week Plan of Care Start Date 07/06/22 Plan of Care End Date 12/12/22 Therapeutic Interventions Therapeutic Interventions Balance Training,Coordination Training,Gait Training,Home Exercise Program,Neuromuscular Re-education,Self-Care/Home Management,Therapeutic Activities,Therapeutic Exercises,Vestibular Rehabilitation Next Visit Focus/Plan Next Note Type Treatment Note Next Visit Plan Assess for discharge after 3-4 more visits. Review HEP. Improve functional hip extension during gait.
--- NOTE | 2022-11-14 07:45 | PT-OP ANOTE ---
Pt cancelled today's appt <24 hrs reporting feeling sick and unable to attend.
--- NOTE | 2022-11-30 15:52 | PT.OPDS ---
Current Diagnoses Unsteadiness on feet (11/02/22) Other abnormalities of gait and mobility (11/02/22) Weakness (11/02/22) Visit Care Team Role Provider Type Gómez Bhatt MD Attending Provider Physician Primary Care Provider Referring Provider Specialty: Internal Medicine Address: [address] [place] [address], [id number] Email: Visit Number Visit Number 42 Discharge Summary PT-OP-B Current Condition Start: 11/22/21 16:49 Freq: Status: Active Protocol: Document 11/24/21 12:00 AW (Rec: 11/24/21 09:00 AW [id number]) Current Condition History of Current Condition Onset Date June 2021 Current Complaints decreased balance, falls History of Current Condition Vasile had prostatitis 10 years ago. He was treated medically and was ok. Symptoms returned last year and he had a simple open prostatectomy at last May. Since then, he reports feeling sluggish and has had dizzy spells. Recent nuc med stress test was normal . Vasile experiences heart palpitations occasionally for for 5-10 minutes at a time. He just returned a holter monitor which he wore for a month and will follow up with cardiology soon. Pt states one dizzy spell occured while driving. His was able to take the wheel. He describes it as feeling faint and disoriented and is associated with vision changes (double vision) and a build up of pressure in his head. He recently saw his eye doctor who recommended no changes to his bifocals prescription. The same sensation has caused at least two falls in the past six months. He feels a lack of confidence in his walking lately and doesn't feel comfortable walking on the beach alone. Pt also feels disoriented in crowded situations, with high levels of light, and with flashing lights. [place] lives on [address] with his , Damari. He hopes to be able to get his ' runabout boat in the water this year but feels anxious about getting on and off the boat. Prior Treatments and Tests No prior PT. Future Testing and Treatments Planned Follow up with cardiology. Treatment Goals Patient/Caregiver Goals Increase confidence to be able to walk on the beach alone. Be able to use his boat this summer. PT-OP-C Subjective Start: 11/22/21 16:49 Freq: Status: Active Protocol: Document 11/02/22 14:40 DLM (Rec: 11/02/22 16:48 DLM [id number]) OP-PT Subjective Patient Comments Patient Comments He thinks using the walking stick has helped him a lot. He feels safer walking with it than without. He continues to have double vision with his distance vision. He wants to continue out-pt physical therapy Patient Reported Progress Improving PT-OP-D Balance Start: 11/22/21 16:49 Freq: Status: Active Protocol: Document 08/31/22 13:53 TH (Rec: 08/31/22 15:58 TH [id number]) Balance Tests mCTSIB mCTSIB Position 1 30 mCTSIB Position 2 30 mCTSIB Position 3 25 mCTSIB Position 4 20 PT-OP-E Functional Tests Start: 11/22/21 16:49 Freq: Status: Active Protocol: Document 04/13/22 09:14 AW (Rec: 04/13/22 10:32 AW [id number]) Functional Tests Functional Gait Assessment Score 18 Functional Gait Assessment Impairment 40 to <60% Impaired (Score 13- Rating 18) PT-OP-G Mobility & Gait Start: 11/22/21 16:49 Freq: Status: Active Protocol: Document 09/07/22 11:15 TH (Rec: 09/07/22 12:16 TH [id number]) OP Gait Assessment Comments Gait Comments Gait assessment without AD and SBA to CG ( gait belt). Noted pt continues to improve with weight shifting. Needs work on arm swing and increasing step length. PT-OP-J Posture/Palpation/Skin Start: 11/22/21 16:49 Freq: Status: Active Protocol: Document 11/24/21 12:00 AW (Rec: 11/25/21 12:54 AW [id number]) Posture Evaluation Position Standing Evaluation View Lateral Comments Posture Comments Forward head, flat lumbar spine, externally rotated hips bilaterally. PT-OP-M Strength Start: 11/22/21 16:49 Freq: Status: Active Protocol: Document 11/24/21 12:00 AW (Rec: 11/25/21 12:50 AW [id number]) Hip Strength Hip Manual Muscle Testing bilat Flexion (L2) 4+ Good+ Extension (S1) 4 Good Abduction 4+ Good+ External Rotation 4+ Good+ Internal Rotation 4+ Good+ Knee Strength Knee Manual Muscle Testing bilat Flexion (S2) 4+ Good+ Extension (L3) 5 Normal Ankle/Foot Strength Ankle and Foot Manual Muscle Testing bilat Dorsiflexion (L4) 5 Normal Comments PF tested with SL heel lift. Pt able to complete no more than 4 reps with either limb. PT-OP-O Vestibular Start: 11/22/21 16:49 Freq: Status: Active Protocol: Document 11/24/21 12:00 AW (Rec: 11/25/21 13:00 AW [id number]) Vestibular Assessment Visual Testing Smooth Pursuits Horizontal WNL Smooth Pursuits Vertical WNL Saccades Horizontal WNL Saccades Vertical WNL Gaze Evoked Nystagmus With Fixation Negative Gaze Evoked Nystagmus Without Fixation Negative Thrust Head mild lag B Cover/Uncover Test WNL Convergence Test Impaired Comments Vestibular Comments Pt reports diplopia with target ~10 from face PT-OP-T Assessment and Plan Start: 11/22/21 16:49 Freq: Status: Active Protocol: Document 11/30/22 15:52 AMB (Rec: 11/30/22 15:52 AMB [id number]) Physical Therapy Assessment Assessment Summary Assessment Vasile's plan of car is , he had to cancel multiple times due to moving, he would be welcome to return to therapy with a new referral.
== END 2023-01-11 14:22 | disposition home or self-care (01) ==
LOC: PHYS 13:45
PROVIDERS: PCP Internal Medicine; Referring Provider Internal Medicine; Visit Provider Internal Medicine
DX: R53.1 Weakness (principal); R26.81 Unsteadiness on feet; R26.89 Other abnormalities of gait and mobility
CPT/HCPCS: 97110; 97112; 97116; 97140; 97162; 97530; 97535

== ENCOUNTER → 2022-11-16 14:20 | Outpatient (CLI) | payer MEDICARE, SELFPAY ==
[2022-11-16 15:22] LABS: Aspartate Aminotransferase 25 IU/L (17-59); BUN Creatinine Ratio 37.3 (6-22); Blood Urea Nitrogen 28 mg/dL (9-20); Calcium 9.3 mg/dL (8.4-10.2); Carbon Dioxide 30 mmol/L (22-32); Chloride 101 mmol/L (98-107); Cholesterol 101 mg/dL (140-199); Estimated Glomerular Filt Rate > 60 mL/min (>60); Glucose 222 mg/dL (80-110); HDL Cholesterol 53 mg/dL (40-60); HEMOLYSIS < 15 (0-50); LDL Cholesterol Calculated 27 mg/dL (<100); Potassium 4.3 mmol/L (3.4-5.1); Sodium 139 mmol/L (137-145); Triglycerides 106 mg/dL (35-150)
[2022-11-16 15:52] LABS: TSH w/ Reflex to FT4 0.97 uIU/mL (0.47-4.68)
[2022-11-17 15:51] LABS: x Labcorp Estim. Avg Glu (eAG) 169 mg/dL (.); x Labcorp Hemoglobin A1c 7.5 % (4.8-5.6)
== END ==
PROVIDERS: PCP Internal Medicine; Referring Provider Internal Medicine; Visit Provider Internal Medicine
DX: C61 Malignant neoplasm of prostate (principal); C79.51 Secondary malignant neoplasm of bone; E11.69 Type 2 diabetes mellitus with other specified complication; E78.2 Mixed hyperlipidemia; E78.5 Hyperlipidemia, unspecified; I10 Essential (primary) hypertension; Z86.39 Personal history of other endocrine, nutritional and metabolic disease
CPT/HCPCS: 36415; 80048; 80061; 83036; 84443; 84450

== ENCOUNTER 2023-01-24 10:00 | Outpatient (RCR) | payer MEDICARE, SELFPAY ==
--- NOTE | 2023-01-06 13:58 | PT.OIE ---
Current Diagnoses Unsteadiness on feet (01/05/23) Past Medical History (Last Updated 11/16/22 @ 13:54 by Maco Schafer MD) Alzheimer's dementia Bladder calculi DM type 2 with diabetic dyslipidemia Erectile dysfunction Essential hypertension Gait instability GERD (gastroesophageal reflux disease) History of hyperparathyroidism Mixed hyperlipidemia Prostate cancer metastatic to bone Prostatitis Secondary osteoporosis Visit Care Team Role Provider Type Maco Schafer MD Attending Provider Physician Family Provider Primary Care Provider Referring Provider Specialty: Internal Medicine Address: [address] [place] [address], [facility] Email: [email or web address] Physical Therapy Initial Evaluation PT-OP-A Visit Information Start: 01/06/23 13:08 Freq: Status: Active Protocol: Document 01/05/23 13:45 ES (Rec: 01/06/23 13:56 ES [id number]) Out-Patient Physical Therapy Visit Information Visit Information Visit Type Initial Evaluation Visit Start Time 13:50 Visit Stop Time 14:32 Total Visit Minutes 42 Visit Number 1 (18th visit for the year) Evaluation Information Evaluation Date 01/05/23 PT-OP-B Current Condition Start: 01/06/23 13:08 Freq: Status: Active Protocol: Document 01/05/23 13:45 ES (Rec: 01/06/23 13:56 ES [id number]) Current Condition History of Current Condition Onset Date June 2021 Current Complaints Weakness, unsteadiness History of Current Condition Patient had open prostatectomy May 2021. He had a slow recovery and had been having dizzy spells. Was having heart palpitations, being followed by cardiology. Underwent chemo treatments for bladder cancer . He had a series of falls in early 2021. He was seen in PT from November 2021 to October 2022, then had to miss several visit due to having to move so was d/c. He now returns to continue PT services. States he notices his L foot drags when walking. Has been using a walking stick pretty consistently for the past month. Is having difficulty getting in/out of the car. Has been doing his HEP using 3lb weights. Patient reports no falls in the past 2 months. Patient and his are working on moving into a prison home, hoping to do so in the next 2 months. They have a daily group exercise class at the [facility]. Treatment Goals Patient/Caregiver Goals To be able to get in/out of the car with less difficulty, to have better balance with walking. PT-OP-C Subjective Start: 01/06/23 13:08 Freq: Status: Active Protocol: Document 01/05/23 13:45 ES (Rec: 01/06/23 13:56 ES [id number]) Patient Questionnaires ABC- Activity Specific Balance Confidence Scale ABC Score 52.5 ABC Functional Impairment 40 to <60% Impaired (Score 41- 60) PT-OP-D Balance Start: 01/06/23 13:08 Freq: Status: Active Protocol: Document 01/05/23 13:45 ES (Rec: 01/06/23 13:56 ES [id number]) Balance Tests Vidal Balance Test Vidal Balance Test Score 46 Vidal Impairment Rating 1 to 19% Impaired (Score 45-55 ) PT-OP-E Functional Tests Start: 01/06/23 13:08 Freq: Status: Active Protocol: Document 01/05/23 13:45 ES (Rec: 01/06/23 13:56 ES [id number]) Functional Tests Dynamic Gait Index (DGI) Score 18 DGI Impairment Rating 20 to <40% Impaired (Score 15- 19) Five Times Sit to Stand Test Score 13 sec Timed Up and Go (TUG) Score 14.3 sec Comments avg of 3 trials TUG Impairment Rating 40 to <60% Impaired (Score 14- 15) PT-OP-G Mobility & Gait Start: 01/06/23 13:08 Freq: Status: Active Protocol: Document 01/05/23 13:45 ES (Rec: 01/06/23 13:56 ES [id number]) OP Gait Assessment Comments Gait Comments Without AD: wide ALMAZ, flexed posture, decreased heel-toe pattern, decreased hip and knee flexion during swing, decreased knee extension during stance, decreased single limb support time, decreased foot clearance, decreased stride length all B. PT-OP-M Strength Start: 01/06/23 13:08 Freq: Status: Active Protocol: Document 01/05/23 13:45 ES (Rec: 01/06/23 13:58 ES [id number]) Hip Strength Hip Manual Muscle Testing Left Flexion (L2) 4- Good- Extension (S1) 4- Good- Abduction 4 Good Adduction 4 Good Right Flexion (L2) 4- Good- Extension (S1) 4- Good- Abduction 4 Good Adduction 4 Good Knee Strength Knee Manual Muscle Testing Left Flexion (S2) 4+ Good+ Extension (L3) 4+ Good+ Right Flexion (S2) 4+ Good+ Extension (L3) 4+ Good+ Ankle/Foot Strength Ankle and Foot Manual Muscle Testing Left Dorsiflexion (L4) 4 Good Plantarflexion (S1) 3+ Fair+ Right Dorsiflexion (L4) 4 Good Plantarflexion (S1) 3+ Fair+ PT-OP-T Assessment and Plan Start: 01/06/23 13:08 Freq: Status: Active Protocol: Document 01/05/23 13:45 ES (Rec: 01/06/23 13:56 ES [id number]) Physical Therapy Assessment Rehab Potential Rehabilitation Potential Fair Evaluation Complexity Number of Personal Factors/Comorbidities 3 or More Number of Body Systems Impaired 1-2 Clinical Presentation at Evaluation Evolving Impairments Impairments Activity Tolerance,Balance, Functional Mobility,Gait, Strength Goals Three Impairment Balance Impairment 01/05/23: ABC Scale = 52.5% Academic Dean Goal (LTG) Patient will improve ABC scale score to 69% or greater indicating decreased risk for falls. LTG Duration 6 weeks (02/16/23) Two Impairment Balance Impairment 01/05/23: TUG 14.3 sec Academic Dean Goal (LTG) Patient will improve TUG score without AD to <13 seconds indicating decreased risk for falls. LTG Duration 6 weeks (02/16/23) One Impairment Strength Impairment 01/05/23: 5xSTS = 13 sec Short Term Goal (STG) Patient will improve 5xSTS score to <12 sec indicating improved functional strength. STG Duration 4 weeks (02/02/23) Academic Dean Goal (LTG) Patient and will be independent with HEP and/or transition to community exercise class to reduce risk of functional decline. LTG Duration 6 weeks (02/16/23) Assessment Summary Assessment Patient is a 77 year old male who returns to PT after 2 months away to resume therapy to address balance and gait. He demonstrates general weakness, decreased balance, and decreased balance confidence, and impaired gait pattern contributing to difficulty with functional activities including getting in/out of his car and walking in the community. He has memory issues due to dementia though does have fair safety awareness. His scores on 5xSTS , DGI, and TUG indicate increased risk for falls. He will benefit from further skilled PT for balance training in a safe environment and to instruct in appropriate home exercise program to reduce his risk for further decline. Physical Therapy Plan Frequency and Duration Frequency of Treatment 1x/Week Duration of treatment (weeks) 6 Plan of Care Start Date 01/05/23 Plan of Care End Date 02/16/23 Therapeutic Interventions Therapeutic Interventions Balance Training,Gait Training ,Home Exercise Program, Neuromuscular Re-education, Patient/Caregiver Education, Self-Care/Home Management, Therapeutic Activities, Therapeutic Exercises Next Visit Focus/Plan Next Note Type Treatment Note Next Visit Plan Balance training, review current HEP and adjust as needed.
--- NOTE | 2023-01-06 13:59 | PT.OPPOC ---
Physical, Occupational & Speech Therapy At [facility] Current Diagnoses Unsteadiness on feet (01/05/23) Visit Care Team Role Provider Type Maco Schafer MD Attending Provider Physician Family Provider Primary Care Provider Referring Provider Specialty: Internal Medicine Address: [address] [place] [address], [id number] Email: [email or web address] Plan Of Care PT-OP-T Assessment and Plan Start: 01/06/23 13:08 Freq: Status: Active Protocol: Document 01/05/23 13:45 ES (Rec: 01/06/23 13:56 ES [id number]) Physical Therapy Assessment Rehab Potential Rehabilitation Potential Fair Evaluation Complexity Number of Personal Factors/Comorbidities 3 or More Number of Body Systems Impaired 1-2 Clinical Presentation at Evaluation Evolving Impairments Impairments Activity Tolerance,Balance, Functional Mobility,Gait, Strength Goals Three Impairment Balance Impairment 01/05/23: ABC Scale = 52.5% Long-Term Goal (LTG) Patient will improve ABC scale score to 69% or greater indicating decreased risk for falls. LTG Duration 6 weeks (02/16/23) Two Impairment Balance Impairment 01/05/23: TUG 14.3 sec Automatic Spinning Lathe Setter Goal (LTG) Patient will improve TUG score without AD to <13 seconds indicating decreased risk for falls. LTG Duration 6 weeks (02/16/23) One Impairment Strength Impairment 01/05/23: 5xSTS = 13 sec Short Term Goal (STG) Patient will improve 5xSTS score to <12 sec indicating improved functional strength. STG Duration 4 weeks (02/02/23) Long-Term Goal (LTG) Patient and will be independent with HEP and/or transition to community exercise class to reduce risk of functional decline. LTG Duration 6 weeks (02/16/23) Assessment Summary Assessment Patient is a 77 year old male who returns to PT after 2 months away to resume therapy to address balance and gait. He demonstrates general weakness, decreased balance, and decreased balance confidence, and impaired gait pattern contributing to difficulty with functional activities including getting in/out of his car and walking in the community. He has memory issues due to dementia though does have fair safety awareness. His scores on 5xSTS , DGI, and TUG indicate increased risk for falls. He will benefit from further skilled PT for balance training in a safe environment and to instruct in appropriate home exercise program to reduce his risk for further decline. Physical Therapy Plan Frequency and Duration Frequency of Treatment 1x/Week Duration of treatment (weeks) 6 Plan of Care Start Date 01/05/23 Plan of Care End Date 02/16/23 Therapeutic Interventions Therapeutic Interventions Balance Training,Gait Training ,Home Exercise Program, Neuromuscular Re-education, Patient/Caregiver Education, Self-Care/Home Management, Therapeutic Activities, Therapeutic Exercises Next Visit Focus/Plan Next Note Type Treatment Note Next Visit Plan Balance training, review current HEP and adjust as needed. Plan of Care Dates Plan of Care Start Date 01/05/23 Plan of Care End Date 02/16/23 Electronically Signed by: Sofia Rodriguez, PT 01/06/23 [id number] If you are in agreement with this Plan of Care, please return a signed and dated copy. I have reviewed this Plan of Care and certify that the skilled therapy services above are required to meet the patient?s needs. Physician Signature Date Printed Name and Credentials Clinical Instructor Signature Printed Name and Credentials
--- NOTE | 2023-01-13 13:30 | PT.OTN ---
Current Diagnoses Unsteadiness on feet (01/13/23) Physical Therapy Treatment Note PT-OP-A Visit Information Start: 01/06/23 13:08 Freq: Status: Active Protocol: Document 01/13/23 12:46 SP (Rec: 01/13/23 13:26 SP [id number]) Out-Patient Physical Therapy Visit Information Visit Information Visit Type Treatment Note Visit Note 19th visit this yr Visit Start Time 12:46 Visit Stop Time 13:30 Total Visit Minutes 44 Visit Number 2 Number of HOME CHILD CARE PROVIDER Visits 1 Evaluation Information Evaluation Date 01/05/23 PT-OP-B Current Condition Start: 01/06/23 13:08 Freq: Status: Active Protocol: Document 01/05/23 13:45 ES (Rec: 01/06/23 13:56 ES [id number]) Current Condition History of Current Condition Onset Date June 2021 Current Complaints Weakness, unsteadiness History of Current Condition Patient had open prostatectomy May 2021. He had a slow recovery and had been having dizzy spells. Was having heart palpitations, being followed by cardiology. Underwent chemo treatments for bladder cancer . He had a series of falls in early 2021. He was seen in PT from November 2021 to October 2022, then had to miss several visit due to having to move so was d/c. He now returns to continue PT services. States he notices his L foot drags when walking. Has been using a walking stick pretty consistently for the past month. Is having difficulty getting in/out of the car. Has been doing his HEP using 3lb weights. Patient reports no falls in the past 2 months. Patient and his are working on moving into a [facility], hoping to do so in the next 2 months. They have a daily group exercise class at the [facility]. Treatment Goals Patient/Caregiver Goals To be able to get in/out of the car with less difficulty, to have better balance with walking. PT-OP-C Subjective Start: 01/06/23 13:08 Freq: Status: Active Protocol: Document 01/13/23 12:46 SP (Rec: 01/13/23 13:26 SP [id number]) OP-PT Subjective Patient Comments Patient Comments Pt reports no changes since eval need report when arrived, wants get more stable walking . PT-OP-D Balance Start: 01/06/23 13:08 Freq: Status: Active Protocol: Document 01/05/23 13:45 ES (Rec: 01/06/23 13:56 ES [id number]) Balance Tests Vidal Balance Test Vidal Balance Test Score 46 Vidal Impairment Rating 1 to 19% Impaired (Score 45-55 ) PT-OP-E Functional Tests Start: 01/06/23 13:08 Freq: Status: Active Protocol: Document 01/05/23 13:45 ES (Rec: 01/06/23 13:56 ES [id number]) Functional Tests Dynamic Gait Index (DGI) Score 18 DGI Impairment Rating 20 to <40% Impaired (Score 15- 19) Five Times Sit to Stand Test Score 13 sec Timed Up and Go (TUG) Score 14.3 sec Comments avg of 3 trials TUG Impairment Rating 40 to <60% Impaired (Score 14- 15) PT-OP-G Mobility & Gait Start: 01/06/23 13:08 Freq: Status: Active Protocol: Document 01/05/23 13:45 ES (Rec: 01/06/23 13:56 ES [id number]) OP Gait Assessment Comments Gait Comments Without AD: wide ALMAZ, flexed posture, decreased heel-toe pattern, decreased hip and knee flexion during swing, decreased knee extension during stance, decreased single limb support time, decreased foot clearance, decreased stride length all B. PT-OP-M Strength Start: 01/06/23 13:08 Freq: Status: Active Protocol: Document 01/05/23 13:45 ES (Rec: 01/06/23 13:58 ES [id number]) Hip Strength Hip Manual Muscle Testing Left Flexion (L2) 4- Good- Extension (S1) 4- Good- Abduction 4 Good Adduction 4 Good Right Flexion (L2) 4- Good- Extension (S1) 4- Good- Abduction 4 Good Adduction 4 Good Knee Strength Knee Manual Muscle Testing Left Flexion (S2) 4+ Good+ Extension (L3) 4+ Good+ Right Flexion (S2) 4+ Good+ Extension (L3) 4+ Good+ Ankle/Foot Strength Ankle and Foot Manual Muscle Testing Left Dorsiflexion (L4) 4 Good Plantarflexion (S1) 3+ Fair+ Right Dorsiflexion (L4) 4 Good Plantarflexion (S1) 3+ Fair+ PT-OP-Q Treatments Start: 01/06/23 13:08 Freq: Status: Active Protocol: Document 01/13/23 12:46 SP (Rec: 01/13/23 13:26 SP [id number]) Gym Equipment Shuttle Recovery unilateral squat Details mod cues full ext Resistance 37# (old band) Reps/Time 2x10 bilateral squat Details mod cues full ext Resistance 50# (2 new bands) Reps/Time 2x15 Therapeutic Exercises Sitting Exercises sit to stands Sitting Exercise Name added to HEP, provided HO Reps/Minutes 2x5, instructed 3x day Comments cued scoot fwd chair, arms front hip hinge to full stand/ slow sit Standing Exercises hip ext Standing Exercise Name added to HEP, provided HO Side bilateral Resistance AROM- weak R hip abd/glut during SLS time of LLE mobility. Equipment Used rail support Reps/Minutes x10 each LE Comments intermittent cues tall elongated posture over RLE w/ L TKE during ext Therapeutic Activity Therapeutic Activity safe transfers Reps/Minutes x4 between 2 chairs Comments cued full stand, TKE during pivot w/ upright posture ( tends be fwd rounded posture with flexed knees), full pivot step back/center self, reach fwd with slow hip hinge desc or for safety reach back for chair arms/seat. Some spent positionin of trek pole strap on wrist with end forward to allow reaching back BUEs for safe slow descend sit. Fwd upright position trek pole in RUE downward pressure needed while push off chair arm on L ascend to stand. Cued increase posture and stride during pivot for foot clearance. Gait Training Gait Activity w/ trek pole Description add Device Used trek pole RUE Level of Assistance CGA Surface carpet, tile Distance/Duration 72, 173 ft Treatment Focus increase posturing, sequencing R trek pole, foot clearance and stride, stab Comments cued upright elongated posturing, TKE R>L during midstance phase, noted R hip weakness lateral shear. Trialed trek pole in LUE but not used to patterning so challenge with wider ALMAZ and position/sequence with RLE. Improved posturing with cues end tx post ther ex and transfer education. Neuro Re-Education Treatment Balance Activities step taps Surface 4 step, 4# leg wt Equipment near rail PRN Reps/Duration x10 alterating BLEs Comments cued TKE of RLE during LLE repositioning asc/desc, improve more centered and allowance improved control and stability. PT-OP-T Assessment and Plan Start: 01/06/23 13:08 Freq: Status: Active Protocol: Document 01/13/23 12:46 SP (Rec: 01/13/23 13:26 SP [id number]) Physical Therapy Assessment Goals Three Impairment Balance Impairment 01/05/23: ABC Scale = 52.5% Security Sales Consultant Goal (LTG) Patient will improve ABC scale score to 69% or greater indicating decreased risk for falls. LTG Duration 6 weeks (02/16/23) Two Impairment Balance Impairment 01/05/23: TUG 14.3 sec Group Home Goal (LTG) Patient will improve TUG score without AD to <13 seconds indicating decreased risk for falls. LTG Duration 6 weeks (02/16/23) One Impairment Strength Impairment 01/05/23: 5xSTS = 13 sec Short Term Goal (STG) Patient will improve 5xSTS score to <12 sec indicating improved functional strength. STG Duration 4 weeks (02/02/23) Security Sales Consultant Goal (LTG) Patient and will be independent with HEP and/or transition to community exercise class to reduce risk of functional decline. LTG Duration 6 weeks (02/16/23) Five Impairment patient unable to get into skiff or transfer from skiff into boat Four Impairment requires assistance with SLS and tandem stand to prevent fall Assessment Summary Assessment Pt better understanding posturing and R TKE assisted his balance/ stability during standing balance activity and gait end tx. Initiated HEP: STS and hip extension to support LE strengthening for functional mobility. Provided HOs to for carryover visual set up and performance with written cues provided in tx for home. Physical Therapy Plan Frequency and Duration Frequency of Treatment 1x/Week Duration of treatment (weeks) 6 Plan of Care Start Date 01/05/23 Plan of Care End Date 02/16/23 Therapeutic Interventions Therapeutic Interventions Balance Training,Gait Training ,Home Exercise Program, Neuromuscular Re-education, Patient/Caregiver Education, Self-Care/Home Management, Therapeutic Activities, Therapeutic Exercises Next Visit Focus/Plan Next Note Type Treatment Note Next Visit Plan Recheck HEP: STS, hip ext AROM . Continue safe transfers. POC: Balance training, review current HEP and adjust as needed.
--- NOTE | 2023-01-18 14:16 | PT-OP ANOTE ---
Pt called 12 maybe little late for 1330 appt due to Gusalomon jimenez, did not show by 1417. COMPUTER ASSISTANT called PT and can see pt when arrives, may need wait little if finishing up with another pt. COMPUTER ASSISTANT notified BRIAN and schedulers.
--- NOTE | 2023-01-18 16:11 | PT.OTN ---
Current Diagnoses Unsteadiness on feet (01/18/23) Physical Therapy Treatment Note PT-OP-A Visit Information Start: 01/06/23 13:08 Freq: Status: Active Protocol: Document 01/18/23 15:34 [facility] (Rec: 01/18/23 16:11 [facility] [id number]) Out-Patient Physical Therapy Visit Information Visit Information Visit Type Treatment Note Visit Note 09/23 (20th visit this year) Visit Start Time 15:29 Visit Stop Time 16:07 Total Visit Minutes 38 Visit Number 3 Number of SUPERVISOR LOOPING Visits 0 PT-OP-B Current Condition Start: 01/06/23 13:08 Freq: Status: Active Protocol: Document 01/05/23 13:45 ES (Rec: 01/06/23 13:56 ES [id number]) Current Condition History of Current Condition Onset Date June 2021 Current Complaints Weakness, unsteadiness History of Current Condition Patient had open prostatectomy May 2021. He had a slow recovery and had been having dizzy spells. Was having heart palpitations, being followed by cardiology. Underwent chemo treatments for bladder cancer . He had a series of falls in early 2021. He was seen in PT from November 2021 to October 2022, then had to miss several visit due to having to move so was d/c. He now returns to continue PT services. States he notices his L foot drags when walking. Has been using a walking stick pretty consistently for the past month. Is having difficulty getting in/out of the car. Has been doing his HEP using 3lb weights. Patient reports no falls in the past 2 months. Patient and his are working on moving into a care home home, hoping to do so in the next 2 months. They have a daily group exercise class at the care home home. Treatment Goals Patient/Caregiver Goals To be able to get in/out of the car with less difficulty, to have better balance with walking. PT-OP-C Subjective Start: 01/06/23 13:08 Freq: Status: Active Protocol: Document 01/18/23 15:34 [facility] (Rec: 01/18/23 16:11 [facility] [id number]) OP-PT Subjective Patient Comments Patient Comments pt reports he does not like shuttle balance board and asks not to do it. PT-OP-D Balance Start: 01/06/23 13:08 Freq: Status: Active Protocol: Document 01/05/23 13:45 ES (Rec: 01/06/23 13:56 ES [id number]) Balance Tests Vidal Balance Test Vidal Balance Test Score 46 Vidal Impairment Rating 1 to 19% Impaired (Score 45-55 ) PT-OP-E Functional Tests Start: 01/06/23 13:08 Freq: Status: Active Protocol: Document 01/05/23 13:45 ES (Rec: 01/06/23 13:56 ES [id number]) Functional Tests Dynamic Gait Index (DGI) Score 18 DGI Impairment Rating 20 to <40% Impaired (Score 15- 19) Five Times Sit to Stand Test Score 13 sec Timed Up and Go (TUG) Score 14.3 sec Comments avg of 3 trials TUG Impairment Rating 40 to <60% Impaired (Score 14- 15) PT-OP-G Mobility & Gait Start: 01/06/23 13:08 Freq: Status: Active Protocol: Document 01/05/23 13:45 ES (Rec: 01/06/23 13:56 ES [id number]) OP Gait Assessment Comments Gait Comments Without AD: wide ALMAZ, flexed posture, decreased heel-toe pattern, decreased hip and knee flexion during swing, decreased knee extension during stance, decreased single limb support time, decreased foot clearance, decreased stride length all B. PT-OP-M Strength Start: 01/06/23 13:08 Freq: Status: Active Protocol: Document 01/05/23 13:45 ES (Rec: 01/06/23 13:58 ES [id number]) Hip Strength Hip Manual Muscle Testing Left Flexion (L2) 4- Good- Extension (S1) 4- Good- Abduction 4 Good Adduction 4 Good Right Flexion (L2) 4- Good- Extension (S1) 4- Good- Abduction 4 Good Adduction 4 Good Knee Strength Knee Manual Muscle Testing Left Flexion (S2) 4+ Good+ Extension (L3) 4+ Good+ Right Flexion (S2) 4+ Good+ Extension (L3) 4+ Good+ Ankle/Foot Strength Ankle and Foot Manual Muscle Testing Left Dorsiflexion (L4) 4 Good Plantarflexion (S1) 3+ Fair+ Right Dorsiflexion (L4) 4 Good Plantarflexion (S1) 3+ Fair+ PT-OP-Q Treatments Start: 01/06/23 13:08 Freq: Status: Active Protocol: Document 01/18/23 15:34 [facility] (Rec: 01/18/23 16:11 [facility] [id number]) Cardio Equipment Recumbent Elliptical (Biodex) Duration (Minutes) 5 Resistance 5 Seat Position 10 Gym Equipment Shuttle Recovery bilateral squat Details mod cues full ext Resistance 62# (2 new bands) Reps/Time x15 Neuro Re-Education Treatment Balance Activities hurdles Details 6 hurdles Reps/Duration 4 fwd Comments rails prn (pt keeps handing sliding on) balance board Details fwd & side: balance and wt shifts Surface tilt board foam Surface blue foam Comments WBOS, NBOS :EO, EC, head turns trials staggered stance B step taps Surface 5 step, 4# leg wt Equipment near rail PRN Reps/Duration x10 alterating BLEs PT-OP-T Assessment and Plan Start: 01/06/23 13:08 Freq: Status: Active Protocol: Document 01/18/23 15:34 [facility] (Rec: 01/18/23 16:11 [facility] [id number]) Physical Therapy Assessment Goals Three Impairment Balance Impairment 01/05/23: ABC Scale = 52.5% Senior Living Goal (LTG) Patient will improve ABC scale score to 69% or greater indicating decreased risk for falls. LTG Duration 6 weeks (02/16/23) Two Impairment Balance Impairment 01/05/23: TUG 14.3 sec Crozer Goal (LTG) Patient will improve TUG score without AD to <13 seconds indicating decreased risk for falls. LTG Duration 6 weeks (02/16/23) One Impairment Strength Impairment 01/05/23: 5xSTS = 13 sec Short Term Goal (STG) Patient will improve 5xSTS score to <12 sec indicating improved functional strength. STG Duration 4 weeks (02/02/23) Senior Living Goal (LTG) Patient and will be independent with HEP and/or transition to community exercise class to reduce risk of functional decline. LTG Duration 6 weeks (02/16/23) Five Impairment patient unable to get into skiff or transfer from skiff into boat Four Impairment requires assistance with SLS and tandem stand to prevent fall Assessment Summary Assessment Pt was challenged by all balance activities and requires encouragment for posture including back upright more and less knee flex. He only asked fro 1 seated rest break. Physical Therapy Plan Frequency and Duration Frequency of Treatment 1x/Week Duration of treatment (weeks) 6 Plan of Care Start Date 01/05/23 Plan of Care End Date 02/16/23 Next Visit Focus/Plan Next Note Type Treatment Note Next Visit Plan Balance training, review current HEP and adjust as needed.
--- NOTE | 2023-01-24 17:54 | PT.OTN ---
Addendum entered and electronically signed by Dyana Gómez, PT 01/25/23 07:44: PT direct supervision and direction to PT student. Original Note: Current Diagnoses Unsteadiness on feet (01/24/23) Physical Therapy Treatment Note PT-OP-A Visit Information Start: 01/06/23 13:08 Freq: Status: Active Protocol: Document 01/24/23 10:05 (Rec: 01/24/23 10:09 [id number]) Out-Patient Physical Therapy Visit Information Visit Information Visit Type Treatment Note Visit Note 10/24 (21 visit this year) Visit Start Time 10:03 Visit Stop Time 10:47 Total Visit Minutes 44 Visit Number 4 Number of IRONMOLDER Visits 0 PT-OP-B Current Condition Start: 01/06/23 13:08 Freq: Status: Active Protocol: Document 01/05/23 13:45 ES (Rec: 01/06/23 13:56 ES [id number]) Current Condition History of Current Condition Onset Date June 2021 Current Complaints Weakness, unsteadiness History of Current Condition Patient had open prostatectomy May 2021. He had a slow recovery and had been having dizzy spells. Was having heart palpitations, being followed by cardiology. Underwent chemo treatments for bladder cancer . He had a series of falls in early 2021. He was seen in PT from November 2021 to October 2022, then had to miss several visit due to having to move so was d/c. He now returns to continue PT services. States he notices his L foot drags when walking. Has been using a walking stick pretty consistently for the past month. Is having difficulty getting in/out of the car. Has been doing his HEP using 3lb weights. Patient reports no falls in the past 2 months. Patient and his are working on moving into a [facility] home, hoping to do so in the next 2 months. They have a daily group exercise class at the [facility] home. Treatment Goals Patient/Caregiver Goals To be able to get in/out of the car with less difficulty, to have better balance with walking. PT-OP-C Subjective Start: 01/06/23 13:08 Freq: Status: Active Protocol: Document 01/24/23 10:05 (Rec: 01/24/23 10:09 [id number]) OP-PT Subjective Patient Comments Patient Comments pt has nothing new to report. His and him just sold their house and are moving to [place]. Movers were hired for all of the lifting. PT-OP-D Balance Start: 01/06/23 13:08 Freq: Status: Active Protocol: Document 01/05/23 13:45 ES (Rec: 01/06/23 13:56 ES [id number]) Balance Tests Vidal Balance Test Vidal Balance Test Score 46 Vidal Impairment Rating 1 to 19% Impaired (Score 45-55 ) PT-OP-E Functional Tests Start: 01/06/23 13:08 Freq: Status: Active Protocol: Document 01/05/23 13:45 ES (Rec: 01/06/23 13:56 ES [id number]) Functional Tests Dynamic Gait Index (DGI) Score 18 DGI Impairment Rating 20 to <40% Impaired (Score 15- 19) Five Times Sit to Stand Test Score 13 sec Timed Up and Go (TUG) Score 14.3 sec Comments avg of 3 trials TUG Impairment Rating 40 to <60% Impaired (Score 14- 15) PT-OP-G Mobility & Gait Start: 01/06/23 13:08 Freq: Status: Active Protocol: Document 01/05/23 13:45 ES (Rec: 01/06/23 13:56 ES [id number]) OP Gait Assessment Comments Gait Comments Without AD: wide ALMAZ, flexed posture, decreased heel-toe pattern, decreased hip and knee flexion during swing, decreased knee extension during stance, decreased single limb support time, decreased foot clearance, decreased stride length all B. PT-OP-M Strength Start: 01/06/23 13:08 Freq: Status: Active Protocol: Document 01/05/23 13:45 ES (Rec: 01/06/23 13:58 ES [id number]) Hip Strength Hip Manual Muscle Testing Left Flexion (L2) 4- Good- Extension (S1) 4- Good- Abduction 4 Good Adduction 4 Good Right Flexion (L2) 4- Good- Extension (S1) 4- Good- Abduction 4 Good Adduction 4 Good Knee Strength Knee Manual Muscle Testing Left Flexion (S2) 4+ Good+ Extension (L3) 4+ Good+ Right Flexion (S2) 4+ Good+ Extension (L3) 4+ Good+ Ankle/Foot Strength Ankle and Foot Manual Muscle Testing Left Dorsiflexion (L4) 4 Good Plantarflexion (S1) 3+ Fair+ Right Dorsiflexion (L4) 4 Good Plantarflexion (S1) 3+ Fair+ PT-OP-Q Treatments Start: 01/06/23 13:08 Freq: Status: Active Protocol: Document 01/24/23 10:05 (Rec: 01/24/23 10:09 [id number]) Cardio Equipment Recumbent Elliptical (Biodex) Duration (Minutes) 5 Resistance 5 Seat Position 10 Gym Equipment Shuttle Recovery unilateral squat Details mod cues full ext Resistance 37# (old band) Reps/Time 15x bilateral squat Details mod cues full ext Resistance 62# (2 new bands) Reps/Time 2x15 Therapeutic Exercises Supine Exercises Knee pumps Supine Exercise Name supine knee pumps Side bilateral Reps/Minutes 10x Comments cues for positioning and moving slowly. bridges Supine Exercise Name w/ 3 sec hold Reps/Minutes 10x Comments cues for control and foot placement LTR Supine Exercise Name lower trunk rotation Side bilateral Comments cues for moving legs together slowly Sitting Exercises HS stretch Sitting Exercise Name seated Side bilateral Reps/Minutes [id number] Comments cues for posture and one leg at a time Standing Exercises calf stretch Side bilateral Equipment Used SARA Reps/Minutes [id number] Comments 1 foot a time for balance Neuro Re-Education Treatment Balance Activities foam Surface blue tpads, blue foam Comments 1.blue foam: WBOS, NBOS :EO, EC, head turns trials staggered stance B 2. tpads modified tandem stance: EO, EC, head turns trials staggered stance B PT-OP-T Assessment and Plan Start: 01/06/23 13:08 Freq: Status: Active Protocol: Document 01/24/23 10:05 (Rec: 01/24/23 14:07 [id number]) Physical Therapy Assessment Goals Three Impairment Balance Impairment 01/05/23: ABC Scale = 52.5% Assembly Technician Goal (LTG) Patient will improve ABC scale score to 69% or greater indicating decreased risk for falls. LTG Duration 6 weeks (02/16/23) Two Impairment Balance Impairment 01/05/23: TUG 14.3 sec Group Home Goal (LTG) Patient will improve TUG score without AD to <13 seconds indicating decreased risk for falls. LTG Duration 6 weeks (02/16/23) One Impairment Strength Impairment 01/05/23: 5xSTS = 13 sec Short Term Goal (STG) Patient will improve 5xSTS score to <12 sec indicating improved functional strength. STG Duration 4 weeks (02/02/23) Group Home Goal (LTG) Patient and will be independent with HEP and/or transition to community exercise class to reduce risk of functional decline. LTG Duration 6 weeks (02/16/23) Five Impairment patient unable to get into skiff or transfer from skiff into boat Four Impairment requires assistance with SLS and tandem stand to prevent fall Assessment Summary Assessment Pt does not like the shuttle balance board, he prefers foam pads and Tpads. Balance activites were challenging today. Gait belt was necessary today especially with head turns and pt reached for support of rail more frequently today. Posture cues were needed for all exercises . stretches and supine exercises were reviewed to support functional movement. Physical Therapy Plan Frequency and Duration Frequency of Treatment 1x/Week Duration of treatment (weeks) 6 Plan of Care Start Date 01/05/23 Plan of Care End Date 02/16/23 Next Visit Focus/Plan Next Note Type Treatment Note Next Visit Plan Balance training, review current HEP and adjust as needed.
--- NOTE | 2023-02-27 08:02 | PT.OPDS ---
Current Diagnoses Unsteadiness on feet (01/24/23) Visit Care Team Role Provider Type Maco Schafer MD Attending Provider Physician Family Provider Primary Care Provider Referring Provider Specialty: Internal Medicine Address: [address] [place] [address], [facility] Email: [email or web address] Visit Number Visit Number 4 Discharge Summary PT-OP-B Current Condition Start: 01/06/23 13:08 Freq: Status: Active Protocol: Document 01/05/23 13:45 ES (Rec: 01/06/23 13:56 ES [id number]) Current Condition History of Current Condition Onset Date June 2021 Current Complaints Weakness, unsteadiness History of Current Condition Patient had open prostatectomy May 2021. He had a slow recovery and had been having dizzy spells. Was having heart palpitations, being followed by cardiology. Underwent chemo treatments for bladder cancer . He had a series of falls in early 2021. He was seen in PT from November 2021 to October 2022, then had to miss several visit due to having to move so was d/c. He now returns to continue PT services. States he notices his L foot drags when walking. Has been using a walking stick pretty consistently for the past month. Is having difficulty getting in/out of the car. Has been doing his HEP using 3lb weights. Patient reports no falls in the past 2 months. Patient and his are working on moving into a longterm home, hoping to do so in the next 2 months. They have a daily group exercise class at the longterm home. Treatment Goals Patient/Caregiver Goals To be able to get in/out of the car with less difficulty, to have better balance with walking. PT-OP-C Subjective Start: 01/06/23 13:08 Freq: Status: Active Protocol: Document 01/24/23 10:05 (Rec: 01/24/23 10:09 [id number]) OP-PT Subjective Patient Comments Patient Comments pt has nothing new to report. His and him just sold their house and are moving to [place]. Movers were hired for all of the lifting. PT-OP-D Balance Start: 01/06/23 13:08 Freq: Status: Active Protocol: Document 01/05/23 13:45 ES (Rec: 01/06/23 13:56 ES [id number]) Balance Tests Vidal Balance Test Vidal Balance Test Score 46 Vidal Impairment Rating 1 to 19% Impaired (Score 45-55 ) PT-OP-E Functional Tests Start: 01/06/23 13:08 Freq: Status: Active Protocol: Document 01/05/23 13:45 ES (Rec: 01/06/23 13:56 ES [id number]) Functional Tests Dynamic Gait Index (DGI) Score 18 DGI Impairment Rating 20 to <40% Impaired (Score 15- 19) Five Times Sit to Stand Test Score 13 sec Timed Up and Go (TUG) Score 14.3 sec Comments avg of 3 trials TUG Impairment Rating 40 to <60% Impaired (Score 14- 15) PT-OP-G Mobility & Gait Start: 01/06/23 13:08 Freq: Status: Active Protocol: Document 01/05/23 13:45 ES (Rec: 01/06/23 13:56 ES [id number]) OP Gait Assessment Comments Gait Comments Without AD: wide ALMAZ, flexed posture, decreased heel-toe pattern, decreased hip and knee flexion during swing, decreased knee extension during stance, decreased single limb support time, decreased foot clearance, decreased stride length all B. PT-OP-M Strength Start: 01/06/23 13:08 Freq: Status: Active Protocol: Document 01/05/23 13:45 ES (Rec: 01/06/23 13:58 ES [id number]) Hip Strength Hip Manual Muscle Testing Left Flexion (L2) 4- Good- Extension (S1) 4- Good- Abduction 4 Good Adduction 4 Good Right Flexion (L2) 4- Good- Extension (S1) 4- Good- Abduction 4 Good Adduction 4 Good Knee Strength Knee Manual Muscle Testing Left Flexion (S2) 4+ Good+ Extension (L3) 4+ Good+ Right Flexion (S2) 4+ Good+ Extension (L3) 4+ Good+ Ankle/Foot Strength Ankle and Foot Manual Muscle Testing Left Dorsiflexion (L4) 4 Good Plantarflexion (S1) 3+ Fair+ Right Dorsiflexion (L4) 4 Good Plantarflexion (S1) 3+ Fair+ PT-OP-T Assessment and Plan Start: 01/06/23 13:08 Freq: Status: Active Protocol: Document 02/27/23 07:59 [facility] (Rec: 02/27/23 08:02 [facility] [id number]) Physical Therapy Assessment Goals Three Impairment Balance Impairment 01/05/23: ABC Scale = 52.5% Professional Wrestler Goal (LTG) Patient will improve ABC scale score to 69% or greater indicating decreased risk for falls. LTG Duration 6 weeks (02/16/23) Two Impairment Balance Impairment 01/05/23: TUG 14.3 sec Professional Wrestler Goal (LTG) Patient will improve TUG score without AD to <13 seconds indicating decreased risk for falls. LTG Duration 6 weeks (02/16/23) One Impairment Strength Impairment 01/05/23: 5xSTS = 13 sec Short Term Goal (STG) Patient will improve 5xSTS score to <12 sec indicating improved functional strength. STG Duration 4 weeks (02/02/23) Professional Wrestler Goal (LTG) Patient and will be independent with HEP and/or transition to community exercise class to reduce risk of functional decline. LTG Duration 6 weeks (02/16/23) Five Impairment patient unable to get into skiff or transfer from skiff into boat Four Impairment requires assistance with SLS and tandem stand to prevent fall Assessment Summary Assessment Pt cancelled last visit before POC and had not been seen for 1 month at that time. POC and Balbir Vigil ( PT & trust manager assistant) called pt to inform pt of DC d/t POC expiring on 02/22 and pt did not get messages and showed up for 02/23 appt and was informed all visits need to be cancelled d/t POC expiration. DC pt at this time. Pt was only seen for 5 visits during this time. Physical Therapy Plan Discharge Physical Therapy Discharge Comments pt POC
== END 2023-03-01 12:16 | disposition home or self-care (01) ==
LOC: PHYS 10:00
PROVIDERS: Family Provider Internal Medicine; PCP Internal Medicine; Referring Provider Internal Medicine; Visit Provider Internal Medicine
DX: R26.81 Unsteadiness on feet (principal)
CPT/HCPCS: 97110; 97112; 97161; 97530

== ENCOUNTER → 2023-03-01 15:05 | Outpatient (CLI) | payer MEDICARE, SELFPAY ==
--- NOTE | 2023-03-01 15:07 | DI.RAD.S_ITS ---
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 COMPARISON: [facility], , ANKLE 3 VIEWS LEFT, 04/07/2017, 18:05. FINDINGS: Bones: No fractures or dislocations. Ankle mortise is normally aligned. No suspicious bony lesions. Soft tissues: Small tibiotalar joint effusion. Calcifications within the Achilles tendon. IMPRESSION: No acute bony abnormality. Calcific Achilles tendinopathy. Dictated by: Leonel Castro M.D. on 03/01/2023 at 16:12 Approved by: Leonel Castro M.D. on 03/01/2023 at 16:13
--- NOTE | 2023-03-01 15:07 | DI.RAD.S_ITS ---
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 COMPARISON: [facility], , FOOT 3V LEFT, 04/07/2017, 18:05. FINDINGS: Bones: No fractures or dislocations. No suspicious bony lesions. Calcaneal enthesophyte. Soft tissues: Tiny tibiotalar joint effusion. Calcifications within the Achilles tendon. IMPRESSION: Calcific tendinopathy of the Achilles tendon. No acute bony abnormality. Dictated by: Leonel Castro M.D. on 03/01/2023 at 16:11 Approved by: Leonel Castro M.D. on 03/01/2023 at 16:12
--- NOTE | 2023-03-01 15:07 | DI.RAD.S_ITS ---
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 COMPARISON: None. FINDINGS: Bones: No fractures or dislocations. No suspicious bony lesions. Soft tissues: No suspicious soft tissue calcifications or masses. IMPRESSION: No acute bony abnormality. Dictated by: Leonel Castro M.D. on 03/01/2023 at 16:11 Approved by: Leonel Castro M.D. on 03/01/2023 at 16:11
== END ==
PROVIDERS: Family Provider Internal Medicine; PCP Internal Medicine; Referring Provider Student in an Organized Health Care Education/Training Program; Visit Provider Student in an Organized Health Care Education/Training Program
DX: M77.32 Calcaneal spur, left foot (principal); M25.472 Effusion, left ankle; M65.862 Other synovitis and tenosynovitis, left lower leg; S99.919A Unspecified injury of unspecified ankle, initial encounter; M89.8X6 Other specified disorders of bone, lower leg; M79.672 Pain in left foot
CPT/HCPCS: 73590; 73610; 73630

== ENCOUNTER 2023-03-11 12:45 | Emergency (ER) | payer OTHER, MEDICARE, SELFPAY ==
[2023-03-11 13:36] VITALS: BP 148/70; PULSE 65; RESP 18; TEMP 36.1; O2SAT 96; BMI 25.5
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
--- NOTE | 2023-03-11 15:57 | PC.NURSE ---
Addendum entered by Elaine Cannon R.N. 03/11/23 15:58: Provider notified was [employer]. Original Note: At triage patient requesting chest x-ray only, provider notified and ordered. Patient did not stay for evaluation and treatment. Provider notified that patient had specifically requested chest x-ray and left under own power prior to results.
== END 2023-03-11 15:50 | disposition left against medical advice (07) ==
PROVIDERS: Emergency Provider Emergency Medicine; Family Provider Internal Medicine; PCP Internal Medicine
DX: R07.9 Chest pain, unspecified (principal)
CPT/HCPCS: 71046; 99281

== ENCOUNTER 2023-03-13 10:44 | Inpatient (IN) | payer MEDICARE, SELFPAY ==
[2023-03-13] VITALS (9 sets, daily range): BP systolic 114–145; BP diastolic 56–87; PULSE 62–84; RESP 18–29; TEMP 36.3–37.2; O2SAT 88–95; BMI 27.2
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
[2023-03-13 11:07] LABS: Add Manual Diff / Slide Review NO; Basophils Absolute Auto 0 /uL (0-100); Basophils Percent Auto 0.5 % (0-2); Eosinophils Absolute Auto 0 /uL (0-450); Eosinophils Percent Auto 0.1 % (2-4); Hematocrit 39.7 % (41-53); Hemoglobin 13.9 g/dL (13.5-17.5); Lymphocytes Absolute Auto 1500 /uL (1100-4500); Lymphocytes Percent Auto 19.9 % (25-40); Mean Corpuscular Hemoglobin 33.4 PG (26-34); Mean Corpuscular Volume 95.4 fL (80-100); Monocytes Absolute Auto 900 /uL (0-900); Monocytes Percent Auto 11.9 % (3-14); Neutrophils Absolute Auto 5100 /uL (1500-7000); Neutrophils Percent Auto 67.6 % (50-75); Platelet Count 210 X10^3/uL (150-400); Red Blood Cell Count 4.16 X10^6/uL (4.5-5.9); Red Cell Distribution Width 13.4 % (11.6-14.8); White Blood Cell Count 7.5 X10^3/uL (4.5-11.0)
[2023-03-13 11:21] LABS: Alanine Aminotransferase 27 IU/L (<50); Albumin 4.1 g/dL (3.5-5.0); Albumin Globulin Ratio 1.3 (1.0-2.8); Alkaline Phosphatase 68 U/L (38-126); Aspartate Aminotransferase 42 IU/L (17-59); BUN Creatinine Ratio 28.2 (6-22); Bilirubin Total 1.6 mg/dL (0.2-1.3); Blood Urea Nitrogen 20 mg/dL (9-20); Calcium 9.2 mg/dL (8.4-10.2); Carbon Dioxide 31 mmol/L (22-32); Chloride 100 mmol/L (98-107); Creatine Kinase 310 U/L (55-170); Estimated Glomerular Filt Rate > 60 mL/min (>60); Globulin 3.1 g/dL (1.7-4.1); Glucose 153 mg/dL (80-110); HEMOLYSIS < 15 (0-50); Lipase 44 U/L (23-300); Potassium 3.5 mmol/L (3.4-5.1); Sodium 139 mmol/L (137-145); Total Protein 7.2 g/dL (6.3-8.2)
[2023-03-13] MEDS: SODIUM CHLORIDE 0.9% 1,000 ML 500 ML IV (11:24)
[2023-03-13 11:32] LABS: Troponin I 0.034 ng/mL (0.01-0.034)
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
[2023-03-13 12:08] LABS: Strep Grp A by PCR Rapid Negative (Negative)
[2023-03-13 12:15] LABS: COVID19 -Nasal RAPID POSITIVE (Negative)
--- NOTE | 2023-03-13 12:48 | PC.NURSE ---
Patient states I'm peeing. I asisted patient to catch a small amount of urine in the urinal, his brief was soaked. I changed patient into a dry brief and patient complains of scrotal tenderness, no visual abnormalities, no rash or redness noted. Patient is weak and hardly able to lift his bottom while laying down. He denies shortness of breath, however after changing his brief his oxygen saturation dropped to 88% on room air at rest. I sat patient up in bed, had him take deep breathes and his sats increased to 90% temporarily before decreasing to 87%. Patient was put on 1L NC and oxygen sats now at 93-94% 1L. Provider was made aware of change in patients condition. No further concerns at this time.
[2023-03-13 13:28] LABS: Ictotest Urine Negative (Negative)
[2023-03-13 13:30] LABS: WBC Urine 5-10/HPF (0-5/HPF)
[2023-03-13 13:31] LABS: Bacteria Urine None Seen; Culture Indicated Urine Specimen Cultured; RBC Urine 5-10/HPF (0-5/HPF); Squamous Epithelial Cell Urine 1-5 /HPF (0-5/HPF)
[2023-03-13] MEDS: DEXAMETHASONE 10 MG/ML VIAL 6 MG IV (15:25)
[2023-03-13] MEDS: LACTATED RINGERS 1,000 ML 100 ML IV (15:25)
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
--- NOTE | 2023-03-13 17:13 | DI.RAD.S_ITS ---
PROCEDURE: XR ANKLE LT 2V INDICATIONS: Inability to bear weight TECHNIQUE: 2 views of the ankle were acquired. COMPARISON: [facility], CR, XR ANKLE LT MIN 3V, 03/01/2023, 15:13. FINDINGS: Bones: No fractures or dislocations. Osteoarthritic changes are seen in midfoot and hindfoot joints more notably in tibiotalar joint and subtalar joint. Ankle mortise is normally aligned. No suspicious bony lesions. Soft tissues: No tibiotalar joint effusion. Achilles tendon appears normal. IMPRESSION: No ankle fracture or dislocation. Intact ankle mortise. [id number] midfoot and hindfoot joint osteoarthritis. Dictated by: Shamar Choi M.D. on 03/13/2023 at 18:23 Approved by: Shamar Choi M.D. on 03/13/2023 at 18:23
--- NOTE | 2023-03-13 17:14 | DI.RAD.S_ITS ---
PROCEDURE: XR ANKLE RT 2V INDICATIONS: Inability to bear weight TECHNIQUE: 2 views of the ankle were acquired. COMPARISON: [facility], CR, XR ANKLE LT MIN 3V, 03/01/2023, 15:13. FINDINGS: Bones: No fractures or dislocations. Ankle mortise is normally aligned. Osteoarthritic changes are noted in midfoot and hindfoot joints more notably at tibiotalar joint. No suspicious bony lesions. Soft tissues: No tibiotalar joint effusion. Achilles tendon appears normal. IMPRESSION: No acute right ankle fracture or dislocation. Intact ankle mortise. Midfoot and hindfoot joint osteoarthritis. Dictated by: Shamar Choi M.D. on 03/13/2023 at 18:22 Approved by: Shamar Choi M.D. on 03/13/2023 at 18:23
--- NOTE | 2023-03-13 17:14 | DI.RAD.S_ITS ---
PROCEDURE: XR KNEE LT 1TO2V INDICATIONS: Inability to bear weight TECHNIQUE: 2 views of the knee were acquired. COMPARISON: None. FINDINGS: Bones: No fractures or dislocations. [id number] tricompartmental osteoarthritis is seen more notably in medial femoral tibial compartment. No suspicious bony lesions. Soft tissues: No joint effusion. Chondrocalcinosis in medial and lateral femoral tibial compartments are seen. IMPRESSION: No left knee fracture or dislocation. [id number] tricompartmental osteoarthritis and chondrocalcinosis. Dictated by: Shamar Choi M.D. on 03/13/2023 at 18:21 Approved by: Shamar Choi M.D. on 03/13/2023 at 18:22
--- NOTE | 2023-03-13 17:15 | DI.RAD.S_ITS ---
PROCEDURE: XR KNEE RT 1TO2V INDICATIONS: Inability to bear weight TECHNIQUE: 2 views of the knee were acquired. COMPARISON: None. FINDINGS: Bones: No fractures or dislocations. [id number] tricompartmental osteoarthritis is seen more notably in medial femoral tibial compartment. No suspicious bony lesions. Soft tissues: No joint effusion. No suspicious soft tissue calcifications. IMPRESSION: No acute right knee fracture or dislocation. No significant joint effusion. [id number] tricompartmental osteoarthritis. Dictated by: Shamar Choi M.D. on 03/13/2023 at 18:21 Approved by: Shamar Choi M.D. on 03/13/2023 at 18:21
--- NOTE | 2023-03-13 18:08 | PC.NURSE ---
Patient has ivf infusing and he is resting comfortably. Patients lung sounds cta. He is resting comfortably. Family refused remdesvir. Patient has dementia but has been pleasant and cooperative with care.
[2023-03-13] MEDS: lisinopriL 10 MG TABLET 5 MG PO (20:26)
[2023-03-14] VITALS (9 sets, daily range): BP systolic 111–145; BP diastolic 54–70; PULSE 51–84; RESP 16–19; TEMP 35.7–36.6; O2SAT 91–94
[2023-03-14] MEDS: IBUPROFEN 600 MG TABLET PO ×2 (00:34→20:51)
[2023-03-14] MEDS: LACTATED RINGERS 1,000 ML 100 ML IV ×2 (00:39→10:20)
--- NOTE | 2023-03-14 00:46 | PC.NURSE ---
Addendum entered by Minnie Pan R.N. 03/14/23 04:52: Earlier complained of nausea and was medicated with zofran. Now, when in room, patient suddenly had emesis which was unmeasured. States stomach was upset but denied further nausea after emesis. Bedding and brief changed. Left in upright position. Original Note: Patient is oriented to self, birthdate, age and year. He is clear but delayed in speech and does not open eyes unless asked to do so. Will follow directions and answer questions asked. Breath sounds diminished but CTA with oxygen at 1L/min per NC with sat of 91-92% so now increased to 2L/min with sat of 93%. Does not always leave O2 on. Denies feeling SOB. HR irregular and bradycardic at 50 bpm apically. Denies nausea. BT hypoactive. Incontinent of urine. Is being assisted to reposition q2h although patient can be restless and pulling off gown and pulling at brief. Abrasions to left elbow covered with bandaids. Calf SCD's not placed due to fidgeting, pulling at items and intermittent restlessness. Denied pain during assessment but when repositioned/changed this last time he complained of moderate pain in left chest; when offered pain medication he stated he does like anything strong but was agreeable to taking Ibuprofen. Takes pills whole with pudding. Is on covid precautions as was positive for covid on admission. Fall risk score is high and bed alarm is activated.
[2023-03-14] MEDS: ONDANSETRON 4 MG/2 ML INJ IV (02:10)
[2023-03-14 05:43] LABS: Add Manual Diff / Slide Review NO; Basophils Absolute Auto 0 /uL (0-100); Basophils Percent Auto 0.1 % (0-2); Eosinophils Absolute Auto 0 /uL (0-450); Hematocrit 34.5 % (41-53); Hemoglobin 12.4 g/dL (13.5-17.5); Lymphocytes Absolute Auto 800 /uL (1100-4500); Lymphocytes Percent Auto 10.3 % (25-40); Mean Corpuscular HGB Conc 35.9 % (30-36); Mean Corpuscular Hemoglobin 33.6 PG (26-34); Mean Corpuscular Volume 93.5 fL (80-100); Monocytes Absolute Auto 700 /uL (0-900); Monocytes Percent Auto 8.8 % (3-14); Neutrophils Absolute Auto 6400 /uL (1500-7000); Neutrophils Percent Auto 80.8 % (50-75); Platelet Count 197 X10^3/uL (150-400); Red Blood Cell Count 3.68 X10^6/uL (4.5-5.9); Red Cell Distribution Width 12.9 % (11.6-14.8); White Blood Cell Count 7.9 X10^3/uL (4.5-11.0)
[2023-03-14 05:53] LABS: Alanine Aminotransferase 24 IU/L (<50); Albumin 3.3 g/dL (3.5-5.0); Albumin Globulin Ratio 1.2 (1.0-2.8); Alkaline Phosphatase 55 U/L (38-126); Aspartate Aminotransferase 40 IU/L (17-59); BUN Creatinine Ratio 30.5 (6-22); Bilirubin Total 1.3 mg/dL (0.2-1.3); Blood Urea Nitrogen 18 mg/dL (9-20); Carbon Dioxide 27 mmol/L (22-32); Chloride 102 mmol/L (98-107); Estimated Glomerular Filt Rate > 60 mL/min (>60); Globulin 2.8 g/dL (1.7-4.1); Glucose 190 mg/dL (80-110); HEMOLYSIS < 15 (0-50); Potassium 3.5 mmol/L (3.4-5.1); Sodium 136 mmol/L (137-145); Total Protein 6.1 g/dL (6.3-8.2)
[2023-03-14] MEDS: METOPROLOL ER 25 MG TABLET 12.5 MG PO (09:45)
[2023-03-14] MEDS: DONEPEZIL 5 MG TABLET 10 MG PO (09:45)
[2023-03-14] MEDS: ATORVASTATIN 20 MG TABLET PO (09:45)
[2023-03-14] MEDS: OXYBUTYNIN 5 MG ER TAB 15 MG PO (09:45)
[2023-03-14] MEDS: POTASSIUM CHLORIDE 20 MEQ TAB 40 MEQ PO (09:45)
[2023-03-14] MEDS: DEXAMETHASONE 10 MG/ML VIAL 6 MG IV (09:46)
[2023-03-14] MEDS: SODIUM CHLORIDE 0.9% FLUSH 10 ML IV (09:51)
--- NOTE | 2023-03-14 12:43 | P.PN_ITS ---
Subjective Subjective Interval history: Patient doing well. Now off O2. Will work with PT/OT and can likely dc home if cleared by them. Gen surg rec no intervention for spleen. Exam Vital Signs (past 8 hours): - 03/14/23 05:02 03/14/23 08:00 03/14/23 09:45 Temperature 97.0 F L Blood Pressure 130/55 L Pulse Oximetry 93 Oxygen Delivery Method Room Air Oxygen Flow Rate 0 Fraction of Inspired Oxygen 24 SaO2/FiO2 Ratio 383 Oxygen Delivery Method Room Air Oxygen Flow Rate 0 Narrative Exam Narrative: GEN: Elderly demented male HEENT: moist mucous membranes, PERRL NECK: trachea midline, no JVD CV: regular rate and rhythm, no murmurs PULM: clear bilaterally ABD: soft, nontender, nondistended, no organomegaly EXT: warm and well perfused with no edema NEURO: awake, alert, oriented, no focal deficits Objective Labs 03/14/23 05:09 03/14/23 05:09 Labs: Laboratory Results - last 24 hr 03/13/23 03/13/23 03/14/23 13:17 13:17 05:09 WBC 7.9 RBC 3.68 L Hgb 12.4 L Hct 34.5 L MCV 93.5 MCH 33.6 MCHC 35.9 RDW 12.9 Plt Count 197 Neut % (Auto) 80.8 H Lymph % (Auto) 10.3 L [place] % (Auto) 8.8 Eos % (Auto) 0.0 L Baso % (Auto) 0.1 Neut # (Auto) 6400 Lymph # (Auto) 800 L [place] # (Auto) 700 Eos # (Auto) 0 Baso # (Auto) 0 Sodium Potassium Chloride Carbon Dioxide BUN Creatinine Estimated GFR BUN/Creatinine Ratio Glucose Calcium Total Bilirubin AST ALT Alkaline Phosphatase Total Protein Albumin Globulin Albumin/Globulin Ratio Ur Bilirubin Confirm Negative Urine RBC 5-10/hpf H Urine WBC 5-10/hpf H Ur Squamous Epith Cells 1-5 /hpf Urine Bacteria None seen Ur Culture Indicated? Specimen cultured 03/14/23 05:09 WBC RBC Hgb Hct MCV MCH MCHC RDW Plt Count Neut % (Auto) Lymph % (Auto) [place] % (Auto) Eos % (Auto) Baso % (Auto) Neut # (Auto) Lymph # (Auto) [place] # (Auto) Eos # (Auto) Baso # (Auto) Sodium 136 L Potassium 3.5 Chloride 102 Carbon Dioxide 27 BUN 18 Creatinine 0.59 L Estimated GFR > 60 BUN/Creatinine Ratio 30.5 H Glucose 190 H Calcium 8.0 L Total Bilirubin 1.3 AST 40 ALT 24 Alkaline Phosphatase 55 Total Protein 6.1 L Albumin 3.3 L Globulin 2.8 Albumin/Globulin Ratio 1.2 Ur Bilirubin Confirm Urine RBC Urine WBC Ur Squamous Epith Cells Urine Bacteria Ur Culture Indicated? PFSH Medical History Alzheimer's dementia Bladder calculi DM type 2 with diabetic dyslipidemia Erectile dysfunction Essential hypertension Gait instability GERD (gastroesophageal reflux disease) History of hyperparathyroidism Mixed hyperlipidemia Prostate cancer metastatic to bone Prostatitis Secondary osteoporosis Family History Grandfather Stroke CAD (coronary artery disease) Father CAD (coronary artery disease) Stroke Hyperlipidemia Hypertension Social History marital status: details: (Damari) number of children: 2 household members: spouse occupational status: previously employed current occupational exposures/hazards: No Previous occupational history: retired sexual history: See MANUEL Smoking Status: Never smoker alcohol intake: never caffeine: No Type(s) of exercise: regular exercise frequency: daily duration: 45-60 minutes/day Assessment & Plan Assessment & Plan narrative: # COVID positive with acute hypoxic respiratory failure, now resolved -unclear if hypoxia is from COVID versus recent rib trauma and pleural effusion -will order Decadron 6 mg daily IV until oxygen is weaned off -now off O2, will stop decadron # left 6th rib fracture -incentive spirometry -management per surgery -pain control PRN # dementia -continue aricept daily #HTN -continue lisinopril and metoprolol # metastatic prostate cancer -continue prednisone and abiraterone -continue oxybutynin # HLD -continue statin Medicine will sign off today. Thank you for allowing us to participate in the care of this patient. Should you have any further questions, do not hesitate to speak with us directly or call us.
--- NOTE | 2023-03-14 12:57 | P.PN_ITS ---
Subjective Subjective Date Patient Seen: 03/14/23 Time Patient Seen: 12:57 Interval history: Plain films of lower extremities show no evidence of fracture. Waiting for PT and [employer] evals. Exam Vital Signs (past 8 hours): - 03/14/23 05:02 03/14/23 08:00 03/14/23 09:45 Temperature 97.0 F L Blood Pressure 130/55 L Pulse Oximetry 93 Oxygen Delivery Method Room Air Oxygen Flow Rate 0 Fraction of Inspired Oxygen 24 SaO2/FiO2 Ratio 383 Oxygen Delivery Method Room Air Oxygen Flow Rate 0 Narrative Exam Narrative: asleep Objective Labs 03/14/23 05:09 03/14/23 05:09 Labs: Laboratory Results - last 24 hr 03/13/23 03/13/23 03/14/23 13:17 13:17 05:09 WBC 7.9 RBC 3.68 L Hgb 12.4 L Hct 34.5 L MCV 93.5 MCH 33.6 MCHC 35.9 RDW 12.9 Plt Count 197 Neut % (Auto) 80.8 H Lymph % (Auto) 10.3 L [place] % (Auto) 8.8 Eos % (Auto) 0.0 L Baso % (Auto) 0.1 Neut # (Auto) 6400 Lymph # (Auto) 800 L [place] # (Auto) 700 Eos # (Auto) 0 Baso # (Auto) 0 Sodium Potassium Chloride Carbon Dioxide BUN Creatinine Estimated GFR BUN/Creatinine Ratio Glucose Calcium Total Bilirubin AST ALT Alkaline Phosphatase Total Protein Albumin Globulin Albumin/Globulin Ratio Ur Bilirubin Confirm Negative Urine RBC 5-10/hpf H Urine WBC 5-10/hpf H Ur Squamous Epith Cells 1-5 /hpf Urine Bacteria None seen Ur Culture Indicated? Specimen cultured 03/14/23 05:09 WBC RBC Hgb Hct MCV MCH MCHC RDW Plt Count Neut % (Auto) Lymph % (Auto) [place] % (Auto) Eos % (Auto) Baso % (Auto) Neut # (Auto) Lymph # (Auto) [place] # (Auto) Eos # (Auto) Baso # (Auto) Sodium 136 L Potassium 3.5 Chloride 102 Carbon Dioxide 27 BUN 18 Creatinine 0.59 L Estimated GFR > 60 BUN/Creatinine Ratio 30.5 H Glucose 190 H Calcium 8.0 L Total Bilirubin 1.3 AST 40 ALT 24 Alkaline Phosphatase 55 Total Protein 6.1 L Albumin 3.3 L Globulin 2.8 Albumin/Globulin Ratio 1.2 Ur Bilirubin Confirm Urine RBC Urine WBC Ur Squamous Epith Cells Urine Bacteria Ur Culture Indicated? PFSH Medical History Alzheimer's dementia Bladder calculi DM type 2 with diabetic dyslipidemia Erectile dysfunction Essential hypertension Gait instability GERD (gastroesophageal reflux disease) History of hyperparathyroidism Mixed hyperlipidemia Prostate cancer metastatic to bone Prostatitis Secondary osteoporosis Family History Grandfather Stroke CAD (coronary artery disease) Father CAD (coronary artery disease) Stroke Hyperlipidemia Hypertension Social History marital status: details: (Damari) number of children: 2 household members: spouse occupational status: previously employed current occupational exposures/hazards: No Previous occupational history: retired sexual history: See MANUEL Smoking Status: Never smoker alcohol intake: never caffeine: No Type(s) of exercise: regular exercise frequency: daily duration: 45-60 minutes/day Assessment & Plan Assessment and plan (1) Fracture of rib: Status: Acute Plan Stable from the injury standpoint. Need to determine appropriate placement. He seems quite debilitated, possibly as baseline.
--- NOTE | 2023-03-14 14:30 | CM.DANOTE ---
Discharge Planning Assessment Note PCP: Dr. Schafer Payor: [employer], Medicare Reason for Admit: Pt presented to the ED on 03/13 after c/o continued upper abdominal pain, decreased physical functioning/unable to bear weight, and broken rib. He is diagnosed with early/moderate Alzheimer's dementia, however during the daytime hours (more than evenings) he is able to interact in his decision-making w/assistance from his , is alert and oriented to self/place, as well as indicate his own needs. He becomes more confused and disoriented later in the day and into the evening. He resides at [facility] by himself in independent living, his remains living in their home. His ability to d/c back to facility will depend on his level of care needs based on PT evaluation, which is pending at the time of this assessment. The focus for admission has been primarily for pain control, CT imaging was negative for fractures. Pt's supportive and daughter are both at bedside and involved in his care coordination and d/c needs. Will continue to monitor next steps as his care recommendations are developed. Discharge Planning/Care Management CM Discharge Assessment Start: 03/14/23 14:24 Freq: Status: Active Protocol: Document 03/14/23 14:24 DPL (Rec: 03/14/23 14:30 DPL [id number]) Discharge Planning Assessment Assigned Client Reporting Associate ELIZABET Edward DPOA/Assigned Designee Name Damari Lux Contact Information Advance Directives? Yes Advance Directives on File No History Provided By Family Member Expected Length of Stay 2 Has Patient been admitted in last 30 No days? Prior Living Arrangements Skilled Nursing Facility Household Members spouse Facility Name Admitted From: [facility] Willing to Return to Facility? Yes Independent with ADL's No Is patient alert and oriented? Yes Needs Assistance With Bathing,Grooming,Meal Prep, Toileting,Managing Medications ,Home Chores / Shopping Comment Pt resides alone in an independent living apartment at [facility], still lives at their home in [place]. Caregiver for Another No DME Already Rented / Owned FWW / Walker,Cane Comment Dependent on PT eval/ recommendations-pending. Barriers to Discharge No Discharge Plan Assisted Living Facility Community Services Physical Therapy Transportation Arrangement will most likely transport if PT feels that it' s safe, will monitor. Additional Comment Will initiate SNF for rehab if his current assisted living feels his needs exceed their care. If he can return home, [facility] will order HH for in-home PT. Has Agency SNF been contacted No Whiteboard Updated in Patient Room with Yes name and ext. # of Client Reporting Associate Review Status In Process Please Provide Date Initial DC 03/14/23 Assessment Was Performed
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
[2023-03-14] MEDS: CALCIUM CARBONATE 500 MG TAB 1000 MG PO (18:01)
[2023-03-14] MEDS: lisinopriL 10 MG TABLET 5 MG PO (20:52)
[2023-03-15] VITALS: BP 120/56; PULSE 50; RESP 16; TEMP 36.4; O2SAT 91
[2023-03-15] MEDS: CALCIUM CARBONATE 500 MG TAB 1000 MG PO (05:21)
[2023-03-15 06:04] LABS: BUN Creatinine Ratio 41.7 (6-22); Blood Urea Nitrogen 25 mg/dL (9-20); Carbon Dioxide 31 mmol/L (22-32); Chloride 104 mmol/L (98-107); Estimated Glomerular Filt Rate > 60 mL/min (>60); Glucose 126 mg/dL (80-110); HEMOLYSIS < 15 (0-50); Sodium 137 mmol/L (137-145)
[2023-03-15 07:57] VITALS: O2SAT 91
--- NOTE | 2023-03-15 08:36 | CM.DPC ---
T/C-Left message for Susan at [facility] for rehab referral. Will plan to meet with /dtr this morning to discuss continued d/c plan. Pt presents more disoriented this morning, presented by more suspicious, subdued behavior, not oriented to place, confused about whether or not he's seen his family, and feels as though they dumped him, despite attempts to reassure him by the RN. Will update family once we hear back from [facility].
[2023-03-15 08:45] VITALS: BP 166/69
[2023-03-15] MEDS: DONEPEZIL 5 MG TABLET 10 MG PO (08:45)
[2023-03-15] MEDS: METOPROLOL ER 25 MG TABLET 12.5 MG PO (08:45)
[2023-03-15] MEDS: ATORVASTATIN 20 MG TABLET PO (08:46)
[2023-03-15] MEDS: OXYBUTYNIN 5 MG ER TAB 15 MG PO (08:46)
[2023-03-15 09:16] VITALS: BP 166/69; PULSE 60; RESP 18; TEMP 36.7; O2SAT 91
[2023-03-15] MEDS: ABIRATERONE 250 MG 1000 EACH PO (11:16)
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
[2023-03-15 11:31] LABS: COVID19 -Nasal RAPID POSITIVE (Negative)
[2023-03-15 12:15] VITALS: BP 114/53; PULSE 67; RESP 18; TEMP 36.2; O2SAT 92
--- NOTE | 2023-03-15 15:00 | OT.IPNOTE ---
Pt being discharged, going home with 24/7 assist and home health, defer to home health OT for goals.
--- NOTE | 2023-03-15 15:32 | PC.NURSE ---
Pt is dressed and ready for discharge home with Spouse and Daughter. IV has been removed. Pt agreeable to d/c instructions review with daughter and Spouse. No changes to home medication list. Went over d/c instructions with Daughter and Spouse-discussed d/c meds, time of last dose, reviewed stroke education, discussed follow up appointment. Meds returned to Spouse from pharmacy. Pt and Family denied further questions and Pt was taken out via w/c by BULB PLANTER to POV with family and all belongings.
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
== END 2023-03-15 15:39 | disposition home health service (06) | DRG 205 ==
LOC: ED 10:54 → AC 13:16
PROVIDERS: Student in an Organized Health Care Education/Training Program; Admitting Provider Surgery; Emergency Provider Emergency Medicine; Family Provider Internal Medicine; PCP Internal Medicine; Referring Provider Emergency Medicine; Visit Provider Surgery
DX: S22.32XA Fracture of one rib, left side, initial encounter for closed fracture (principal); J96.01 Acute respiratory failure with hypoxia; U07.1 COVID-19; J90 Pleural effusion, not elsewhere classified; I10 Essential (primary) hypertension; C61 Malignant neoplasm of prostate; E78.5 Hyperlipidemia, unspecified; G30.9 Alzheimer's disease, unspecified; F02.80 Dementia in other diseases classified elsewhere, unspecified severity, without behavioral disturbance, psychotic disturbance, mood disturbance, and anxiety; V89.2XXA Person injured in unspecified motor-vehicle accident, traffic, initial encounter
CPT/HCPCS: 36415; 71046; 71260; 73560; 73600; 74177; 80048; 80053; 81003; 81015; 82550; 82962; 83690; 84484; 85025; 87070; 87086; 87635; 87651; 93005; 94760; 97116; 97162; 97530; 99231; 99232; 99285; C9803; J1100; J2405; Q9967

== ENCOUNTER 2023-03-29 14:40 | Inpatient (IN) | payer MEDICARE, SELFPAY ==
[2023-03-13 14:57] VITALS: BMI 27.2
[2023-03-29] VITALS (19 sets, daily range): BP systolic 124–188; BP diastolic 66–96; PULSE 45–97; RESP 18–26; TEMP 35.9–38.4; O2SAT 92–98; BMI 23.6
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
--- NOTE | 2023-03-29 15:04 | DI.CT.S_ITS ---
PROCEDURE: CT ANGIO CHEST PE PROTOCOL INDICATIONS: Trauma/pain/sepsis TECHNIQUE: After the administration of intravenous contrast, 2 mm thick sections acquired from the pulmonary apices to the posterior costophrenic angles. 3-dimensional maximum intensity projection (MIP) coronal and sagittal reformats were then acquired through the thorax. For radiation dose reduction, the following was used: automated exposure control, adjustment of mA and/or kV according to patient size. COMPARISON: [facility], CT, CT CHEST ABD PEL W CON, 03/13/2023, 12:06. [facility], CT, CT ABDOMEN PELVIS W CON, 03/29/2023, 15:06. FINDINGS: Image quality: Excellent. Pulmonary arteries: Pulmonary arteries are normal in size, and demonstrate no intraluminal filling defects to suggest central pulmonary embolism. Lungs and pleura: There are small bilateral low-density pleural effusions and dependent compressive atelectasis. Trace fluid is also tracking along the oblique fissures bilaterally. No other acute airspace opacities. No pneumothorax. Mediastinum: Heart size is mildly enlarged, without pericardial effusion. No mediastinal or hilar adenopathy. Thoracic aorta is normal in caliber and enhancement. Esophagus is normal in caliber, without hiatal hernia. Bones and chest wall: Innumerable sclerotic lesions are redemonstrated throughout the thoracic spine and ribs. Ribs and thoracic spine appear intact throughout. Thyroid gland is unremarkable. No axillary or supraclavicular adenopathy. Abdomen: There is a low-density left adrenal gland mass suggesting adenoma. A superior pole left renal cyst is incompletely characterized. Visualized upper abdominal solid organs appear normal in the early arterial phase of enhancement. IMPRESSION: 1. No acute pulmonary embolus. 2. Small bilateral low-density pleural effusions and compressive atelectasis at the lung bases. 3. Innumerable sclerotic bone lesions redemonstrated. No new compression deformities of the thoracic spine. Dictated by: Lucía Mullen M.D. on 03/29/2023 at 15:36 Approved by: Lucía Mullen M.D. on 03/29/2023 at 15:41
[2023-03-29 15:06] LABS: Add Manual Diff / Slide Review NO; Basophils Absolute Auto 0 /uL (0-100); Basophils Percent Auto 0.4 % (0-2); Eosinophils Absolute Auto 0 /uL (0-450); Eosinophils Percent Auto 0.3 % (2-4); Hematocrit 36.2 % (41-53); Lymphocytes Absolute Auto 1600 /uL (1100-4500); Lymphocytes Percent Auto 18.7 % (25-40); Mean Corpuscular HGB Conc 35.8 % (30-36); Mean Corpuscular Hemoglobin 32.8 PG (26-34); Mean Corpuscular Volume 91.7 fL (80-100); Monocytes Absolute Auto 1000 /uL (0-900); Monocytes Percent Auto 11.6 % (3-14); Neutrophils Absolute Auto 6100 /uL (1500-7000); Platelet Count 318 X10^3/uL (150-400); Red Blood Cell Count 3.95 X10^6/uL (4.5-5.9); Red Cell Distribution Width 13.2 % (11.6-14.8); White Blood Cell Count 8.8 X10^3/uL (4.5-11.0)
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
[2023-03-29 15:07] LABS: INR 1.2 (0.9-1.3); Prothrombin Time 14.3 SECONDS (10.1-12.7)
[2023-03-29 15:11] LABS: Alanine Aminotransferase 17 IU/L (<50); Albumin 3.5 g/dL (3.5-5.0); Alkaline Phosphatase 113 U/L (38-126); Aspartate Aminotransferase 23 IU/L (17-59); Bilirubin Total 1.9 mg/dL (0.2-1.3); Blood Urea Nitrogen 14 mg/dL (9-20); Calcium 8.7 mg/dL (8.4-10.2); Carbon Dioxide 31 mmol/L (22-32); Chloride 99 mmol/L (98-107); Creatine Kinase 42 U/L (55-170); Estimated Glomerular Filt Rate > 60 mL/min (>60); Globulin 3.4 g/dL (1.7-4.1); Glucose 149 mg/dL (80-110); HEMOLYSIS < 15 (0-50); Lactate (Lactic Acid) 1.6 mmol/L (0.7-2.1); Potassium 3.1 mmol/L (3.4-5.1); Sodium 138 mmol/L (137-145); Total Protein 6.9 g/dL (6.3-8.2)
[2023-03-29 15:20] LABS: PTT Partial Thromboplastin Tim 30 SECONDS (26-36)
[2023-03-29 15:22] LABS: Troponin I 0.068 ng/mL (0.01-0.034)
[2023-03-29 15:27] LABS: Procalcitonin 0.07 ng/mL (<0.5)
[2023-03-29] MEDS: ACETAMINOPHEN IV 1,000 MG/100 ML VIAL 400 MG IV (16:42)
[2023-03-29] MEDS: SODIUM CHLORIDE 0.9% 1,000 ML 1000 ML IV (16:43)
[2023-03-29] MEDS: LIDOCAINE 2% (GLYDO) 6 ML GEL TOP (16:51)
[2023-03-29] MEDS: cefTRIAXone 2,000 MG in SODIUM CHLORIDE 0.9% 100 ML 200 MG IV (17:13)
[2023-03-29 17:34] LABS: Appearance Urine UA CLEAR; Bilirubin Urine UA 1+ (NEGATIVE); Color Urine UA YELLOW; Glucose Urine UA NEGATIVE (Negative); Ketones Urine UA 1+ (NEGATIVE); Leukocyte Esterase Urine UA NEGATIVE (NEGATIVE); Nitrite Urine UA NEGATIVE (Negative); Occult Blood Urine UA TRACE-INTACT (Negative); Protein Urine UA TRACE (Negative); pH Urine UA 6.5 (4.5-8.0)
[2023-03-29 17:46] LABS: Bacteria Urine None Seen; Culture Indicated Urine Cult Not Indicated; Ictotest Urine Negative (Negative); RBC Urine 0-1/HPF (0-5/HPF); Squamous Epithelial Cell Urine 0-1 /HPF (0-5/HPF); WBC Urine None Seen (0-5/HPF)
[2023-03-29] MEDS: DEXTROSE 5%-0.9% NS 1,000 ML 100 ML IV (20:58)
[2023-03-29] MEDS: SODIUM CHLORIDE 0.9% FLUSH 10 ML IV (21:05)
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
[2023-03-29] MEDS: HEPARIN 5,000 UNIT/ML VIAL 5000 UNIT SUBCUT (21:11)
--- NOTE | 2023-03-29 21:17 | DI.MRI.S_ITS ---
PROCEDURE: MR HEAD/BRAIN WO CON INDICATIONS: altered mental status TECHNIQUE: Non-contrast axial T1 spin echo, axial T2 fast spin echo, sagittal and axial FLAIR, coronal T2 fast spin echo, axial gradient echo, axial diffusion and ADC through the brain. COMPARISON: [facility], MR, MR HEAD/BRAIN WO/W CON, 08/16/2021, 10:59. [facility], CT, CT HEAD/BRAIN WO CON, 03/29/2023, 15:06. FINDINGS: Image quality: Diagnostic CSF spaces: Ventricles appear symmetric in size and shape. Basal cisterns are patent. No extra-axial fluid collections. Brain: No intracranial bleeds or mass effects. There is cerebral volume loss for age. There are periventricular and deep white matter chronic small vessel ischemic changes. Brainstem appears normal. Diffusion-weighted images show no acute ischemic insults. No chronic ischemic insults. Normal intravascular flow voids are present. Skull and face: Calvarial bone marrow is normal in signal. Orbits are normal. Sinuses: Mild scattered areas of mucosal thickening can be seen within the paranasal sinuses. No abnormal fluid is seen within the mastoid air cells. IMPRESSION: No findings of acute or subacute infarction can be seen. No acute intracranial process is seen. Note is made of age-appropriate brain parenchymal volume loss and chronic small vessel ischemic changes. Dictated by: Charlie West M.D. on 03/30/2023 at 10:36 Approved by: Charlie West M.D. on 03/30/2023 at 10:40
--- NOTE | 2023-03-29 22:21 | PC.NURSE ---
Pt. admitted to room 214, accompanied by his & children. Unresponsive since admitted in ER. But moving his right arm/hand trying to pull his oxygen cannula & reaching for his hearn catheter. Family was talking to Dr. Man & left after they are done conversing with the doctor. Daughter here now visiting will stay for a little while. Offered that she can stay in the room, but she replied I'll stay in the hotel in town. Will continue plan of care & monitor.
--- NOTE | 2023-03-30 01:12 | PC.NURSE ---
Noted 5 seconds of apnea, RT. notified. Will monitor.
[2023-03-30 05:19] VITALS: BP 140/68; PULSE 61; RESP 20; TEMP 36.3; O2SAT 95
[2023-03-30 05:39] LABS: Add Manual Diff / Slide Review NO; Basophils Absolute Auto 0 /uL (0-100); Basophils Percent Auto 0.6 % (0-2); Eosinophils Absolute Auto 100 /uL (0-450); Hematocrit 33.1 % (41-53); Hemoglobin 11.9 g/dL (13.5-17.5); Lymphocytes Absolute Auto 1200 /uL (1100-4500); Lymphocytes Percent Auto 19.8 % (25-40); Mean Corpuscular Hemoglobin 33.3 PG (26-34); Mean Corpuscular Volume 92.5 fL (80-100); Monocytes Absolute Auto 700 /uL (0-900); Monocytes Percent Auto 11.5 % (3-14); Neutrophils Absolute Auto 4200 /uL (1500-7000); Neutrophils Percent Auto 67.1 % (50-75); Platelet Count 279 X10^3/uL (150-400); Red Blood Cell Count 3.57 X10^6/uL (4.5-5.9); White Blood Cell Count 6.3 X10^3/uL (4.5-11.0)
[2023-03-30 05:47] LABS: Alanine Aminotransferase 14 IU/L (<50); Albumin 2.7 g/dL (3.5-5.0); Alkaline Phosphatase 85 U/L (38-126); Aspartate Aminotransferase 18 IU/L (17-59); Bilirubin Total 1.1 mg/dL (0.2-1.3); Blood Urea Nitrogen 13 mg/dL (9-20); Calcium 8.1 mg/dL (8.4-10.2); Carbon Dioxide 30 mmol/L (22-32); Chloride 102 mmol/L (98-107); Estimated Glomerular Filt Rate > 60 mL/min (>60); Globulin 2.8 g/dL (1.7-4.1); Glucose 154 mg/dL (80-110); HEMOLYSIS < 15 (0-50); Potassium 2.9 mmol/L (3.4-5.1); Sodium 138 mmol/L (137-145); Total Protein 5.5 g/dL (6.3-8.2)
--- NOTE | 2023-03-30 05:54 | PC.NURSE ---
Patient awake asking for glass of water. Assessed his pain he answered no when asked if his in pain. Will monitor.
[2023-03-30 05:59] LABS: Troponin I 0.045 ng/mL (0.01-0.034)
[2023-03-30] MEDS: DEXTROSE 5%-0.9% NS 1,000 ML 100 ML IV ×2 (06:52→17:18)
--- NOTE | 2023-03-30 09:35 | CM.DPNOTE ---
Received a msg from [facility] stating pt is open to service with them for PT and will just need Resumption Orders at d/c and faxed H&P for review to Kay. ELIZABET Guadalupe
[2023-03-30 09:57] VITALS: BP 156/60; PULSE 70; RESP 16; TEMP 36.3; O2SAT 98
[2023-03-30] MEDS: POTASSIUM CHLORIDE 20 MEQ/15 ML UDC 40 MEQ PO ×2 (10:53→17:17)
[2023-03-30] MEDS: SODIUM CHLORIDE 0.9% FLUSH 10 ML IV ×2 (10:55→21:41)
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
--- NOTE | 2023-03-30 14:44 | CM.DPNOTE ---
DCP Note Bonita at [facility] confirms for this MERCHANDISING DIRECTOR that a hospital bed can be delivered today to [facility] and batch roller operator can open care for patient at [facility] between [phone] tomorrow BLS arranged for patient's p/u tomorrow AM at 0900. Lisa at [facility] notified Patient needs an updated POLST Will plan to update Dr Will JW
--- NOTE | 2023-03-30 16:18 | P.DS_ITS ---
History of Present Illness History of Present Illness Chief complaint: Decreased LOC Discharge Providers Provider Date of admission: 03/29/23 18:18 Discharge Date: 03/15/23 Primary care physician: Maco Schafer MD Discharge provider: Ellis Barton MD Exam Vital Signs (past 8 hours): - 03/30/23 09:57 Temperature 97.3 F L Pulse Rate 70 Respiratory Rate 16 Blood Pressure 156/60 H Pulse Oximetry 98 Oxygen Flow Rate 2 Oxygen Delivery Method Nasal Cannula Oxygen Flow Rate 2 Objective Labs 03/30/23 05:12 03/30/23 05:12 Labs: Laboratory Results - last 24 hr 03/29/23 03/30/23 03/30/23 17:23 05:12 05:12 WBC 6.3 RBC 3.57 L Hgb 11.9 L Hct 33.1 L MCV 92.5 MCH 33.3 MCHC 36.0 RDW 13.0 Plt Count 279 Neut % (Auto) 67.1 Lymph % (Auto) 19.8 L [place] % (Auto) 11.5 Eos % (Auto) 1.0 L Baso % (Auto) 0.6 Neut # (Auto) 4200 Lymph # (Auto) 1200 [place] # (Auto) 700 Eos # (Auto) 100 Baso # (Auto) 0 Sodium 138 Potassium 2.9 L Chloride 102 Carbon Dioxide 30 BUN 13 Creatinine 0.50 L Estimated GFR > 60 BUN/Creatinine Ratio 26.0 H Glucose 154 H Calcium 8.1 L Total Bilirubin 1.1 AST 18 ALT 14 Alkaline Phosphatase 85 Troponin I Total Protein 5.5 L Albumin 2.7 L Globulin 2.8 Albumin/Globulin Ratio 1.0 Urine Color Yellow Urine Appearance Clear Urine pH 6.5 Ur Specific [place] 1.010 Urine Protein Trace H Urine Glucose (UA) Negative Urine Ketones 1+ H Urine Occult Blood Trace-intact Urine Nitrate Negative Urine Bilirubin 1+ H Ur Bilirubin Confirm Negative Urine Urobilinogen 4.0 H Ur Leukocyte Esterase Negative Urine RBC 0-1/hpf Urine WBC None seen Ur Squamous Epith Cells 0-1 /hpf Urine Bacteria None seen Ur Culture Indicated? Cult not indicated 03/30/23 05:12 WBC RBC Hgb Hct MCV MCH MCHC RDW Plt Count Neut % (Auto) Lymph % (Auto) [place] % (Auto) Eos % (Auto) Baso % (Auto) Neut # (Auto) Lymph # (Auto) [place] # (Auto) Eos # (Auto) Baso # (Auto) Sodium Potassium Chloride Carbon Dioxide BUN Creatinine Estimated GFR BUN/Creatinine Ratio Glucose Calcium Total Bilirubin AST ALT Alkaline Phosphatase Troponin I 0.045 H Total Protein Albumin Globulin Albumin/Globulin Ratio Urine Color Urine Appearance Urine pH Ur Specific [place] Urine Protein Urine Glucose (UA) Urine Ketones Urine Occult Blood Urine Nitrate Urine Bilirubin Ur Bilirubin Confirm Urine Urobilinogen Ur Leukocyte Esterase Urine RBC Urine WBC Ur Squamous Epith Cells Urine Bacteria Ur Culture Indicated? [facility] Medical History Alzheimer's dementia Bladder calculi DM type 2 with diabetic dyslipidemia Erectile dysfunction Essential hypertension Gait instability GERD (gastroesophageal reflux disease) History of hyperparathyroidism Mixed hyperlipidemia Prostate cancer metastatic to bone Prostatitis Secondary osteoporosis Family History Grandfather Stroke CAD (coronary artery disease) Father CAD (coronary artery disease) Stroke Hyperlipidemia Hypertension Social History marital status: details: (Damari) number of children: 2 household members: spouse occupational status: previously employed current occupational exposures/hazards: No Previous occupational history: retired sexual history: See [employer] Smoking Status: Never smoker alcohol intake: never caffeine: No Type(s) of exercise: regular exercise frequency: daily duration: 45-60 minutes/day Discharge Plan Discharge orders & Medications Prescriptions: No Action lisinopril 10 mg tablet See Rx Instructions .ROUTE .COMPLEX Patient Comments: TAKE 1/2 TABLET BY MOUTH EVERY DAY Rx Instructions: 5 mg orally daily HS metoprolol succinate 25 mg tablet extended release 24 hr 12.5 mg PO DAILY Patient Comments: TAKE 1/2 TABLET BY MOUTH EVERY DAY Rx Instructions: take at bedtime prednisone 5 mg tablet 5 mg PO DAILY Patient Comments: TAKE ONE TABLET BY MOUTH ONE TIME DAILY. TAKE WITH FOOD. abiraterone 250 mg tablet 1,000 mg PO QAM donepezil 10 mg tablet 10 mg PO DAILY Patient Comments: TAKE ONE TABLET BY MOUTH EVERY MORNING triamcinolone acetonide 0.1 % cream 1 applic topical DAILY PRN (Reason: Rash) oxybutynin chloride 15 mg tablet extended release 24hr 15 mg PO DAILY Patient Comments: TAKE ONE TABLET BY MOUTH ONE TIME DAILY Vitamin B-12 500 mcg tablet 500 mcg PO DAILY Vitamin D3 25 mcg tablet 25 mcg PO DAILY ascorbic acid (vitamin C) 500 mg tablet 500 mg PO DAILY rosuvastatin [Crestor] 10 mg tablet 10 mg PO DAILY Follow up/Referrals: Maco Schafer MD [Primary Care Provider] - Discharge Data Primary Care Provider: Maco Schafer V Quality VTE Deep Vein Thrombosis/Pulmonary Embolism Present on Admission: No
[2023-03-30 16:52] VITALS: O2SAT 98
[2023-03-30 17:05] VITALS: RESP 14
[2023-03-30 20:34] VITALS: O2SAT 96
[2023-03-30] MEDS: HEPARIN 5,000 UNIT/ML VIAL 5000 UNIT SUBCUT (21:42)
[2023-03-31 01:00] VITALS: BP 138/82; PULSE 79; RESP 20; TEMP 36.2; O2SAT 93
[2023-03-31] MEDS: DEXTROSE 5%-0.9% NS 1,000 ML 100 ML IV (02:53)
[2023-03-31 07:25] VITALS: PULSE 85; O2SAT 95
[2023-03-31 08:00] VITALS: BP 155/77; PULSE 82; RESP 18; TEMP 36.5; O2SAT 93
--- NOTE | 2023-03-31 10:22 | PC.NURSE ---
Patient is lethargic this morning OX1, denies pain, appears relaxed. Sommers in place. IVF dc'd. He is 93% on RA this a.m. Spouse and daughter notified via phone this a.m. to sign POLST, they are en route to hospital to assist with care prior to BLS transport. POLST form signed and given to Daughter. and daughter in aggreement with transport and plan of care. PIV dc'd, oral care provided, patient repositioned q2 hours. BLS arrived to transport patient at 0850 and patient placed on stretcher for transport to [facility] at 0900 a.m. Family took all personal belongings.
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
--- NOTE | 2023-03-31 13:31 | CM.DPNOTE ---
DC Note Patient discharged this morning back to [facility] via BLS at 0900- [facility] opening their services this morning between [id number] BLS form completed, signed by Dr Will and placed on chart with demo sheet and updated POLST (DNR) for the BLS crew RN updated with plan. RN Lisa and family aware and agreeable to plan [employer] Madisyn assisting this [employer] w/coordination, faxed the signed med list to [facility]. This [employer] had notified Lisa at [facility] yesterday afternoon of this plan and Lisa/JUAREZ stated agreement DC Summary faxed to [facility] JW
== END 2023-03-31 09:00 | disposition hospice, home (50) | DRG 722 ==
LOC: ED 15:49 → AC 18:18
PROVIDERS: Internal Medicine; Admitting Provider Student in an Organized Health Care Education/Training Program; Emergency Provider Emergency Medicine; Family Provider Internal Medicine; PCP Internal Medicine; Referring Provider Emergency Medicine; Visit Provider Student in an Organized Health Care Education/Training Program
DX: C61 Malignant neoplasm of prostate (principal); G93.41 Metabolic encephalopathy; C79.51 Secondary malignant neoplasm of bone; Z66 Do not resuscitate; G30.1 Alzheimer's disease with late onset; F02.B0 Dementia in other diseases classified elsewhere, moderate, without behavioral disturbance, psychotic disturbance, mood disturbance, and anxiety; I10 Essential (primary) hypertension; E11.9 Type 2 diabetes mellitus without complications; Z51.5 Encounter for palliative care; Z86.16 Personal history of COVID-19; E78.2 Mixed hyperlipidemia
CPT/HCPCS: 36415; 70450; 70551; 71275; 72125; 74177; 80053; 81001; 82550; 83605; 84145; 84484; 85025; 85610; 85730; 87040; 93005; 93010; 94760; 94762; 96365; 96375; 99285; J0131; J0696; J1644; Q9967